=== PATIENT | female | born 1960 | race African-American/Black ===

== ENCOUNTER 2017-02-02 16:10 | Emergency (ER) | payer OTHER ==
[2017-02-02 16:27] VITALS: BP 129/89; PULSE 131; TEMP 98; BMI 26.4
--- NOTE | 2017-02-02 16:46 | PDOC ---
History of Present Illness - General Chief Complaint: Alcohol intoxication Stated Complaint: DETOX Time Seen by Provider: 02/02/17 16:45 Past History - Past Medical History Allergies/Adverse Reactions: Allergies Allergy/AdvReac Type Severity Reaction Status Date / Time egg Allergy Severe Vomiting Verified 02/02/17 16:22 Home Medications: Ambulatory Orders Clonazepam [Klonopin] 2 mg PO ASDIR 02/28/13 Venlafaxine HCl [Effexor] 150 mg PO DAILY 02/28/13 Anemia: No Asthma: No Cancer: No Cardiac Disorders: No CVA: No COPD: No CHF: No Dementia: No Diabetes: No GI Disorders: No Disorders: No HTN: No Hypercholesterolemia: Yes Kidney Stones: No Liver Disease: No Psychiatric Problems: Yes (DEPRESSION) Suicide Attempt (Hx): No Seizures: No Thyroid Disease: No - Surgical History Abdominal Surgery: No Appendectomy: No Cardiac Surgery: No Cholecystectomy: No Lung Surgery: No Neurologic Surgery: No Orthopedic Surgery: No - Reproductive History PID: No - Immunization History Immunization Up to Date: Yes - Psycho/Social/Smoking Cessation Hx Anxiety: No Suicidal Ideation: No Smoking Status: No Smoking History: Current every day smoker Have you smoked in the past 12 months: Yes Number of Cigarettes Smoked Daily: 20 Cigars Per Day: 0 Information on smoking cessation initiated: No 'Breaking Loose' booklet given: 02/18/16 Hx Alcohol Use: Yes (5-12 OZ CANS OF BEER DAILY) Drug/Substance Use Hx: Yes (OXYCODONE) Substance Use Type: Alcohol, Opiates Hx Substance Use Treatment: Yes ([facility]) *Physical Exam - Vital Signs Last Vital Signs Temp Pulse Resp BP Pulse Ox 98 F 131 H 22 129/89 97 02/02/17 16:22 02/02/17 16:22 02/02/17 16:22 02/02/17 16:22 02/02/17 16:22 Medical Decision Making - Medical Decision Making 02/02/17 17:38 Patient not in room when I went to see her...... could not find her anywhere. *DC/Admit/Observation/Transfer Diagnosis at time of Disposition: Eloped - Discharge Dispostion Disposition: ELOPED - Attestations Physician Attestion: 02/02/17 16:46 I, Dr. Flaco Erazo, attest that this document has been prepared under my direction and personally reviewed by me in its entirety. I further attest, that it accurately reflects all work, treatment, procedures and medical decision -making performed by me.
== END 2017-02-02 17:34 | disposition left against medical advice (07) ==
LOC: JER 16:10
DX: Z53.21 Procedure and treatment not carried out due to patient leaving prior to being seen by health care provider (principal)
CPT/HCPCS: 99281-25

== ENCOUNTER 2017-02-02 18:38 | Emergency (ER) | payer OTHER ==
[2017-02-02 19:07] VITALS: BMI 25.5
--- NOTE | 2017-02-02 20:02 | PDOC ---
History of Present Illness - General Chief Complaint: Substance Abuse Stated Complaint: DETOX Time Seen by Provider: 02/02/17 20:02 - History of Present Illness Initial Comments: 02/02/17 20:16 56-year-old History of alcohol Percocet abuse report to the ER, "I need detox I have been drinking and now I feel shaky." Previous records reviewed. Patient status post rehabilitation in 2016 at [facility]. Patient has a history of brain aneurysm status post coil. Patient reports head injury status post fall 3 days ago, seen at [place] and CT. head scan was negative.. Patient denies headache , Chest pain, nausea vomiting diarrhea. Patient reports feeling shaky. Last drink was 2 hours ago. Past History - Past Medical History Allergies/Adverse Reactions: Allergies Allergy/AdvReac Type Severity Reaction Status Date / Time egg Allergy Severe Vomiting Verified 02/02/17 19:04 Home Medications: Ambulatory Orders Clonazepam [Klonopin] 2 mg PO ASDIR 02/28/13 Venlafaxine HCl [Effexor] 150 mg PO DAILY 02/28/13 Anemia: No Asthma: No Cancer: No Cardiac Disorders: No CVA: No COPD: No CHF: No Dementia: No Diabetes: No GI Disorders: No Disorders: No HTN: No Hypercholesterolemia: Yes Kidney Stones: No Liver Disease: No Psychiatric Problems: Yes (DEPRESSION) Suicide Attempt (Hx): No Seizures: No Thyroid Disease: No - Surgical History Abdominal Surgery: No Appendectomy: No Cardiac Surgery: No Cholecystectomy: No Lung Surgery: No Neurologic Surgery: No Orthopedic Surgery: No - Reproductive History PID: No - Immunization History Immunization Up to Date: Yes - Psycho/Social/Smoking Cessation Hx Anxiety: No Suicidal Ideation: No Smoking Status: No Smoking History: Current every day smoker Have you smoked in the past 12 months: Yes Number of Cigarettes Smoked Daily: 20 Cigars Per Day: 0 Information on smoking cessation initiated: No 'Breaking Loose' booklet given: 02/18/16 Hx Alcohol Use: Yes (BEER-5-12OZ CANS DAILY) Drug/Substance Use Hx: Yes (OPIATES) Substance Use Type: Alcohol, Opiates (percocet) Hx Substance Use Treatment: Yes ([facility]) Lives with/in: spouse/SO Review of Systems - Review of Systems Able to Perform ROS?: Yes Is the patient limited Arabic proficient: No Constitutional: Yes: Other (renetta) *Physical Exam - Vital Signs Last Vital Signs Temp Pulse Resp BP Pulse Ox 98 F 128 H 19 112/71 98 02/02/17 19:04 02/02/17 19:04 02/02/17 19:04 02/02/17 19:04 02/02/17 19:04 - Physical Exam General Appearance: Yes: Disheveled, Alcohol on Breath Cardiovascular: positive: Regular Rhythm, Regular Rate Extremity: positive: Normal Capillary Refill, Normal Inspection, Normal Range of Motion, Other (extremity slight ) Integumentary: positive: Normal Color, Dry, Warm Neurologic: positive: Fully Oriented, Alert, Normal Mood/Affect Heart Score/ECG Review - ECG Intrepretation Rhythm: Regular Rhythm Comment:: 02/02/17 22:00 Sinus tachycardia 120bpm ED Treatment Course - LABORATORY CBC & Chemistry Diagram: 02/02/17 20:28 02/02/17 20:28 Medical Decision Making - Medical Decision Making A: alcohol abuse with intend to detox P: cbc cmp alcohol level tylenol level 02/02/17 23:00 patient awake. unable to walk. will wait for sobriety prior to discharge. patient is still asking to go to detox. 02/03/17 00:24 patient alert awake. patient requesting detox. will sent to [facility] intake by security *DC/Admit/Observation/Transfer Diagnosis at time of Disposition: Alcohol dependence with uncomplicated withdrawal - Discharge Dispostion Disposition: HOME - Patient Instructions Printed Discharge Instructions: DI for Alcohol Abuse
[2017-02-02] MEDS ORDERED: FOLIC ACID INJECTION - 1 MG, THIAMINE HCL 100 MG, MULTIVIT INJECTION ADULT 10 ML in SOD... IVPB ONE (20:10)
[2017-02-02 20:35] LABS: URINE APPEARANCE CLEAR; URINE BILIRUBIN NEGATIVE (NEGATIVE); URINE BLOOD 1+ (NEGATIVE); URINE COLOR STRAW; URINE GLUCOSE (UA) NEGATIVE (NEGATIVE); URINE KETONE NEGATIVE (NEGATIVE); URINE LEUK ESTERASE NEGATIVE (NEGATIVE); URINE NITRITE NEGATIVE (NEGATIVE); URINE PROTEIN NEGATIVE (NEGATIVE); URINE UROBILINOGEN NEGATIVE mg/dL (0.2-1.0)
[2017-02-02 20:38] LABS: URINE MUCUS RARE; URINE RBC 1 /hpf (0-3); URINE WBC 1 /hpf (3-5)
[2017-02-02 20:51] LABS: URINE MARIJUANA THC NEGATIVE ng/ml (CUTOFF=50)
[2017-02-02 20:54] LABS: BASOPHIL 1.5 % (0-2.0); EOSINOPHIL 0.5 % (0-4.5); MCH 28.8 pg (25.7-33.7); MCHC 32.5 g/dl (32.0-36.0); MEAN CELL VOLUME 88.8 fl (80-96); MEAN PLT VOLUME 7.8 fl (7.5-11.1); PLATELET COUNT 326 K/MM3 (134-434); RDW 15.8 % (11.6-15.6); WHITE BLOOD COUNT 11.5 K/mm3 (4.0-10.0)
[2017-02-02 21:06] LABS: INR 1.05 (0.82-1.09); PROTHROMBIN TIME (PATIENT) 11.6 SEC (9.98-11.88)
[2017-02-02] MEDS ORDERED: chlordiazePOXIDE HCL 25 MG CAPSULE PO ONE (21:32)
[2017-02-02 21:39] LABS: SALICYLATE < 4.0 mg/dl (0.0-30.0)
[2017-02-02 21:41] LABS: ALBUMIN 4.2 g/dl (3.4-5.0); ANION GAP 11 (8-16); BILIRUBIN,TOTAL 0.3 mg/dL (0.2-1.0); CALCIUM 9.7 mg/dL (8.5-10.1); CO2 26 mmol/L (21-32); CREATININE 0.7 mg/dL (0.55-1.02); GLUCOSE,RANDOM 99 mg/dL (74-106); SGOT/AST 19 U/L (15-37); SGPT/ALT 21 U/L (12-78); TOT PROT 8.1 g/dl (6.4-8.2)
[2017-02-02 21:42] LABS: ALCOHOL 201.5 mg/dl (0-5); ALK PHOS 79 U/L (45-117)
[2017-02-02] MEDS ORDERED: chlordiazePOXIDE HCL 25 MG CAPSULE ONE (22:13)
[2017-02-02 22:54] VITALS: TEMP 97.7
[2017-02-03 00:32] VITALS: BP 128/96; PULSE 102
--- NOTE | 2017-02-03 20:28 | EKG ---
Test Reason : Blood Pressure : / mmHG Vent. Rate : 120 BPM Atrial Rate : 120 BPM P-R Int : 158 ms QRS Dur : 078 ms QT Int : 318 ms P-R-T Axes : 065 089 064 degrees QTc Int : 449 ms SINUS TACHYCARDIA PROLONGED QTc ATRIAL ABNORMALITY DIFFUSE ST ABNORMALITIES NO PREVIOUS ECGS AVAILABLE CLINICAL CORRELATION IS RECOMMENDED Confirmed by DOMI BUSBY MD ([id number]) on 02/03/2017 8:28:22 PM Referred By: Confirmed By:DOMI BUSBY MD
== END 2017-02-03 00:44 | disposition home or self-care (01) ==
LOC: JER 18:38
PROC: 3E033GC Introduction of Other Therapeutic Substance into Peripheral Vein, Percutaneous Approach (ICD-10-PCS; principal; 2017-02-02)
DX: F10.220 Alcohol dependence with intoxication, uncomplicated (principal); Y90.7 Blood alcohol level of 200-239 mg/100 ml; F10.20 Alcohol dependence, uncomplicated; F32.9 Major depressive disorder, single episode, unspecified
CPT/HCPCS: 36415; 80053; 80307; 81003; 81015; 85025; 85610; 93005; 93010; 96365; 96366; 99283-25

== ENCOUNTER 2017-02-03 01:10 | Inpatient (IN) | payer OTHER ==
[2017-02-03 10:49] VITALS: BMI 28.0
--- NOTE | 2017-02-03 13:22 | HP ---
COWS - Scale Resting Pulse: 4= DC > 121 Sweatin=Flushed/Facial Moisture Restless Observation: 1= Difficult to Sit Still Pupil Size: 0= Normal to Room Light Bone or Joint Aches: 2= Severe Diffuse Aches Runny Nose/ Eye Tearin= Runny Nose/Eyes GI Upset > 30mins: 2= Nausea/Diarrhea Tremor Observation: 2= Slight Tremor Visible Yawning Observation: 2= >3x During Session Anxiety or Irritability: 2=Irritable/Anxious Goose Flesh Skin: 3=Piloerection COWS Score: 22 CIWA Score - CIWA Score Nausea/Vomitin-Mild Nausea/No Vomiting Muscle Tremors: 4-Moderate,w/Arms Extend Anxiety: 3 Agitation: 4-Moderately Restless Paroxysmal Sweats: 3 Orientation: 0-Oriented Tacttile Disturbances: 0-None Auditory Disturbances: 0-None Visual Disturbances: 0-None Headache: 0-None Present CIWA-Ar Total Score: 15 Admission ROS S - HPI Chief Complaint: I am here for detox. Allergies/Adverse Reactions: Allergies Allergy/AdvReac Type Severity Reaction Status Date / Time egg Allergy Severe Vomiting Verified 02/03/17 12:06 NKDA Allergy Uncoded 02/03/17 12:06 History of Present Illness: pt is a 56yr old female with a history of alcohol and percocet dependence seeking detox for treatment. Exam Limitations: No Limitations - Ebola screening Have you traveled outside of the country in the last 21 days: No Have you had contact with anyone from an Ebola affected area: No Have you been sick,other than usual withdrawal symptoms: No Do you have a fever: No - Review of Systems Constitutional: Chills, Diaphoresis, Loss of Appetite, Night Sweats EENT: reports: No Symptoms Reported Respiratory: reports: No Symptoms reported Cardiac: reports: Syncope GI: reports: Diarrhea, Nausea, Poor Fluid Intake : reports: No Symptoms Reported Musculoskeletal: reports: Other Integumentary: reports: Bruising (right side of forehead d/t fall), Flushing Neuro: reports: Tingling, Tremors Endocrine: reports: Excessive Sweating, Flushing, Intolerance to Cold, Intolerance to Heat Hematology: reports: No Symptoms Reported Psychiatric: reports: Judgement Intact, Mood/Affect Appropiate, Orientated x3, Agitated, Anxious, Depressed (crying during interview) Other Systems: Reviewed and Negative Patient History - Patient Medical History Hx Anemia: No Hx Asthma: No Hx Chronic Obstructive Pulmonary Disease (COPD): No Hx Cancer: No Hx Cardiac Disorders: No Hx Congestive Heart Failure: No Hx Hypertension: No Hx Hypercholesterolemia: Yes Hx Pacemaker: No HX Cerebrovascular Accident: No Hx Seizures: No Hx Dementia: No Hx Diabetes: No Hx Gastrointestinal Disorders: No Hx Liver Disease: No Hx Genitourinary Disorders: No Hx Sexually Transmitted Disorders: No Hx Renal Disease (ESRD): No Hx Thyroid Disease: No Hx Human Immunodeficiency Virus (HIV): No (negative) Hx Hepatitis C: No (negative) Hx Depression: Yes Hx Suicide Attempt: No (denies) Hx Bipolar Disorder: No Hx Schizophrenia: No - Patient Surgical History Past Surgical History: Yes Hx Neurologic Surgery: Yes (brain aneurysm in 2009) Hx Cataract Extraction: No Hx Cardiac Surgery: No Hx Lung Surgery: No Hx Breast Surgery: No Hx Breast Biopsy: No Hx Abdominal Surgery: No Hx Appendectomy: No Hx Cholecystectomy: No Hx Genitourinary Surgery: No Hx Section: No Hx Orthopedic Surgery: No Other Surgical History: 2010 BRAIN ANURSYM REPAIR Anesthesia Reaction: No - PPD History Previous Implant?: Yes Documented Results: Negative w/proof Implanted On Prior R Admission?: Yes Date: 02/20/16 Results: 0 mm PPD to be Administered?: No - Reproductive History Patient : No - Smoking Cessation Smoking history: Current every day smoker Have you smoked in the past 12 months: Yes Aproximately how many cigarettes per day: 20 Cigars Per Day: 0 Hx Chewing Tobacco Use: No Initiated information on smoking cessation: Yes 'Breaking Loose' booklet given: 02/03/17 - Substance & Tx. History Hx Alcohol Use: Yes Hx Substance Use: Yes Substance Use Type: Alcohol, Opiates Hx Substance Use Treatment: Yes ([facility] 02/2016) - Substances Abused Percocet Route: Oral Frequency: Daily Amount used: 10-15 tabs. (10 mg.) Age of first use: 55 Date of Last Use: 02/01/17 Alcohol-beer Route: Oral Frequency: Daily Amount used: 12 (24 oz.) Age of first use: 19 Date of Last Use: 02/03/17 Family Disease History - Family Disease History Family Disease History: Heart Disease: Father (), Mother Admission Physical Exam BHS - Vital Signs Vital Signs: Vital Signs - 24 hr 02/03/17 10:44 Temperature 96.3 F L Pulse Rate 123 H Respiratory 19 Rate Blood Pressure 151/97 - Physical General Appearance: Yes: Disheveled, Moderate Distress, Tremorous, Irritable, Sweating, Anxious HEENTM: Yes: Normal Voice, Nasal Congestion, Rhinorrhea Respiratory: Yes: Lungs Clear, Normal Breath Sounds, No Respiratory Distress Neck: Yes: No masses,lesions,Nodules Cardiology: Yes: Regular Rhythm, Regular Rate, S1, S2 Abdominal: Yes: Normal Bowel Sounds, Non Tender, Soft Genitourinary: Yes: Within Normal Limits Back: Yes: Normal Inspection Musculoskeletal: Yes: Gait Steady Extremities: Yes: Normal Inspection, Non-Tender, Tremors Neurological: Yes: Fully Oriented, Alert, Normal Response Integumentary: Yes: Normal Color, Diaphoresis Lymphatic: Yes: Within Normal Limits - Diagnostic (1) Alcohol dependence with uncomplicated withdrawal Current Visit: Yes Status: Chronic (2) Nicotine dependence Current Visit: Yes Status: Chronic Qualifiers: Nicotine product type: cigarettes Substance use status: uncomplicated Qualified Code(s): F17.210 - Nicotine dependence, cigarettes, uncomplicated (3) Opioid dependence with withdrawal Current Visit: Yes Status: Chronic (4) Bruise of face Current Visit: Yes Status: Acute Qualifiers: Encounter type: initial encounter Qualified Code(s): S00.83XA - Contusion of other part of head, initial encounter Comment: bruise of forehead d/t fall a couple of days ago. Cleared for Admission [facility] - Detox or Rehab [facility] Level of Care: Medically Managed Detox Regimen/Protocol: Methadone/Librium [facility] Breath Alcohol Content Breath Alcohol Content: 0.058 Urine Pregancy Test - Result Urine Test Results: Negative- NO Line Present Urine Drug Screen - Results Drug Screen Negative: No Urine Drug Screen Results: BZO-Benzodiazepines, OXY-Oxycodone
[2017-02-03] MEDS ORDERED: MAGNESIUM HYDROX 2400MG/30ML ORAL SUSPENSION 30 ML CUP PO PRN (13:34)
[2017-02-03] MEDS ORDERED: MAG HYDROX/AL HYDROX/SIMETH 30 ML UNIT-DOSE CUP PO PRN (13:34)
[2017-02-03] MEDS ORDERED: IBUPROFEN 400 MG TABLET (FP) PO PRN (13:34)
[2017-02-03] MEDS ORDERED: diphenhydrAMINE HCL 50 MG CAPSULE PO PRN (13:34)
[2017-02-03] MEDS ORDERED: NICOTINE POLACRILEX 4 MG GUM BUC PRN (13:34)
[2017-02-03] MEDS ORDERED: LOPERAMIDE HCL 2 MG CAPSULE PO PRN (13:34)
[2017-02-03] MEDS ORDERED: MAGNESIUM CITRATE 300 ML BOTTLE PO PRN (13:34)
[2017-02-03] MEDS ORDERED: P-EPHED 60MG/TRIPROLIDI 2.5MG TABLET PO PRN (13:34)
[2017-02-03] MEDS ORDERED: hydrOXYzine PAMOATE 50 MG CAPSULE (FP) PO PRN (13:34)
[2017-02-03] MEDS ORDERED: METHADONE HCL 10 MG TABLET (FOR DETOX USE ONLY) PO ONE ×2 (13:51→23:00)
[2017-02-03] MEDS ORDERED: chlordiazePOXIDE HCL 25 MG CAPSULE PO ONE ×2 (14:16→15:50)
[2017-02-03] MEDS: NICOTINE 21 MG/24 HOURS TOPICAL PATCH TD SCH (14:51)
[2017-02-03] MEDS: chlordiazePOXIDE HCL 25 MG CAPSULE PO SCH ×2 (17:03→22:14)
[2017-02-03] MEDS: ACETAMINOPHEN 325 MG TABLET (FP) PO PRN (17:45)
[2017-02-03] MEDS: chlordiazePOXIDE HCL 25 MG CAPSULE PO PRN (19:53)
[2017-02-03] MEDS: BACITRACIN 0.9 GM PACKET TP SCH (22:13)
[2017-02-03] MEDS: THIAMINE HCL 100 MG TABLET (FP) PO SCH (22:14)
[2017-02-03] MEDS: ATORVASTATIN CA 40 MG TABLET (FP) PO SCH (22:14)
[2017-02-03 23:21] LABS: URINE APPEARANCE CLEAR; URINE BILIRUBIN NEGATIVE (NEGATIVE); URINE BLOOD 1+ (NEGATIVE); URINE COLOR LTYELLOW; URINE GLUCOSE (UA) NEGATIVE (NEGATIVE); URINE KETONE NEGATIVE (NEGATIVE); URINE LEUK ESTERASE TRACE (NEGATIVE); URINE NITRITE NEGATIVE (NEGATIVE); URINE PROTEIN NEGATIVE (NEGATIVE); URINE UROBILINOGEN NEGATIVE mg/dL (0.2-1.0)
[2017-02-03 23:30] LABS: URINE BACTERIA RARE /hpf (NONE SEEN); URINE MUCUS RARE; URINE WBC 2 /hpf (3-5)
[2017-02-04] MEDS: chlordiazePOXIDE HCL 25 MG CAPSULE PO PRN ×2 (02:41→15:21)
[2017-02-04] MEDS: chlordiazePOXIDE HCL 25 MG CAPSULE PO SCH ×4 (05:13→22:11)
--- NOTE | 2017-02-04 09:08 | CONSULT ---
[facility] Psychiatric Consult - Data Date of interview: 02/04/17 Admission source: [facility] Identifying data: This is 36 years old female with psychiatric hospitalization history, history of MDD, intoxicated with: Alcohol, Opioids and Nicotine Substance Abuse History: - Smoking Cessation. Smoking history: Current every day smoker. Have you smoked in the past 12 months: Yes. Aproximately how many cigarettes per day: 20. Cigars Per Day: 0. Hx Chewing Tobacco Use: No. Initiated information on smoking cessation: Yes. 'Breaking Loose' booklet given : 02/03/17. - Substance & Tx. History. Hx Alcohol Use: Yes. Hx Substance Use : Yes. Substance Use Type: Alcohol, Opiates. Hx Substance Use Treatment: Yes ( [facility] 02/2016). - Substances Abused. Percocet. Route: Oral. Frequency: Daily. Amount used: 10-15 tabs. (10 mg.). Age of first use: 55. Date of Last Use: 02/01/17. Alcohol-beer. Route: Oral. Frequency: Daily. Amount used: 12 (24 oz.). Age of first use: 19. Date of Last Use: 02/03/17. Family Disease History. - Family Disease History. Family Disease History: Heart Disease: Father (), Mother Medical History: LBP, Psychiatric History: Patient reports history of depression,. reports taking prior to admission: Effexor XR 300mg poqd. Seroquel 1009mg po qhs. Patient reports most recent psychiatric admission on 2013 at [facility] Physical/Sexual Abuse/Trauma History: Denies Additional Comment: Effexor XR 300mg poqd. Seroquel 1009mg po qhs Mental Status Exam - Mental Status Exam Alert and Oriented to: Person Cognitive Function: Fair Patient Appearance: Unkempt Mood: Sad Affect: Flat Patient Behavior: Cooperative Speech Pattern: Appropriate, Delayed Voice Loudness: Mildly Soft/Quiet Thought Process: Goal Oriented Thought Disorder: Being Controlled Hallucinations: Denies Suicidal Ideation: Denies Homicidal Ideation: Denies Insight/Judgement: Fair Sleep: Difficulty falling asleep Appetite: Fair Muscle strength/Tone: Mild Hypotonicity Gait/Station: Shuffling Additional Comments: Effexor XR 300mg poqd. Seroquel 1009mg po qhs Psychiatric Findings - Problem List ([place] 1, 2,3) (1) Alcohol dependence with uncomplicated withdrawal Current Visit: Yes Status: Chronic (2) Nicotine dependence Current Visit: Yes Status: Chronic Qualifiers: Nicotine product type: cigarettes Substance use status: uncomplicated Qualified Code(s): F17.210 - Nicotine dependence, cigarettes, uncomplicated (3) Opioid dependence with withdrawal Current Visit: Yes Status: Chronic (4) Substance abuse Current Visit: No Status: Acute (5) Substance induced mood disorder Current Visit: No Status: Acute (6) Major depressive disorder, recurrent, moderate Current Visit: No Status: Chronic - Initial Treatment Plan Initial Treatment Plan: Effexor XR 300mg poqd. Seroquel 1009mg po qhs
[2017-02-04] MEDS ORDERED: METHADONE HCL 10 MG TABLET (FOR DETOX USE ONLY) PO SCH (10:00)
[2017-02-04] MEDS: PRENATAL VITAMINS W/ FOLIC ACID TABLET (FP) PO SCH (10:02)
[2017-02-04] MEDS: BACITRACIN 0.9 GM PACKET TP SCH ×2 (10:02→22:11)
[2017-02-04] MEDS: NICOTINE 21 MG/24 HOURS TOPICAL PATCH TD SCH ×2 (10:02→10:03)
[2017-02-04] MEDS: RANITIDINE HCL 150 MG TABLET (FP) PO SCH ×2 (10:03→22:11)
[2017-02-04] MEDS: VENLAFAXINE HCL 150 MG E.R. CAPSULE PO SCH (10:03)
--- NOTE | 2017-02-04 10:08 | PN ---
[facility] CIWA - CIWA Score Nausea/Vomitin Muscle Tremors: 3 Anxiety: 3 Agitation: 2 Paroxysmal Sweats: 1-Minimal Palms Moist Orientation: 0-Oriented Tacttile Disturbances: 1-Very Mild Itch/Numbness Auditory Disturbances: 1-Very Mild Visual Disturbances: 1-Very Mild Sensitivity Headache: 2-Mild CIWA-Ar Total Score: 17 BHS COWS - Scale Resting Pulse: 2= [place] 101-120 Sweatin= Chills/Flushing Restless Observation: 3= Extraneous Movement Pupil Size: 1= Pupils >than Normal Bone or Joint Aches: 2= Severe Diffuse Aches Runny Nose/ Eye Tearin= Runny Nose/Eyes GI Upset > 30mins: 2= Nausea/Diarrhea Tremor Observation of Outstretched Hands: 2= Slight Tremor Visible Yawning Observation: 1= 1-2x During Session Anxiety or Irritability: 2=Irritable/Anxious Goose Flesh Skin: 0=Smooth Skin COWS Score: 18 S Progress Note (SOAP) Subjective: ALERT,IRRITABLE,ANXIOUS,INTERRUPTED SLEEP,PAIN IN THE BODY,COUGHING Objective: 02/04/17 10:05 Vital Signs Temperature 98.1 F 02/04/17 09:32 Pulse Rate 111 H 02/04/17 09:32 Respiratory Rate 20 02/04/17 09:32 Blood Pressure 115/69 02/04/17 09:32 O2 Sat by Pulse Oximetry (%) EKG SINUS TACHYCARDIA 111/MIN,INVERTED T IN V2 AND V3 NO CHEST PAIN,NO SOB,NO DIZZINESS Laboratory Last Values Urine Color Ltyellow 02/03/17 20:00 Urine Appearance Clear 02/03/17 20:00 Urine pH 5.0 (5.0-8.0) 02/03/17 20:00 Urine Protein Negative (NEGATIVE) 02/03/17 20:00 Urine Glucose (UA) Negative (NEGATIVE) 02/03/17 20:00 Urine Ketones Negative (NEGATIVE) 02/03/17 20:00 Urine Blood 1+ (NEGATIVE) H 02/03/17 20:00 Urine Nitrite Negative (NEGATIVE) 02/03/17 20:00 Urine Bilirubin Negative (NEGATIVE) 02/03/17 20:00 Urine Urobilinogen Negative mg/dL (0.2-1.0) 02/03/17 20:00 Ur Leukocyte Esterase Trace (NEGATIVE) 02/03/17 20:00 Urine RBC None /hpf (0-3) 02/03/17 20:00 Urine WBC 2 /hpf (3-5) 02/03/17 20:00 Ur Epithelial Cells Few /hpf (FEW) 02/03/17 20:00 Urine Bacteria Rare /hpf (NONE SEEN) 02/03/17 20:00 Urine Mucus Rare 02/03/17 20:00 LABS PENDING Assessment: 02/04/17 10:07 WITHDRAWAL SYMPTOM Plan: CONTINUE DETOX
[2017-02-04] MEDS: HYDROCORTISONE 2.5% TOPICAL CREAM 30 GM TUBE TP SCH ×2 (12:01→23:14)
--- NOTE | 2017-02-04 12:22 | EKG ---
Test Reason : Blood Pressure : / mmHG Vent. Rate : 111 BPM Atrial Rate : 111 BPM P-R Int : 154 ms QRS Dur : 078 ms QT Int : 346 ms P-R-T Axes : 067 065 057 degrees QTc Int : 470 ms SINUS TACHYCARDIA POSSIBLE LEFT ATRIAL ENLARGEMENT T WAVE ABNORMALITY, CONSIDER ANTERIOR ISCHEMIA ABNORMAL ECG WHEN COMPARED WITH ECG OF 02-FEB-2017 21:29, T WAVE INVERSION NOW EVIDENT IN ANTERIOR LEADS Confirmed by TONYA ROSAS, SANDEE ([id number]) on 02/04/2017 12:22:07 PM Referred By: Attila Medrano Confirmed By:SANDEE CASTANEDA MD
[2017-02-04] MEDS: MENTHOL/PHENOL 1 EACH UD MM PRN (15:22)
[2017-02-04] MEDS: QUEtiapine FUMARATE 100 MG TABLET (FP) PO SCH (22:11)
[2017-02-04] MEDS: THIAMINE HCL 100 MG TABLET (FP) PO SCH (22:11)
[2017-02-04] MEDS: ATORVASTATIN CA 40 MG TABLET (FP) PO SCH (22:11)
[2017-02-05] MEDS: chlordiazePOXIDE HCL 25 MG CAPSULE PO SCH ×2 (05:21→10:18)
[2017-02-05] MEDS: ACETAMINOPHEN 325 MG TABLET (FP) PO PRN (05:22)
--- NOTE | 2017-02-05 09:51 | PN ---
[facility] CIWA - CIWA Score Nausea/Vomitin Muscle Tremors: 3 Anxiety: 3 Agitation: 2 Paroxysmal Sweats: 1-Minimal Palms Moist Orientation: 0-Oriented Tacttile Disturbances: 1-Very Mild Itch/Numbness Auditory Disturbances: 1-Very Mild Visual Disturbances: 1-Very Mild Sensitivity Headache: 2-Mild CIWA-Ar Total Score: 17 BHS COWS - Scale Resting Pulse: 2= CT 101-120 Sweatin= Chills/Flushing Restless Observation: 3= Extraneous Movement Pupil Size: 1= Pupils >than Normal Bone or Joint Aches: 2= Severe Diffuse Aches Runny Nose/ Eye Tearin= Runny Nose/Eyes GI Upset > 30mins: 2= Nausea/Diarrhea Tremor Observation of Outstretched Hands: 2= Slight Tremor Visible Yawning Observation: 1= 1-2x During Session Anxiety or Irritability: 2=Irritable/Anxious Goose Flesh Skin: 0=Smooth Skin COWS Score: 18 S Progress Note (SOAP) Subjective: ALERT,IRRITABLE,ANXIOUS,INTERRUPTED SLEEP,PAIN IN THE BODY BACK Objective: 02/05/17 10:00 Vital Signs Temperature 98.1 F 02/05/17 06:51 Pulse Rate 104 H 02/05/17 06:51 Respiratory Rate 20 02/05/17 06:51 Blood Pressure 108/67 02/05/17 06:51 O2 Sat by Pulse Oximetry (%) Laboratory Tests 02/03/17 02/04/17 20:00 05:45 Urine Color Ltyellow Urine Appearance Clear Urine pH 5.0 Ur Specific [place] 1.010 Urine Protein Negative Urine Glucose (UA) Negative Urine Ketones Negative Urine Blood 1+ H Urine Nitrite Negative Urine Bilirubin Negative Urine Urobilinogen Negative Ur Leukocyte Esterase Trace Urine RBC None Urine WBC 2 Ur Epithelial Cells Few Urine Bacteria Rare Urine Mucus Rare RPR Titer Nonreactive 02/05/17 10:01 [facility]S FROM [facility] ON 02/02/17 NOTED Assessment: 02/05/17 10:02 WITHDRAWAL SYMPTOM Plan: CONTINUE DETOX
[2017-02-05] MEDS: HYDROCORTISONE 2.5% TOPICAL CREAM 30 GM TUBE TP SCH ×2 (10:17→22:11)
[2017-02-05] MEDS: RANITIDINE HCL 150 MG TABLET (FP) PO SCH ×2 (10:18→22:12)
[2017-02-05] MEDS: BACITRACIN 0.9 GM PACKET TP SCH ×2 (10:18→22:11)
[2017-02-05] MEDS: PRENATAL VITAMINS W/ FOLIC ACID TABLET (FP) PO SCH (10:18)
[2017-02-05] MEDS: METHADONE HCL 5 MG TABLET (FOR DETOX USE ONLY) PO SCH (10:18)
[2017-02-05] MEDS: VENLAFAXINE HCL 150 MG E.R. CAPSULE PO SCH (10:19)
[2017-02-05] MEDS: chlordiazePOXIDE 5 MG CAPSULE PO SCH ×2 (17:24→22:11)
[2017-02-05] MEDS: THIAMINE HCL 100 MG TABLET (FP) PO SCH (22:11)
[2017-02-05] MEDS: ATORVASTATIN CA 40 MG TABLET (FP) PO SCH (22:12)
[2017-02-05] MEDS: QUEtiapine FUMARATE 100 MG TABLET (FP) PO SCH (22:12)
[2017-02-06] MEDS: guaiFENesin/D-METHORPHAN HB 10 ML UNIT-DOSE CUPS PO PRN (06:22)
[2017-02-06] MEDS: chlordiazePOXIDE 5 MG CAPSULE PO SCH ×3 (06:23→13:00)
[2017-02-06] MEDS: VENLAFAXINE HCL 150 MG E.R. CAPSULE PO SCH (10:18)
[2017-02-06] MEDS: BACITRACIN 0.9 GM PACKET TP SCH ×2 (10:18→22:11)
[2017-02-06] MEDS: NICOTINE 21 MG/24 HOURS TOPICAL PATCH TD SCH (10:18)
[2017-02-06] MEDS: RANITIDINE HCL 150 MG TABLET (FP) PO SCH ×2 (10:19→22:11)
[2017-02-06] MEDS: METHADONE HCL 5 MG TABLET (FOR DETOX USE ONLY) PO SCH ×2 (10:19→15:56)
[2017-02-06] MEDS: HYDROCORTISONE 2.5% TOPICAL CREAM 30 GM TUBE TP SCH ×2 (10:19→22:11)
[2017-02-06] MEDS: PRENATAL VITAMINS W/ FOLIC ACID TABLET (FP) PO SCH (10:19)
--- NOTE | 2017-02-06 10:30 | PN ---
[facility] Progress Note (SOAP) Subjective: ALERT,IRRITABLE,ANXIOUS,INTERRUPTED SLEEP,TREMOR Objective: 02/06/17 10:29 Vital Signs Temperature 96.6 F L 02/06/17 10:00 Pulse Rate 107 H 02/06/17 10:00 Respiratory Rate 20 02/06/17 10:00 Blood Pressure 111/61 02/06/17 10:00 O2 Sat by Pulse Oximetry (%) Assessment: 02/06/17 10:29 WITHDRAWAL SYMPTOM Plan: CONTINUE DETOX
[2017-02-06] MEDS ORDERED: METHADONE HCL 10 MG TABLET (FOR DETOX USE ONLY) PO ONE (16:54)
[2017-02-06] MEDS: chlordiazePOXIDE HCL 10 MG CAPSULE PO SCH ×2 (16:59→22:11)
[2017-02-06] MEDS ORDERED: METHADONE HCL 5 MG TABLET (FOR DETOX USE ONLY) PO ONE (17:45)
[2017-02-06] MEDS: THIAMINE HCL 100 MG TABLET (FP) PO SCH (22:11)
[2017-02-06] MEDS: QUEtiapine FUMARATE 100 MG TABLET (FP) PO SCH (22:11)
[2017-02-06] MEDS: ATORVASTATIN CA 40 MG TABLET (FP) PO SCH (22:41)
[2017-02-07] MEDS: chlordiazePOXIDE HCL 10 MG CAPSULE PO SCH ×2 (06:00→10:10)
[2017-02-07] MEDS ORDERED: METHADONE HCL 10 MG TABLET (FOR DETOX USE ONLY) PO SCH (10:00)
[2017-02-07] MEDS: VENLAFAXINE HCL 150 MG E.R. CAPSULE PO SCH (10:10)
[2017-02-07] MEDS: HYDROCORTISONE 2.5% TOPICAL CREAM 30 GM TUBE TP SCH ×2 (10:11→22:15)
[2017-02-07] MEDS: PRENATAL VITAMINS W/ FOLIC ACID TABLET (FP) PO SCH (10:11)
[2017-02-07] MEDS: RANITIDINE HCL 150 MG TABLET (FP) PO SCH ×2 (10:11→22:14)
[2017-02-07] MEDS: BACITRACIN 0.9 GM PACKET TP SCH ×2 (10:12→22:15)
[2017-02-07] MEDS: NICOTINE 21 MG/24 HOURS TOPICAL PATCH TD SCH ×3 (10:12→10:13)
--- NOTE | 2017-02-07 11:23 | PN ---
[facility] Progress Note (SOAP) Subjective: Sweating,interrupted sleep,restless Objective: 02/07/17 11:20 Vital Signs - 8 hr 02/07/17 02/07/17 02/07/17 03:30 06:00 09:43 Temperature 98.2 F 97.5 F L Pulse Rate 102 H 122 H Respiratory 18 18 20 Rate Blood Pressure 124/72 111/62 Laboratory Last Values Urine Color Ltyellow 02/03/17 20:00 Urine Appearance Clear 02/03/17 20:00 Urine pH 5.0 (5.0-8.0) 02/03/17 20:00 Ur Specific [place] 1.010 (1.005-1.025) 02/03/17 20:00 Urine Protein Negative (NEGATIVE) 02/03/17 20:00 Urine Glucose (UA) Negative (NEGATIVE) 02/03/17 20:00 Urine Ketones Negative (NEGATIVE) 02/03/17 20:00 Urine Blood 1+ (NEGATIVE) H 02/03/17 20:00 Urine Nitrite Negative (NEGATIVE) 02/03/17 20:00 Urine Bilirubin Negative (NEGATIVE) 02/03/17 20:00 Urine Urobilinogen Negative mg/dL (0.2-1.0) 02/03/17 20:00 Ur Leukocyte Esterase Trace (NEGATIVE) 02/03/17 20:00 Urine RBC None /hpf (0-3) 02/03/17 20:00 Urine WBC 2 /hpf (3-5) 02/03/17 20:00 Ur Epithelial Cells Few /hpf (FEW) 02/03/17 20:00 Urine Bacteria Rare /hpf (NONE SEEN) 02/03/17 20:00 Urine Mucus Rare 02/03/17 20:00 RPR Titer Nonreactive (NONREACTIVE) 02/04/17 05:45 CMP & CBC noted Assessment: 02/07/17 11:22 Withdrawal sx. Plan: Continue detox
[2017-02-07] MEDS: MENTHOL/PHENOL 1 EACH UD MM PRN (16:55)
[2017-02-07] MEDS: THIAMINE HCL 100 MG TABLET (FP) PO SCH (22:14)
[2017-02-07] MEDS: QUEtiapine FUMARATE 100 MG TABLET (FP) PO SCH (22:14)
[2017-02-07] MEDS: ATORVASTATIN CA 40 MG TABLET (FP) PO SCH (22:14)
[2017-02-08] MEDS ORDERED: METHADONE HCL 5 MG TABLET (FOR DETOX USE ONLY) PO SCH (06:00)
[2017-02-08] MEDS: guaiFENesin/D-METHORPHAN HB 10 ML UNIT-DOSE CUPS PO PRN (06:07)
[2017-02-08] MEDS: RANITIDINE HCL 150 MG TABLET (FP) PO SCH (10:36)
[2017-02-08] MEDS: BACITRACIN 0.9 GM PACKET TP SCH (10:36)
[2017-02-08] MEDS: VENLAFAXINE HCL 150 MG E.R. CAPSULE PO SCH (10:36)
[2017-02-08] MEDS: PRENATAL VITAMINS W/ FOLIC ACID TABLET (FP) PO SCH (10:36)
[2017-02-08] MEDS: HYDROCORTISONE 2.5% TOPICAL CREAM 30 GM TUBE TP SCH (10:36)
[2017-02-08 10:52] VITALS: BP 94/53; PULSE 106; TEMP 97.9
--- NOTE | 2017-02-08 13:50 | DS ---
[facility] Detox Discharge Summary Admission Date: 02/03/17 Discharge Date: 02/08/17 - History Present History: Alcohol Dependence, Opioid Dependence Pertinent Past History: Mood Disorder - Physical Exam Results Vital Signs: Vital Signs Temperature 97.9 F 02/08/17 10:00 Pulse Rate 106 H 02/08/17 10:00 Respiratory Rate 18 02/08/17 10:00 Blood Pressure 94/53 02/08/17 10:00 O2 Sat by Pulse Oximetry (%) Pertinent Admission Physical Exam Findings: Withdrawal sx. Laboratory Last Values Urine Color Ltyellow 02/03/17 20:00 Urine Appearance Clear 02/03/17 20:00 Urine pH 5.0 (5.0-8.0) 02/03/17 20:00 Ur Specific [place] 1.010 (1.005-1.025) 02/03/17 20:00 Urine Protein Negative (NEGATIVE) 02/03/17 20:00 Urine Glucose (UA) Negative (NEGATIVE) 02/03/17 20:00 Urine Ketones Negative (NEGATIVE) 02/03/17 20:00 Urine Blood 1+ (NEGATIVE) H 02/03/17 20:00 Urine Nitrite Negative (NEGATIVE) 02/03/17 20:00 Urine Bilirubin Negative (NEGATIVE) 02/03/17 20:00 Urine Urobilinogen Negative mg/dL (0.2-1.0) 02/03/17 20:00 Ur Leukocyte Esterase Trace (NEGATIVE) 02/03/17 20:00 Urine RBC None /hpf (0-3) 02/03/17 20:00 Urine WBC 2 /hpf (3-5) 02/03/17 20:00 Ur Epithelial Cells Few /hpf (FEW) 02/03/17 20:00 Urine Bacteria Rare /hpf (NONE SEEN) 02/03/17 20:00 Urine Mucus Rare 02/03/17 20:00 RPR Titer Nonreactive (NONREACTIVE) 02/04/17 05:45 labs noted - Treatment Hospital Course: Detox Protocol Followed, Detoxed Safely, Responded well, Discharged Condition Good, Rehab Referral Accepted Patient has Accepted a Rehab Referral to: IOP - Medication Discharge Medications: Ambulatory Orders Atorvastatin Ca [Lipitor] 80 mg PO HS 02/03/17 Clonazepam [Klonopin] 1 mg PO BID 02/03/17 Quetiapine Fumarate [Seroquel] 100 mg PO HS #30 tablet 02/04/17 Venlafaxine HCl ER [Effexor Xr -] 300 mg PO DAILY #30 cap 02/04/17 Venlafaxine HCl ER [Effexor Xr -] 300 mg PO DAILY #30 cap.er.24h 02/04/17 - Diagnosis (1) Substance induced mood disorder Status: Acute (2) Alcohol dependence with uncomplicated withdrawal Status: Acute (3) Major depressive disorder, recurrent, moderate Status: Chronic (4) Nicotine dependence Status: Chronic Qualifiers: Nicotine product type: cigarettes Substance use status: uncomplicated Qualified Code(s): F17.210 - Nicotine dependence, cigarettes, uncomplicated (5) Opioid dependence with withdrawal Status: Acute - AMA Did Patient Leave Against Medical Advice: No
== END 2017-02-08 11:11 | disposition home or self-care (01) | DRG 897 ==
LOC: YASAS 01:10 → Y6N 13:21
PROVIDERS: ADMIT Internal Medicine Addiction Medicine; ATTEND Internal Medicine Addiction Medicine
PROC: HZ2ZZZZ Detoxification Services for Substance Abuse Treatment (ICD-10-PCS; principal; 2017-02-08)
DX: F11.23 Opioid dependence with withdrawal (principal); F33.1 Major depressive disorder, recurrent, moderate; F10.230 Alcohol dependence with withdrawal, uncomplicated; F17.213 Nicotine dependence, cigarettes, with withdrawal; F19.24 Other psychoactive substance dependence with psychoactive substance-induced mood disorder; S00.83XA Contusion of other part of head, initial encounter; W19.XXXA Unspecified fall, initial encounter; Y92.89 Other specified places as the place of occurrence of the external cause
CPT/HCPCS: 36415; 81003; 81015; 86593; 93005; 93010

== ENCOUNTER 2017-04-21 15:30 | Inpatient (IN) | payer OTHER ==
[2017-04-21 18:30] VITALS: BMI 26.0
--- NOTE | 2017-04-21 19:54 | HP ---
COWS - Scale Resting Pulse: 4= [place] > 121 Sweatin= Chills/Flushing Restless Observation: 1= Difficult to Sit Still Pupil Size: 0= Normal to Room Light Bone or Joint Aches: 1= Mild Discomfort Runny Nose/ Eye Tearin= Nasal Congestion GI Upset > 30mins: 3= Vomiting/Diarrhea Tremor Observation: 2= Slight Tremor Visible Yawning Observation: 0= None Anxiety or Irritability: 2=Irritable/Anxious Goose Flesh Skin: 0=Smooth Skin COWS Score: 15 CIWA Score - CIWA Score Nausea/Vomitin Muscle Tremors: 4-Moderate,w/Arms Extend Anxiety: 1-Mildly Anxious Agitation: 4-Moderately Restless Paroxysmal Sweats: 1-Minimal Palms Moist Orientation: 1-Uncertain about Date Tacttile Disturbances: 0-None Auditory Disturbances: 0-None Visual Disturbances: 0-None Headache: 1-Very Mild CIWA-Ar Total Score: 14 Admission ROS S - HPI Chief Complaint: WITHDRAWAL SX Allergies/Adverse Reactions: Allergies Allergy/AdvReac Type Severity Reaction Status Date / Time egg Allergy Severe Vomiting Verified 04/21/17 20:11 No Known Drug Allergies Allergy Unknown Verified 04/21/17 20:11 NKDA Allergy Uncoded 04/21/17 20:11 History of Present Illness: 56 YEARS OLD FEMALE WITH LONG HISTORY OF OPIATE ALCOHOL NICOTINE HAS DEPRESSION IS ADMITTED TO DETOX Exam Limitations: No Limitations - Ebola screening Have you traveled outside of the country in the last 21 days: No Have you had contact with anyone from an Ebola affected area: No Have you been sick,other than usual withdrawal symptoms: No Do you have a fever: No - Review of Systems Constitutional: Changes in sleep, Weight Stable EENT: reports: Blurred Vision (NEED EYE GLASSES) Respiratory: reports: SOB with Exertion, Productive cough (YELLOWISH) Cardiac: reports: No Symptoms Reported GI: reports: Nausea, Poor Fluid Intake, Vomiting, Indigestion, Abdominal cramping : reports: No Symptoms Reported Musculoskeletal: reports: Back Pain, Joint Pain, Muscle Pain, Neck Pain Integumentary: reports: Other (FACIAL SCAR FROM FALL 01/2017 TREATED AT [facility] DISCHARGED WITHOUT TREATMENT) Neuro: reports: Tremors Endocrine: reports: No Symptoms Reported Hematology: reports: No Symptoms Reported Psychiatric: reports: Judgement Intact, Anxious, Depressed Other Systems: Reviewed and Negative Patient History - Patient Medical History Hx Anemia: No Hx Asthma: No Hx Chronic Obstructive Pulmonary Disease (COPD): No Hx Cancer: No Hx Cardiac Disorders: No Hx Congestive Heart Failure: No Hx Hypertension: No Hx Hypercholesterolemia: Yes (NO TREATMENT) Hx Pacemaker: No HX Cerebrovascular Accident: No Hx Seizures: No Hx Dementia: No Hx Diabetes: No Hx Gastrointestinal Disorders: No Hx Liver Disease: No Hx Genitourinary Disorders: No Hx Sexually Transmitted Disorders: No Hx Renal Disease (ESRD): No Hx Thyroid Disease: No Hx Human Immunodeficiency Virus (HIV): No (negative) Hx Hepatitis C: No (negative) Hx Depression: Yes Hx Suicide Attempt: No (denies) Hx Bipolar Disorder: No Hx Schizophrenia: No - Patient Surgical History Past Surgical History: Yes Hx Neurologic Surgery: Yes (brain aneurysm in 2009) Hx Cataract Extraction: No Hx Cardiac Surgery: No Hx Lung Surgery: No Hx Breast Surgery: No Hx Breast Biopsy: No Hx Abdominal Surgery: No Hx Appendectomy: No Hx Cholecystectomy: No Hx Genitourinary Surgery: No Hx Section: No Hx Orthopedic Surgery: No Hx Hysterectomy: No Other Surgical History: 2010 BRAIN ANURSYM REPAIR Anesthesia Reaction: No - PPD History Previous Implant?: Yes Documented Results: Negative w/proof Implanted On Prior R Admission?: Yes Date: 02/20/16 Results: 0 mm PPD to be Administered?: Yes - Reproductive History Patient is a Female of Child Bearing Age (11 -55 yrs old): Yes Last Menstrual Period: 04/21/02 Patient : No - Smoking Cessation Smoking history: Current every day smoker Have you smoked in the past 12 months: Yes Aproximately how many cigarettes per day: 20 Cigars Per Day: 0 Hx Chewing Tobacco Use: No Initiated information on smoking cessation: Yes 'Breaking Loose' booklet given: 04/21/17 - Substance & Tx. History Hx Alcohol Use: Yes Hx Substance Use: Yes Substance Use Type: Alcohol, Opiates Hx Substance Use Treatment: Yes (02/03-02/08/17 [facility]) - Substances Abused Alcohol Route: Oral Frequency: Daily Amount used: QUART VOLKA Age of first use: 19 Date of Last Use: 04/21/17 Oxycontin Route: Oral Frequency: Daily Amount used: 170 MG Age of first use: 52 Date of Last Use: 04/21/17 Family Disease History - Family Disease History Family Disease History: Diabetes: Sister, Heart Disease: Father (), Mother Admission Physical Exam [facility] - Vital Signs Vital Signs: Vital Signs - 24 hr 04/21/17 18:28 Temperature 97.5 F L Pulse Rate 125 H Respiratory 20 Rate Blood Pressure 121/73 - Physical General Appearance: Yes: Nourished, Appropriately Dressed, Mild Distress, Alcohol on Breath, Tremorous, Irritable, Sweating, Anxious HEENTM: Yes: Hearing grossly Normal, Normal ENT Inspection, Normocephalic, Normal Voice Respiratory: Yes: Chest Non-Tender, Lungs Clear, Normal Breath Sounds, No Respiratory Distress, No Accessory Muscle Use Neck: Yes: Supple, Trachea in good position Breast: Yes: Breasts Symetrical Cardiology: Yes: Regular Rhythm, S1, S2, Tachycardia Abdominal: Yes: Non Tender, Soft, Increased Bowel Sounds Genitourinary: Yes: Within Normal Limits Back: Yes: Normal Inspection Musculoskeletal: Yes: full range of Motion, Gait Steady, Back pain, Muscle Pain Extremities: Yes: Normal Inspection, Normal Range of Motion, Non-Tender, Tremors Neurological: Yes: Alert, Motor Strength 5/5, Normal Response, Depressed Affect Integumentary: Yes: Warm Lymphatic: Yes: Within Normal Limits - Diagnostic (1) Alcohol dependence with uncomplicated withdrawal Current Visit: Yes Status: Acute (2) Opioid dependence with withdrawal Current Visit: Yes Status: Acute (3) Major depressive disorder, recurrent, moderate Current Visit: Yes Status: Suspected (4) Nicotine dependence Current Visit: Yes Status: Chronic Qualifiers: Nicotine product type: cigarettes Substance use status: in withdrawal Qualified Code(s): F17.213 - Nicotine dependence, cigarettes, with withdrawal; F17.213 - Nicotine dependence, cigarettes, with withdrawal (5) GERD (gastroesophageal reflux disease) Current Visit: Yes Status: Chronic Qualifiers: Esophagitis presence: without esophagitis Qualified Code(s): K21.9 - Gastro-esophageal reflux disease without esophagitis; K21.9 - Gastro- esophageal reflux disease without esophagitis; K21.9 - Gastro-esophageal reflux disease without esophagitis Cleared for Admission [facility] - Detox or Rehab [facility] Level of Care: Medically Managed Detox Regimen/Protocol: Methadone/Librium [facility] Breath Alcohol Content Breath Alcohol Content: 0.182 Urine Pregancy Test - Result Urine Test Results: Negative- NO Line Present Urine Drug Screen - Results Drug Screen Negative: No Urine Drug Screen Results: OXY-Oxycodone
[2017-04-21] MEDS ORDERED: MENTHOL/PHENOL 1 EACH UD MM PRN (20:08)
[2017-04-21] MEDS ORDERED: guaiFENesin/D-METHORPHAN HB 10 ML UNIT-DOSE CUPS PO PRN (20:08)
[2017-04-21] MEDS ORDERED: METHADONE HCL 10 MG TABLET (FOR DETOX USE ONLY) PO ONE ×2 (20:08→23:00)
[2017-04-21] MEDS ORDERED: MAG HYDROX/AL HYDROX/SIMETH 30 ML UNIT-DOSE CUP PO PRN (20:08)
[2017-04-21] MEDS ORDERED: MAGNESIUM HYDROX 2400MG/30ML ORAL SUSPENSION 30 ML CUP PO PRN (20:08)
[2017-04-21] MEDS ORDERED: MAGNESIUM CITRATE 300 ML BOTTLE PO PRN (20:08)
[2017-04-21] MEDS ORDERED: P-EPHED 60MG/TRIPROLIDI 2.5MG TABLET PO PRN (20:08)
[2017-04-21] MEDS ORDERED: diphenhydrAMINE HCL 50 MG CAPSULE PO PRN (20:08)
[2017-04-21] MEDS ORDERED: LOPERAMIDE HCL 2 MG CAPSULE PO PRN (20:08)
[2017-04-21] MEDS ORDERED: NICOTINE POLACRILEX 4 MG GUM BUC PRN (20:13)
[2017-04-21] MEDS: chlordiazePOXIDE HCL 25 MG CAPSULE PO SCH (22:38)
[2017-04-21] MEDS: THIAMINE HCL 100 MG TABLET (FP) PO SCH (22:38)
[2017-04-21] MEDS: RANITIDINE HCL 150 MG TABLET (FP) PO SCH (22:38)
[2017-04-21 23:08] LABS: URINE APPEARANCE SLCLOUDY; URINE BILIRUBIN NEGATIVE (NEGATIVE); URINE BLOOD 1+ (NEGATIVE); URINE COLOR YELLOW; URINE GLUCOSE (UA) NEGATIVE (NEGATIVE); URINE KETONE NEGATIVE (NEGATIVE); URINE NITRITE NEGATIVE (NEGATIVE); URINE PROTEIN NEGATIVE (NEGATIVE); URINE UROBILINOGEN NEGATIVE mg/dL (0.2-1.0)
[2017-04-21 23:43] LABS: URINE BACTERIA RARE /hpf (NONE SEEN); URINE MUCUS RARE; URINE RBC <1 /hpf (0-3); URINE WBC 3 /hpf (3-5)
[2017-04-22] MEDS: chlordiazePOXIDE HCL 25 MG CAPSULE PO SCH ×4 (05:09→22:09)
[2017-04-22] MEDS: ACETAMINOPHEN 325 MG TABLET (FP) PO PRN ×2 (09:23→14:22)
[2017-04-22] MEDS ORDERED: METHADONE HCL 10 MG TABLET (FOR DETOX USE ONLY) PO SCH (10:00)
[2017-04-22] MEDS ORDERED: NICOTINE 21 MG/24 HOURS TOPICAL PATCH TD SCH (10:00)
[2017-04-22 10:14] LABS: MCH 28.9 pg (25.7-33.7); MCHC 32.3 g/dl (32.0-36.0); MEAN CELL VOLUME 89.4 fl (80-96); MEAN PLT VOLUME 8.6 fl (7.5-11.1); PLATELET COUNT 257 K/MM3 (134-434); RDW 14.4 % (11.6-15.6); WHITE BLOOD COUNT 10.8 K/mm3 (4.0-10.0)
[2017-04-22 10:21] LABS: URINE LEUK ESTERASE Negative (NEGATIVE)
[2017-04-22] MEDS: PRENATAL VITAMINS W/ FOLIC ACID TABLET (FP) PO SCH (10:24)
[2017-04-22] MEDS: RANITIDINE HCL 150 MG TABLET (FP) PO SCH ×2 (10:24→22:09)
--- NOTE | 2017-04-22 10:25 | PN ---
S CIWA - CIWA Score Nausea/Vomitin Muscle Tremors: 3 Anxiety: 3 Agitation: 3 Paroxysmal Sweats: 1-Minimal Palms Moist Orientation: 0-Oriented Tacttile Disturbances: 1-Very Mild Itch/Numbness Auditory Disturbances: 1-Very Mild Visual Disturbances: 0-None Headache: 2-Mild CIWA-Ar Total Score: 17 BHS COWS - Scale Resting Pulse: 1= [place] 81-100 Sweatin= Chills/Flushing Restless Observation: 3= Extraneous Movement Pupil Size: 1= Pupils >than Normal Bone or Joint Aches: 2= Severe Diffuse Aches Runny Nose/ Eye Tearin= Nasal Congestion GI Upset > 30mins: 3= Vomiting/Diarrhea Tremor Observation of Outstretched Hands: 2= Slight Tremor Visible Yawning Observation: 1= 1-2x During Session Anxiety or Irritability: 2=Irritable/Anxious Goose Flesh Skin: 0=Smooth Skin COWS Score: 17 BHS Progress Note (SOAP) Subjective: alert,irritable,anxious,interrupted sleep,tremor,pain in the body and back Objective: 04/22/17 10:23 Vital Signs Temperature 97.0 F L 04/22/17 06:16 Pulse Rate 97 H 04/22/17 06:30 Respiratory Rate 18 04/22/17 06:30 Blood Pressure 126/76 04/22/17 06:16 O2 Sat by Pulse Oximetry (%) ekg sinus tachycardia 112/min no chest pain,no sob,no dizziness Laboratory Last Values WBC 10.8 K/mm3 (4.0-10.0) H 04/22/17 07:00 RBC 4.48 M/mm3 (3.60-5.2) 04/22/17 07:00 Hgb 12.9 GM/dL (10.7-15.3) D 04/22/17 07:00 Hct 40.0 % (32.4-45.2) 04/22/17 07:00 MCV 89.4 fl (80-96) 04/22/17 07:00 MCH 28.9 pg (25.7-33.7) 04/22/17 07:00 MCHC 32.3 g/dl (32.0-36.0) 04/22/17 07:00 RDW 14.4 % (11.6-15.6) 04/22/17 07:00 Plt Count 257 K/MM3 (134-434) D 04/22/17 07:00 MPV 8.6 fl (7.5-11.1) D 04/22/17 07:00 Urine Color Yellow 04/21/17 21:15 Urine Appearance Slcloudy 04/21/17 21:15 Urine pH 5.0 (5.0-8.0) 04/21/17 21:15 Ur Specific [place] 1.015 (1.005-1.025) 04/21/17 21:15 Urine Protein Negative (NEGATIVE) 04/21/17 21:15 Urine Glucose (UA) Negative (NEGATIVE) 04/21/17 21:15 Urine Ketones Negative (NEGATIVE) 04/21/17 21:15 Urine Blood 1+ (NEGATIVE) H 04/21/17 21:15 Urine Nitrite Negative (NEGATIVE) 04/21/17 21:15 Urine Bilirubin Negative (NEGATIVE) 04/21/17 21:15 Urine Urobilinogen Negative mg/dL (0.2-1.0) 04/21/17 21:15 Ur Leukocyte Esterase Negative (NEGATIVE) 04/21/17 21:15 Urine RBC <1 /hpf (0-3) 04/21/17 21:15 Urine WBC 3 /hpf (3-5) 04/21/17 21:15 Ur Epithelial Cells Rare /hpf (FEW) 04/21/17 21:15 Urine Bacteria Rare /hpf (NONE SEEN) 04/21/17 21:15 Urine Mucus Rare 04/21/17 21:15 labs pending Assessment: 04/22/17 10:24 withdrawal symptom Plan: continue detox,encourage oral fluid
[2017-04-22 11:02] LABS: ALBUMIN 3.5 g/dl (3.4-5.0); ALK PHOS 75 U/L (45-117); ANION GAP 10 (8-16); BILIRUBIN,TOTAL 0.7 mg/dL (0.2-1.0); CALCIUM 9.2 mg/dL (8.5-10.1); CO2 27 mmol/L (21-32); CREATININE 0.6 mg/dL (0.55-1.02); GLUCOSE,RANDOM 86 mg/dL (74-106); SGOT/AST 14 U/L (15-37); SGPT/ALT 19 U/L (12-78); TOT PROT 6.8 g/dl (6.4-8.2)
[2017-04-22] MEDS: chlordiazePOXIDE HCL 25 MG CAPSULE PO PRN ×2 (11:59→18:38)
--- NOTE | 2017-04-22 13:17 | EKG ---
Test Reason : Blood Pressure : / mmHG Vent. Rate : 112 BPM Atrial Rate : 112 BPM P-R Int : 160 ms QRS Dur : 074 ms QT Int : 334 ms P-R-T Axes : 068 075 062 degrees QTc Int : 455 ms SINUS TACHYCARDIA LOW VOLTAGE QRS BORDERLINE ECG WHEN COMPARED WITH ECG OF 03-FEB-2017 13:02, T WAVE INVERSION NO LONGER EVIDENT IN ANTERIOR LEADS Confirmed by TONYA ROSAS, SANDEE ([id number]) on 04/22/2017 1:16:27 PM Referred By: Stef Fang Confirmed By:SANDEE CASTANEDA MD
--- NOTE | 2017-04-22 16:22 | CONSULT ---
[facility] Psychiatric Consult - Data Date of interview: 04/22/17 Admission source: [facility] Identifying data: Another admission to [facility] for this 56 y/o AA female seeking detox treatment on for opiate and alcohol dependence.Patient is ,a mother of seven,domiciled,unemployed and supported on [facility] benefits. Substance Abuse History: Discussed in this interview.Patient corroborated this report. Smoking Cessation. Smoking history: Current every day smoker. Have you smoked in the past 12 months: Yes. Aproximately how many cigarettes per day : 20. Cigars Per Day: 0. Hx Chewing Tobacco Use: No. Initiated information on smoking cessation: Yes. 'Breaking Loose' booklet given: 04/21/17. - Substance & Tx. History. Hx Alcohol Use: Yes. Hx Substance Use: Yes. Substance Use Type: Alcohol, Opiates. Hx Substance Use Treatment: Yes (02/03- [facility]). - Substances Abused. Alcohol. Route: Oral. Frequency: Daily. Amount used: QUART VOLKA. Age of first use: 19. Date of Last Use: 04/28. Oxycontin. Route: Oral. Frequency: Daily. Amount used: 170 MG. Age of first use: 52. Date of Last Use: 04/21/17 Medical History: Hypercholesterolemia and past history of neurosurgery for brain aneurysm (2010). Psychiatric History: Unchanged psychiatric profile : history of two psychiatric hospitalizations at [facility].Diagnosed with MDD and Anxiety Disorder.Ms Granda is followed by a private psychiatrist,Dr Andrade,in [facility].Prescribed effexor XR 150 mg/day + clonazepam 2 mg/day.Patient denies history of suicide attempts. Physical/Sexual Abuse/Trauma History: Patient declines discussion. Additional Comment: Urine Drug Screen Results: OXY-Oxycodone.Noted. Mental Status Exam - Mental Status Exam Alert and Oriented to: Time, Place, Person Cognitive Function: Good Patient Appearance: Well Groomed Mood: Withdrawn, Hopeful, Euthymic Affect: Normal Range Patient Behavior: Fatigued, Cooperative Speech Pattern: Clear Voice Loudness: Normal Thought Process: Intact, Goal Oriented Thought Disorder: Not Present Hallucinations: Denies Suicidal Ideation: Denies Homicidal Ideation: Denies Insight/Judgement: Poor Sleep: Poorly, Difficulty falling asleep (wants seroquel) Appetite: Good Muscle strength/Tone: Normal Gait/Station: Normal Psychiatric Findings - Problem List ([place] 1, 2,3) (1) Alcohol dependence with uncomplicated withdrawal Current Visit: Yes Status: Acute (2) Opioid dependence with withdrawal Current Visit: Yes Status: Acute (3) Nicotine dependence Current Visit: Yes Status: Acute Qualifiers: Nicotine product type: cigarettes Substance use status: in withdrawal Qualified Code(s): F17.213 - Nicotine dependence, cigarettes, with withdrawal; F17.213 - Nicotine dependence, cigarettes, with withdrawal (4) Substance induced mood disorder Current Visit: Yes Status: Acute (5) Depressive disorder Current Visit: Yes Status: Chronic Comment: Self-report/.On medications. (6) GERD (gastroesophageal reflux disease) Current Visit: Yes Status: Chronic Qualifiers: Esophagitis presence: without esophagitis Qualified Code(s): K21.9 - Gastro-esophageal reflux disease without esophagitis; K21.9 - Gastro- esophageal reflux disease without esophagitis; K21.9 - Gastro-esophageal reflux disease without esophagitis (7) Insomnia Current Visit: Yes Status: Acute - Initial Treatment Plan Initial Treatment Plan: Psychoeducation.Detoxification.Medications : effexor XR 225 mg po daily + seroquel 50 mg po hs.Patient is made aware of potential for aggravation of hypertension (effexor) and oversedation/falls,metabolic syndrome, abnormal involuntary movements and cardiac adverse events (seroquel).Ms Granda insists that she has always well tolerated this regimen and she requests that it be included in current treatment course.Observation.NO scripts needed at discharge (refills already available from OPD provider).Pharmacy claims reviewed : most recent script for effexor XR was issued on 03/20/17 at [facility] # [id number].
[2017-04-22] MEDS ORDERED: hydrOXYzine PAMOATE 50 MG CAPSULE (FP) PO ONE (19:41)
[2017-04-22] MEDS ORDERED: QUEtiapine FUMARATE 50 MG TABLET PO SCH (22:00)
[2017-04-22] MEDS: THIAMINE HCL 100 MG TABLET (FP) PO SCH (22:09)
[2017-04-23] MEDS: chlordiazePOXIDE HCL 25 MG CAPSULE PO SCH (05:18)
--- NOTE | 2017-04-23 09:52 | PN ---
S CIWA - CIWA Score Nausea/Vomitin Muscle Tremors: 3 Anxiety: 3 Agitation: 2 Paroxysmal Sweats: 1-Minimal Palms Moist Orientation: 0-Oriented Tacttile Disturbances: 1-Very Mild Itch/Numbness Auditory Disturbances: 1-Very Mild Visual Disturbances: 0-None Headache: 2-Mild CIWA-Ar Total Score: 16 BHS COWS - Scale Resting Pulse: 0= ID 80 or Below Sweatin= Chills/Flushing Restless Observation: 3= Extraneous Movement Pupil Size: 1= Pupils >than Normal Bone or Joint Aches: 2= Severe Diffuse Aches Runny Nose/ Eye Tearin= Nasal Congestion GI Upset > 30mins: 2= Nausea/Diarrhea Tremor Observation of Outstretched Hands: 2= Slight Tremor Visible Yawning Observation: 1= 1-2x During Session Anxiety or Irritability: 2=Irritable/Anxious Goose Flesh Skin: 0=Smooth Skin COWS Score: 15 BHS Progress Note (SOAP) Subjective: alert,irritable,anxious,interrupted sleep,tremor,pain i the body and back Objective: 04/23/17 09:51 Vital Signs Temperature 97.5 F L 04/23/17 06:00 Pulse Rate 80 04/23/17 06:00 Respiratory Rate 18 04/23/17 06:00 Blood Pressure 130/79 04/23/17 06:00 O2 Sat by Pulse Oximetry (%) Assessment: 04/23/17 09:51 withdrawal symptom Plan: continue detox
[2017-04-23] MEDS: PRENATAL VITAMINS W/ FOLIC ACID TABLET (FP) PO SCH (09:57)
--- NOTE | 2017-04-23 09:58 | DS ---
[facility] Detox Discharge Summary Admission Date: 04/21/17 Discharge Date: 04/23/17 - History Present History: Alcohol Dependence, Opioid Dependence Additional Comments: patient did not want to complete treatment due to emergency personal problem, sen by counselor, signed release ama Pertinent Past History: gerd nicotine dependence major depressive disorder - Physical Exam Results Vital Signs: Vital Signs Temperature 97.5 F L 04/23/17 06:00 Pulse Rate 80 04/23/17 06:00 Respiratory Rate 18 04/23/17 06:00 Blood Pressure 130/79 04/23/17 06:00 O2 Sat by Pulse Oximetry (%) Pertinent Admission Physical Exam Findings: withdrawal symptom - Medication Discharge Medications: Ambulatory Orders Atorvastatin Ca [Lipitor] 80 mg PO HS 02/03/17 Quetiapine Fumarate [Seroquel] 100 mg PO HS #30 tablet 02/04/17 Venlafaxine HCl ER [Effexor Xr -] 300 mg PO DAILY #30 cap.er.24h 02/04/17 - Diagnosis (1) Alcohol dependence with uncomplicated withdrawal Current Visit: Yes Status: Acute (2) Opioid dependence with withdrawal Current Visit: Yes Status: Acute (3) GERD (gastroesophageal reflux disease) Current Visit: Yes Status: Chronic Qualifiers: Esophagitis presence: without esophagitis Qualified Code(s): K21.9 - Gastro-esophageal reflux disease without esophagitis; K21.9 - Gastro- esophageal reflux disease without esophagitis; K21.9 - Gastro-esophageal reflux disease without esophagitis (4) Major depressive disorder, recurrent, moderate Current Visit: Yes Status: Suspected - AMA Did Patient Leave Against Medical Advice: Yes
[2017-04-23] MEDS ORDERED: VENLAFAXINE HCL 75 MG E.R. CAPSULES (FP) PO SCH (10:00)
[2017-04-23] MEDS ORDERED: METHADONE HCL 5 MG TABLET (FOR DETOX USE ONLY) PO SCH (10:00)
[2017-04-23 10:55] VITALS: BP 148/85; PULSE 94; TEMP 97.1
[2017-04-23] MEDS ORDERED: chlordiazePOXIDE 5 MG CAPSULE PO SCH (23:00)
[2017-04-24] MEDS ORDERED: chlordiazePOXIDE HCL 10 MG CAPSULE PO SCH (23:00)
[2017-04-25] MEDS ORDERED: METHADONE HCL 10 MG TABLET (FOR DETOX USE ONLY) PO SCH (10:00)
[2017-04-26] MEDS ORDERED: METHADONE HCL 5 MG TABLET (FOR DETOX USE ONLY) PO SCH (06:00)
== END 2017-04-23 10:41 | disposition left against medical advice (07) | DRG 894 ==
LOC: YASAS 15:30 → Y6N 20:55
PROVIDERS: ADMIT Internal Medicine; ATTEND Internal Medicine
PROC: HZ2ZZZZ Detoxification Services for Substance Abuse Treatment (ICD-10-PCS; principal; 2017-04-21)
DX: F11.23 Opioid dependence with withdrawal (principal); F33.2 Major depressive disorder, recurrent severe without psychotic features; F10.230 Alcohol dependence with withdrawal, uncomplicated; F17.210 Nicotine dependence, cigarettes, uncomplicated; F19.24 Other psychoactive substance dependence with psychoactive substance-induced mood disorder; K21.9 Gastro-esophageal reflux disease without esophagitis; G47.00 Insomnia, unspecified; R00.0 Tachycardia, unspecified; Z86.79 Personal history of other diseases of the circulatory system; Z91.012 Allergy to eggs
CPT/HCPCS: 36415; 80053; 81003; 81015; 85027; 86593; 93005; 93010

== ENCOUNTER 2017-06-07 18:08 | Emergency (ER) | payer OTHER ==
[2017-06-07 18:21] VITALS: TEMP 97.5; BMI 26.5
--- NOTE | 2017-06-07 19:33 | PDOC ---
History of Present Illness <Michell Torre - Last Filed: 06/08/17 03:56> <Moraima Thompson - Last Filed: 06/08/17 05:32> - General Chief Complaint: Substance Abuse Stated Complaint: EVALUATION Time Seen by Provider: 06/07/17 18:42 Past History - Past Medical History Anemia: No Asthma: No Cancer: No Cardiac Disorders: No CVA: No COPD: No CHF: No Dementia: No Diabetes: No GI Disorders: No Disorders: No HTN: No Hypercholesterolemia: Yes (NO TREATMENT) Kidney Stones: No Liver Disease: No Psychiatric Problems: Yes (DEPRESSION) Seizures: No Thyroid Disease: No - Surgical History Abdominal Surgery: No Appendectomy: No Cardiac Surgery: No Cholecystectomy: No Lung Surgery: No Neurologic Surgery: Yes (brain aneurysm in 2010) Orthopedic Surgery: No - Reproductive History PID: No - Immunization History Immunization Up to Date: Yes - Suicide/Smoking/Psychosocial Hx Smoking Status: No Smoking History: Current every day smoker Have you smoked in the past 12 months: Yes Number of Cigarettes Smoked Daily: 20 Cigars Per Day: 0 Information on smoking cessation initiated: No 'Breaking Loose' booklet given: 05/24/17 Hx Alcohol Use: No Drug/Substance Use Hx: No Substance Use Type: Alcohol, Opiates Hx Substance Use Treatment: Yes ([facility] 04/21/17 04/23/17 NOT COMPLETED) <Michell Torre - Last Filed: 06/08/17 03:56> <Moraima Thompson - Last Filed: 06/08/17 05:32> - Past Medical History Allergies/Adverse Reactions: Allergies Allergy/AdvReac Type Severity Reaction Status Date / Time egg Allergy Severe Vomiting Verified 06/07/17 18:22 No Known Drug Allergies Allergy Unknown Verified 06/07/17 18:22 NKDA Allergy Uncoded 06/07/17 18:22 Home Medications: Ambulatory Orders Venlafaxine HCl [Effexor -] 300 mg PO DAILY 05/24/17 Review of Systems - Review of Systems Able to Perform ROS?: No (INTOXICATED) <Michell Torre - Last Filed: 06/08/17 03:56> *Physical Exam - Vital Signs Last Vital Signs Temp Pulse Resp BP Pulse Ox 97.5 F L 16 L 99 H 109/69 96 06/07/17 18:10 06/07/17 18:10 06/07/17 18:10 06/07/17 18:10 06/07/17 18:10 - Physical Exam General Appearance: Yes: Disheveled, Alcohol on Breath HEENT: positive: Normal Voice Neck: positive: Supple Respiratory/Chest: positive: Lungs Clear Cardiovascular: positive: Tachycardia Gastrointestinal/Abdominal: positive: Soft Extremity: positive: Normal Inspection Integumentary: positive: Normal Color, Warm Neurologic: positive: Other (INTOXICATED) <Michell Torre - Last Filed: 06/08/17 03:56> - Vital Signs Last Vital Signs Temp Pulse Resp BP Pulse Ox 97.5 F L 113 H 14 128/75 97 06/07/17 18:10 06/08/17 03:56 06/08/17 03:56 06/08/17 03:56 06/08/17 03:56 <Moraima Thompson - Last Filed: 06/08/17 05:32> ED Treatment Course - Medications Given in the ED: ED Medications Discontinued Medications Generic Name Dose Route Start Last Admin Trade Name Brigitte PRN Reason Stop Dose Admin Chlordiazepoxide HCl 50 mg 06/08/17 04:05 06/08/17 04:05 Librium - PO 06/08/17 04:06 50 mg NOW ONE Administration Folic Acid 1 mg/ Thiamine HCl 1,000 mls @ 125 mls/hr 06/07/17 19:35 06/07/17 20:11 100 mg/ Multivitamins/Minerals IVPB 06/08/17 03:34 125 mls/hr 10 ml/ Sodium Chloride ONCE ONE Administration <Moraima Thompson - Last Filed: 06/08/17 05:32> Medical Decision Making - Medical Decision Making 06/08/17 03:56 PLAN pt cannot be admitted to Alcohol detox because she just finished detox 9 days ago -she can however go to [facility] for her methadone is the morning <Michell Torre - Last Filed: 06/08/17 03:56> *DC/Admit/Observation/Transfer <Michell Torre - Last Filed: 06/08/17 03:56> - Discharge Dispostion Admit: No <Moraima Thompson - Last Filed: 06/08/17 05:32> Diagnosis at time of Disposition: Substance induced mood disorder, Alcohol dependence with uncomplicated withdrawal - Discharge Dispostion Disposition: HOME Condition at time of disposition: Stable - Patient Instructions Printed Discharge Instructions: Blood Alcohol Level
[2017-06-07] MEDS ORDERED: FOLIC ACID INJECTION - 1 MG, THIAMINE HCL 100 MG, MULTIVIT INJECTION ADULT 10 ML in SOD... IVPB ONE (19:35)
[2017-06-08 03:56] VITALS: BP 128/75; PULSE 113
[2017-06-08] MEDS ORDERED: chlordiazePOXIDE HCL 25 MG CAPSULE ONE (04:05)
[2017-06-08] MEDS ORDERED: chlordiazePOXIDE HCL 25 MG CAPSULE PO ONE (04:05)
== END 2017-06-08 05:42 | disposition home or self-care (01) ==
LOC: JER 18:08
PROC: 3E033GC Introduction of Other Therapeutic Substance into Peripheral Vein, Percutaneous Approach (ICD-10-PCS; principal; 2017-06-07)
DX: F10.230 Alcohol dependence with withdrawal, uncomplicated (principal); F19.24 Other psychoactive substance dependence with psychoactive substance-induced mood disorder
CPT/HCPCS: 96365; 96366; 99283-25

== ENCOUNTER 2017-06-10 13:59 | Inpatient (IN) | payer OTHER ==
[2017-06-10] MEDS ORDERED: SODIUM CHLORIDE 1,000 ML IV STA ×3 (14:24→17:28)
[2017-06-10] MEDS ORDERED: chlordiazePOXIDE HCL 25 MG CAPSULE PO ONE (14:24)
[2017-06-10] MEDS ORDERED: QUEtiapine FUMARATE 100 MG TABLET (FP) PO ONE (14:30)
[2017-06-10 14:38] VITALS: BMI 26.5
[2017-06-10] MEDS ORDERED: HALOPERIDOL LACTATE 5 MG/ML IM ONE (14:48)
[2017-06-10] MEDS ORDERED: HALOPERIDOL LACTATE 5 MG/ML ONE (14:49)
[2017-06-10] MEDS ORDERED: LORazepam 2 MG/ML SDV VIAL ONE (14:49)
--- NOTE | 2017-06-10 15:06 | PDOC ---
History of Present Illness - General Stated Complaint: ALCOHOL INTOX Time Seen by Provider: 06/10/17 14:22 - History of Present Illness Initial Comments: 06/10/17 15:01 56 F with h/o ETOH, opiate abuse, presenting from [facility] for acute alcohol intoxication. Per [facility] [employer]PERATOR, pt arrived to their facility somnolent with unsteady gait. Pt admits to drinking 1 hour prior to arrival. She denies any other complaints. Pt requesting transport back to [facility] for detox. Past History - Past Medical History Allergies/Adverse Reactions: Allergies Allergy/AdvReac Type Severity Reaction Status Date / Time egg Allergy Severe Vomiting Verified 06/07/17 18:22 No Known Drug Allergies Allergy Unknown Verified 06/07/17 18:22 NKDA Allergy Uncoded 06/07/17 18:22 Home Medications: Ambulatory Orders Venlafaxine HCl [Effexor -] 300 mg PO DAILY 05/24/17 Anemia: No Asthma: No Cancer: No Cardiac Disorders: No CVA: No COPD: No CHF: No Dementia: No Diabetes: No GI Disorders: No Disorders: No HTN: No Hypercholesterolemia: Yes (NO TREATMENT) Kidney Stones: No Liver Disease: No Psychiatric Problems: Yes (DEPRESSION) Seizures: No Thyroid Disease: No - Surgical History Abdominal Surgery: No Appendectomy: No Cardiac Surgery: No Cholecystectomy: No Lung Surgery: No Neurologic Surgery: Yes (brain aneurysm in 2010) Orthopedic Surgery: No - Reproductive History PID: No - Immunization History Immunization Up to Date: Yes - Suicide/Smoking/Psychosocial Hx Smoking Status: No Smoking History: Unknown if ever smoked Have you smoked in the past 12 months: Yes Number of Cigarettes Smoked Daily: 20 Cigars Per Day: 0 Information on smoking cessation initiated: No 'Breaking Loose' booklet given: 05/24/17 Hx Alcohol Use: Yes Drug/Substance Use Hx: Yes Substance Use Type: Alcohol, Opiates Hx Substance Use Treatment: Yes ([facility] 04/21/17 04/23/17 NOT COMPLETED) Review of Systems - Review of Systems Comments:: 06/10/17 15:05 "GENERAL/CONSTITUTIONAL: No fever or chills. No weakness. HEAD, EYES, EARS, NOSE AND THROAT: No change in vision. No ear pain or discharge. No sore throat. CARDIOVASCULAR: No chest pain or shortness of breath. RESPIRATORY: No cough, wheezing, or hemoptysis. GASTROINTESTINAL: No nausea, vomiting, diarrhea or constipation. GENITOURINARY: No dysuria, frequency, or change in urination. MUSCULOSKELETAL: No joint or muscle swelling or pain. No neck or back pain. SKIN: No rash NEUROLOGIC: No headache, vertigo, loss of consciousness, or change in strength/ sensation. ENDOCRINE: No increased thirst. No abnormal weight change. HEMATOLOGIC/LYMPHATIC: No anemia, easy bleeding, or history of blood clots. ALLERGIC/IMMUNOLOGIC: No hives or skin allergy. " *Physical Exam - Vital Signs Last Vital Signs Temp Pulse Resp BP Pulse Ox 142 H 20 158/88 96 06/10/17 14:32 06/10/17 14:32 06/10/17 14:32 06/10/17 14:32 - Physical Exam Comments: 06/10/17 15:05 "GENERAL: Awake, alert, intoxicated with ETOH on breath, in no acute distress HEAD: No signs of trauma EYES: PERRLA, EOMI, sclera anicteric, conjunctiva clear ENT: Auricles normal inspection, hearing grossly normal, nares patent, oropharynx clear without exudates. Moist mucosa NECK: Nontender, no stepoffs, Normal ROM, supple, no lymphadenopathy, JVD, or masses LUNGS: Breath sounds equal, clear to auscultation bilaterally. No wheezes, and no crackles HEART: Regular rate and rhythm, normal S1 and S2, no murmurs, rubs or gallops ABDOMEN: Soft, nontender, normoactive bowel sounds. No guarding, no rebound. No masses EXTREMITIES: Normal range of motion, no edema. No clubbing or cyanosis. No cords, erythema, or tenderness NEUROLOGICAL: Cranial nerves II through XII intact. 5/5 strength and sensation in all extremities, slurred speech, unsteady gait SKIN: Warm, Dry, normal turgor, no rashes or lesions noted. " ED Treatment Course - LABORATORY CBC & Chemistry Diagram: 06/10/17 15:15 06/10/17 15:15 - RADIOLOGY Radiology Studies Ordered: Category Date Time Status CHEST X-RAY PORTABLE* [RAD] Stat Radiology 06/10/17 14:24 Taken - Medications Given in the ED: ED Medications Discontinued Medications Generic Name Dose Route Start Last Admin Trade Name Freq PRN Reason Stop Dose Admin Haloperidol 5 mg 06/10/17 14:48 06/10/17 14:53 Haldol Injection (Fast Acting) - IM 06/10/17 14:49 5 mg ONCE ONE Administration Lorazepam 2 mg 06/10/17 14:48 06/10/17 14:53 Ativan Injection - IM 06/10/17 14:49 2 mg ONCE ONE Administration Medical Decision Making - Medical Decision Making 06/10/17 14:00 56 F with ETOH and opiate abuse, presenting to ER acutely intoxicated. Admits to drinking 1 hour prior to arrival. Pt with no acute complaints at this time. However, pt tachycardic to 140s. Pt does not appear to be withdrawing clinically , as she is still intoxicated. - Labs, Utox - IVF 06/10/17 15:10 During evaluation, pt became agitated and uncooperative with staff. Pt attempted to leave ER twice but was stopped by myself and other ER staff. Attempts to redirect pt unsuccessful and pt becoming progressively more agitated , threatening to "punch someone" if she was not released. - Pt placed on 1:1 observation Given pt's agitation and intoxicated state, she poses a direct threat to herself , the staff, and the other patients in the ER and requires chemical restraint. - Haldol 5mg and Ativan 2mg IM ordered 06/10/17 17:02 Labs notable for TSH 0.04 Given clinical picture of agitation and tachycardia, pt may be experiencing thyroid storm. T3 and T4 ordered. Propranolol and IVF administered. Dr. Saucedo consulted, will follow along. Will admit to hospitalist for further work up and treatment. *DC/Admit/Observation/Transfer Diagnosis at time of Disposition: Tachycardia, Hyperthyroidism - Discharge Dispostion Admit: Yes - Referrals - Patient Instructions - Post Discharge Activity - Attestations Physician Attestion: 06/10/17 17:22 I, Dr. Ruben Marin MD, attest that this document has been prepared under my direction and personally reviewed by me in its entirety. I further attest, that it accurately reflects all work, treatment, procedures and medical decision -making performed by me.
[2017-06-10 15:26] LABS: BASOPHIL 1.3 % (0-2.0); EOSINOPHIL 1.1 % (0-4.5); MCH 29.5 pg (25.7-33.7); MCHC 33.2 g/dl (32.0-36.0); MEAN CELL VOLUME 88.8 fl (80-96); MEAN PLT VOLUME 8.3 fl (7.5-11.1); PLATELET COUNT 416 K/MM3 (134-434); RDW 14.9 % (11.6-15.6); WHITE BLOOD COUNT 16.8 K/mm3 (4.0-10.0)
[2017-06-10 15:51] LABS: ALBUMIN 4.2 g/dl (3.4-5.0); ALK PHOS 94 U/L (45-117); ANION GAP 10 (8-16); BILIRUBIN,TOTAL 0.6 mg/dL (0.2-1.0); CALCIUM 9.2 mg/dL (8.5-10.1); CO2 25 mmol/L (21-32); CREATININE 0.7 mg/dL (0.55-1.02); GLUCOSE,RANDOM 127 mg/dL (74-106); SGPT/ALT 42 U/L (12-78); TOT PROT 7.9 g/dl (6.4-8.2)
[2017-06-10 16:00] LABS: CPK 378 IU/L (26-192); THYROID STIMULATING HORMONE 0.04 uIU/ml (0.358-3.74); TROPONIN I 0.04 ng/ml (0.00-0.05)
[2017-06-10 16:05] LABS: SGOT/AST 25 U/L (15-37)
[2017-06-10] MEDS ORDERED: MAGNESIUM SULF 50% (8.12 MEQ/2 ML-1 GM VIAL) IVPB ONE (16:56)
[2017-06-10] MEDS ORDERED: PROPRANOLOL HCL 1 MG/1 ML VIAL IVPUSH ONE (17:00)
[2017-06-10 17:38] LABS: FREE T4 1.19 ng/dl (0.76-1.46)
[2017-06-10] MEDS ORDERED: PROPRANOLOL HCL 1 MG/1 ML VIAL ONE (17:41)
[2017-06-10] MEDS ORDERED: MAGNESIUM SULF 50% (8.12 MEQ/2 ML-1 GM VIAL) ONE (17:43)
--- NOTE | 2017-06-10 17:52 | PN ---
Teaching Attending Note Name of Resident: Frankie Wilkerson ATTENDING PHYSICIAN STATEMENT I saw and evaluated the patient. I reviewed the resident's note and discussed the case with the resident. I agree with the resident's findings and plan as documented. SUBJECTIVE:unable to obtain hx from patient right now as she is lethargic. as per ER note was sent from [facility] due to lethargy and difficulty ambulating. While in the ER she was found to be in sinus tachy @ 140. during her stay became increasingly aggressive requiring ativan 2mg, haldol 5mg IM and benadryl 25mg IVP. as per ER pt was not having any specific complaints. Pt arrived at [facility] today (06/10) for evaluation of opiate and ETOH dependence. She was sent to [facility] from their waiting area OBJECTIVE: Last Vital Signs Temp Pulse Resp BP Pulse Ox 142 H 20 158/88 96 06/10/17 14:32 06/10/17 14:32 06/10/17 14:32 06/10/17 14:32 General lethargic. arrousable to painful and verbal stimuli HEENT +exopthalmos B/L unable to assess for goiter due to inability to participate in exam CV S1 S2 RRR no murmur/rub/gallop Lungs CTA anterioly Abdomen soft NT/ND Extremities no pedal edema ASSESSMENT AND PLAN: 56yo F with PMH continuous polysubstance dependence (percocet and ETOH) presented to the ER with lethargy and ataxia 1. Acute toxic metabolic encephalopathy- admit to [facility] for continuous cardiac monitoring. concern for acute thyroid storm. score >45 on initial evaluation with exopthalmos suggestive of untreated Graves Disease. TSH 0.04. with pending T3/4. received propanolol in the ER with good response as HR currently 85. will check Utox to evaluate for cocaine use prior to additional non-selective Beta veronica use. ER MD spoke with endocrinology already and will initiate methimazole and prednisone once T3/4 is available. other possibility can be acute intoxication. Ammonia level 69. cont IVF and frequent neurochecks. will avoid giving additional sedating medications if possible. monitor for hyperpyrexia and worsening tachycardia. check echo. endocrinology consulted 2. Lactic acidosis- likely due to tachycardia. normal AG. no reports of acute GI losses or medications which can be responsible for lactic acidosis. repeat 3. Leukocytosis- CXR clear. check UA, BCx. will hold off starting abx at this time. 4. Continuous polysubstance dependence- unable to assess at this time due to mental status. monitor for signs of withdrawal. IVF, banana bag 5. DVT ppx- start lovenox
[2017-06-10] MEDS ORDERED: SODIUM CHLORIDE 1,000 ML IV SCH (18:00)
[2017-06-10 18:18] LABS: URINE MARIJUANA THC NEGATIVE ng/ml (CUTOFF=50)
--- NOTE | 2017-06-10 18:26 | HP ---
CHIEF COMPLAINT: intoxication PCP: HISTORY OF PRESENT ILLNESS: 56 year old female with a past medical history of hyperthyroidism and ethanol/ percocet abuse presents to the ED for lethargy and acute intoxication. She was brought from [facility] after arriving there for detox. The MRI ASSISTANT noticed that the patient was lethargic and not walking properly. She noticed the patient start to fall, but caught her before she was able to, and that is why she was brought here. Patient was examined in a very lethargic state and is unable to provide a thorough history, but some questions she was able to respond to. Patient states that she has a headache, but denies nausea, vomiting, chest pain, shortness of breath, fever, chills. She states that she used to be on methimazole many years ago but stopped taking it on her own without a clear reason. Patient states she drank 10 drinks this morning and usually has around 10 alcoholic beverages a day. She states that she has not taken and has never taken cocaine in the past. She takes percocet on the same schedule as her alcohol. She did not give a clear response to the amount of percocet she is receiving. ER course was notable for: (1) Tachycardia 141 bpm (2) lactic acidosis 4.5 (3) TSH 0.04 Recent Travel: unknown PAST MEDICAL HISTORY: hyperthyroidism, etoh abuse, percocet abuse PAST SURGICAL HISTORY: 2011 brain aneurysm repair Social History: Smokin packs a day for 20 years Alcohol: 10 drinks a day for 20 years Drugs: percocet Family History: unknown Allergies egg Allergy (Severe, Verified 06/07/17 18:22) Vomiting No Known Drug Allergies Allergy (Unknown, Verified 06/07/17 18:22) NKDA Allergy (Uncoded 06/07/17 18:22) HOME MEDICATIONS: Home Medications Medication Instructions Recorded Venlafaxine HCl [Effexor -] Clonazepam 1mg BID 300 mg PO DAILY 05/24/17 REVIEW OF SYSTEMS CONSTITUTIONAL: diaphoresis, malaise Absent: fever, chills, generalized weakness, loss of appetite, weight change HEENT: Absent: rhinorrhea, nasal congestion, throat pain, throat swelling, difficulty swallowing, mouth swelling, ear pain, eye pain, visual changes CARDIOVASCULAR: lightheadedness Absent: chest pain, syncope, palpitations, irregular heart rate, peripheral edema RESPIRATORY: Absent: cough, shortness of breath, dyspnea with exertion, orthopnea, wheezing, stridor, hemoptysis GASTROINTESTINAL: Absent: abdominal pain, abdominal distension, nausea, vomiting, diarrhea, constipation, melena, hematochezia GENITOURINARY: Absent: dysuria, frequency, urgency, hesitancy, hematuria, flank pain, genital pain MUSCULOSKELETAL: Absent: myalgia, arthralgia, joint swelling, back pain, neck pain SKIN: Absent: rash, itching, pallor HEMATOLOGIC/IMMUNOLOGIC: Absent: easy bleeding, easy bruising, lymphadenopathy, frequent infections ENDOCRINE: Absent: unexplained weight gain, unexplained weight loss, heat intolerance, cold intolerance NEUROLOGIC: Absent: headache, focal weakness or paresthesias, dizziness, unsteady gait, seizure, mental status changes, bladder or bowel incontinence PSYCHIATRIC: Absent: anxiety, depression, suicidal or homicidal ideation, hallucinations. PHYSICAL EXAMINATION Vital Signs - 24 hr 06/10/17 14:32 Pulse Rate 142 H Respiratory 20 Rate Blood Pressure 158/88 O2 Sat by Pulse 96 Oximetry (%) GENERAL: Lethargic, semi-alert and oriented, in no acute distress. HEAD: Normal with no signs of trauma. EYES: Pupils equal, round and reactive to light, extraocular movements intact, sclera anicteric, conjunctiva clear. No lid lag. Proptosis noted. EARS, NOSE, THROAT: Ears normal, nares patent, oropharynx clear without exudates. Moist mucous membranes. NECK: Normal range of motion, supple without lymphadenopathy, JVD, or masses. LUNGS: Breath sounds equal, clear to auscultation bilaterally. No wheezes, and no crackles. No accessory muscle use. HEART: Tachycardic, regular rhythm, normal S1 and S2 without murmur, rub or gallop. ABDOMEN: Soft, nontender, not distended, normoactive bowel sounds, no guarding, no rebound, no masses. No hepatomegaly or splenomegaly. NEUROLOGICAL: Cranial nerves II-XII intact unable to be assessed. PSYCHIATRIC: poor eye contact, lethargic SKIN: Warm, dry, normal turgor, no rashes or lesions noted, normal capillary refill. Laboratory Results - last 24 hr 06/10/17 06/10/17 06/10/17 14:43 15:15 15:15 WBC 16.8 H D RBC 4.62 Hgb 13.6 Hct 41.0 MCV 88.8 MCH 29.5 MCHC 33.2 RDW 14.9 Plt Count 416 D MPV 8.3 Neutrophils % 61.0 Lymphocytes % 31.1 Monocytes % 5.5 Eosinophils % 1.1 D Basophils % 1.3 Sodium 142 Potassium 4.1 Chloride 107 Carbon Dioxide 25 Anion Gap 10 BUN 7 D Creatinine 0.7 Creat Clearance w eGFR > 60 Random Glucose 127 H D Lactic Acid Calcium 9.2 Total Bilirubin 0.6 AST 25 D ALT 42 D Alkaline Phosphatase 94 D Ammonia Creatine Kinase 378 H Creatine Kinase Index 0.5 CK-MB (CK-2) 2.018 Troponin I 0.04 Total Protein 7.9 Albumin 4.2 TSH 0.04 L Free T4 1.19 Opiates Screen Negative Methadone Screen Negative Barbiturate Screen Negative Phencyclidine Screen Negative Ur Amphetamines Screen Negative MDMA (Ecstasy) Screen Negative Benzodiazepines Screen Positive Cocaine Screen Negative U Marijuana (THC) Screen Negative 06/10/17 06/10/17 16:00 16:00 WBC RBC Hgb Hct MCV MCH MCHC RDW Plt Count MPV Neutrophils % Lymphocytes % Monocytes % Eosinophils % Basophils % Sodium Potassium Chloride Carbon Dioxide Anion Gap BUN Creatinine Creat Clearance w eGFR Random Glucose Lactic Acid 4.5 H* Calcium Total Bilirubin AST ALT Alkaline Phosphatase Ammonia 69.53 H Creatine Kinase Creatine Kinase Index CK-MB (CK-2) Troponin I Total Protein Albumin TSH Free T4 Opiates Screen Methadone Screen Barbiturate Screen Phencyclidine Screen Ur Amphetamines Screen MDMA (Ecstasy) Screen Benzodiazepines Screen Cocaine Screen U Marijuana (THC) Screen ASSESSMENT/PLAN: 56 year old female with a pmh of hyperthyroidism and EtOH abuse presents to the hospital with lethargy, weakness, and tachycardia. #Acute Encephalopathy: likely 2/2 thyroid storm vs acute alcohol intoxication -librium and B-veronica was given in the ED, HR has improved -hold librium and beta veronica until U tox comes back and cocaine intox is ruled out -f/u urine tox screen -fluid bolus -banana bag infusion -echocardiogram ordered #Hyperthyroidism: TSH 0.04 -if T4/T3 elevated, give methimazole and solumedrol 40 IV #Lactic Acidosis -likely due to demand ischemia -trend LA #Leukocytosis: will f/u cxr, UA, blood cx #Tachycardia: could be due to thyroid storm vs dehydration from alcohol intoxication -B veronica given, HR improved -hold b veronica until cocaine results come back -give fluids #Smoking Cessation: -give nicotine patch 21 #FEN -Re-evaluate NPO for now, re-evaluate tomorrow -Banana bag for thiamine + multivitamins -replete electrolytes in the AM #Prophylaxis -heparin 5000 TID -GI not indicated #Disposition -admit to telemetry -full code Visit type - Emergency Visit Emergency Visit: Yes Care time: The patient presented to the Emergency Department on the above date and was hospitalized for further evaluation of their emergent condition. - New Patient This patient is new to me today: Yes Date on this admission: 06/10/17 - Critical Care Critical Care patient: No
[2017-06-10] MEDS ORDERED: FOLIC ACID INJECTION - 1 MG, THIAMINE HCL 100 MG, MULTIVIT INJECTION ADULT 10 ML in SOD... IVPB ONE ×2 (18:29→22:29)
[2017-06-10] MEDS: HEPARIN NA (PORCINE) 5,000 UNITS/ML 1ML VIAL SQ SCH ×2 (18:32→23:48)
[2017-06-10 18:37] LABS: PH,URINE 5.5 (5.0-8.0); URINE APPEARANCE CLEAR; URINE BILIRUBIN NEGATIVE (NEGATIVE); URINE COLOR LT. YELLOW; URINE GLUCOSE (UA) NEGATIVE (NEGATIVE); URINE KETONE NEGATIVE (NEGATIVE); URINE NITRITE NEGATIVE (NEGATIVE); URINE PROTEIN NEGATIVE (NEGATIVE); URINE UROBILINOGEN 0.2 mg/dL (0.2-1.0)
[2017-06-10 18:41] LABS: URINE BLOOD 1+ (NEGATIVE)
[2017-06-10 19:01] LABS: URINE MUCUS RARE; URINE RBC <1 /hpf (0-3); URINE WBC 2 /hpf (3-5)
[2017-06-10 19:33] LABS: BASOPHIL 1.2 % (0-2.0); EOSINOPHIL 1.3 % (0-4.5); MCH 30.2 pg (25.7-33.7); MCHC 33.9 g/dl (32.0-36.0); NEUTROPHILS 54.3 % (42.8-82.8); PLATELET COUNT 297 K/MM3 (134-434); RDW 15.2 % (11.6-15.6); WHITE BLOOD COUNT 11.1 K/mm3 (4.0-10.0)
[2017-06-10 19:43] LABS: INR 1.06 (0.82-1.09)
[2017-06-10 20:03] LABS: ALBUMIN 3.2 g/dl (3.4-5.0); ALK PHOS 72 U/L (45-117); ANION GAP 10 (8-16); BILIRUBIN,TOTAL 0.6 mg/dL (0.2-1.0); CALCIUM 7.6 mg/dL (8.5-10.1); CO2 25 mmol/L (21-32); CREATININE 0.7 mg/dL (0.55-1.02); GLUCOSE,RANDOM 104 mg/dL (74-106); SGOT/AST 18 U/L (15-37); SGPT/ALT 32 U/L (12-78)
[2017-06-10 20:16] LABS: SALICYLATE < 4.0 mg/dl (0.0-30.0)
[2017-06-10 20:17] LABS: ALCOHOL 13.7 mg/dl (0-5)
[2017-06-10 21:31] LABS: URINE LEUK ESTERASE Negative (NEGATIVE)
[2017-06-10] MEDS: NICOTINE 21 MG/24 HOURS TOPICAL PATCH TD SCH (22:12)
[2017-06-10] MEDS: chlordiazePOXIDE HCL 25 MG CAPSULE PO SCH (23:15)
[2017-06-11] MEDS: chlordiazePOXIDE HCL 25 MG CAPSULE PO SCH ×4 (04:03→22:56)
[2017-06-11] MEDS ORDERED: LORazepam 2 MG/ML SDV VIAL IVPUSH ONE ×2 (04:41→05:21)
[2017-06-11] MEDS ORDERED: LOPERAMIDE HCL 2 MG CAPSULE PO ONE (07:37)
[2017-06-11] MEDS ORDERED: ACETAMINOPHEN 325 MG TABLET (FP) ONE (08:26)
[2017-06-11] MEDS: ACETAMINOPHEN 325 MG TABLET (FP) PO PRN ×2 (09:00→18:54)
[2017-06-11 09:29] LABS: BASOPHIL 1.3 % (0-2.0); EOSINOPHIL 1.7 % (0-4.5); MCH 29.1 pg (25.7-33.7); MCHC 32.2 g/dl (32.0-36.0); MEAN CELL VOLUME 90.4 fl (80-96); MEAN PLT VOLUME 8.4 fl (7.5-11.1); NEUTROPHILS 59.5 % (42.8-82.8); PLATELET COUNT 306 K/MM3 (134-434); RDW 14.8 % (11.6-15.6); WHITE BLOOD COUNT 13.8 K/mm3 (4.0-10.0)
[2017-06-11 09:45] LABS: ANION GAP 6 (8-16); CALCIUM 8.6 mg/dL (8.5-10.1); CO2 28 mmol/L (21-32); CREATININE 0.7 mg/dL (0.55-1.02); GLUCOSE,RANDOM 112 mg/dL (74-106); MAGNESIUM 2.3 mg/dL (1.8-2.4); PHOSPHOROUS 2.2 mg/dL (2.5-4.9)
[2017-06-11] MEDS: HEPARIN NA (PORCINE) 5,000 UNITS/ML 1ML VIAL SQ SCH ×3 (10:19→21:55)
[2017-06-11] MEDS: NICOTINE 21 MG/24 HOURS TOPICAL PATCH TD SCH (10:19)
--- NOTE | 2017-06-11 11:35 | CON.PSY ---
Psychiatry Consult Chief Complaint: Patient apparantly told staff that she wsas feeling suicidal. Placed on 1:1, no reports os any acute suicidal behavior. Patient had been drinking. Feels much better tiday, denies any suicidal thoughts or plans> no history of any previuos sucidal behavior. bhavana has a history of Major DEpressive Disorder and being trated with Effexor 300mg po od and Klonapin by DR Erick Salcido. - Previous Psychiatric Treatment Outpatient: Less than 6 mos ago Inpatient: None - Previous Substance Abuse Treatment Outpatient: More than 6 mos ago - Reason for Previous Treatment Reason for Previous Treatment: Major Depression, Alcohol Abuse - Current Medications Current Medications: Active Medications Acetaminophen (Tylenol -) 650 mg PO Q6H PRN PRN Reason: FEVER OR PAIN Chlordiazepoxide HCl (Librium -) 50 mg PO [id number] [facility] Stop: 06/11/17 17:01 Last Admin: 06/11/17 10:19 Dose: 50 mg Chlordiazepoxide HCl (Librium -) 25 mg PO [id number] [facility] Stop: 06/12/17 17:01 Chlordiazepoxide HCl (Librium -) 15 mg PO [id number] [facility] Stop: 06/13/17 17:01 Chlordiazepoxide HCl (Librium -) 25 mg PO Q4H PRN PRN Reason: WITHDRAWAL(CONT SUBST) Stop: 06/13/17 22:29 Heparin Sodium (Porcine) (Heparin -) 5,000 unit SQ TID [facility] Last Admin: 06/11/17 10:19 Dose: Not Given Nicotine (Nicoderm Patch -) 21 mg TD DAILY [facility] Last Admin: 06/11/17 10:19 Dose: 21 mg - Allergies Allergies: Allergies Allergy/AdvReac Type Severity Reaction Status Date / Time egg Allergy Severe Vomiting Verified 06/07/17 18:22 No Known Drug Allergies Allergy Unknown Verified 06/07/17 18:22 NKDA Allergy Uncoded 06/07/17 18:22 - Current Living Status Usual Living Arrangement: Alone - Current Mental Status Evaluation Appearance: Disheveled Attitude: Cooperative - Affect Affect: Constrictive Appropriateness: Appropriate to Content - Mood Mood: Euthymic - Speech/Language Expressive: Coherent - Psychomotor Activity Psychomotor Activity: Normal - Thought Process Thought Process: Intact - Thought Content Hallucinations: Absent Delusions: Absent - Cognition Attention: Alert Orientation: Time Memory, Immediate Recall: Intact Memory, Short Term: 3/3 Memory, Remote with Promptin/3 - Concentration Serial Sevens Intact: Yes Simple Calculations Intact: Yes - Abstraction Proverb Interpretation: Intact Judgement: Minimally Impaired - Insight Insight: Intact - Impulse Control Impulse Control: Minimally Impaired - Suicidal Ideation Suicidal Ideation: No - Homicidal Ideation Homicidal Ideation: No Assessment/Plan 1) Patient is not suicidal. 2) d/c 1:1 3) Restart Effexor 300mg po od 4) Cleared for transfer to [facility].
--- NOTE | 2017-06-11 12:57 | EKG ---
Test Reason : Blood Pressure : / mmHG Vent. Rate : 125 BPM Atrial Rate : 125 BPM P-R Int : 000 ms QRS Dur : 080 ms QT Int : 416 ms P-R-T Axes : 062 071 051 degrees QTc Int : 600 ms SINUS TACHYCARDIA NONSPECIFIC T WAVE ABNORMALITY ABNORMAL ECG WHEN COMPARED WITH ECG OF 24-MAY-2017 17:05, INVERTED T WAVES HAVE REPLACED NONSPECIFIC T WAVE ABNORMALITY IN ANTERIOR LEADS Confirmed by PARAS ROSAS, CHATO ([id number]) on 06/11/2017 12:57:01 PM Referred By: Confirmed By:CHATO CRAIN MD
[2017-06-11] MEDS: METHIMAZOLE 10 MG TABLET (FP) PO SCH (15:16)
[2017-06-11] MEDS: chlordiazePOXIDE HCL 25 MG CAPSULE PO PRN ×2 (15:16→21:54)
[2017-06-11] MEDS ORDERED: FOLIC ACID INJECTION - 1 MG, THIAMINE HCL 100 MG, MULTIVIT INJECTION ADULT 10 ML in SOD... IVPB ONE (15:30)
--- NOTE | 2017-06-11 16:29 | PN ---
Teaching Attending Note Name of Resident: Frankie Wilkerson ATTENDING PHYSICIAN STATEMENT I saw and evaluated the patient. I reviewed the resident's note and discussed the case with the resident. I agree with the resident's findings and plan as documented. SUBJECTIVE:c/o agitated and anxiety. expressing her desire to get clean and get her life on track. states she wants to go to [facility] to complete detox. states she was on methimazole several years ago but then stopped it. states she does not recall stating she wanted to hurt herself last night. state she was intoxicated and barely remembers what occurred. denies any thought of hurting herself or others. no plans to hurt herself. denies CP, SOB, fever, chills, N/V/ C/D OBJECTIVE: Last Vital Signs Temp Pulse Resp BP Pulse Ox 98.5 F 109 H 20 107/64 96 06/11/17 14:00 06/11/17 14:00 06/11/17 10:00 06/11/17 14:00 06/11/17 10:00 General tearful during exam. agitated HEENT +exopthalmos B/L CV S1 S2 RRR no murmur/rub/gallop Lungs CTA B/L no wheezing/ralesr/rhonchi Abdomen soft NT/ND Extremities no pedal edema ASSESSMENT AND PLAN: 56yo F with PMH continuous polysubstance dependence (percocet and ETOH) presented to the ER with lethargy and ataxia 1. Acute toxic metabolic encephalopathy-likely due to acute intoxication and now withdrawal. does not appear to be in thyroid storm but incidentally picked untreated hyperthyroidism. started on librium protocol last night. Echo pending. tachycardia mostly improved. will cont to hydrate. 2. Hyperthyroid- appears has been untreated. T4 WNL. spoke with endo whom will evaluate today and start methimazole. can follow up as outpatient for monitoring 3. Suicidal idealations- pt does not appear to be harm to herself or others. was clearly intoxicated last night. psych evaluated and agreed. can d/c 1:1 4. Lactic acidosis- likely due to tachycardia. normal AG. resolved. 5. Leukocytosis- likely reactive. CXR and UA clear. no signs of infection. will hold off starting abx at this time. 6. Continuous polysubstance dependence- CIWA 6. on librium protocol. will give additional banana bag. to transfer to [facility] to complete detox. 7. hypophophatemia- neutraphos 8. DVT ppx- lovenox 9. if echo is normal and after evaluated by Endocrinology can go to [facility] to complete detox. call to be placed to Dr Fang for review.
[2017-06-11] MEDS ORDERED: NAPH,MB-DB/K PH,MBDB POWDER PACKET PO ONE (17:00)
--- NOTE | 2017-06-11 18:15 | PN ---
Physical Exam: SUBJECTIVE: Patient seen and examined at bedside. Patient feels much better since yesterday. Denies chest pain, SOB, nausea, vomiting. Patient has some diarrhea, immodium given. Patient is slightly agitated and wants to go to [facility] for detox. Agrees to wait for Dr. Fang. OBJECTIVE: Vital Signs Period Temp Pulse Resp BP Sys/Cash Pulse Ox Last 24 Hr 98.3 F-98.9 F 100-112 18-20 107-155/64-80 94-96 GENERAL: Lethargic, semi-alert and oriented, in no acute distress. HEAD: Normal with no signs of trauma. EYES: Pupils equal, round and reactive to light, extraocular movements intact, sclera anicteric, conjunctiva clear. No lid lag. Proptosis noted. EARS, NOSE, THROAT: Ears normal, nares patent, oropharynx clear without exudates. Moist mucous membranes. NECK: Normal range of motion, supple without lymphadenopathy, JVD, or masses. LUNGS: Breath sounds equal, clear to auscultation bilaterally. No wheezes, and no crackles. No accessory muscle use. HEART: Tachycardic, regular rhythm, normal S1 and S2 without murmur, rub or gallop. ABDOMEN: Soft, nontender, not distended, normoactive bowel sounds, no guarding, no rebound, no masses. No hepatomegaly or splenomegaly. NEUROLOGICAL: Cranial nerves II-XII intact unable to be assessed. PSYCHIATRIC: poor eye contact, lethargic SKIN: Warm, dry, normal turgor, no rashes or lesions noted, normal capillary refill. Laboratory Results - last 24 hr 06/10/17 06/10/17 06/10/17 14:43 14:43 18:33 WBC RBC Hgb Hct MCV MCH MCHC RDW Plt Count MPV Neutrophils % Lymphocytes % Monocytes % Eosinophils % Basophils % PT with INR INR Sodium Potassium Chloride Carbon Dioxide Anion Gap BUN Creatinine Creat Clearance w eGFR Random Glucose Lactic Acid Calcium Phosphorus Magnesium Total Bilirubin AST ALT Alkaline Phosphatase Troponin I Total Protein Albumin Urine Color Lt. yellow Urine Appearance Clear Urine pH 5.5 Ur Specific [place] <= 1.005 Urine Protein Negative Urine Glucose (UA) Negative Urine Ketones Negative Urine Blood 1+ H Urine Nitrite Negative Urine Bilirubin Negative Urine Urobilinogen 0.2 Ur Leukocyte Esterase Negative Urine WBC (Auto) 2 Urine RBC (Auto) <1 Ur Epithelial Cells Rare Urine Mucus Rare Urine HCG, Qual Negative Salicylates Opiates Screen Negative Methadone Screen Negative Acetaminophen Barbiturate Screen Negative Phencyclidine Screen Negative Ur Amphetamines Screen Negative MDMA (Ecstasy) Screen Negative Benzodiazepines Screen Positive Cocaine Screen Negative U Marijuana (THC) Screen Negative Alcohol, Quantitative 06/10/17 06/10/17 06/10/17 19:12 19:20 19:20 WBC 11.1 H D RBC 3.71 Hgb 11.2 D Hct 33.0 D MCV 89.0 MCH 30.2 MCHC 33.9 RDW 15.2 Plt Count 297 D MPV 8.0 Neutrophils % 54.3 Lymphocytes % 37.1 Monocytes % 6.1 Eosinophils % 1.3 Basophils % 1.2 PT with INR 12.00 H INR 1.06 Sodium Potassium Chloride Carbon Dioxide Anion Gap BUN Creatinine Creat Clearance w eGFR Random Glucose Lactic Acid Calcium Phosphorus Magnesium Total Bilirubin AST ALT Alkaline Phosphatase Troponin I 0.04 Total Protein Albumin Urine Color Urine Appearance Urine pH Ur Specific [place] Urine Protein Urine Glucose (UA) Urine Ketones Urine Blood Urine Nitrite Urine Bilirubin Urine Urobilinogen Ur Leukocyte Esterase Urine WBC (Auto) Urine RBC (Auto) Ur Epithelial Cells Urine Mucus Urine HCG, Qual Salicylates Opiates Screen Methadone Screen Acetaminophen Barbiturate Screen Phencyclidine Screen Ur Amphetamines Screen MDMA (Ecstasy) Screen Benzodiazepines Screen Cocaine Screen U Marijuana (THC) Screen Alcohol, Quantitative 06/10/17 06/10/17 06/10/17 19:20 19:20 22:00 WBC RBC Hgb Hct MCV MCH MCHC RDW Plt Count MPV Neutrophils % Lymphocytes % Monocytes % Eosinophils % Basophils % PT with INR INR Sodium 145 Potassium 3.5 Chloride 110 H Carbon Dioxide 25 Anion Gap 10 BUN 8 Creatinine 0.7 Creat Clearance w eGFR > 60 Random Glucose 104 Lactic Acid 1.3 Calcium 7.6 L Phosphorus Magnesium Total Bilirubin 0.6 AST 18 D ALT 32 D Alkaline Phosphatase 72 D Troponin I Total Protein 6.0 L D Albumin 3.2 L D Urine Color Urine Appearance Urine pH Ur Specific [place] Urine Protein Urine Glucose (UA) Urine Ketones Urine Blood Urine Nitrite Urine Bilirubin Urine Urobilinogen Ur Leukocyte Esterase Urine WBC (Auto) Urine RBC (Auto) Ur Epithelial Cells Urine Mucus Urine HCG, Qual Salicylates < 4.0 Opiates Screen Methadone Screen Acetaminophen 3.979 L Barbiturate Screen Phencyclidine Screen Ur Amphetamines Screen MDMA (Ecstasy) Screen Benzodiazepines Screen Cocaine Screen U Marijuana (THC) Screen Alcohol, Quantitative 13.7 H* 06/11/17 06/11/17 08:50 08:50 WBC 13.8 H RBC 4.14 Hgb 12.0 Hct 37.5 MCV 90.4 MCH 29.1 MCHC 32.2 RDW 14.8 Plt Count 306 MPV 8.4 Neutrophils % 59.5 Lymphocytes % 31.7 Monocytes % 5.8 Eosinophils % 1.7 Basophils % 1.3 PT with INR INR Sodium 141 Potassium 4.4 D Chloride 107 Carbon Dioxide 28 Anion Gap 6 L BUN 8 Creatinine 0.7 Creat Clearance w eGFR Random Glucose 112 H Lactic Acid Calcium 8.6 Phosphorus 2.2 L Magnesium 2.3 Total Bilirubin AST ALT Alkaline Phosphatase Troponin I Total Protein Albumin Urine Color Urine Appearance Urine pH Ur Specific [place] Urine Protein Urine Glucose (UA) Urine Ketones Urine Blood Urine Nitrite Urine Bilirubin Urine Urobilinogen Ur Leukocyte Esterase Urine WBC (Auto) Urine RBC (Auto) Ur Epithelial Cells Urine Mucus Urine HCG, Qual Salicylates Opiates Screen Methadone Screen Acetaminophen Barbiturate Screen Phencyclidine Screen Ur Amphetamines Screen MDMA (Ecstasy) Screen Benzodiazepines Screen Cocaine Screen U Marijuana (THC) Screen Alcohol, Quantitative Active Medications Generic Name Dose Route Start Last Admin Trade Name Freq PRN Reason Stop Dose Admin Acetaminophen 650 mg 06/11/17 08:25 06/11/17 09:00 Tylenol - PO 650 mg Q6H PRN Administration FEVER OR PAIN Chlordiazepoxide HCl 25 mg 06/11/17 23:00 Librium - PO 06/12/17 17:01 [id number] EDSON Chlordiazepoxide HCl 15 mg 06/12/17 23:00 Librium - PO 06/13/17 17:01 [id number] EDSON Chlordiazepoxide HCl 25 mg 06/10/17 22:30 06/11/17 15:16 Librium - PO 06/13/17 22:29 25 mg Q4H PRN Administration WITHDRAWAL(CONT SUBST) Heparin Sodium (Porcine) 5,000 unit 06/10/17 18:00 06/11/17 15:15 Heparin - SQ Not Given TID EDSON Folic Acid 1 mg/ Thiamine HCl 1,000 mls @ 125 mls/hr 06/11/17 15:30 06/11/17 17:41 100 mg/ Multivitamins/Minerals IVPB 06/11/17 23:29 Not Given 10 ml/ Sodium Chloride ONCE ONE Methimazole 10 mg 06/11/17 12:30 06/11/17 15:16 Tapazole - PO 10 mg DAILY EDSON Administration Nicotine 21 mg 06/10/17 19:15 06/11/17 10:19 Nicoderm Patch - TD 21 mg DAILY EDSON Administration Venlafaxine HCl 300 mg 06/12/17 10:00 Effexor Xr - PO DAILY EDSON ASSESSMENT/PLAN: 56 year old female with a pmh of hyperthyroidism and EtOH abuse presents to the hospital with lethargy, weakness, and tachycardia. #ETOH and Percocet Abuse: -patient started on librium protocol -Dr. Fang consulted, will see patient in AM -possible transfer to [facility] tomorrow #Acute Encephalopathy: resolved -librium protocol continued -echocardiogram normal #Hyperthyroidism: TSH 0.04 -Endocrine consult appreciated, 10mg PO QD #Lactic Acidosis: resolved -likely due to demand ischemia -trend LA #Leukocytosis: will f/u cxr, UA, blood cx #Tachycardia: mildly tachycardic today -fluids were given #Smoking Cessation: -give nicotine patch 21 #FEN -regular diet -replete electrolytes in the AM -No standing fluids #Prophylaxis -heparin 5000 TID -GI not indicated #Disposition -continue to monitor on tele -full code Visit type - Emergency Visit Emergency Visit: No - New Patient This patient is new to me today: No - Critical Care Critical Care patient: No
--- NOTE | 2017-06-11 20:12 | HOSP ---
Subjective - Review of Symptoms Events since last encounter: Registered nurse called that patient was smoking in the bathroom. Patient seen and examined. She was walking out of the bathroom with room smelling like smoke and admitted she took off her nicotine patch and smoked in the bathroom. Patient was agitated, anxious and wanted to sign AMA. The note from ER attending stated that patient was a threat to herself and to others. Selected Entries 06/10/17 21:15 Pulse Rate 108 H Respiratory 18 Rate Blood Pressure 155/78 On examination: Patient agitated. Anxious. Tremors in her hand. Uncooperative. Redundant with questions. Exopthalmos CV: s1, s2 normal, tachycardic Lungs: CTA b/l, no rales rhonchi or wheezing Ext: Tremors b/l hands, no edema Laboratory Tests 06/10/17 06/10/17 06/10/17 14:43 15:15 16:00 Sodium Potassium Chloride Carbon Dioxide BUN Creatinine Calcium AST ALT Alkaline Phosphatase Ammonia 69.53 H TSH 0.04 L Free T4 1.19 Total T3 Benzodiazepines Screen Positive Alcohol, Quantitative 06/10/17 06/10/17 06/10/17 19:20 19:20 19:20 Sodium 145 Potassium 3.5 Chloride 110 H Carbon Dioxide 25 BUN 8 Creatinine 0.7 Calcium 7.6 L AST 18 D ALT 32 D Alkaline Phosphatase 72 D Ammonia TSH Free T4 Total T3 Pending Benzodiazepines Screen Alcohol, Quantitative 13.7 H* Plan: -CIWA score of 10 -patient started on Librium protocol - ER documented patient is harm to herself and to others. Smoking in hospital room bathroom. 1 to 1 observation started. -Psychiatry consulted -Ativan 2mg given because of worsening agitation. -Patient repeatedly told not to leave the hospital AMA and risks of leaving were explained to the patient. Physical Examination Vital Signs: Vital Signs Temperature 98.2 F 06/11/17 17:00 Pulse Rate 105 H 06/11/17 17:00 Respiratory Rate 18 06/11/17 17:00 Blood Pressure 105/60 06/11/17 17:00 O2 Sat by Pulse Oximetry (%) 96 06/11/17 10:00 Labs: CBC, BMP 06/11/17 08:50 06/11/17 08:50 Visit type - Emergency Visit Emergency Visit: Yes ED Registration Date: 06/10/17 Care time: The patient presented to the Emergency Department on the above date and was hospitalized for further evaluation of their emergent condition. - New Patient This patient is new to me today: Yes Date on this admission: 06/11/17 - Critical Care Critical Care patient: No
[2017-06-11] MEDS ORDERED: diphenhydrAMINE HCL 25 MG CAPSULE (FP) PO ONE (23:07)
[2017-06-12] MEDS: ACETAMINOPHEN 325 MG TABLET (FP) PO PRN ×2 (00:34→05:57)
[2017-06-12] MEDS ORDERED: diphenhydrAMINE HCL 25 MG CAPSULE (FP) PO ONE (01:43)
[2017-06-12] MEDS: chlordiazePOXIDE HCL 25 MG CAPSULE PO SCH (05:18)
[2017-06-12 05:20] VITALS: TEMP 98.2
[2017-06-12] MEDS: HEPARIN NA (PORCINE) 5,000 UNITS/ML 1ML VIAL SQ SCH (05:49)
[2017-06-12 06:58] LABS: MCH 29.3 pg (25.7-33.7); MCHC 32.4 g/dl (32.0-36.0); MEAN CELL VOLUME 90.3 fl (80-96); MEAN PLT VOLUME 8.5 fl (7.5-11.1); PLATELET COUNT 275 K/MM3 (134-434); RDW 14.7 % (11.6-15.6)
[2017-06-12 07:04] LABS: ANION GAP 6 (8-16); CALCIUM 9.1 mg/dL (8.5-10.1); CO2 30 mmol/L (21-32); CREATININE 0.6 mg/dL (0.55-1.02); GLUCOSE,RANDOM 92 mg/dL (74-106)
[2017-06-12 07:38] VITALS: BP 135/69; PULSE 96
[2017-06-12] MEDS: METHIMAZOLE 10 MG TABLET (FP) PO SCH (09:39)
[2017-06-12] MEDS: NICOTINE 21 MG/24 HOURS TOPICAL PATCH TD SCH (09:39)
[2017-06-12] MEDS ORDERED: VENLAFAXINE HCL 150 MG E.R. CAPSULE PO SCH (10:00)
[2017-06-12] MEDS ORDERED: VENLAFAXINE HCL 75 MG E.R. CAPSULES (FP) PO SCH (12:00)
--- NOTE | 2017-06-12 13:28 | PN ---
[facility] Progress Note Note: Patient signed out AMA before detox consultation could be completed. Will return to [facility] for detox. Admissions unit aware. Stef Fang MD [phone]
--- NOTE | 2017-06-12 13:39 | DS ---
Physical Exam: SUBJECTIVE: Patient seen and examined at bedside. Patient is slightly anxious but otherwise in no acute distress. OBJECTIVE: Vital Signs Period Temp Pulse Resp BP Sys/Cash Pulse Ox Last 24 Hr 98.2 F-98.5 F 94-109 18-20 103-135/56-79 98-100 PHYSICAL EXAM GENERAL: Lethargic, semi-alert and oriented, in no acute distress. HEAD: Normal with no signs of trauma. EYES: Pupils equal, round and reactive to light, extraocular movements intact, sclera anicteric, conjunctiva clear. No lid lag. Proptosis noted. EARS, NOSE, THROAT: Ears normal, nares patent, oropharynx clear without exudates. Moist mucous membranes. NECK: Normal range of motion, supple without lymphadenopathy, JVD, or masses. LUNGS: Breath sounds equal, clear to auscultation bilaterally. No wheezes, and no crackles. No accessory muscle use. HEART: Regular rate, regular rhythm, normal S1 and S2 without murmur, rub or gallop. ABDOMEN: Soft, nontender, not distended, normoactive bowel sounds, no guarding, no rebound, no masses. No hepatomegaly or splenomegaly. NEUROLOGICAL: Cranial nerves II-XII intact unable to be assessed. PSYCHIATRIC: poor eye contact, lethargic SKIN: Warm, dry, normal turgor, no rashes or lesions noted, normal capillary refill. LABS Laboratory Results - last 24 hr 06/12/17 06/12/17 06:25 06:25 WBC 10.0 RBC 4.17 Hgb 12.2 Hct 37.7 MCV 90.3 MCH 29.3 MCHC 32.4 RDW 14.7 Plt Count 275 MPV 8.5 Sodium 141 Potassium 4.2 Chloride 105 Carbon Dioxide 30 Anion Gap 6 L BUN 16 D Creatinine 0.6 Random Glucose 92 Calcium 9.1 HOSPITAL COURSE: Date of Admission:06/10/17 56 year old female with a past medical history of hyperthyroidism and ethanol/ percocet abuse presented to the ED for lethargy and acute alcohol intoxication. She was brought from [facility] after arriving there for detox. The TREASURER noticed that the patient was lethargic and not walking properly. She noticed the patient start to fall, but caught her before she was able to, and that is why she was brought here. Patient was examined in a very lethargic state and is unable to provide a thorough history, but some questions she was able to respond to. Patient stateed that she has a headache, but denies nausea, vomiting , chest pain, shortness of breath, fever, chills. She stated that she used to be on methimazole many years ago but stopped taking it on her own without a clear reason. Patient states she drank 10 drinks this morning and usually has around 10 alcoholic beverages a day. She states that she has not taken and has never taken cocaine in the past. She takes percocet on the same schedule as her alcohol. She did not give a clear response to the amount of percocet she is receiving. Patient was given sedatives and admitted to telemetry for monitoring. Patient was found to have a TSH level of 0.04, a normal T4 level. Patient clinically improved within 1 day of hospitalization. She was started on a librium protocol on hospital day #2. Patient was seen by psychiatry, who cleared her from any intention of hurting herself. Patient voiced concern about wanting to get home and get to [facility]. Dr. Fang was consulted. Patient became very anxious on hospital day #3 and wanted to leave the hospital. The risks of alcohol withdrawal, including delirium tremens, hallucinations, seizures, coma, and were all explained thoroughly to the patient, who understood all of the risks and was able to repeat them back to me. Patient signed out AMA on 06/12/17. Date of Discharge: 06/12/17 Minutes to complete discharge: 30 Discharge Summary Reason For Visit: HYPERTHYROIDISM; TACHYCARDIA - Instructions Disposition: AGAINST MEDICAL ADVICE - Home Medications Comprehensive Discharge Medication List: Ambulatory Orders Venlafaxine HCl [Effexor -] 300 mg PO DAILY 05/24/17 This patient is new to me today: No Emergency Visit: No Critical Care patient: No - Discharge Referral Referred to [facility] No
--- NOTE | 2017-06-12 14:48 | PN ---
Teaching Attending Note Name of Resident: Frankie Wilkerson ATTENDING PHYSICIAN STATEMENT I saw and evaluated the patient. I reviewed the resident's note and discussed the case with the resident. I agree with the resident's findings and plan as documented. SUBJECTIVE:asymptomatic. staes she wants to go home to arrange her home affairs and then go to [place] care. denies CP, SOB, fever, chills, N/V/C?D OBJECTIVE: Last Vital Signs Temp Pulse Resp BP Pulse Ox 98.2 F 96 H 20 135/69 100 06/12/17 05:19 06/12/17 07:38 06/12/17 08:00 06/12/17 07:38 06/12/17 08:00 General anxious HEENT +exopthalmos B/L CV S1 S2 RRR no murmur/rub/gallop ASSESSMENT AND PLAN: 56yo F with PMH continuous polysubstance dependence (percocet and ETOH) presented to the ER with lethargy and ataxia 1. Acute toxic metabolic encephalopathy-likely due to acute intoxication and now withdrawal. does not appear to be in thyroid storm but incidentally picked untreated hyperthyroidism. on librium protocol. back at baseline mental status. 2. Hyperthyroid- appears has been untreated. T4 WNL. spoke with endo who states to start methimazole. can follow up as outpatient for monitoring 3. Suicidal idealations-evaluated and was intoxicated. cleared by psych off 1: 1. no recurrent thoughts. on effexor 4. Lactic acidosis- likely due to tachycardia. normal AG. resolved. 5. Leukocytosis- likely reactive. CXR and UA clear. no signs of infection. will hold off starting abx at this time. 6. Continuous polysubstance dependence- CIWA 4. on librium protocol. improved. mild anxiety which can also be from hyperthyroid and effexor withdrawal. wants to go to detox. 7. hypophophatemia- resolved 8. DVT ppx- lovenox 9. pt does not want to wait to be evaluated by detox specialist. needs to go home to arrange personal affairs. explained that pt can not be transferred to [facility] with allowing them to go home first and then transferred. can not discharge pt while on librium protocol. pt wants to sign out AMA. explained risks of withdrawal seizures and risk if returns to drinking. explained importance of medication complaince and follow up with doctors for moniotring. verbalized understanding of risks and signed out AMA
[2017-06-12] MEDS ORDERED: chlordiazePOXIDE 5 MG CAPSULE PO SCH (23:00)
== END 2017-06-12 12:19 | disposition left against medical advice (07) | DRG 643 ==
LOC: JER 13:59 → JERBED 17:22 → J4W 22:04
PROVIDERS: ADMIT Internal Medicine; ATTEND Internal Medicine
PROC: HZ2ZZZZ Detoxification Services for Substance Abuse Treatment (ICD-10-PCS; principal; 2017-06-11)
DX: E05.00 Thyrotoxicosis with diffuse goiter without thyrotoxic crisis or storm (principal); G92 Toxic encephalopathy; F11.20 Opioid dependence, uncomplicated; E87.2 Acidosis; R45.851 Suicidal ideations; F10.120 Alcohol abuse with intoxication, uncomplicated; E78.5 Hyperlipidemia, unspecified; F32.9 Major depressive disorder, single episode, unspecified; R00.0 Tachycardia, unspecified; D72.829 Elevated white blood cell count, unspecified; F17.210 Nicotine dependence, cigarettes, uncomplicated; E83.39 Other disorders of phosphorus metabolism; Y90.0 Blood alcohol level of less than 20 mg/100 ml
CPT/HCPCS: 36415; 71010-TC; 80048; 80053; 80307; 81003; 81015; 82140; 82550; 82553; 83605; 83735; 84100; 84439; 84443; 84480; 84484; 84703; 85025; 85027; 85610; 87040; 93005; 93010; 93306-TC; 99284-25; J1644

== ENCOUNTER 2017-07-06 05:04 | Emergency (ER) | payer OTHER ==
[2017-07-06 06:23] VITALS: BP 105/59; PULSE 97; TEMP 98.3; BMI 31.8
--- NOTE | 2017-07-06 07:41 | PDOC ---
History of Present Illness - General Chief Complaint: Alcohol intoxication Stated Complaint: INTOX Time Seen by Provider: 07/06/17 05:34 History Source: Patient Exam Limitations: No Limitations - History of Present Illness Initial Comments: 07/06/17 07:36 Patient is a 56 year old female with h/o EtoH abuse, opiate abuse, aneurysm with coiling c/o here requesting detox. Patient states she just detox from [facility], was there for the last 6 days, got out and started drinking again. Last drank at 3 AM this morning. Patient is uncooperative with answering questions. PMHX: neg PSOCHX: (+) cig, (+) drug, (+) etoh ALL: NKDA GENERAL/CONSTITUTIONAL: [No fever or chills. No weakness. No weight change.] HEAD, EYES, EARS, NOSE AND THROAT: [No change in vision. No ear pain or discharge. No sore throat.] CARDIOVASCULAR: [No chest pain or shortness of breath.] RESPIRATORY: [No cough, wheezing, or hemoptysis.] GASTROINTESTINAL: [No nausea, vomiting, diarrhea or constipation. No rectal bleeding.] GENITOURINARY: [No dysuria, frequency, or change in urination.] MUSCULOSKELETAL: [No joint or muscle swelling or pain. No neck or back pain.] SKIN AND BREASTS: [No rash or easy bruising.] NEUROLOGIC: [No headache, vertigo, loss of consciousness, or loss of sensation.] PSYCHIATRIC: [No depression or anxiety.] ENDOCRINE: [No increased thirst. No abnormal weight change.] HEMATOLOGIC/LYMPHATIC: [No anemia, easy bleeding, or history of blood clots.] ALLERGIC/IMMUNOLOGIC: [No hives or skin allergy. No latex allergy.] GENERAL: [The patient is awake, alert, and fully oriented, in no acute distress. AOB HEAD: [Normal with no signs of trauma.] EYES: [Pupils equal, round and reactive to light, extraocular movements intact, sclera anicteric, conjunctiva clear.] ENT: [Ears normal, nares patent, oropharynx clear without exudates. Moist mucous membranes.] NECK: [Normal range of motion, supple without lymphadenopathy, JVD, or masses.] LUNGS: [Breath sounds equal, clear to auscultation bilaterally. No wheezes, and no crackles.] HEART: [Regular rate and rhythm, normal S1 and S2 without murmur, rub.] ABDOMEN: [Soft, nontender, normoactive bowel sounds. No guarding, no rebound. No masses.] EXTREMITIES: [Normal range of motion, no edema. No clubbing or cyanosis. No cords, erythema, or tenderness.] NEUROLOGICAL: [Cranial nerves II through XII grossly intact. Normal speech, normal gait, no tremors] PSYCH: [Normal mood, normal affect.] SKIN: [Warm, Dry, normal turgor, no rashes or lesions noted.] Past History - Past Medical History Allergies/Adverse Reactions: Allergies Allergy/AdvReac Type Severity Reaction Status Date / Time egg Allergy Severe Vomiting Verified 07/06/17 06:23 No Known Drug Allergies Allergy Unknown Verified 07/06/17 06:23 NKDA Allergy Uncoded 07/06/17 06:23 Home Medications: Ambulatory Orders Venlafaxine HCl [Effexor -] 300 mg PO DAILY 05/24/17 Methimazole [Tapazole -] 10 mg PO DAILY #30 tablet 06/13/17 Anemia: No Asthma: No Cancer: No Cardiac Disorders: No CVA: No COPD: No CHF: No Dementia: No Diabetes: No GI Disorders: No Disorders: No HTN: No Hypercholesterolemia: Yes (NO TREATMENT) Kidney Stones: No Liver Disease: No Psychiatric Problems: Yes (DEPRESSION) Seizures: No Thyroid Disease: Yes (on tapazole not taking meidcations) - Surgical History Abdominal Surgery: No Appendectomy: No Cardiac Surgery: No Cholecystectomy: No Lung Surgery: No Neurologic Surgery: Yes (brain aneurysm in 2010) Orthopedic Surgery: No - Reproductive History PID: No - Immunization History Immunization Up to Date: Yes - Suicide/Smoking/Psychosocial Hx Smoking Status: No Smoking History: Unknown if ever smoked Have you smoked in the past 12 months: Yes Number of Cigarettes Smoked Daily: 30 Cigars Per Day: 0 Information on smoking cessation initiated: Yes 'Breaking Loose' booklet given: 06/22/17 Hx Alcohol Use: Yes Drug/Substance Use Hx: Yes Substance Use Type: Alcohol, Opiates, Prescribed Hx Substance Use Treatment: Yes *Physical Exam - Vital Signs Last Vital Signs Temp Pulse Resp BP Pulse Ox 98.3 F 97 H 19 105/59 97 07/06/17 06:12 07/06/17 06:12 07/06/17 06:12 07/06/17 06:12 07/06/17 06:12 Medical Decision Making - Medical Decision Making 07/06/17 07:46 Patient is a 56 year old female with h/o EtoH abuse, opiate abuse, aneurysm with coiling c/o here requesting detox. [facility] to look for bed and give admission requested for me to call back to check. called at 6:30am and 7 am no answer 0720 Patient requesting to go home I discussed the physical exam findings, ancillary test results and final diagnoses with the patient. I answered all of the patient's questions. The patient was satisfied with the care received and felt comfortable with the discharge plan and treatment plan. The Patient agrees to follow up with the primary care physician within 24-72 hours. *DC/Admit/Observation/Transfer Diagnosis at time of Disposition: Substance abuse - Discharge Dispostion Disposition: HOME Condition at time of disposition: Stable - Referrals Referrals: STAFF,NOT ON [Primary Care Provider] - - Patient Instructions Additional Instructions: Your Discharge Instructions: You must call primary care physician within 24 hours to arrange follow-up. Return to the Emergency Department with any new, persistent or worsening symptoms, for fever, chills, SOB, dizziness or any other concerning changes that may occur. He can follow up with [facility] for detox. - Post Discharge Activity
== END 2017-07-06 07:46 | disposition home or self-care (01) ==
LOC: JER 05:04
DX: F19.10 Other psychoactive substance abuse, uncomplicated (principal); F17.210 Nicotine dependence, cigarettes, uncomplicated; F32.9 Major depressive disorder, single episode, unspecified
CPT/HCPCS: 99283-25

== ENCOUNTER 2017-07-06 19:18 | Emergency (ER) | payer OTHER ==
[2017-07-06 19:39] VITALS: BP 131/76; PULSE 89; TEMP 97.6; BMI 24.7
[2017-07-06] MEDS ORDERED: HALOPERIDOL LACTATE 5 MG/ML IM ONE (19:59)
[2017-07-06] MEDS ORDERED: diazePAM CARPU-JECT 10 MG/2 ML DISP.SYRIN IVPUSH ONE (19:59)
[2017-07-06] MEDS ORDERED: LORazepam 2 MG/ML SDV VIAL ONE (20:40)
--- NOTE | 2017-07-06 20:52 | PDOC ---
History of Present Illness - General Chief Complaint: Substance Abuse Stated Complaint: Substance Abuse Time Seen by Provider: 07/06/17 19:56 - History of Present Illness Initial Comments: 07/06/17 20:53 56 F with hyperthyroidism, ETOH/opiate abuse presenting to ER requesting detox. Pt states that she last drank alcohol several hours ago and now feels like she is withdrawing. She states that she feels "the shakes". Pt denies any F/C. Denies CP/SOB. Denies OCHOA/N/V. Pt was seen in this ER earlier today requesting detox but after initial eval, asked to leave. Pt now states that she wants to stay for detox. Past History - Past Medical History Allergies/Adverse Reactions: Allergies Allergy/AdvReac Type Severity Reaction Status Date / Time egg Allergy Severe Vomiting Verified 07/06/17 19:39 No Known Drug Allergies Allergy Unknown Verified 07/06/17 19:39 NKDA Allergy Uncoded 07/06/17 19:39 Home Medications: Ambulatory Orders Venlafaxine HCl [Effexor -] 300 mg PO DAILY 05/24/17 Methimazole [Tapazole -] 10 mg PO DAILY #30 tablet 06/13/17 Anemia: No Asthma: No Cancer: No Cardiac Disorders: No CVA: No COPD: No CHF: No Dementia: No Diabetes: No GI Disorders: No Disorders: No HTN: No Hypercholesterolemia: Yes (NO TREATMENT) Kidney Stones: No Liver Disease: No Psychiatric Problems: Yes (DEPRESSION) Seizures: No Thyroid Disease: Yes (on tapazole not taking meidcations) - Surgical History Abdominal Surgery: No Appendectomy: No Cardiac Surgery: No Cholecystectomy: No Lung Surgery: No Neurologic Surgery: Yes (brain aneurysm in 2010) Orthopedic Surgery: No - Reproductive History PID: No - Immunization History Immunization Up to Date: Yes - Suicide/Smoking/Psychosocial Hx Smoking Status: No Smoking History: Current every day smoker Have you smoked in the past 12 months: Yes Number of Cigarettes Smoked Daily: 20 Cigars Per Day: 0 Information on smoking cessation initiated: No 'Breaking Loose' booklet given: 06/22/17 Hx Alcohol Use: Yes Drug/Substance Use Hx: Yes Substance Use Type: Alcohol, Opiates, Prescribed Hx Substance Use Treatment: Yes Review of Systems - Review of Systems Comments:: 07/06/17 20:55 "GENERAL/CONSTITUTIONAL: No fever or chills. No weakness. HEAD, EYES, EARS, NOSE AND THROAT: No change in vision. No ear pain or discharge. No sore throat. CARDIOVASCULAR: No chest pain or shortness of breath. RESPIRATORY: No cough, wheezing, or hemoptysis. GASTROINTESTINAL: No nausea, vomiting, diarrhea or constipation. GENITOURINARY: No dysuria, frequency, or change in urination. MUSCULOSKELETAL: No joint or muscle swelling or pain. No neck or back pain. SKIN: No rash NEUROLOGIC: No headache, vertigo, loss of consciousness, or change in strength/ sensation. ENDOCRINE: No increased thirst. No abnormal weight change. HEMATOLOGIC/LYMPHATIC: No anemia, easy bleeding, or history of blood clots. ALLERGIC/IMMUNOLOGIC: No hives or skin allergy. " *Physical Exam - Vital Signs Last Vital Signs Temp Pulse Resp BP Pulse Ox 97.6 F 89 18 131/76 98 07/06/17 19:34 07/06/17 19:34 07/06/17 19:34 07/06/17 19:34 07/06/17 19:34 - Physical Exam Comments: 07/06/17 20:55 "GENERAL: Awake, alert, and fully oriented, in no acute distress, mildly tremulous HEAD: No signs of trauma EYES: PERRLA, EOMI, sclera anicteric, conjunctiva clear ENT: Auricles normal inspection, hearing grossly normal, nares patent, oropharynx clear without exudates. Moist mucosa NECK: Nontender, no stepoffs, Normal ROM, supple, no lymphadenopathy, JVD, or masses LUNGS: Breath sounds equal, clear to auscultation bilaterally. No wheezes, and no crackles HEART: Regular rate and rhythm, normal S1 and S2, no murmurs, rubs or gallops ABDOMEN: Soft, nontender, normoactive bowel sounds. No guarding, no rebound. No masses EXTREMITIES: Normal range of motion, no edema. No clubbing or cyanosis. No cords, erythema, or tenderness NEUROLOGICAL: Cranial nerves II through XII intact. 5/5 strength and sensation in all extremities, Normal speech, normal gait, mild hand tremors, no tongue fasciculations SKIN: Warm, Dry, normal turgor, no rashes or lesions noted. " ED Treatment Course - LABORATORY CBC & Chemistry Diagram: 07/06/17 20:40 07/06/17 20:40 Medical Decision Making - Medical Decision Making 07/06/17 20:55 56 F with opiate/etoh abuse presenting to ER requesting detox. Clinically appears to be in early mild withdrawal. Vitals normal. - labs - Benzos PRN 07/06/17 23:00 Pt re-evaluated - now appears much calmer. Pt reports resolution of her shakes. Denies any complaints currently. Pt ambulatory with steady gait, alert and oriented x 3. Denies SI/HI/AVH. Clinically table for transfer to detox. 07/07/17 01:19 Pt now requesting DC home. No longer wants detox. Clinically sober, with no distracting injury. Will DC home at this time. *DC/Admit/Observation/Transfer Diagnosis at time of Disposition: Substance abuse - Discharge Dispostion Disposition: HOME Condition at time of disposition: Fair - Referrals - Patient Instructions Printed Discharge Instructions: DI for Alcohol Abuse Additional Instructions: If you experience any chest pain, shortness of breath, tremors, or any other concerning symptoms, return to the ER immediately. If you are interested in rehab or detox, go to [facility], or [facility]. - Post Discharge Activity - Attestations Physician Attestion: 07/06/17 23:04 I, Dr. Ruben Marin MD, attest that this document has been prepared under my direction and personally reviewed by me in its entirety. I further attest, that it accurately reflects all work, treatment, procedures and medical decision -making performed by me.
[2017-07-06 20:58] LABS: BASO # 0.2 # (0.1-1); BASO % 1.2 % (0-2.0); EOS # 0.2 # (0-4.5); EOS % 1.5 % (0-4.5); LYMPH # 4.7 (8-40); MCH 30.3 pg (25.7-33.7); MCHC 33.1 g/dl (32.0-36.0); MEAN CELL VOLUME 91.7 fl (80-96); MEAN PLT VOLUME 8.3 fl (7.5-11.1); MONO # 0.5 # (3.8-10.2); NEUT # 7.1 # (42.8-82.8); NEUT % 56.2 % (42.8-82.8); PLATELET COUNT 411 K/MM3 (134-434); RDW 15.1 % (11.6-15.6); WHITE BLOOD COUNT 12.6 K/mm3 (4.0-10.0)
[2017-07-06 21:42] LABS: ALBUMIN 4.4 g/dl (3.4-5.0); ANION GAP 9 (8-16); BILIRUBIN,TOTAL 0.4 mg/dL (0.2-1.0); CALCIUM 9.6 mg/dL (8.5-10.1); CO2 28 mmol/L (21-32); CREATININE 0.7 mg/dL (0.55-1.02); GLUCOSE,RANDOM 106 mg/dL (74-106); SGOT/AST 17 U/L (15-37); SGPT/ALT 43 U/L (12-78); TOT PROT 8.5 g/dl (6.4-8.2)
[2017-07-06 21:43] LABS: ALK PHOS 102 U/L (45-117)
[2017-07-07] MEDS ORDERED: chlordiazePOXIDE HCL 25 MG CAPSULE PO ONE (04:15)
[2017-07-07] MEDS ORDERED: chlordiazePOXIDE HCL 25 MG CAPSULE ONE (04:18)
== END 2017-07-07 04:31 | disposition home or self-care (01) ==
LOC: SUPCPDRO 19:18 → JER 19:18
DX: Z13.89 Encounter for screening for other disorder (principal)
CPT/HCPCS: 36415; 80053; 80307; 85025; 99282-25

== ENCOUNTER 2017-07-24 07:46 | Observation (INO) | payer OTHER ==
[2017-07-24 07:55] VITALS: BMI 27.6
[2017-07-24] MEDS ORDERED: SODIUM CHLORIDE 1,000 ML IV SCH ×2 (08:15→10:15)
--- NOTE | 2017-07-24 08:17 | PDOC ---
Attending Attestation - Resident Resident Name: Nate Osorio - ED Attending Attestation I have performed the following: I have examined & evaluated the patient, The case was reviewed & discussed with the resident, I agree w/resident's findings & plan, Exceptions are as noted - HPI HPI: 07/24/17 08:51 56y F hypothyroidism, anrysum sp coiling presents with L sided tingling/ numbness. Pt states she had a mild headache after awakening yesterday. She endorses having the headache worsen throughout the day. Pt denies any palpitatons, cp, sob, neck pain, back pain, recent injury, vision changes. This morning, she woke up feeling ok, as she was walking to the bathroom she noted some tingling/numbness of the left side (Face/arms/legs) and she noted her legs 'gave out' when she was waking and she noted some L leg weakness. On exam the pt is in no distress GENERAL: The patient is awake, alert, and fully oriented, Nontoxic - in no acute distress. HEAD: Normocephalic, atraumatic. EYES: extraocular movements intact, sclera anicteric, conjunctiva clear. pupils 2mm equally reactive and symmetric. ENT: Normal voice, Moist mucous membranes. NECK: Normal range of motion, supple LUNGS: Breath sounds equal, clear to auscultation bilaterally. No wheezes, no rhonchi, no rales. HEART: Regular rate and rhythm, normal S1 and S2 without murmur, rub or gallop. ABDOMEN: Soft, nontender, normoactive bowel sounds. No guarding, no rebound. . No CVA tenderness EXTREMITIES: Normal range of motion, no edema. No clubbing or cyanosis. No cords, erythema, or tenderness. NEUROLOGICAL: No facial assymetry, Normal speech, minimal L sided LE weakness (5 -/5), the rest of the extremities 5/5. slightly decreased sensation on LLE. PSYCH: flat affect SKIN: Warm, Dry, normal turgor, - Physicial Exam PE: 07/24/17 10:47 see above - Medical Decision Making 07/24/17 10:45 I was immeidately bedside upon arrival but this was documented afterwards due to a significant number of sick patients that I had to attend to. ddx includes:cva/tia, sah, metabolic drnagment code mcqueen initiated upon arrival due to time frame - bgm is [address] head negative for acute process dw dr. velarde - not TPA candidate due to limited / rapidly improving sypmtoms NIHSS 2 pt has substance abuse history - suspect her affect may be due to benzo/opiates will obs pt for TIA with neuro consult CRITICAL CARE DOCUMENTATION: I spent ~35 minutes of Critical Care time, excluding separately billable procedures, involving high complexity decision making to assess, manipulate and support vital system function(s) to treat single or multiple vital organ system failure and/or to prevent further life threatening deterioration of the patient' s condition. Heart Score/ECG Review - ECG Impressions Comment:: 07/24/17 10:53 Twelve-lead EKG was performed and reviewed by me. There is normal sinus rhythm with a normal rate. Rate of 78 The axis is normal. The intervals are normal. There is normal R wave progression Tic T wave wave abnormality
--- NOTE | 2017-07-24 08:23 | PDOC ---
History of Present Illness - History of Present Illness Initial Comments: 07/24/17 09:34 The patient is a 56 year old female with a history of Opioid abuse, Thyroid disease, Brain aneurysm (coiled 2009), who presents for evaluate of left sided numbeness and weakness. The patient reports sudden onset of left lower extremity weakness as well associated numbness along her entire left sided of her body prompting her presentation to the ED for evaluation. She notes that this occurred around 7:00am this morning after she woke up. She states that her symptoms are somewhat improved on presentation to the ED, but continues to report a tingling sensation and some mild weakness in her left lower extremity. She also notes a gradual worsening headache over the past 1 day and notes that she does not normally get headaches. She denies fevers, chills, SOB, chest pain, abdominal pain, nausea, vomiting, or changes with urination or bowel movements. <Nate Osorio - Last Filed: 07/24/17 10:38> <Seamus Coles - Last Filed: 07/24/17 10:49> - General Chief Complaint: CVA/TIA Stated Complaint: LT SIDE NUMBNESS,LEG PAINX1 HR Time Seen by Provider: 07/24/17 08:04 NIH Stroke Scale - Last Known Well Date/Time & Onset Date Last Known Well: 07/24/17 Time Last Known Well: 07:00 - Initial Evaluation Level of consciousness: Alert Ask patient the month and their age: Answers both correctly Ask patient to open & close eyes; make fist and let go: Obeys both correctly Best gaze (horizontal eye movement): Normal Visual field testing: No visual field loss Facial paresis (Show teeth/raise eyebrows/close eyes tight): Normal symmetrical movement Motor Function: Left Arm: Normal Motor Function: Right Arm: Normal (extends arm 90 (or 45) degrees for 10 seconds without drift Motor Function: Left Leg: Drift Motor Function: Right Leg: Normal (extends leg 30 degrees for 5 seconds without drift) Limb Ataxia: No ataxia Sensory(Use pinprick test arms,legs,trunk,face/side to side): Mild to moderate decrease in sensation Best language (Describe picture, name items, read sentences): No Aphasia Dysarthria (read several words): Normal articulation Extinction and Inattention: No abnormality - Total Score NIH Stroke Scale Score: 2 <Nate Osorio - Last Filed: 07/24/17 10:38> tPA Exclusion Checklist 0-3hr - Time Elapsed Date last known well: 07/24/17 Time last known well: 07:00 Elaspsed time: Day(s) and 3 Hour(s) and 49 Minutes - Thrombolytic Therapy Candidate Is the patient eligible for Thrombolytic Therapy?: No - Exclusion Criteria 0-3hr SBP greater than 185 or DBP greater than 110mmHg despite tx: No Recent IC/spinal surgery,head trauma or stroke w/in last 3mo: No Hx of previous IC hemorrhage, IC neoplasm, AVM or aneurysm: Yes Active internal bleeding: No Blding diathesis(low plt ct, inc PTT,INR>1.7 or use of NOAC): No Symptoms suggest subarachnoid hemorrhage: No CT demonstrates multilobar infarct(>1/3 cerebral hemiphere): No Arterial puncture at noncompressible site in previous 7 days: No Blood glucose concentration less than 50mg/dL (2.7mmol/L): No - Relative Exclusion Criteria 0-3h Life expectancy <1yr/severe co-morbid illness/ENVIRONMENTAL PROPERTY ASSESSOR on admit: No : No Patient/family refused: No Rapid improvement: Yes Stroke severity too mild: Yes Recent acute GA (w/in previous 3 months): No Seizure at onset with postictal residual neuro impairments: No Major surgery or serious trauma w/in previous 14 days: No Recent GI or hemorrhage (w/in previous 21 days): No - Ineligibility reason(s) Reasons No tPA given: See reason(s) noted above <Seamus Coles - Last Filed: 07/24/17 10:49> Past History - Past Medical History Anemia: No Asthma: No Cancer: No Cardiac Disorders: No CVA: No COPD: No CHF: No DVT: No Dementia: No Diabetes: No GI Disorders: No Disorders: No HTN: No Hypercholesterolemia: Yes (NO TREATMENT) Kidney Stones: No Liver Disease: No Psychiatric Problems: Yes (DEPRESSION) Seizures: No Thyroid Disease: Yes (on tapazole not taking meidcations) - Surgical History Abdominal Surgery: No Appendectomy: No Cardiac Surgery: No Cholecystectomy: No Lung Surgery: No Neurologic Surgery: Yes (brain aneurysm in 2009) Orthopedic Surgery: No - Reproductive History PID: No - Immunization History Immunization Up to Date: Yes - Suicide/Smoking/Psychosocial Hx Smoking Status: No Smoking History: Current every day smoker Have you smoked in the past 12 months: Yes Number of Cigarettes Smoked Daily: 25 Cigars Per Day: 0 Information on smoking cessation initiated: No 'Breaking Loose' booklet given: 06/22/17 Hx Alcohol Use: Yes Drug/Substance Use Hx: Yes Substance Use Type: Alcohol, Opiates, Prescribed Hx Substance Use Treatment: Yes <Nate Osorio - Last Filed: 07/24/17 10:38> <Seamus Coles - Last Filed: 07/24/17 10:49> - Past Medical History Allergies/Adverse Reactions: Allergies Allergy/AdvReac Type Severity Reaction Status Date / Time egg Allergy Severe Vomiting Verified 07/24/17 07:50 No Known Drug Allergies Allergy Unknown Verified 07/24/17 07:50 Home Medications: Ambulatory Orders Venlafaxine HCl [Effexor -] 300 mg PO DAILY 05/24/17 Methimazole [Tapazole -] 10 mg PO DAILY #30 tablet 06/13/17 Review of Systems - Review of Systems Comments:: 07/24/17 09:44 Constitutional: No fevers, chills, fatigue, malaise HEENT: No Rhinorrhea, nasal congestion, visual changes Cardiovascular: No chest pain, syncope, palpitations, lightheadedness Respiratory: No Cough, SOB, Hemoptysis, Gastrointestinal: No Abdominal pain, Nausea, Vomiting, Constipation, Diarrhea, Genitourinary: No Dysuria, Frequency, Urgency, Hesitancy, Hematuria, Flank pain Musculoskeletal: No Myalgia, arthralgia Skin: No rashes, bruising, pallor Neurologic: Headache, numbness, tingling, weakness. No Dizziness, Psychiatric: No Hallucinations. No SI or HI <Nate Osorio - Last Filed: 07/24/17 10:38> *Physical Exam - Vital Signs Last Vital Signs Temp Pulse Resp BP Pulse Ox 98.5 F 97 H 19 141/76 97 07/24/17 07:50 07/24/17 07:50 07/24/17 07:50 07/24/17 07:50 07/24/17 07:50 - Physical Exam Comments: 07/24/17 09:45 General Appearance: Nourished. No Apparent Distress HEENT: EOMI, BOLIV[place]. No Pharyngeal Erythema, Tonsillar Exudate, Tonsillar Erythema Neck: No Cervical Lymphadenopathy Respiratory/Chest: Lungs Clear, Normal Breath Sounds. No Crackles, Rales, Rhonchi, Wheezing Cardiovascular: Regular Rhythm, Regular Rate. No Murmur, Gallops, Rubs Gastrointestinal/Abdominal: Normal Bowel Sounds, Soft. No Guarding, Rebound, Tenderness Musculoskeletal: No CVA Tenderness Extremity: Normal Capillary Refill Integumentary: Normal Color, Dry, Warm Neurologic: tag and label cutter II-XII NML intact, Fully Oriented, Alert, Normal Mood/Affect, Normal Response, Motor Strength 4/5 in the lower left extremity otherwise motor strength is 5/5. Mild decreased sensation to light touch in the left lower extremity. Normal Finger to Nose and Heel to [place] <Nate Osorio - Last Filed: 07/24/17 10:38> - Vital Signs Last Vital Signs Temp Pulse Resp BP Pulse Ox 98.5 F 97 H 19 141/76 97 07/24/17 07:50 07/24/17 07:50 07/24/17 07:50 07/24/17 07:50 07/24/17 07:50 <Seamus Coles - Last Filed: 07/24/17 10:49> ED Treatment Course - LABORATORY CBC & Chemistry Diagram: 07/24/17 08:15 07/24/17 08:15 - RADIOLOGY Radiology Studies Ordered: Category Date Time Status HEAD CT (STROKE) [CT] Stat CT Scan 07/24/17 08:11 Ordered <Nate Osorio - Last Filed: 07/24/17 10:38> - LABORATORY CBC & Chemistry Diagram: 07/24/17 08:15 07/24/17 08:15 - ADDITIONAL ORDERS Additional order review: Laboratory Results 07/24/17 07/24/17 07/24/17 09:00 09:00 08:15 PT with INR INR Sodium Potassium Chloride Carbon Dioxide Anion Gap BUN Creatinine Creat Clearance w eGFR Random Glucose Calcium Total Bilirubin AST ALT Alkaline Phosphatase Creatine Kinase Creatine Kinase Index CK-MB (CK-2) Troponin I Total Protein Albumin Triglycerides Cholesterol Total LDL Cholesterol HDL Cholesterol Urine Color Yellow Urine Appearance Slcloudy Urine pH 5.0 Ur Specific [place] 1.027 Urine Protein Negative Urine Glucose (UA) Negative Urine Ketones Trace H Urine Blood Negative Urine Nitrite Negative Urine Bilirubin Negative Urine Urobilinogen 2.0 H Ur Leukocyte Esterase Trace Urine WBC (Auto) 1 Urine RBC (Auto) 6 Ur Epithelial Cells Few Urine Mucus Rare Opiates Screen Positive Methadone Screen Positive Barbiturate Screen Negative Phencyclidine Screen Negative Ur Amphetamines Screen Negative MDMA (Ecstasy) Screen Negative Benzodiazepines Screen Positive Cocaine Screen Negative U Marijuana (THC) Screen Negative Blood Type B POSITIVE Antibody Screen Negative 07/24/17 07/24/17 08:15 08:15 PT with INR 11.60 INR 1.03 Sodium 136 Potassium 4.3 Chloride 102 Carbon Dioxide 28 Anion Gap 6 L BUN 10 Creatinine 0.6 Creat Clearance w eGFR > 60 Random Glucose 102 Calcium 9.6 Total Bilirubin 0.3 D AST 31 D ALT 28 D Alkaline Phosphatase 72 Creatine Kinase 174 Creatine Kinase Index 0.5 CK-MB (CK-2) < 1 Troponin I 0.04 Total Protein 8.1 Albumin 4.1 Triglycerides 178 H Cholesterol 281 H Total LDL Cholesterol 181 H HDL Cholesterol 64 H Urine Color Urine Appearance Urine pH Ur Specific [place] Urine Protein Urine Glucose (UA) Urine Ketones Urine Blood Urine Nitrite Urine Bilirubin Urine Urobilinogen Ur Leukocyte Esterase Urine WBC (Auto) Urine RBC (Auto) Ur Epithelial Cells Urine Mucus Opiates Screen Methadone Screen Barbiturate Screen Phencyclidine Screen Ur Amphetamines Screen MDMA (Ecstasy) Screen Benzodiazepines Screen Cocaine Screen U Marijuana (THC) Screen Blood Type Antibody Screen 07/24/17 08:15 RBC 4.52 MCV 91.3 MCHC 32.3 RDW 14.3 MPV 8.6 Neutrophils % 63.5 Lymphocytes % 25.4 D Monocytes % 8.6 D Eosinophils % 1.3 Basophils % 1.2 <Seamus Coles - Last Filed: 07/24/17 10:49> Medical Decision Making - Medical Decision Making 07/24/17 09:48 The patient is a 56 year old female with a history of Opioid abuse, Thyroid disease, Brain aneurysm (coiled 2009), who presents for evaluate of left sided numbeness and weakness. Differential includes but is not limited to: Intracranial bleed, CVA, TIA, infectious, metabolic derangement. Given the patient's history of a brain aneurysm as well as acute onset weakness, we are concerned for a possible CVA or TIA and have code Huffman the patient here in the ED although we have a lower suspicion given her physical exam. We will obtain a head ct, cbc, cmp, coags troponin, ekg to evaluate further. We will continue to monitor and reassess. 07/24/17 09:[address] demonstrated the old coiled aneurysm as well as some changes in the frontal lobe, but no acute signs of infarct as read by our radiologist. We discussed the case with Dr. Damian with neurology who has been made aware of the case. CBC, cmp, ua are unremarkable at this time. However given her symptoms, we believe she requires observation admission for further management and neurology eval. 07/24/17 10:38 We discussed the case with the hospitalist team who accepted the patient for admission. <Nate Osorio - Last Filed: 07/24/17 10:38> *DC/Admit/Observation/Transfer - Discharge Dispostion Admit: Yes <Nate Osorio - Last Filed: 07/24/17 10:38> <Seamus Coles - Last Filed: 07/24/17 10:49> Diagnosis at time of Disposition: Weakness TIA (transient ischemic attack) Qualifiers: Transient cerebral ischemia type: unspecified Qualified Code(s): G45.9 - Transient cerebral ischemic attack, unspecified - Discharge Dispostion Condition at time of disposition: Stable
[2017-07-24 08:30] LABS: BASO % 1.2 % (0-2.0); EOS % 1.3 % (0-4.5); HEMATOCRIT 41.3 % (32.4-45.2); HEMOGLOBIN 13.3 GM/dL (10.7-15.3); LYMPH % 25.4 % (8-40); MCH 29.5 pg (25.7-33.7); MCHC 32.3 g/dl (32.0-36.0); MEAN CELL VOLUME 91.3 fl (80-96); MEAN PLT VOLUME 8.6 fl (7.5-11.1); MONO % 8.6 % (3.8-10.2); NEUT % 63.5 % (42.8-82.8); PLATELET COUNT 331 K/MM3 (134-434); RBC 4.52 M/mm3 (3.60-5.2); RDW 14.3 % (11.6-15.6); WHITE BLOOD COUNT 8.4 K/mm3 (4.0-10.0)
[2017-07-24 08:42] LABS: INR 1.03 (0.82-1.09); PROTHROMBIN TIME (PATIENT) 11.6 SEC (9.98-11.88)
[2017-07-24 08:58] LABS: CHLORIDE 102 mmol/L (98-107); SODIUM 136 mmol/L (136-145)
[2017-07-24 09:02] LABS: POTASSIUM 4.3 mmol/L (3.5-5.1)
[2017-07-24 09:06] LABS: URINE APPEARANCE SLCLOUDY; URINE BILIRUBIN NEGATIVE (NEGATIVE); URINE BLOOD NEGATIVE (NEGATIVE); URINE COLOR YELLOW; URINE GLUCOSE (UA) NEGATIVE (NEGATIVE); URINE KETONE TRACE (NEGATIVE); URINE LEUK ESTERASE TRACE (NEGATIVE); URINE NITRITE NEGATIVE (NEGATIVE); URINE PROTEIN NEGATIVE (NEGATIVE)
[2017-07-24 09:06] LABS: ALBUMIN 4.1 g/dl (3.4-5.0); ANION GAP 6 (8-16); BILIRUBIN,TOTAL 0.3 mg/dL (0.2-1.0); BLOOD UREA NITROGEN 10 mg/dL (7-18); CALCIUM 9.6 mg/dL (8.5-10.1); CHOLESTEROL 281 mg/dL (50-200); CO2 28 mmol/L (21-32); CREATININE 0.6 mg/dL (0.55-1.02); GLUCOSE,RANDOM 102 mg/dL (74-106); LDL CHOLESTEROL (ONLY SJRH) 181 mg/dL (5-100); SGPT/ALT 28 U/L (12-78); TOT PROT 8.1 g/dl (6.4-8.2); TRIGLYCERIDES 178 mg/dL (35-160)
[2017-07-24 09:07] LABS: ALK PHOS 72 U/L (45-117); HDL CHOLESTEROL 64 mg/dL (40-60)
[2017-07-24 09:08] LABS: SGOT/AST 31 U/L (15-37)
[2017-07-24 09:20] LABS: EPI CELLS FEW /HPF (FEW); URINE MUCUS RARE
[2017-07-24 10:04] LABS: COCAINE, UR NEGATIVE ng/ml (CUTOFF=300); PHENCYCLIDINE,URINE NEGATIVE ng/ml (CUTOFF=25); URINE AMPHETAMINES NEGATIVE ng/ml (CUTOFF=500); URINE BARBITURATES NEGATIVE ng/ml (CUTOFF=200)
--- NOTE | 2017-07-24 10:05 | HP ---
CHIEF COMPLAINT: " Left leg, arm and face numbness" PCP: HISTORY OF PRESENT ILLNESS: Patient is an 56-year-old female presented to the ED with the chief complaint of " Left leg, arm and face numbness" x this morning (unable to tell the exact time). As per the patient, she woke up this morning and suddenly felt weakness, unable to stand without support. Patient reports she has had similar episode in the past. Denies slurring of speech, loss of consciouness, headache, blurring of vision, any focal neurological defecit. Patient says she took Percocet > 10 tablets this morning at 4:30 am. Has been taking percocet from the street. Denies taking any other illicit drugs, no alcohol intake since a month, no IV drug use. Also complaints of Left lower quadrant abdominal pain, 9/10 in intensity, dull aching in nature, radiating towards her back, associated with nausea but no vomiting. Hasn't been compliant with thyroid medication. Bowel habit normal. Last BM was today. Bladder habit normal. Decreased sleep and appetite. During her interrogation, patient was crying, seemed to be very sad and said she is stressed because of her kids. No suicidal ideation at this time. Patient was admitted on 06/10/17-06/12/17 for alcohol intoxication and thyroid storm. Patient left AMA. Then she was admitted inpatient at [facility] for detox on 06/22/17-06/26/17. In the ED, they called luis antonio anderson for suspicious TIA. Dr. Mcclure was consulted and he recommended to treat conservatively. Patient is not a candidate of tPA. ER course was notable for: (1) Afebrile, hemodynamically stable, U. tox positive for Opiates, methadone and Benzo (2) EKG: NSR (3) IV NS @ 42 mls/hr. Recent Travel: Travel PAST MEDICAL HISTORY: Polysubstance abuse-street drugs, current smoker, thyroid disease, depression, brain aneurysm (coiled dx 2009) PAST SURGICAL HISTORY: Social History: Smoking: > 1 pack/day Alcohol: Left one month ago Drugs: Street drugs (percocet)last intake this morning at 4:30am. Family History: Non contributory Allergies egg Allergy (Severe, Verified 07/24/17 07:50) Vomiting No Known Drug Allergies Allergy (Unknown, Verified 07/24/17 07:50) HOME MEDICATIONS: Home Medications Medication Instructions Recorded Venlafaxine HCl [Effexor -] 300 mg PO DAILY 05/24/17 Methimazole [Tapazole -] 10 mg PO DAILY #30 tablet 06/13/17 REVIEW OF SYSTEMS CONSTITUTIONAL: Absent: fever, chills, diaphoresis, generalized weakness, malaise, loss of appetite, weight change HEENT: Absent: rhinorrhea, nasal congestion, throat pain, throat swelling, difficulty swallowing, mouth swelling, ear pain, eye pain, visual changes CARDIOVASCULAR: Absent: chest pain, syncope, palpitations, irregular heart rate, lightheadedness , peripheral edema RESPIRATORY: Absent: cough, shortness of breath, dyspnea with exertion, orthopnea, wheezing, stridor, hemoptysis GASTROINTESTINAL: Present: left abdominal pain Absent: abdominal distension, nausea, vomiting, diarrhea, constipation, melena, hematochezia GENITOURINARY: Absent: dysuria, frequency, urgency, hesitancy, hematuria, flank pain, genital pain MUSCULOSKELETAL: Absent: myalgia, arthralgia, joint swelling, back pain, neck pain SKIN: Absent: rash, itching, pallor HEMATOLOGIC/IMMUNOLOGIC: Absent: easy bleeding, easy bruising, lymphadenopathy, frequent infections ENDOCRINE: Absent: unexplained weight gain, unexplained weight loss, heat intolerance, cold intolerance NEUROLOGIC: Present: Left sided weakness Absent: headache, focal weakness or paresthesias, dizziness, unsteady gait, seizure, mental status changes, bladder or bowel incontinence PSYCHIATRIC: Absent: anxiety, depression, suicidal or homicidal ideation, hallucinations. PHYSICAL EXAMINATION Vital Signs - 24 hr 07/24/17 07:50 Temperature 98.5 F Pulse Rate 97 H Respiratory 19 Rate Blood Pressure 141/76 O2 Sat by Pulse 97 Oximetry (%) GENERAL: Patient is lying comfortably in bed, crying, Awake, alert, and fully oriented, in no acute distress. HEAD: Normal with no signs of trauma. EYES: Exophthalmus+, EOM intact, no pallor or icterus. EARS, NOSE, THROAT: Ears normal. Moist mucous membranes. NECK: Supple. LUNGS: B/L Breath sounds equal, clear to auscultation bilaterally. No wheezes, and no crackles. No accessory muscle use. HEART: Regular rate and rhythm, normal S1 and S2 with soft systolic murmur. ABDOMEN: Soft, nontender, not distended, normoactive bowel sounds, no guarding, no rebound, no masses. No hepatomegaly or splenomegaly. MUSCULOSKELETAL: Normal range of motion at all joints. No bony deformities or tenderness. No CVA tenderness. UPPER EXTREMITIES: 2+ pulses, warm, well-perfused. No cyanosis. No clubbing. No peripheral edema. LOWER EXTREMITIES: 2+ pulses, warm, well-perfused. No calf tenderness. No peripheral edema. NEUROLOGICAL: No facial droop, Power 5/5 in all extremities except left lower extremity 4/5, reflexes 2 +, slightly decreased sensation on the left LE, Cranial nerves II-XII intact. Normal speech. Gait not observed. PSYCHIATRIC: Cooperative. Good eye contact. Appropriate mood and affect. SKIN: Warm, dry, normal turgor, no rashes or lesions noted, normal capillary refill. Laboratory Results - last 24 hr 07/24/17 07/24/17 07/24/17 08:15 08:15 08:15 WBC 8.4 D RBC 4.52 Hgb 13.3 Hct 41.3 MCV 91.3 MCH 29.5 MCHC 32.3 RDW 14.3 Plt Count 331 MPV 8.6 Neutrophils % 63.5 Lymphocytes % 25.4 D Monocytes % 8.6 D Eosinophils % 1.3 Basophils % 1.2 PT with INR 11.60 INR 1.03 Sodium 136 Potassium 4.3 Chloride 102 Carbon Dioxide 28 Anion Gap 6 L BUN 10 Creatinine 0.6 Creat Clearance w eGFR > 60 Random Glucose 102 Calcium 9.6 Total Bilirubin 0.3 D AST 31 D ALT 28 D Alkaline Phosphatase 72 Creatine Kinase 174 Creatine Kinase Index 0.5 CK-MB (CK-2) < 1 Troponin I 0.04 Total Protein 8.1 Albumin 4.1 Triglycerides 178 H Cholesterol 281 H Total LDL Cholesterol 181 H HDL Cholesterol 64 H Urine Color Urine Appearance Urine pH Ur Specific [place] Urine Protein Urine Glucose (UA) Urine Ketones Urine Blood Urine Nitrite Urine Bilirubin Urine Urobilinogen Ur Leukocyte Esterase Urine WBC (Auto) Urine RBC (Auto) Ur Epithelial Cells Urine Mucus Barbiturate Screen Phencyclidine Screen Ur Amphetamines Screen MDMA (Ecstasy) Screen Cocaine Screen U Marijuana (THC) Screen Blood Type Antibody Screen 07/24/17 07/24/17 07/24/17 08:15 09:00 09:00 WBC RBC Hgb Hct MCV MCH MCHC RDW Plt Count MPV Neutrophils % Lymphocytes % Monocytes % Eosinophils % Basophils % PT with INR INR Sodium Potassium Chloride Carbon Dioxide Anion Gap BUN Creatinine Creat Clearance w eGFR Random Glucose Calcium Total Bilirubin AST ALT Alkaline Phosphatase Creatine Kinase Creatine Kinase Index CK-MB (CK-2) Troponin I Total Protein Albumin Triglycerides Cholesterol Total LDL Cholesterol HDL Cholesterol Urine Color Yellow Urine Appearance Slcloudy Urine pH 5.0 Ur Specific [place] 1.027 Urine Protein Negative Urine Glucose (UA) Negative Urine Ketones Trace H Urine Blood Negative Urine Nitrite Negative Urine Bilirubin Negative Urine Urobilinogen 2.0 H Ur Leukocyte Esterase Trace Urine WBC (Auto) 1 Urine RBC (Auto) 6 Ur Epithelial Cells Few Urine Mucus Rare Barbiturate Screen Negative Phencyclidine Screen Negative Ur Amphetamines Screen Negative MDMA (Ecstasy) Screen Negative Cocaine Screen Negative U Marijuana (THC) Screen Negative Blood Type B POSITIVE Antibody Screen Negative ASSESSMENT/PLAN: Patient is an 56-year-old female with signficant past medical history of Polysubstance abuse-street drugs, current smoker, thyroid disease, depression, brain aneurysm (coiled dx 2009) presented to the ED with the chief complaint of "Verdana 4d Left leg, arm and face numbness" x this morning (unable to tell the exact time) . # Possible TIA c/o left sided arm, face, leg weakness since this morning (time of onset unknown) On arrival, hemodynamically stable. Neuro exam: no focal neurological deficit. NIH score 2 Not a tPA candidate because of unknown time of onset and mild symptoms CT head showed: old coiled aneurysm as well as some changes in the frontal lobe, but no acute signs of infarct Admitted in Tele/Obs Continuous cardiac monitoring Neuro checks Last Echo was done on 06/11/17 so will not order Echo for now Aspirin 81 mg PO daily Repeat CT head in 12 hrs if symptoms progress Would consider MRI of brain after consulting with Dr. Mcclure. Dr. Mcclure consult requested. Vitamin B12, folate ordered to r/o cause of her numbness and tingling # Polysubstance abuse U. tox positive for benzo, opiates and Methadone. Alcohol level pending Spoke with Dr. Fang over the phone, to start detox with Methadone Substance abuse cessation counseling, patient verbalized understanding. # Thyroid disease h/o possible thyroid storm. Patient is not compliant with methimazole TSH, Free T3 ordered normal. Will hold Methimazole # Hyperlipidemia Started her on Atorvastatin 40mg PO Daily. # Active smoker Nicotine patch 14 Smoking cessation # Depression Patient seems to be very sad, crying, has social issues. Would consider starting seroquel. # FEN IV NS @ 42 mls/hr Electrolytes WNL Regular diet # Prophylaxis For DVT: ON scds, early ambulation For GI: Not indicated # Code Status: Full Code # Dispo: Duration of stay unknown. Illness, Investigation and Plan of care explained to the patient. She verbalized understanding. Case discussed with Dr. Meza.
[2017-07-24] MEDS ORDERED: ASPIRIN 81 MG CHEWABLE TABLETS PO ONE (10:13)
[2017-07-24 10:30] LABS: METHADONE, UR POSITIVE ng/ml (CUTOFF=300); OPIATES, URI POSITIVE ng/ml (CUTOFF=300); URINE BENZODIAZEPINES POSITIVE ng/ml (CUTOFF=200)
[2017-07-24] MEDS ORDERED: diazePAM 5 MG TABLET PO ONE (10:56)
[2017-07-24] MEDS ORDERED: diazePAM 5 MG TABLET PO PRN (10:56)
--- NOTE | 2017-07-24 10:56 | CONSULT ---
Consult Detox [facility] Reason for Current Admission/Consult: percocet misuse and withdrawal, sedative dependence Referred by:: Maricarmen Hugo - Alcohol/Substance Use Hx Alcohol Use: Yes - Past Medical History ...LMP: 04/21/02 Assessment Plan - Diagnosis (1) Alcohol dependence Status: Acute (2) Sedative, hypnotic or anxiolytic dependence with withdrawal, uncomplicated Status: Acute (3) Major depressive disorder, recurrent, moderate Status: Acute (4) Substance induced mood disorder Status: Acute (5) GERD (gastroesophageal reflux disease) Status: Chronic Qualifiers: Esophagitis presence: without esophagitis Qualified Code(s): K21.9 - Gastro -esophageal reflux disease without esophagitis (6) Nicotine dependence Status: Chronic Qualifiers: Nicotine product type: cigarettes Substance use status: uncomplicated Qualified Code(s): F17.210 - Nicotine dependence, cigarettes, uncomplicated (7) Opioid dependence with withdrawal Status: Chronic - Medication Detox Regimen/Protocol: Methadone/Valium
--- NOTE | 2017-07-24 11:08 | PN ---
Teaching Attending Note Name of Resident: Maricarmen Hugo ATTENDING PHYSICIAN STATEMENT I saw and evaluated the patient. I reviewed the resident's note and discussed the case with the resident. I agree with the resident's findings and plan as documented. SUBJECTIVE: This is a 56 year old woman with history of substance abuse, depression, brain aneurysm who comes to the ED complaining of numbness and weakness of her left leg, and numbness of her left arm and face. Symptoms started when she awoke, around 7 am. OBJECTIVE: Vital Signs Period Temp Pulse Resp BP Sys/Cash Pulse Ox Last 24 Hr 98.5 F 97 19 141/76 97 HEART: S1S2, RRR LUNGS: Clear ABDOMEN: Soft, non-tender, non-distended, normal BS EXTREMITIES: No edema NEUROLOGICAL: Alert, oriented, CN 2-12 intact, sensation intact, strength 5/5 in LUE/RUE/RLE and 4+/5 in LLE, DTRs 2+, plantar reflexes flexor Laboratory Tests 07/24/17 07/24/17 07/24/17 08:15 08:15 08:15 WBC 8.4 D RBC 4.52 Hgb 13.3 Hct 41.3 MCV 91.3 MCH 29.5 MCHC 32.3 RDW 14.3 Plt Count 331 MPV 8.6 Neutrophils % 63.5 Lymphocytes % 25.4 D Monocytes % 8.6 D Eosinophils % 1.3 Basophils % 1.2 PT with INR 11.60 INR 1.03 Sodium 136 Potassium 4.3 Chloride 102 Carbon Dioxide 28 Anion Gap 6 L BUN 10 Creatinine 0.6 Creat Clearance w eGFR > 60 Random Glucose 102 Calcium 9.6 Total Bilirubin 0.3 D AST 31 D ALT 28 D Alkaline Phosphatase 72 Creatine Kinase 174 Creatine Kinase Index 0.5 CK-MB (CK-2) < 1 Troponin I 0.04 Total Protein 8.1 Albumin 4.1 Triglycerides 178 H Cholesterol 281 H Total LDL Cholesterol 181 H HDL Cholesterol 64 H Urine Color Urine Appearance Urine pH Ur Specific [place] Urine Protein Urine Glucose (UA) Urine Ketones Urine Blood Urine Nitrite Urine Bilirubin Urine Urobilinogen Ur Leukocyte Esterase Urine WBC (Auto) Urine RBC (Auto) Ur Epithelial Cells Urine Mucus Opiates Screen Methadone Screen Barbiturate Screen Phencyclidine Screen Ur Amphetamines Screen MDMA (Ecstasy) Screen Benzodiazepines Screen Cocaine Screen U Marijuana (THC) Screen Blood Type Antibody Screen 07/24/17 07/24/17 07/24/17 08:15 09:00 09:00 WBC RBC Hgb Hct MCV MCH MCHC RDW Plt Count MPV Neutrophils % Lymphocytes % Monocytes % Eosinophils % Basophils % PT with INR INR Sodium Potassium Chloride Carbon Dioxide Anion Gap BUN Creatinine Creat Clearance w eGFR Random Glucose Calcium Total Bilirubin AST ALT Alkaline Phosphatase Creatine Kinase Creatine Kinase Index CK-MB (CK-2) Troponin I Total Protein Albumin Triglycerides Cholesterol Total LDL Cholesterol HDL Cholesterol Urine Color Yellow Urine Appearance Slcloudy Urine pH 5.0 Ur Specific [place] 1.027 Urine Protein Negative Urine Glucose (UA) Negative Urine Ketones Trace H Urine Blood Negative Urine Nitrite Negative Urine Bilirubin Negative Urine Urobilinogen 2.0 H Ur Leukocyte Esterase Trace Urine WBC (Auto) 1 Urine RBC (Auto) 6 Ur Epithelial Cells Few Urine Mucus Rare Opiates Screen Positive Methadone Screen Positive Barbiturate Screen Negative Phencyclidine Screen Negative Ur Amphetamines Screen Negative MDMA (Ecstasy) Screen Negative Benzodiazepines Screen Positive Cocaine Screen Negative U Marijuana (THC) Screen Negative Blood Type B POSITIVE Antibody Screen Negative Home Medications Medication Instructions Recorded Venlafaxine HCl [Effexor -] 300 mg PO DAILY 05/24/17 Methimazole [Tapazole -] 10 mg PO DAILY #30 tablet 06/13/17 ASSESSMENT AND PLAN: This is a 56 year old woman with history of substance abuse, depression, brain aneurysm who presented to the ED with numbness and weakness of her left leg, and numbness of her left arm and face, which started when she awoke this morning. 1. Possible TIA - Observe on telemetry - Carotid dopplers - MRI of brain vs repeat CT (history of brain aneurysm coil) - Neurology consult - Aspirin, Lipitor 2. Substance abuse with Klonopin, Percocet - Patient is interested in detox - Detox consult 3. Depression - Continue Effexor 4. Hyperthyroidism - Patient reports she has not been taking Tapazole which was started last admission last month for low TSH with symptoms - TSH, FT4 are normal - will not restart Tapazole
[2017-07-24] MEDS ORDERED: METHADONE HCL 10 MG TABLET PO ONE ×3 (11:15→23:00)
[2017-07-24] MEDS ORDERED: NICOTINE 14 MG/24 HOURS TOPICAL PATCH TD SCH ×2 (11:45→16:00)
[2017-07-24] MEDS ORDERED: METHADONE HCL 10 MG TABLET ONE (12:19)
[2017-07-24] MEDS ORDERED: ASPIRIN COATED 81 MG TABLET.EC ONE (12:44)
[2017-07-24] MEDS: diazePAM 5 MG TABLET PO SCH ×2 (14:25→21:15)
[2017-07-24] MEDS ORDERED: NICOTINE POLACRILEX 4 MG GUM BUC PRN (15:28)
--- NOTE | 2017-07-24 17:35 | CONSULT ---
Consult Detox [facility] Reason for Current Admission/Consult: POLYSUBSTANCE USE Referred by:: Polo CRUZELLIOT - History History of Present Illness: 56 YO F PRESENTING TO ED WITH WEAKNESS HAS LONG HISTORY OF POLYSUBSTANCE USE RECENTLY PILLS AND PRESCRBIED BENZODIAZEPIENS CLONAZEPAM 1MG BID WHICH SHE BROUGHT WITH HER, REPORTS MISUSING PERCOCETS EXTENSIVELY RECENTLY DENIES ALCOHOL WOULD LIKE OPIOD AND BENZODIAZEPIEN DETOX AT [facility] IF CLEARED BY ed. - History Source History Provided By: Patient, Medical Record, Caregiver Limitations to Obtaining History: No Limitations - Alcohol/Substance Use Hx Alcohol Use: Yes (none recenlyt x 1 month) Hx Substance Use: Yes Hx Substance Use Treatment: Yes ([facility] detox) - Current Drug/Alcohol Use Oxycontin Route: Oral Frequency: Daily Amount used: as muchas she has Age of first use: 46 Date of Last Use: 07/24/17 Benzodiazepine (Klonopin) Route: Oral Frequency: Daily Amount used: 1mg bid Age of first use: 46 Date of Last Use: 07/24/17 - Past Medical History ...LMP: 04/21/02 - Significant Medical Findings: 56 yo f in ed for work up of new onset weakness reports opiodi withdrawawl sx after running out of percocet, taking prescribed clonazepam, denies alcohol use COWS - Scale Resting Pulse: 0= LA 80 or Below Sweatin= Chills/Flushing Restless Observation: 1= Difficult to Sit Still Pupil Size: 1= Pupils >than Normal Bone or Joint Aches: 1= Mild Discomfort Runny Nose/ Eye Tearin= Nasal Congestion GI Upset > 30mins: 1= Stomach Cramp Tremor Observation: 0= None Yawning Observation: 0= None Anxiety or Irritability: 1=Feels Anxious/Irritable Goose Flesh Skin: 0=Smooth Skin COWS Score: 7 CIWA Score - CIWA Score Nausea/Vomitin-Mild Nausea/No Vomiting Muscle Tremors: None Anxiety: 1-Mildly Anxious Agitation: 1-Slight > Activity Paroxysmal Sweats: No Perspiration Orientation: 0-Oriented Tacttile Disturbances: 0-None Auditory Disturbances: 0-None Visual Disturbances: 0-None Headache: 1-Very Mild CIWA-Ar Total Score: 4 Assessment Plan - Diagnosis (1) Alcohol dependence Status: Acute (2) Sedative, hypnotic or anxiolytic dependence with withdrawal, uncomplicated Status: Acute (3) Major depressive disorder, recurrent, moderate Status: Acute (4) Substance induced mood disorder Status: Acute (5) GERD (gastroesophageal reflux disease) Status: Chronic Qualifiers: Esophagitis presence: without esophagitis Qualified Code(s): K21.9 - Gastro -esophageal reflux disease without esophagitis (6) Nicotine dependence Status: Chronic Qualifiers: Nicotine product type: cigarettes Substance use status: uncomplicated Qualified Code(s): F17.210 - Nicotine dependence, cigarettes, uncomplicated (7) Opioid dependence with withdrawal Status: Chronic - Plan Plan: chart reveiwed, imaging reviewed, labs reveiwed, discussed case with medical providers, patient examined and history taken. recommend starting benzodiazepine(valium) and methadone detox, when medically cleared can be transferre to [facility] for detox and rehab if bed is availalbe. orders placed. Stef Fang MD - Medication Detox Regimen/Protocol: Methadone/Valium
[2017-07-24] MEDS: NICOTINE 21 MG/24 HOURS TOPICAL PATCH TD SCH (18:09)
--- NOTE | 2017-07-24 18:10 | CON.NEURO ---
Consult - Past Medical History ...LMP: 04/21/02 - Alcohol/Substance Use Hx Alcohol Use: Yes (none recenlyt x 1 month) - Smoking History Smoking history: Current every day smoker Have you smoked in the past 12 months: Yes Aproximately how many cigarettes per day: 25 - Social History Usual Living Arrangement: Alone Home Medications - Allergies Allergies/Adverse Reactions: Allergies Allergy/AdvReac Type Severity Reaction Status Date / Time egg Allergy Severe Vomiting Verified 07/24/17 07:50 No Known Drug Allergies Allergy Unknown Verified 07/24/17 07:50 - Home Medications Home Medications: Ambulatory Orders Venlafaxine HCl [Effexor -] 300 mg PO DAILY 05/24/17 Methimazole [Tapazole -] 10 mg PO DAILY #30 tablet 06/13/17 Family Disease History - Family Disease History Family Disease History: Diabetes: Sister, Heart Disease: Father (), Mother Physical Exam-Neuro Vital Signs: Vital Signs Temperature 98.1 F 07/24/17 17:40 Pulse Rate 79 07/24/17 17:40 Respiratory Rate 18 07/24/17 17:40 Blood Pressure 153/95 07/24/17 17:40 O2 Sat by Pulse Oximetry (%) 99 07/24/17 17:35 Labs: CBC, BMP 07/24/17 08:15 07/24/17 08:15 INR, PTT INR 1.03 (0.82-1.09) 07/24/17 08:15 Assessment/Plan cc left sided numbness and left leg weakness HPI 56 year old female history of pain and she was taking percocet and recently run out and she was on clonazepam. Patient has been experiencing left arm , face and leg numbness. She has history of aneurysmal coiling done in past (2009) . She also suffers from thyroid disease, depression, smoker and polysubstance abuse. SHe denies any hsitory of stroke. She was not candidate of tpa , as she was out of window. She is being seen by detox. She is very sleepy . She denies slurring of speech, seizure or fever. PMH as above FH,ROS,SH reviewed in chart She has history of polysubstance abuse , and buying percocet from street Allergies egg Allergy (Severe, Verified 07/24/17 07:50) Vomiting No Known Drug Allergies Allergy (Unknown, Verified 07/24/17 07:50) HOME MEDICATIONS: Home Medications Medication Instructions Recorded Venlafaxine HCl [Effexor -] 300 mg PO DAILY 05/24/17 Methimazole [Tapazole -] 10 mg PO DAILY #30 tablet 06/13/17 Neurologica Examination Alert and follow command, oriented x 3 CN eomi, pupils is reactive no face asymmetry Motor is normal , no weakness of left lower extremity was identified she has good strength on left hip flexion, extension, knee flexion and extension sensation is slightyl dysthesia on left arm and elg ct head is reviewed mri cant be done Assessment 56 year old history of polysubstance abuse, depression and thyroid abuse came with left sided numbness, initially there was leg weakness and now minimal sensory symptoms and no motor weakness , ? tia , ct head uremarkable, and mri of brain cant be done Plan-- suggest to continue aspirin and statin - repeat ct scan can be done as mri is not possible due to insufficient information about coils - carotid ultrasound -pt Speech is not necessary as she is able to swallow and symptooms are resolved - dvt prophylaxis, stroke education - once repeat ct head and carotid ultrasound is unremarkable, she can be discharged from Neuro point of view Thank you so much David Damian MD
[2017-07-24] MEDS ORDERED: ATORVASTATIN CA 40 MG TABLET (FP) PO SCH (22:00)
[2017-07-24] MEDS ORDERED: ZOLPIDEM TARTRATE 5 MG TABLET PO PRN (22:00)
[2017-07-24] MEDS ORDERED: THIAMINE HCL 100 MG TABLET (FP) PO SCH (22:00)
[2017-07-24] MEDS ORDERED: NICOTINE POLACRILEX 2 MG GUM BUC PRN (22:56)
[2017-07-25] MEDS ORDERED: IBUPROFEN 400 MG TABLET (FP) PO ONE (01:25)
[2017-07-25] MEDS: diazePAM 5 MG TABLET PO SCH ×2 (05:58→13:04)
[2017-07-25] MEDS ORDERED: PT OWN MED DRAWER 7, Y5N ONE ×2 (06:46→12:05)
[2017-07-25 07:49] LABS: HEMATOCRIT 39.9 % (32.4-45.2); HEMOGLOBIN 12.8 GM/dL (10.7-15.3); MCH 29.4 pg (25.7-33.7); MEAN PLT VOLUME 8.6 fl (7.5-11.1); PLATELET COUNT 292 K/MM3 (134-434); RBC 4.33 M/mm3 (3.60-5.2); RDW 14.7 % (11.6-15.6); WHITE BLOOD COUNT 6.4 K/mm3 (4.0-10.0)
[2017-07-25 08:06] LABS: ANION GAP 6 (8-16); BLOOD UREA NITROGEN 12 mg/dL (7-18); CHLORIDE 106 mmol/L (98-107); CO2 27 mmol/L (21-32); CREATININE 0.7 mg/dL (0.55-1.02); GLUCOSE,RANDOM 98 mg/dL (74-106); POTASSIUM 4.1 mmol/L (3.5-5.1); SODIUM 139 mmol/L (136-145)
[2017-07-25] MEDS: NICOTINE 21 MG/24 HOURS TOPICAL PATCH TD SCH (09:07)
[2017-07-25] MEDS ORDERED: METHADONE HCL 10 MG TABLET PO SCH (10:00)
[2017-07-25] MEDS ORDERED: PRENATAL VITAMINS W/ FOLIC ACID TABLET (FP) PO SCH (10:00)
[2017-07-25] MEDS ORDERED: ASPIRIN COATED 81 MG TABLET.EC PO SCH (10:00)
--- NOTE | 2017-07-25 12:58 | PN ---
Progress Note (short form) - Note Progress Note: 56 year old female history of pain and she was taking percocet and recently run out and she was on clonazepam. Patient has been experiencing left arm , face and leg numbness. She has history of aneurysmal coiling done in past (2009) . She also suffers from thyroid disease, depression, smoker and polysubstance abuse. SHe denies any hsitory of stroke. She was not candidate of tpa , as she was out of window. She is being seen by detox. She seems to be restless and withdrawing from drugs withdrawal Neurologica Examination Alert and follow command, oriented x 3 CN eomi, pupils is reactive no face asymmetry Motor is normal , no weakness of left lower extremity was identified she has good strength on left hip flexion, extension, knee flexion and extension sensation is slightyl dysthesia on left arm and elg ct head is reviewed repeat ct head unremarkable carotid ultrasound is normal mri cant be done Assessment 56 year old history of polysubstance abuse, depression and thyroid abuse came with left sided numbness, initially there was leg weakness and now minimal sensory symptoms and no motor weakness , ? tia , ct head uremarkable, and mri of brain cant be done. Plan-- continue aspirin and statin - spoke to nurse, she is being discharged today around 3.00 pm Thank you so much David Damian MD
--- NOTE | 2017-07-25 13:38 | DS ---
Physical Exam: SUBJECTIVE: Patient seen and examined. states numbness and tingling has resolved. tearful during exam that she wants to stay clean and scared if she goes to the street will use again. denies CP, SOB, fever, chills, N/V/C/D OBJECTIVE: Vital Signs Period Temp Pulse Resp BP Sys/Cash Pulse Ox Last 24 Hr 97.8 F-98.6 F 68-91 18-20 109-153/59-95 95-99 PHYSICAL EXAM GENERAL: The patient is awake, alert, and fully oriented, in no acute distress. HEAD: Normal with no signs of trauma. EYES: PERRL, extraocular movements intact, sclera anicteric, conjunctiva clear. ENT: Ears normal, nares patent, oropharynx clear without exudates, moist mucous membranes. NECK: Trachea midline, full range of motion, supple. LUNGS: Breath sounds equal, clear to auscultation bilaterally, no wheezes, no crackles, no accessory muscle use. HEART: Regular rate and rhythm, S1, S2 without murmur, rub or gallop. ABDOMEN: Soft, nontender, nondistended, normoactive bowel sounds, no guarding, no rebound, no hepatosplenomegaly, no masses. EXTREMITIES: 2+ pulses, warm, well-perfused, no edema. NEUROLOGICAL: Cranial nerves II through XII grossly intact. Normal speech, gait not observed. PSYCH: Normal mood, normal affect. SKIN: Warm, dry, normal turgor, no rashes or lesions noted. LABS Laboratory Results - last 24 hr 07/24/17 07/24/17 07/24/17 08:15 08:18 15:10 WBC RBC Hgb Hct MCV MCH MCHC RDW Plt Count MPV Sodium 136 Potassium 4.3 Chloride 102 Carbon Dioxide 28 Anion Gap 6 L BUN 10 Creatinine 0.6 Creat Clearance w eGFR > 60 POC Glucometer [id number] Random Glucose 102 Hemoglobin A1c % Calcium 9.6 Total Bilirubin 0.3 D AST 31 D ALT 28 D Alkaline Phosphatase 72 Creatine Kinase 174 Creatine Kinase Index 0.5 CK-MB (CK-2) < 1 Troponin I 0.04 Total Protein 8.1 Albumin 4.1 Triglycerides 178 H Cholesterol 281 H Total LDL Cholesterol 181 H HDL Cholesterol 64 H Vitamin B12 Serum Folate TSH 2.26 D Free T4 0.85 D Alcohol, Quantitative < 5.0 07/25/17 07/25/17 07/25/17 06:00 06:00 06:00 WBC 6.4 RBC 4.33 Hgb 12.8 Hct 39.9 MCV 92.0 MCH 29.4 MCHC 32.0 RDW 14.7 Plt Count 292 MPV 8.6 Sodium 139 Potassium 4.1 Chloride 106 Carbon Dioxide 27 Anion Gap 6 L BUN 12 Creatinine 0.7 Creat Clearance w eGFR POC Glucometer Random Glucose 98 Hemoglobin A1c % 4.9 Calcium 9.0 Total Bilirubin AST ALT Alkaline Phosphatase Creatine Kinase Creatine Kinase Index CK-MB (CK-2) Troponin I Total Protein Albumin Triglycerides Cholesterol Total LDL Cholesterol HDL Cholesterol Vitamin B12 Serum Folate 28 H TSH Free T4 Alcohol, Quantitative 07/25/17 06:00 WBC RBC Hgb Hct MCV MCH MCHC RDW Plt Count MPV Sodium Potassium Chloride Carbon Dioxide Anion Gap BUN Creatinine Creat Clearance w eGFR POC Glucometer Random Glucose Hemoglobin A1c % Calcium Total Bilirubin AST ALT Alkaline Phosphatase Creatine Kinase Creatine Kinase Index CK-MB (CK-2) Troponin I Total Protein Albumin Triglycerides Cholesterol Total LDL Cholesterol HDL Cholesterol Vitamin B12 487 Serum Folate TSH Free T4 Alcohol, Quantitative HOSPITAL COURSE: Date of Admission:07/24/17 Date of Discharge: 07/25/17 Admitting Diagonsis: TIA, BZD and opiate withdrawal Pre hospital course Patient is an 56-year-old female presented to the ED with the chief complaint of " Left leg, arm and face numbness" x this morning (unable to tell the exact time). As per the patient, she woke up this morning and suddenly felt weakness, unable to stand without support. Patient reports she has had similar episode in the past. Denies slurring of speech, loss of consciouness, headache, blurring of vision, any focal neurological defecit. Patient says she took Percocet > 10 tablets this morning at 4:30 am. Has been taking percocet from the street. Denies taking any other illicit drugs, no alcohol intake since a month, no IV drug use. Also complaints of Left lower quadrant abdominal pain, 9/10 in intensity, dull aching in nature, radiating towards her back, associated with nausea but no vomiting. Hasn't been compliant with thyroid medication. Bowel habit normal. Last BM was today. Bladder habit normal. Decreased sleep and appetite. During her interrogation, patient was crying, seemed to be very sad and said she is stressed because of her kids. No suicidal ideation at this time. Subsequent hospital course Tele observation. continuous cardiac monitoring. Initial and repeat Head CT and repeat negative for acute pathology.Unable to do MRI as unknown if anerusym coil was MRI compatible. carotid doppler negative. symptoms resolved. started on asa/statin. started on bzd and methdone for detox. evaluated by neuro and detox specialist. methimazole for hx of hyperthroidism was stopped as pt was not complaint at home and rpeat TFT were normal. d/c to [facility] to complete detox Minutes to complete discharge: 40 Discharge Summary Reason For Visit: WEAKNESS,CVA Current Active Problems Alcohol dependence (Acute) Sedative, hypnotic or anxiolytic dependence with withdrawal, uncomplicated ( Acute) TIA (transient ischemic attack) (Acute) Weakness (Acute) Condition: Improved - Instructions Diet, Activity, Other Instructions: You were admitted to the hospital for concern of a mini stroke. Your symptoms have resolved You are being sent to [facility] for completion of detox. IT is VERY important that you complete detox and consider doing inpatient rehab. It is very important you abstain from illicit substances as these are deleterious to your health and put you at increased risk of . Your home medications have changed. PLease refer to medication list for these changes. Please see a primary care doctor SOON as you you leave [facility]. If you do not have one information on one has been provided Follow up with the neurologist you saw here, contact information has been provided If your symptoms worsen return to the ER Referrals: David Damian MD [Staff Physician] - Benigno Bhatia MD [Staff Physician] - Disposition: TRANSFER ACUTE CARE/OTHER HOSP - Home Medications Comprehensive Discharge Medication List: Ambulatory Orders Venlafaxine HCl [Effexor -] 300 mg PO DAILY 05/24/17 Aspirin Coated [Ecotrin -] 81 mg PO DAILY #30 tablet.ec 07/25/17 Atorvastatin Ca [Lipitor] 40 mg PO HS #30 tablet 07/25/17 Diazepam [Valium] 5 mg PO BID tablet MDD 10 07/25/17 Methadone [Dolophine -] 15 mg PO DAILY tablet MDD 15 07/25/17 Nicotine Patch [Nicoderm Patch -] 21 mg TD DAILY patch 07/25/17 Nicotine Polacrilex [Nicorelief -] 4 mg BUC Q2H PRN gum 07/25/17 Vitamins (Sjr) - 1 tab PO DAILY tablet 07/25/17 Thiamine HCl [Vitamin B1 -] 100 mg PO HS tablet 07/25/17 This patient is new to me today: Yes Date on this admission: 07/25/17 Emergency Visit: Yes ED Registration Date: 07/24/17 Care time: The patient presented to the Emergency Department on the above date and was hospitalized for further evaluation of their emergent condition. Critical Care patient: No - Discharge Referral Referred to [facility] No
[2017-07-25 14:35] VITALS: BP 132/80; PULSE 77; TEMP 98.4
--- NOTE | 2017-07-25 17:17 | EKG ---
Test Reason : Blood Pressure : / mmHG Vent. Rate : 078 BPM Atrial Rate : 078 BPM P-R Int : 160 ms QRS Dur : 080 ms QT Int : 398 ms P-R-T Axes : 067 065 065 degrees QTc Int : 453 ms NORMAL SINUS RHYTHM NONSPECIFIC T WAVE ABNORMALITY ABNORMAL ECG WHEN COMPARED WITH ECG OF 22-JUN-2017 19:13, NO SIGNIFICANT CHANGE WAS FOUND Confirmed by KASHIF OAKES MD ([id number]) on 07/25/2017 5:17:09 PM Referred By: Confirmed By:KASHIF OAKES MD
[2017-07-26] MEDS ORDERED: diazePAM 5 MG TABLET PO SCH (10:00)
[2017-07-26] MEDS ORDERED: METHADONE HCL 5 MG TABLET PO SCH (10:00)
[2017-07-28] MEDS ORDERED: METHADONE HCL 10 MG TABLET PO SCH (10:00)
[2017-07-28] MEDS ORDERED: diazePAM 5 MG TABLET PO SCH (10:00)
[2017-07-29] MEDS ORDERED: METHADONE HCL 5 MG TABLET PO SCH (06:00)
== END 2017-07-25 16:00 | disposition short-term general hospital (02) ==
LOC: JER 07:46 → JERBED 10:31 → J4S 16:30
PROVIDERS: ADMIT Internal Medicine; ATTEND Internal Medicine
DX: R53.1 Weakness (principal); E78.5 Hyperlipidemia, unspecified; F11.23 Opioid dependence with withdrawal; F10.20 Alcohol dependence, uncomplicated; F13.230 Sedative, hypnotic or anxiolytic dependence with withdrawal, uncomplicated; F33.1 Major depressive disorder, recurrent, moderate; F17.210 Nicotine dependence, cigarettes, uncomplicated; F19.24 Other psychoactive substance dependence with psychoactive substance-induced mood disorder; K21.9 Gastro-esophageal reflux disease without esophagitis
CPT/HCPCS: 36415; 70450-TC; 80048; 80053; 80307; 81003; 81015; 82465; 82550; 82553; 82607; 82746; 82962; 83036; 83718; 83721; 84439; 84443; 84478; 84484; 85025; 85027; 85610; 86850; 86900; 86901; 93005; 93010; 93880-TC; 99285-25; G0378

== ENCOUNTER 2017-07-25 16:02 | Inpatient (IN) | payer OTHER ==
--- NOTE | 2017-07-25 17:00 | HP ---
COWS - Scale Resting Pulse: 1= [place] 81-100 Sweatin= Beads of Sweat on Face Restless Observation: 1= Difficult to Sit Still Pupil Size: 1= Pupils >than Normal Bone or Joint Aches: 1= Mild Discomfort Runny Nose/ Eye Tearin= Runny Nose/Eyes GI Upset > 30mins: 3= Vomiting/Diarrhea Tremor Observation: 2= Slight Tremor Visible Yawning Observation: 1= 1-2x During Session Anxiety or Irritability: 1=Feels Anxious/Irritable Goose Flesh Skin: 0=Smooth Skin COWS Score: 16 CIWA Score - CIWA Score Nausea/Vomitin Muscle Tremors: 4-Moderate,w/Arms Extend Anxiety: 3 Agitation: 4-Moderately Restless Paroxysmal Sweats: 4-Forehead w/Sweat Beads Orientation: 0-Oriented Tacttile Disturbances: 0-None Auditory Disturbances: 0-None Visual Disturbances: 0-None Headache: 2-Mild CIWA-Ar Total Score: 20 Admission ROS [facility] - HPI Chief Complaint: "I want to get off these pills and alcohol, for the last time" Allergies/Adverse Reactions: Allergies Allergy/AdvReac Type Severity Reaction Status Date / Time egg Allergy Severe Vomiting Verified 07/25/17 20:06 No Known Drug Allergies Allergy Unknown Verified 07/25/17 20:06 History of Present Illness: 56 y.o female presents here today requesting detox from alcohol and percocets. She said her last drink was was 2 days ago s/p being @ [facility] ED. Pt was in ED for numbness and tingling to the the L leg. Pt was sent here but has had 2 days of detox and was sent to [facility] detox here. Pt with a long hx of drinking alcohol and using percocet x 3 yrs ago. Pt endorses 15 yrs of sobriety s/p detox @ a facility in [facility] followed by AA meetings Pt also has a hx colied aneurysm, hyperthyroid, Exam Limitations: No Limitations - Ebola screening Have you traveled outside of the country in the last 21 days: No (N) Have you had contact with anyone from an Ebola affected area: No Have you been sick,other than usual withdrawal symptoms: No Do you have a fever: No - Review of Systems Constitutional: Diaphoresis, Loss of Appetite, Night Sweats, Unexplained wgt Loss EENT: reports: No Symptoms Reported, Nose Congestion Respiratory: reports: No Symptoms reported Cardiac: reports: Palpitations GI: reports: Diarrhea, Nausea, Poor Appetite, Poor Fluid Intake, Abdominal cramping : reports: No Symptoms Reported Musculoskeletal: reports: Back Pain, Muscle Pain Integumentary: reports: Sweating Neuro: reports: Headache, Tremors Endocrine: reports: Intolerance to Heat, Increased Thirst, Increased Urine, Unexplained Weight Loss Psychiatric: reports: Depressed Other Systems: Reviewed and Negative Patient History - Patient Medical History Hx Anemia: No Hx Asthma: No Hx Chronic Obstructive Pulmonary Disease (COPD): No Hx Cancer: No Hx Cardiac Disorders: No Hx Congestive Heart Failure: No Hx Hypertension: No Hx Hypercholesterolemia: Yes (NO TREATMENT) Hx Pacemaker: No HX Cerebrovascular Accident: No Hx Seizures: No Hx Dementia: No Hx Diabetes: No Hx Gastrointestinal Disorders: No Hx Liver Disease: No Hx Genitourinary Disorders: No Hx Sexually Transmitted Disorders: No Hx Renal Disease (ESRD): No Hx Thyroid Disease: Yes (on tapazole not taking meidcations) Hx Human Immunodeficiency Virus (HIV): No (negative 2012 NEGATIVE) Hx Hepatitis C: No (negative) Hx Depression: Yes Hx Suicide Attempt: No (no SI at this time) Hx Bipolar Disorder: No Hx Schizophrenia: No - Patient Surgical History Past Surgical History: Yes Hx Neurologic Surgery: Yes (brain aneurysm in 2009) Hx Cataract Extraction: No Hx Cardiac Surgery: No Hx Lung Surgery: No Hx Breast Surgery: No Hx Breast Biopsy: No Hx Abdominal Surgery: No (c/s x 2 , more than 20 years ago) Hx Appendectomy: No Hx Cholecystectomy: No Hx Genitourinary Surgery: No Hx Section: No Hx Orthopedic Surgery: No Hx Hysterectomy: No Other Surgical History: 2010 BRAIN ANURSYM REPAIR AT [facility] Anesthesia Reaction: No - PPD History Date: 04/23/17 Results: 0 mm PPD to be Administered?: No - Reproductive History Patient is a Female of Child Bearing Age (11 -55 yrs old): Yes Last Menstrual Period: 04/21/02 (menopause) Patient : No - Smoking Cessation Smoking history: Current every day smoker Have you smoked in the past 12 months: Yes Aproximately how many cigarettes per day: 30 Cigars Per Day: 0 Hx Chewing Tobacco Use: No Initiated information on smoking cessation: Yes 'Breaking Loose' booklet given: 07/25/17 - Substance & Tx. History Hx Alcohol Use: Yes (Beer, vodka) Hx Substance Use Treatment: Yes ( Alcohol Detox x 5 years ago) - Substances Abused Alcohol Route: Oral Frequency: Daily Amount used: 2 (24 oz x 6 packs) Age of first use: 19 Date of Last Use: 07/24/17 Iryl-aah-Oqxhcil Route: Percocet Frequency: Daily Amount used: 10 tabs Age of first use: 53 Date of Last Use: 07/24/17 Family Disease History - Family Disease History Family Disease History: Diabetes: Sister (HTN, DM, depression), Heart Disease: Father (), Mother Admission Physical Exam [facility] - Vital Signs Vital Signs: Vital Signs - 24 hr 07/25/17 16:28 Temperature 96 F L Pulse Rate 84 Respiratory 20 Rate Blood Pressure 152/84 - Physical General Appearance: Yes: Disheveled, Moderate Distress HEENTM: Yes: Within Normal Limits Respiratory: Yes: Chest Non-Tender, Lungs Clear, No Respiratory Distress Neck: Yes: Within Normal Limits Breast: Yes: Breast Exam Deferred Cardiology: Yes: Regular Rhythm, S1, S2 Abdominal: Yes: Normal Bowel Sounds, Non Tender, Soft Genitourinary: Yes: Within Normal Limits, Frequency Musculoskeletal: Yes: Back pain, Muscle Pain Extremities: Yes: Within Normal Limits Neurological: Yes: Within Normal Limits Integumentary: Yes: Normal Color, Dry, Warm Lymphatic: Yes: Within Normal Limits - Diagnostic (1) Nicotine dependence Current Visit: No Status: Chronic Qualifiers: Nicotine product type: cigarettes Substance use status: uncomplicated Qualified Code(s): F17.210 - Nicotine dependence, cigarettes, uncomplicated (2) Alcohol dependence with uncomplicated withdrawal Current Visit: No Status: Chronic (3) Hyperthyroidism Current Visit: No Status: Acute (4) Chronic back pain Current Visit: No Status: Chronic (5) Opioid dependence with withdrawal Current Visit: No Status: Chronic Cleared for Admission S - Detox or Rehab Detox Regimen/Protocol: Methadone/Librium S Breath Alcohol Content Breath Alcohol Content: 0 Urine Pregancy Test - Result Urine Test Results: Negative- NO Line Present Urine Drug Screen - Results Drug Screen Negative: No Urine Drug Screen Results: BZO-Benzodiazepines, MTD-Methadone, OXY-Oxycodone
[2017-07-25 17:25] VITALS: BMI 28.0
[2017-07-25] MEDS ORDERED: diazePAM 5 MG TABLET PO PRN (18:13)
[2017-07-25] MEDS ORDERED: diazePAM 5 MG TABLET PO ONE (18:13)
[2017-07-25] MEDS ORDERED: MAGNESIUM HYDROX 2400MG/30ML ORAL SUSPENSION 30 ML CUP PO PRN (18:38)
[2017-07-25] MEDS ORDERED: LOPERAMIDE HCL 2 MG CAPSULE PO PRN (18:38)
[2017-07-25] MEDS ORDERED: MAG HYDROX/AL HYDROX/SIMETH 30 ML UNIT-DOSE CUP PO PRN (18:38)
[2017-07-25] MEDS ORDERED: MAGNESIUM CITRATE 300 ML BOTTLE PO PRN (18:38)
[2017-07-25] MEDS ORDERED: IBUPROFEN 400 MG TABLET (FP) PO PRN (18:38)
[2017-07-25] MEDS ORDERED: MENTHOL/PHENOL 1 EACH UD MM PRN (18:38)
[2017-07-25] MEDS ORDERED: guaiFENesin/D-METHORPHAN HB 10 ML UNIT-DOSE CUPS PO PRN (18:38)
[2017-07-25] MEDS ORDERED: P-EPHED 60MG/TRIPROLIDI 2.5MG TABLET PO PRN (18:38)
[2017-07-25] MEDS: NICOTINE 21 MG/24 HOURS TOPICAL PATCH TD SCH (20:35)
--- NOTE | 2017-07-25 20:56 | PN ---
S Progress Note Note: VALIUM TAPER CHANGED TO LIBRIUM PER PATIENTS REQUEST. STATES SHE GETS A HEADACHE WITH VALIUM. NOTED LAST 3 DOSES REFUSED WHILE AT [facility].
[2017-07-25 21:34] LABS: URINE APPEARANCE CLEAR; URINE BILIRUBIN NEGATIVE (NEGATIVE); URINE BLOOD NEGATIVE (NEGATIVE); URINE COLOR LTYELLOW; URINE GLUCOSE (UA) NEGATIVE (NEGATIVE); URINE KETONE NEGATIVE (NEGATIVE); URINE LEUK ESTERASE NEGATIVE (NEGATIVE); URINE NITRITE NEGATIVE (NEGATIVE); URINE PROTEIN NEGATIVE (NEGATIVE)
[2017-07-25] MEDS ORDERED: diazePAM 5 MG TABLET PO SCH ×4 (22:00)
[2017-07-25] MEDS: THIAMINE HCL 100 MG TABLET (FP) PO SCH (22:09)
[2017-07-25] MEDS: chlordiazePOXIDE HCL 25 MG CAPSULE PO SCH (22:09)
[2017-07-25] MEDS: ACETAMINOPHEN 325 MG TABLET (FP) PO PRN (22:09)
[2017-07-25] MEDS: hydrOXYzine PAMOATE 25 MG CAPSULE (FP) PO PRN (22:11)
[2017-07-26] MEDS: chlordiazePOXIDE HCL 25 MG CAPSULE PO SCH ×3 (05:47→17:21)
[2017-07-26] MEDS: hydrOXYzine PAMOATE 25 MG CAPSULE (FP) PO PRN (07:59)
[2017-07-26] MEDS ORDERED: diazePAM 5 MG TABLET PO SCH (10:00)
[2017-07-26 10:05] LABS: HEMOGLOBIN 13.4 GM/dL (10.7-15.3); MCH 29.6 pg (25.7-33.7); MCHC 31.9 g/dl (32.0-36.0); MEAN CELL VOLUME 92.8 fl (80-96); MEAN PLT VOLUME 9.2 fl (7.5-11.1); PLATELET COUNT 309 K/MM3 (134-434); RBC 4.53 M/mm3 (3.60-5.2); RDW 14.7 % (11.6-15.6); WHITE BLOOD COUNT 8.6 K/mm3 (4.0-10.0)
[2017-07-26] MEDS: PRENATAL VITAMINS W/ FOLIC ACID TABLET (FP) PO SCH (10:11)
[2017-07-26] MEDS: METHADONE HCL 5 MG TABLET (FOR DETOX USE ONLY) PO SCH (10:11)
[2017-07-26] MEDS: NICOTINE 21 MG/24 HOURS TOPICAL PATCH TD SCH (10:11)
[2017-07-26 10:28] LABS: ANION GAP 8 (8-16); BILIRUBIN,TOTAL 0.3 mg/dL (0.2-1.0); BLOOD UREA NITROGEN 15 mg/dL (7-18); CHLORIDE 103 mmol/L (98-107); CO2 28 mmol/L (21-32); GLUCOSE,RANDOM 115 mg/dL (74-106); SGOT/AST 9 U/L (15-37); SGPT/ALT 22 U/L (12-78); SODIUM 139 mmol/L (136-145); TOT PROT 7.7 g/dl (6.4-8.2)
[2017-07-26 10:29] LABS: ALK PHOS 66 U/L (45-117); CALCIUM 9.8 mg/dL (8.5-10.1); CREATININE 0.8 mg/dL (0.55-1.02)
--- NOTE | 2017-07-26 10:34 | CONSULT ---
[facility] Psychiatric Consult - Data Date of interview: 07/26/17 Admission source: Self-referred Identifying data: Ms Granda is a 56 years old Black female, mother of 7 children, unemployed on SSD, domiciled seeking detox treatment for alcohol and percocet Substance Abuse History: Reports history of alcohol and percocet use. Refer to addiction counselor's note for further information Medical History: Significant for hypercholesterolemia, hyperthyroidism and past history of neurosurgery for brain aneurysm (2010). Smokes cigarettes 1.5ppd Psychiatric History: Patient reports being diagnosed with MDD/Anxiety Disorder and Borderline Personality Disorder more than 10 years ago. Reports multiple psychiatric inpatient admissions all to [facility] for depression. States most recent one was 1-2 years ago[address] Dr Andrade , a private psychiatrist in [place] and she is prescribed Effexor XR 300 mg po daily and Klonopin 2 mg po BID. Denies history of suicidal attempt. At present, reports feeling anxious and sleeping poorly Physical/Sexual Abuse/Trauma History: Denies history of verbal, physical or sexual abuse as well as DV relationship Additional Comment: Reports history of one previous arrest on [employer] conduct Mental Status Exam - Mental Status Exam Alert and Oriented to: Time, Place, Person Cognitive Function: Fair Patient Appearance: Well Groomed Mood: Anxious Affect: Appropriate Patient Behavior: Cooperative Speech Pattern: Clear Voice Loudness: Normal Thought Process: Intact, Goal Oriented Thought Disorder: Paranoid Ideation Hallucinations: Denies Suicidal Ideation: Denies Homicidal Ideation: Denies Insight/Judgement: Poor Sleep: Poorly Appetite: Fair Muscle strength/Tone: Normal Gait/Station: Normal Psychiatric Findings - Problem List ([place] 1, 2,3) (1) MDD (major depressive disorder), recurrent episode, moderate Current Visit: Yes Status: Acute (2) Substance-induced anxiety disorder Current Visit: Yes Status: Acute (3) Substance-induced sleep disorder Current Visit: Yes Status: Acute (4) Alcohol dependence with uncomplicated withdrawal Current Visit: No Status: Acute (5) Opioid dependence with withdrawal Current Visit: No Status: Acute (6) Nicotine dependence Current Visit: No Status: Chronic Qualifiers: Nicotine product type: cigarettes Substance use status: uncomplicated Qualified Code(s): F17.210 - Nicotine dependence, cigarettes, uncomplicated (7) Hyperthyroidism Current Visit: No Status: Chronic (8) Chronic back pain Current Visit: No Status: Chronic (9) Hyperlipemia Current Visit: Yes Status: Chronic - Initial Treatment Plan Initial Treatment Plan: 1) Continue Effexor XR 300 mg po daily. 2) Start Ambien 10 mg po HS prn for insomnia. 3) Continue inpatient detoxification
--- NOTE | 2017-07-26 11:20 | PN ---
[facility] CIWA - CIWA Score Nausea/Vomitin-Mild Nausea/No Vomiting Muscle Tremors: 4-Moderate,w/Arms Extend Anxiety: 4-Mod. Anxious/Guarded Agitation: 4-Moderately Restless Paroxysmal Sweats: 1-Minimal Palms Moist Orientation: 0-Oriented Tacttile Disturbances: 0-None Auditory Disturbances: 0-None Visual Disturbances: 0-None Headache: 0-None Present CIWA-Ar Total Score: 14 S COWS - Scale Resting Pulse: 2= [place] 101-120 Sweatin= Chills/Flushing Restless Observation: 1= Difficult to Sit Still Pupil Size: 0= Normal to Room Light Bone or Joint Aches: 1= Mild Discomfort Runny Nose/ Eye Tearin= Nasal Congestion GI Upset > 30mins: 1= Stomach Cramp Tremor Observation of Outstretched Hands: 1= Tremor [place], Not Seen Yawning Observation: 0= None Anxiety or Irritability: 2=Irritable/Anxious Goose Flesh Skin: 0=Smooth Skin COWS Score: 10 S Progress Note (SOAP) Subjective: restlessness tremor irritable sweating Objective: 07/26/17 11:19 Vital Signs Temperature 97.0 F L 07/26/17 10:00 Pulse Rate 89 07/26/17 10:00 Respiratory Rate 18 07/26/17 10:00 Blood Pressure 121/76 07/26/17 10:00 O2 Sat by Pulse Oximetry (%) Laboratory Last Values WBC 8.6 K/mm3 (4.0-10.0) D 07/26/17 07:30 RBC 4.53 M/mm3 (3.60-5.2) 07/26/17 07:30 Hgb 13.4 GM/dL (10.7-15.3) 07/26/17 07:30 Hct 42.0 % (32.4-45.2) 07/26/17 07:30 MCV 92.8 fl (80-96) 07/26/17 07:30 MCH 29.6 pg (25.7-33.7) 07/26/17 07:30 MCHC 31.9 g/dl (32.0-36.0) L 07/26/17 07:30 RDW 14.7 % (11.6-15.6) 07/26/17 07:30 Plt Count 309 K/MM3 (134-434) 07/26/17 07:30 MPV 9.2 fl (7.5-11.1) 07/26/17 07:30 Sodium 139 mmol/L (136-145) 07/26/17 07:30 Potassium 4.0 mmol/L (3.5-5.1) 07/26/17 07:30 Chloride 103 mmol/L (98-107) 07/26/17 07:30 Carbon Dioxide 28 mmol/L (21-32) 07/26/17 07:30 Anion Gap 8 (8-16) 07/26/17 07:30 BUN 15 mg/dL (7-18) 07/26/17 07:30 Creatinine 0.8 mg/dL (0.55-1.02) 07/26/17 07:30 Creat Clearance w eGFR > 60 (>60) 07/26/17 07:30 Random Glucose 115 mg/dL (74-106) H 07/26/17 07:30 Calcium 9.8 mg/dL (8.5-10.1) 07/26/17 07:30 Total Bilirubin 0.3 mg/dL (0.2-1.0) 07/26/17 07:30 AST 9 U/L (15-37) L D 07/26/17 07:30 ALT 22 U/L (12-78) D 07/26/17 07:30 Alkaline Phosphatase 66 U/L (45-117) 07/26/17 07:30 Total Protein 7.7 g/dl (6.4-8.2) 07/26/17 07:30 Albumin 4.0 g/dl (3.4-5.0) 07/26/17 07:30 Urine Color Ltyellow 07/25/17 16:00 Urine Appearance Clear 07/25/17 16:00 Urine pH 6.0 (5.0-8.0) 07/25/17 16:00 Ur Specific [place] 1.017 (1.001-1.035) 07/25/17 16:00 Urine Protein Negative (NEGATIVE) 07/25/17 16:00 Urine Glucose (UA) Negative (NEGATIVE) 07/25/17 16:00 Urine Ketones Negative (NEGATIVE) 07/25/17 16:00 Urine Blood Negative (NEGATIVE) 07/25/17 16:00 Urine Nitrite Negative (NEGATIVE) 07/25/17 16:00 Urine Bilirubin Negative (NEGATIVE) 07/25/17 16:00 Urine Urobilinogen 2.0 mg/dL (0.2-1.0) H 07/25/17 16:00 Ur Leukocyte Esterase Negative (NEGATIVE) 07/25/17 16:00 lab noted Assessment: 07/26/17 11:20 withdrawal sx Plan: continue detox
[2017-07-26] MEDS: VENLAFAXINE HCL 150 MG E.R. CAPSULE PO SCH (11:24)
[2017-07-26] MEDS: ASPIRIN 81 MG CHEWABLE TABLETS PO SCH (11:25)
[2017-07-26] MEDS: NICOTINE POLACRILEX 4 MG GUM BC PRN ×2 (13:22→23:15)
[2017-07-26] MEDS: chlordiazePOXIDE HCL 25 MG CAPSULE PO PRN (14:18)
[2017-07-26] MEDS: ACETAMINOPHEN 325 MG TABLET (FP) PO PRN (17:21)
[2017-07-26] MEDS: chlordiazePOXIDE 5 MG CAPSULE PO SCH (22:36)
[2017-07-26] MEDS: ZOLPIDEM TARTRATE 5 MG TABLET PO PRN (22:36)
[2017-07-26] MEDS: THIAMINE HCL 100 MG TABLET (FP) PO SCH (22:36)
[2017-07-27] MEDS: chlordiazePOXIDE 5 MG CAPSULE PO SCH ×3 (05:59→17:30)
[2017-07-27] MEDS ORDERED: diazePAM 5 MG TABLET PO SCH (10:00)
[2017-07-27] MEDS: VENLAFAXINE HCL 150 MG E.R. CAPSULE PO SCH (10:36)
[2017-07-27] MEDS: METHADONE HCL 5 MG TABLET (FOR DETOX USE ONLY) PO SCH (10:36)
[2017-07-27] MEDS: ASPIRIN 81 MG CHEWABLE TABLETS PO SCH (10:36)
[2017-07-27] MEDS: PRENATAL VITAMINS W/ FOLIC ACID TABLET (FP) PO SCH (10:37)
[2017-07-27] MEDS: NICOTINE 21 MG/24 HOURS TOPICAL PATCH TD SCH (10:37)
--- NOTE | 2017-07-27 11:47 | EKG ---
Test Reason : Blood Pressure : / mmHG Vent. Rate : 069 BPM Atrial Rate : 069 BPM P-R Int : 160 ms QRS Dur : 080 ms QT Int : 400 ms P-R-T Axes : 069 055 063 degrees QTc Int : 428 ms NORMAL SINUS RHYTHM NORMAL ECG WHEN COMPARED WITH ECG OF 24-JUL-2017 08:46, T WAVE INVERSION NO LONGER EVIDENT IN ANTERIOR LEADS Confirmed by KASHIF OAKES MD ([id number]) on 07/27/2017 11:47:34 AM Referred By: Confirmed By:KASHIF OAKES MD
[2017-07-27] MEDS: chlordiazePOXIDE HCL 25 MG CAPSULE PO PRN (12:58)
[2017-07-27] MEDS: NICOTINE POLACRILEX 4 MG GUM BC PRN ×2 (13:51→17:51)
--- NOTE | 2017-07-27 13:54 | PN ---
S Progress Note (SOAP) Subjective: ALERT,IRRITABLE,ANXIOUS,INTERRUPTED SLEEP,PAIN IN THE BODY AND BACK Objective: 07/27/17 13:51 Vital Signs Temperature 97.9 F 07/27/17 11:56 Pulse Rate 86 07/27/17 11:56 Respiratory Rate 18 07/27/17 11:56 Blood Pressure 123/71 07/27/17 11:56 O2 Sat by Pulse Oximetry (%) Assessment: 07/27/17 13:51 WITHDRAWAL SYMPTOM Plan: CONTINUE DETOX,PATIENT ON LIPITOR 40 MGS HS FOR HYPERCHOLESTEROLEMIA, HYPERTHYROIDISM ON TAPAZOLE 10 MGS PO DAILY
[2017-07-27] MEDS: METHIMAZOLE 10 MG TABLET (FP) PO SCH (14:04)
[2017-07-27] MEDS: chlordiazePOXIDE HCL 10 MG CAPSULE PO SCH (22:36)
[2017-07-27] MEDS: ZOLPIDEM TARTRATE 5 MG TABLET PO PRN (22:36)
[2017-07-27] MEDS: THIAMINE HCL 100 MG TABLET (FP) PO SCH (22:36)
[2017-07-27] MEDS: ATORVASTATIN CA 40 MG TABLET (FP) PO SCH (22:36)
[2017-07-27] MEDS: METHOCARBAMOL 500 MG TABLET PO PRN (22:36)
[2017-07-28] MEDS: chlordiazePOXIDE HCL 25 MG CAPSULE PO PRN (02:09)
[2017-07-28] MEDS ORDERED: diazePAM 5 MG TABLET PO ONE (06:00)
[2017-07-28] MEDS: chlordiazePOXIDE HCL 10 MG CAPSULE PO SCH ×3 (06:06→18:00)
[2017-07-28] MEDS: NICOTINE POLACRILEX 4 MG GUM BC PRN ×3 (06:11→18:00)
[2017-07-28] MEDS ORDERED: METHADONE HCL 10 MG TABLET (FOR DETOX USE ONLY) PO SCH (10:00)
[2017-07-28] MEDS: PRENATAL VITAMINS W/ FOLIC ACID TABLET (FP) PO SCH (10:43)
[2017-07-28] MEDS: METHIMAZOLE 10 MG TABLET (FP) PO SCH (10:44)
[2017-07-28] MEDS: NICOTINE 21 MG/24 HOURS TOPICAL PATCH TD SCH (10:44)
[2017-07-28] MEDS: ASPIRIN 81 MG CHEWABLE TABLETS PO SCH (10:44)
[2017-07-28] MEDS: VENLAFAXINE HCL 150 MG E.R. CAPSULE PO SCH (10:44)
--- NOTE | 2017-07-28 11:57 | PN ---
[facility] Progress Note (SOAP) Subjective: sweats anxiety Objective: 07/28/17 11:56 Vital Signs Temperature 97.7 F 07/28/17 10:40 Pulse Rate 89 07/28/17 10:40 Respiratory Rate 18 07/28/17 10:40 Blood Pressure 129/75 07/28/17 10:40 O2 Sat by Pulse Oximetry (%) aaox3 ambulating no acute distress Assessment: 07/28/17 11:57 mild withdrawal sx Plan: continue detox d/c in am
[2017-07-28] MEDS: hydrOXYzine PAMOATE 25 MG CAPSULE (FP) PO PRN ×2 (13:57→22:22)
--- NOTE | 2017-07-28 17:30 | PN ---
Psychiatric Progress Note Vital Signs: Vital Signs Period Temp Pulse Resp BP Sys/Cash Pulse Ox Last 24 Hr 97.7 F-98.4 F 77-96 18-18 99-148/66-84 Date of Session: 07/28/17 Chief Complaint:: "Ambien made me sleep walk" HPI: Pt. admitted to [facility] detox for alcohol and percocet dependence. ROS: Unremarkable. Current Medications: Active Medications Generic Name Dose Route Start Last Admin Trade Name Freq PRN Reason Stop Dose Admin Acetaminophen 650 mg 07/25/17 18:38 07/26/17 17:21 Tylenol - PO 650 mg Q4H PRN Administration FEVER Al Hydroxide/Mg Hydroxide 30 ml 07/25/17 18:38 Mylanta Oral Suspension - PO Q6H PRN DYSPEPSIA Aspirin 81 mg 07/26/17 11:15 07/28/17 10:44 Asa - PO 81 mg DAILY EDSON Administration Atorvastatin Calcium 40 mg 07/27/17 22:00 07/27/17 22:36 Lipitor - PO 40 mg HS EDSON Administration Chlordiazepoxide HCl 25 mg 07/25/17 20:52 07/28/17 02:09 Librium - PO 07/28/17 20:51 25 mg Q4H PRN Administration WITHDRAWAL(CONT SUBST) Eucalyptus/Menthol/Phenol/Sorbitol 1 each 07/25/17 18:38 07/26/17 05:56 Cepastat Lozenge - MM 1 each Q4H PRN Administration SORE THROAT Guaifenesin 10 ml 07/25/17 18:38 Robitussin Dm - PO Q6H PRN COUGH Hydroxyzine Pamoate 25 mg 07/25/17 18:38 07/28/17 13:57 Vistaril - PO 25 mg Q4H PRN Administration AGITATION Loperamide HCl 4 mg 07/25/17 18:38 Imodium - PO Q6H PRN DIARRHEA Magnesium Citrate 300 ml 07/25/17 18:38 Citroma - PO Q48H PRN CONSTIPATION Magnesium Hydroxide 30 ml 07/25/17 18:38 Milk Of Magnesia - PO DAILY PRN CONSTIPATION Methadone HCl 5 mg 07/29/17 06:00 Dolophine - PO 07/29/17 06:01 DAILY@0600 EDSON Methimazole 10 mg 07/27/17 14:00 07/28/17 10:44 Tapazole - PO 10 mg DAILY EDSON Administration Methocarbamol 500 mg 07/26/17 14:43 Robaxin - PO Q8H PRN BACK PAIN Nicotine 21 mg 07/25/17 18:45 07/28/17 10:44 Nicoderm Patch - TD 21 mg DAILY EDSON Administration Nicotine Polacrilex 4 mg 07/25/17 18:38 07/28/17 10:48 Nicorette Gum - BC 4 mg Q2H PRN Administration NICOTINE REPLACEMENT RX Multivit/Folic Acid/Iron 1 tab 07/26/17 10:00 07/28/17 10:43 Vitamins (Sjr) - PO 1 tab DAILY EDSON Administration Pseudoephedrine/Triprolidine 1 combo 07/25/17 18:38 Actifed - PO TID PRN NASAL CONGESTION Thiamine HCl 100 mg 07/25/17 22:00 07/27/17 22:36 Vitamin B1 - PO 100 mg HS EDSNO Administration Venlafaxine HCl 300 mg 07/26/17 11:00 07/28/17 10:44 Effexor Xr - PO 300 mg DAILY EDSON Administration Zolpidem Tartrate 10 mg 07/26/17 10:50 07/27/17 22:36 Ambien - PO 10 mg HS PRN Administration INSOMNIA Medication(s) Change(s): Yes. Ambien 10mg discontinued. Current Side Effect: No Lab tests ordered: No Lab tests reviewed: Yes Provider note:: Territory Account Executive approached patient concerning psychiatric reconsultation. Pt. c/o one episode of sleep walking which patient states took place last night. Reports favorable effect from previously taking ambien but is no longer interested in continuing ambien for insomnia after sleep walking.. Pt. requesting another sleep aid at this time. Psychopharmacology provided and explained that sleep walking is one side effect of ambien. Pt educated on her other PRN's. Pt. then stated to health underwriter that she will ask for vistaril 25mg tonight and would no longer require an additional sleep aid. Pt. satisifed and receptive to feedback. Ambien discontinued. Total face to face time:: 15 Mental Status Exam - Mental Status Exam Alert and Oriented to: Time, Place, Person Cognitive Function: Good Patient Appearance: Well Groomed Mood: Hopeful Affect: Normal Range Patient Behavior: Appropriate, Cooperative Speech Pattern: Appropriate Voice Loudness: Normal Thought Process: Goal Oriented Thought Disorder: Not Present Hallucinations: Denies Suicidal Ideation: Denies Homicidal Ideation: Denies Insight/Judgement: Poor Sleep: Poorly Appetite: Fair Muscle strength/Tone: Normal Gait/Station: Normal Psychiatric Treatment Plan - Problem List (1) MDD (major depressive disorder), recurrent episode, moderate Current Visit: Yes (2) Substance-induced anxiety disorder Current Visit: Yes (3) Substance-induced sleep disorder Current Visit: Yes (4) Alcohol dependence with uncomplicated withdrawal Current Visit: No (5) Opioid dependence with withdrawal Current Visit: No (6) Nicotine dependence Current Visit: No Qualifiers: Nicotine product type: cigarettes Substance use status: uncomplicated Qualified Code(s): F17.210 - Nicotine dependence, cigarettes, uncomplicated
[2017-07-28] MEDS: THIAMINE HCL 100 MG TABLET (FP) PO SCH (22:21)
[2017-07-28] MEDS: ATORVASTATIN CA 40 MG TABLET (FP) PO SCH (22:22)
[2017-07-28] MEDS: METHOCARBAMOL 500 MG TABLET PO PRN (22:22)
[2017-07-29] MEDS ORDERED: METHADONE HCL 5 MG TABLET (FOR DETOX USE ONLY) PO SCH (06:00)
[2017-07-29 08:03] VITALS: BP 107/76; PULSE 83; TEMP 97.7
[2017-07-29] MEDS: METHIMAZOLE 10 MG TABLET (FP) PO SCH (09:18)
[2017-07-29] MEDS: VENLAFAXINE HCL 150 MG E.R. CAPSULE PO SCH (09:18)
[2017-07-29] MEDS: PRENATAL VITAMINS W/ FOLIC ACID TABLET (FP) PO SCH (09:18)
[2017-07-29] MEDS: ASPIRIN 81 MG CHEWABLE TABLETS PO SCH (09:18)
[2017-07-29] MEDS ORDERED: diazePAM 5 MG TABLET PO SCH (10:00)
[2017-07-29] MEDS: NICOTINE 21 MG/24 HOURS TOPICAL PATCH TD SCH (11:12)
--- NOTE | 2017-07-29 12:41 | DS ---
[facility] Detox Discharge Summary Admission Date: 07/25/17 Discharge Date: 07/29/17 - History Present History: Alcohol Dependence, Opioid Dependence, Sedative Dependence - Physical Exam Results Vital Signs: Vital Signs Temperature 97.7 F 07/29/17 08:02 Pulse Rate 83 07/29/17 08:02 Respiratory Rate 16 07/29/17 08:02 Blood Pressure 107/76 07/29/17 08:02 O2 Sat by Pulse Oximetry (%) - Treatment Hospital Course: Detox Protocol Followed, Detoxed Safely, Responded well, Discharged Condition Good Patient has Accepted a Rehab Referral to: Patient will follow up with self help programs - Medication Discharge Medications: Ambulatory Orders Venlafaxine HCl [Effexor -] 300 mg PO DAILY 05/24/17 Methimazole [Tapazole -] 10 mg PO DAILY 07/25/17 - Diagnosis (1) Alcohol dependence with uncomplicated withdrawal Status: Acute (2) Opioid dependence with withdrawal Status: Acute (3) Substance-induced anxiety disorder Status: Acute (4) Substance-induced sleep disorder Status: Acute (5) Chronic back pain Status: Chronic (6) Hyperlipemia Status: Chronic (7) Hyperthyroidism Status: Chronic (8) Nicotine dependence Status: Chronic Qualifiers: Nicotine product type: cigarettes Substance use status: uncomplicated Qualified Code(s): F17.210 - Nicotine dependence, cigarettes, uncomplicated - AMA Did Patient Leave Against Medical Advice: No
[2017-07-30] MEDS ORDERED: METHADONE HCL 5 MG TABLET (FOR DETOX USE ONLY) PO SCH (06:00)
== END 2017-07-29 09:35 | disposition home or self-care (01) | DRG 897 ==
LOC: YASAS 16:02 → Y6N 19:07
PROVIDERS: ADMIT Internal Medicine; ATTEND Internal Medicine
PROC: HZ2ZZZZ Detoxification Services for Substance Abuse Treatment (ICD-10-PCS; principal; 2017-07-25)
DX: F11.23 Opioid dependence with withdrawal (principal); F19.280 Other psychoactive substance dependence with psychoactive substance-induced anxiety disorder; F19.282 Other psychoactive substance dependence with psychoactive substance-induced sleep disorder; F33.1 Major depressive disorder, recurrent, moderate; F10.230 Alcohol dependence with withdrawal, uncomplicated; F17.210 Nicotine dependence, cigarettes, uncomplicated; E78.5 Hyperlipidemia, unspecified; E03.9 Hypothyroidism, unspecified; M54.5 Low back pain; G89.29 Other chronic pain; Z91.012 Allergy to eggs; Z86.79 Personal history of other diseases of the circulatory system
CPT/HCPCS: 36415; 80053; 81003; 85027; 86593; 93005; 93010

== ENCOUNTER 2018-10-03 10:58 | Emergency (ER) | payer OTHER ==
[2018-10-03 11:04] VITALS: BMI 26.5
--- NOTE | 2018-10-03 11:49 | PDOC ---
History of Present Illness - General Chief Complaint: Alcohol intoxication Stated Complaint: ALCOHOL INTOXICATION Time Seen by Provider: 10/03/18 11:46 - History of Present Illness Initial Comments: The pt is a 57F w/ a history of aneurysm (eliquis), EtOH and opioid abuse who presents for evaluation for being intoxicated. Per EMS the pt was seen at [facility] for detox but left. Per the pt, she then drank more but is unsure of how much and also took 'several' percocets. Pt denies falls, pain, or current complaints. Denies recent illness or fever. 10/03/18 12:06 Past History - Past Medical History Allergies/Adverse Reactions: Allergies Allergy/AdvReac Type Severity Reaction Status Date / Time egg Allergy Severe Vomiting Verified 10/03/18 11:04 No Known Drug Allergies Allergy Unknown Verified 10/03/18 11:04 Home Medications: Ambulatory Orders Venlafaxine HCl [Effexor -] 300 mg PO DAILY 05/24/17 Methimazole [Tapazole -] 10 mg PO DAILY 07/25/17 Anemia: No Asthma: No Cancer: No Cardiac Disorders: No CVA: No COPD: No CHF: No DVT: No Dementia: No Diabetes: No GI Disorders: No Disorders: No HTN: No Hypercholesterolemia: Yes (NO TREATMENT) Kidney Stones: No Liver Disease: No Psychiatric Problems: Yes (DEPRESSION) Seizures: No Thyroid Disease: Yes (on tapazole not taking meidcations) - Surgical History Abdominal Surgery: No (c/s x 2 , more than 20 years ago) Appendectomy: No Cardiac Surgery: No Cholecystectomy: No Lung Surgery: No Neurologic Surgery: Yes (brain aneurysm in 2009) Orthopedic Surgery: No - Reproductive History PID: No - Immunization History Immunization Up to Date: Yes - Suicide/Smoking/Psychosocial Hx Smoking Status: No Smoking History: Never smoked Have you smoked in the past 12 months: Yes Number of Cigarettes Smoked Daily: 30 Cigars Per Day: 0 'Breaking Loose' booklet given: 07/25/17 Hx Alcohol Use: Yes Drug/Substance Use Hx: No Substance Use Type: Alcohol, Opiates, Prescribed Hx Substance Use Treatment: Yes ( Alcohol Detox x 5 years ago) Review of Systems - Review of Systems Able to Perform ROS?: No (2/2 medical condition) Comments:: GENERAL/CONSTITUTIONAL: No fever or chills. No weakness HEAD, EYES, EARS, NOSE AND THROAT: No change in vision. No ear pain or discharge. No sore throat CARDIOVASCULAR: No chest pain or shortness of breath RESPIRATORY: Denies cough, hemoptysis GASTROINTESTINAL: No nausea, vomiting, diarrhea GENITOURINARY: No dysuria SKIN: No rash_ NEUROLOGIC: No headache, vertigo, loss of consciousness, or change in strength/ sensation 10/03/18 19:15 *Physical Exam - Vital Signs Last Vital Signs Temp Pulse Resp BP Pulse Ox 98.7 F 116 H 18 112/73 99 10/03/18 11:01 10/03/18 11:01 10/03/18 11:01 10/03/18 11:01 10/03/18 11:01 - Physical Exam Comments: GENERAL: Awake, oriented to person/place, in no acute distress HEAD: No signs of trauma, normocephalic, atraumatic ENT: Hearing grossly normal, nares patent, oropharynx clear without exudates. Moist mucosa LUNGS: No distress, speaks full sentences, clear to auscultation bilaterally HEART: Tachycardic w/ regular rhythm, normal S1 and S2, no murmurs appreciated, peripheral pulses normal and equal bilaterally ABDOMEN: Soft, nontender, normoactive bowel sounds. No guarding, no rebound NEUROLOGICAL: Cranial nerves II through XII grossly intact. Tangential speech, unsteady gait SKIN: Warm, Dry 10/03/18 12:20 Moderate Sedation - Procedure Monitoring Vital Signs: Procedure Monitoring Vital Signs Temperature 98.7 F 10/03/18 11:01 Pulse Rate 116 H 10/03/18 11:01 Respiratory Rate 18 10/03/18 11:01 Blood Pressure 112/73 10/03/18 11:01 O2 Sat by Pulse Oximetry (%) 99 10/03/18 11:01 Medical Decision Making - Medical Decision Making The pt is a 57F w/ a history of aneurysm (eliquis), EtOH and opioid abuse who presents for EtOH and opioid intoxication Pt w/ tangential speech and unsteady gait, will observe patient and reassess 10/03/18 12:22 Pt agitated and aggressive to staff and in danger of harming staff and herself, will give Haldol 5mg IM once and Ativan 2mg IM once Will reassess once patient is more alert Plan for D/C w/ pt is clinically sober 10/03/18 18:39 Pt ambulating w/ stable gait in ED, oriented x3, speech not slurred Pt to be transferred to [facility] for Detox Pt w/o active complaints Dispo: D/C 10/03/18 19:12 *DC/Admit/Observation/Transfer Diagnosis at time of Disposition: Intoxication - Discharge Dispostion Disposition: HOME Condition at time of disposition: Stable Decision to Admit order: No - Referrals - Patient Instructions Printed Discharge Instructions: DI for Alcohol Abuse - Post Discharge Activity
--- NOTE | 2018-10-03 12:11 | PDOC ---
Attending Attestation - HPI HPI: 10/03/18 12:20 The patient is a 57 year old female, with a significant PMH of EtOH and opioid abuse, aneurysm (eliquis), who presents to the emergency department via EMS with alcohol intoxication. As per EMS, the patient was seen at [facility] earlier today for detox, however, the patient left. The patient states she consumed more alcohol prior to arrival in the emergency department and also reports taking several percocets. The patient denies chest pain, shortness of breath, headache and dizziness. Denies fever, chills, nausea, vomit, diarrhea and constipation. Denies dysuria, frequency, urgency and hematuria. Allergies: egg, NKDA Documentation prepared by Jose Chun, acting as medical coding instructor for Rose Alejandre MD. <Jose Chun - Last Filed: 10/03/18 12:20> - Resident Resident Name: Meryl Rahmanan - ED Attending Attestation I have performed the following: I have examined & evaluated the patient, The case was reviewed & discussed with the resident, I agree w/resident's findings & plan, Exceptions are as noted - Physicial Exam PE: GENERAL: +AOB, appears intoxicated. HEAD: No signs of trauma EYES: PERRLA, EOMI, sclera anicteric, conjunctiva clear ENT: Auricles normal inspection, hearing grossly normal, nares patent, oropharynx clear without exudates. Moist mucosa NECK: Normal ROM, supple, no lymphadenopathy, JVD, or masses LUNGS: Breath sounds equal, clear to auscultation bilaterally. No wheezes, and no crackles HEART: Regular rate and rhythm, normal S1 and S2, no murmurs, rubs or gallops ABDOMEN: Soft, nontender, normoactive bowel sounds. No guarding, no rebound. No masses EXTREMITIES: Normal range of motion, no edema. No clubbing or cyanosis. No cords, erythema, or tenderness NEUROLOGICAL: Cranial nerves II through XII grossly intact. Slurred speech, unsteady gait. Motor and sensation intact SKIN: Warm, Dry, normal turgor, no rashes or lesions noted. - Medical Decision Making Pt intoxicated. Initially cooperative, but then became agitated, kept attempting to get out of the stretcher and appeared unsteady. Patient given haldol/ativan for agitation, rested comfortably after that. Will DC when clinically sober. <Rose Alejandre - Last Filed: 10/03/18 14:16>
[2018-10-03] MEDS ORDERED: LORazepam 2 MG/ML SDV VIAL ONE (14:02)
[2018-10-03] MEDS ORDERED: HALOPERIDOL LACTATE 5 MG/ML IM ONE ×2 (14:02→14:06)
[2018-10-03] MEDS ORDERED: chlordiazePOXIDE HCL 25 MG CAPSULE PO ONE (19:27)
[2018-10-03] MEDS ORDERED: chlordiazePOXIDE HCL 25 MG CAPSULE ONE (19:34)
[2018-10-03 19:49] VITALS: BP 136/80; PULSE 106; TEMP 98.3
== END 2018-10-03 20:06 | disposition home or self-care (01) ==
LOC: JER 10:58
PROC: 3E023NZ Introduction of Analgesics, Hypnotics, Sedatives into Muscle, Percutaneous Approach (ICD-10-PCS; principal; 2018-10-03)
PROC: 3E023NZ Introduction of Analgesics, Hypnotics, Sedatives into Muscle, Percutaneous Approach (ICD-10-PCS; 2018-10-03)
DX: F10.120 Alcohol abuse with intoxication, uncomplicated (principal); F11.10 Opioid abuse, uncomplicated; E78.00 Pure hypercholesterolemia, unspecified; F32.9 Major depressive disorder, single episode, unspecified; Z86.79 Personal history of other diseases of the circulatory system; Z79.01 Long term (current) use of anticoagulants
CPT/HCPCS: 96372; 99282-25

== ENCOUNTER 2018-10-03 19:58 | Inpatient (IN) | payer OTHER ==
[2018-10-03 20:42] VITALS: BMI 28.3
--- NOTE | 2018-10-03 23:05 | HP ---
CIWA Score Nausea/Vomitin-No Nausea/No Vomiting Muscle Tremors: 4-Moderate,w/Arms Extend Anxiety: 3 Agitation: 4-Moderately Restless Paroxysmal Sweats: 2 Orientation: 0-Oriented Tacttile Disturbances: 0-None Auditory Disturbances: 0-None Visual Disturbances: 0-None Headache: 4-Moderately Severe CIWA-Ar Total Score: 17 - Admission Criteria [facility] Guidelines: Admission for Medically Managed Detox: Requires at least one of the followin. CIWA greater than 12 2. Seizures within the past 24 hours 3. Delirium tremens within the past 24 hours 4. Hallucinations within the past 24 hours 5. Acute intervention needed for co occurring medical disorder 6. Acute intervention needed for co occurring psychiatric disorder 7. Severe withdrawal that cannot be handled at a lower level of care (continued vomiting, continued diarrhea, abnormal vital signs) requiring intravenous medication and/or fluids 8. Admission ROS [facility] Chief Complaint: Alcohol withdrawal symptoms Allergies/Adverse Reactions: Allergies Allergy/AdvReac Type Severity Reaction Status Date / Time egg Allergy Severe Vomiting Verified 10/03/18 11:04 No Known Drug Allergies Allergy Unknown Verified 10/03/18 11:04 History of Present Illness: Received 57 years old female with a long history of alcohol dependence from [facility]. Patient is seeking admission to detox. Patient has been in previous detox and reports insignificant period of sobriety. She has medical history of brain aneurysm (eliquis), hypercholesterolemia, hyperthyroidism, depression and anxiety. She denies suicide attempt and suicidal ideation at this time. Patient reports that she is on Soboxone 4mg-mg sl film as prescribed by Dr. Hernan Flannery and 30 days supply dispensed on 09/15/2018. Exam Limitations: No Limitations - Ebola screening Have you traveled outside of the country in the last 21 days: No (N) Have you had contact with anyone from an Ebola affected area: No Have you been sick,other than usual withdrawal symptoms: No Do you have a fever: No - Review of Systems Constitutional: Chills, Malaise, Changes in sleep EENT: reports: Sinus Pressure Respiratory: reports: No Symptoms reported GI: reports: Nausea, Poor Appetite, Poor Fluid Intake, Vomiting (vomiting x 1), Abdominal cramping : reports: No Symptoms Reported Musculoskeletal: reports: Joint Pain Neuro: reports: Tremors Endocrine: reports: No Symptoms Reported Hematology: reports: No Symptoms Reported Psychiatric: reports: Anxious, Depressed Other Systems: Reviewed and Negative Patient History - Patient Medical History Hx Anemia: No Hx Asthma: No Hx Chronic Obstructive Pulmonary Disease (COPD): No Hx Cancer: No Hx Cardiac Disorders: No Hx Congestive Heart Failure: No Hx Hypertension: No Hx Hypercholesterolemia: Yes (NO TREATMENT) Hx Pacemaker: No HX Cerebrovascular Accident: No Hx Seizures: No Hx Dementia: No Hx Diabetes: No Hx Gastrointestinal Disorders: No Hx Liver Disease: No Hx Genitourinary Disorders: No Hx Sexually Transmitted Disorders: No Hx Renal Disease (ESRD): No Hx Thyroid Disease: Yes (on tapazole not taking medcations) Hx Human Immunodeficiency Virus (HIV): No (negative 2011 NEGATIVE) Hx Hepatitis C: No (negative) Hx Depression: Yes Hx Suicide Attempt: No (Denies suicidal ideation at this time) Hx Bipolar Disorder: No Hx Schizophrenia: No Other Medical History: Anxiety - Not on medication - Patient Surgical History Past Surgical History: Yes Hx Neurologic Surgery: Yes (brain aneurysm in 2009) Hx Cataract Extraction: No Hx Cardiac Surgery: No Hx Lung Surgery: No Hx Breast Surgery: No Hx Breast Biopsy: No Hx Abdominal Surgery: No (c/s x 2 , more than 20 years ago) Hx Appendectomy: No Hx Cholecystectomy: No Hx Genitourinary Surgery: No Hx Section: No Hx Orthopedic Surgery: No Hx Hysterectomy: No Other Surgical History: 2010 BRAIN ANURSYM REPAIR AT [facility] Anesthesia Reaction: No - PPD History Previous Implant?: Yes Documented Results: Negative w/o proof Implanted On Prior [facility] Admission?: Yes Date: 04/23/17 Results: 0 mm PPD to be Administered?: Yes - Reproductive History Patient is a Female of Child Bearing Age (11 -55 yrs old): Yes Last Menstrual Period: 04/21/02 (menopause) Patient : No - Smoking Cessation Smoking history: Never smoked Have you smoked in the past 12 months: Yes Aproximately how many cigarettes per day: 30 Cigars Per Day: 0 Hx Chewing Tobacco Use: No Initiated information on smoking cessation: Yes 'Breaking Loose' booklet given: 10/03/18 - Substance & Tx. History Hx Alcohol Use: Yes Hx Substance Use: Yes Substance Use Type: None Hx Substance Use Treatment: Yes ([facility]) - Substances Abused Alcohol Route: Oral Frequency: Daily Amount used: 2 /6PACK Age of first use: 21 Date of Last Use: 09/30/18 percocet Route: Oral Frequency: Daily Amount used: 10 PILLS 5/325MG Age of first use: 54 Date of Last Use: 09/30/18 Family Disease History - Family Disease History Family Disease History: Diabetes: Sister (HTN, DM, depression), Heart Disease: Father (), Mother Admission Physical Exam [facility] - Vital Signs Vital Signs: Vital Signs - 24 hr 10/03/18 20:38 Temperature 98.7 F Pulse Rate 120 H Respiratory 18 Rate Blood Pressure 140/80 - Physical General Appearance: Yes: Moderate Distress, Anxious HEENTM: Yes: Within Normal Limits Respiratory: Yes: Lungs Clear, Normal Breath Sounds, No Respiratory Distress Neck: Yes: Supple Breast: Yes: Breast Exam Deferred Cardiology: Yes: Tachycardia Abdominal: Yes: Normal Bowel Sounds Genitourinary: Yes: Within Normal Limits Back: Yes: Normal Inspection Extremities: Yes: Tremors Neurological: Yes: Alert, Normal Mood/Affect Integumentary: Yes: Warm Lymphatic: Yes: Within Normal Limits - Diagnostic (1) Anxiety Current Visit: Yes Status: Chronic (2) Brain aneurysm Current Visit: Yes Status: Chronic (3) Alcohol dependence with uncomplicated withdrawal Current Visit: Yes Status: Acute (4) MDD (major depressive disorder), recurrent episode, moderate Current Visit: Yes Status: Chronic (5) Hyperlipemia Current Visit: Yes Status: Chronic Qualifiers: Hyperlipidemia type: pure hypercholesterolemia Qualified Code(s): E78.00 - Pure hypercholesterolemia, unspecified; E78.0 - Pure hypercholesterolemia (6) Hyperthyroidism Current Visit: Yes Status: Chronic (7) Nicotine dependence Current Visit: Yes Status: Chronic Qualifiers: Nicotine product type: cigarettes Substance use status: uncomplicated Qualified Code(s): F17.210 - Nicotine dependence, cigarettes, uncomplicated Cleared for Admission [facility] - Detox or Rehab [facility] Level of Care: Medically Managed Detox Regimen/Protocol: Librium [facility] Breath Alcohol Content Breath Alcohol Content: 0 Urine Pregancy Test - Result Urine Test Results: Negative - NO line present Urine Drug Screen - Results Drug Screen Negative: No Urine Drug Screen Results: BZO-Benzodiazepines, BUP-Suboxone Inpatient Rehab Admission - Rehab Decision to Admit Inpatient rehab admission?: No
[2018-10-03] MEDS ORDERED: MAG HYDROX/AL HYDROX/SIMETH 30 ML UNIT-DOSE CUP PO PRN (23:20)
[2018-10-03] MEDS ORDERED: MENTHOL/PHENOL 1 EACH UD MM PRN (23:20)
[2018-10-03] MEDS ORDERED: MAGNESIUM CITRATE 300 ML BOTTLE PO PRN (23:20)
[2018-10-03] MEDS ORDERED: METHOCARBAMOL 500 MG TABLET PO PRN (23:20)
[2018-10-03] MEDS ORDERED: ACETAMINOPHEN 325 MG TABLET (FP) PO PRN (23:20)
[2018-10-03] MEDS ORDERED: BISMUTH SUBSALICYLATE 524 MG/30 ML UD PO PRN (23:20)
[2018-10-03] MEDS ORDERED: MAGNESIUM HYDROX 2400MG/30ML ORAL SUSPENSION 30 ML CUP PO PRN (23:20)
[2018-10-03] MEDS ORDERED: IBUPROFEN 400 MG TABLET (FP) PO PRN (23:20)
[2018-10-03] MEDS ORDERED: MELATONIN 5 MG TABLETS PO PRN (23:20)
[2018-10-03] MEDS: chlordiazePOXIDE HCL 25 MG CAPSULE PO SCH (23:58)
[2018-10-04] MEDS ORDERED: BUPRENORPHINE/NALOXONE 2 MG/0.5 MG FILM PACKET SL ONE (00:30)
[2018-10-04] MEDS: NICOTINE POLACRILEX 2 MG GUM BUC PRN ×3 (05:39→19:57)
[2018-10-04] MEDS: chlordiazePOXIDE HCL 25 MG CAPSULE PO SCH ×4 (05:39→22:15)
[2018-10-04] MEDS: hydrOXYzine PAMOATE 25 MG CAPSULE (FP) PO PRN ×2 (07:54→15:46)
[2018-10-04] MEDS ORDERED: BUPRENORPHINE/NALOXONE 2 MG/0.5 MG FILM PACKET SL SCH (10:00)
[2018-10-04] MEDS: BUPRENORPHINE/NALOXONE 2 MG/0.5 MG FILM PACKET SL SCH ×2 (10:11→22:15)
[2018-10-04] MEDS: NICOTINE 14 MG/24 HOURS TOPICAL PATCH TD SCH (10:12)
[2018-10-04] MEDS: PRENATAL VITAMINS W/ FOLIC ACID TABLET (FP) PO SCH (10:12)
[2018-10-04 10:22] LABS: HEMOGLOBIN 14.7 GM/dL (10.7-15.3); MCH 29.5 pg (25.7-33.7); MCHC 34.2 g/dl (32.0-36.0); MEAN CELL VOLUME 86.3 fl (80-96); MEAN PLT VOLUME 8.7 fl (7.5-11.1); PLATELET COUNT 248 K/MM3 (134-434); RBC 4.98 M/mm3 (3.60-5.2); RDW 15.2 % (11.6-15.6); WHITE BLOOD COUNT 10.3 K/mm3 (4.0-10.0)
--- NOTE | 2018-10-04 10:26 | EKG ---
Test Reason : Blood Pressure : / mmHG Vent. Rate : 103 BPM Atrial Rate : 103 BPM P-R Int : 160 ms QRS Dur : 080 ms QT Int : 364 ms P-R-T Axes : 068 073 063 degrees QTc Int : 476 ms SINUS TACHYCARDIA OTHERWISE NORMAL ECG WHEN COMPARED WITH ECG OF 25-JUL-2017 19:49, VENT. RATE HAS INCREASED BY 34 BPM Confirmed by MIGDALIA MAHONEY MD ([id number]) on 10/04/2018 10:26:23 AM Referred By: Confirmed By:MIGDALIA MAHONEY MD
--- NOTE | 2018-10-04 10:39 | PN ---
S CIWA - CIWA Score Nausea/Vomitin-Mild Nausea/No Vomiting Muscle Tremors: 4-Moderate,w/Arms Extend Anxiety: 2 Agitation: 3 Paroxysmal Sweats: 1-Minimal Palms Moist Orientation: 2-Disoriented Date<2 days Tacttile Disturbances: 0-None Auditory Disturbances: 0-None Visual Disturbances: 0-None Headache: 0-None Present CIWA-Ar Total Score: 13 BHS Progress Note (SOAP) Subjective: feeling better with suboxone and librium "just" feeling tired could not sleep at night Objective: 10/04/18 10:39 Vital Signs Temperature 97.7 F 10/04/18 09:26 Pulse Rate 113 H 10/04/18 09:26 Respiratory Rate 18 10/04/18 09:26 Blood Pressure 106/65 10/04/18 09:26 O2 Sat by Pulse Oximetry (%) Laboratory Last Values WBC 10.3 K/mm3 (4.0-10.0) H 10/04/18 07:00 RBC 4.98 M/mm3 (3.60-5.2) 10/04/18 07:00 Hgb 14.7 GM/dL (10.7-15.3) 10/04/18 07:00 Hct 43.0 % (32.4-45.2) 10/04/18 07:00 MCV 86.3 fl (80-96) 10/04/18 07:00 MCH 29.5 pg (25.7-33.7) 10/04/18 07:00 MCHC 34.2 g/dl (32.0-36.0) 10/04/18 07:00 RDW 15.2 % (11.6-15.6) 10/04/18 07:00 Plt Count 248 K/MM3 (134-434) 10/04/18 07:00 MPV 8.7 fl (7.5-11.1) 10/04/18 07:00 lab noted Assessment: 10/04/18 10:40 withdrawal sx Plan: continue detox
[2018-10-04 10:41] LABS: ALBUMIN 3.9 g/dl (3.4-5.0); ALK PHOS 87 U/L (45-117); ANION GAP 10 MMOL/L (8-16); BILIRUBIN,TOTAL 0.8 mg/dL (0.2-1); BLOOD UREA NITROGEN 7 mg/dL (7-18); CALCIUM 9.2 mg/dL (8.5-10.1); CHLORIDE 100 mmol/L (98-107); CO2 28 mmol/L (21-32); CREATININE 0.7 mg/dL (0.55-1.3); GLUCOSE,RANDOM 94 mg/dL (74-106); POTASSIUM 3.5 mmol/L (3.5-5.1); SGOT/AST 29 U/L (15-37); SGPT/ALT 13 U/L (13-61); SODIUM 139 mmol/L (136-145); TOT PROT 7.4 g/dl (6.4-8.2)
[2018-10-04] MEDS: chlordiazePOXIDE HCL 25 MG CAPSULE PO PRN (12:55)
[2018-10-04] MEDS: RIVAROXABAN 20 MG TABLET PO SCH (17:31)
[2018-10-04] MEDS: ACETAMINOPHEN 325 MG TABLET (FP) PO PRN (20:58)
[2018-10-04] MEDS: THIAMINE HCL 100 MG TABLET (FP) PO SCH (22:14)
[2018-10-05] MEDS: hydrOXYzine PAMOATE 25 MG CAPSULE (FP) PO PRN ×2 (00:29→14:21)
[2018-10-05] MEDS: chlordiazePOXIDE HCL 25 MG CAPSULE PO PRN ×2 (02:35→12:19)
[2018-10-05] MEDS: chlordiazePOXIDE HCL 25 MG CAPSULE PO SCH ×3 (04:32→17:26)
[2018-10-05] MEDS: ACETAMINOPHEN 325 MG TABLET (FP) PO PRN ×2 (04:33→14:14)
[2018-10-05] MEDS: NICOTINE POLACRILEX 2 MG GUM BUC PRN ×2 (05:14→14:51)
--- NOTE | 2018-10-05 09:48 | PN ---
[facility] CIWA - CIWA Score Nausea/Vomitin-No Nausea/No Vomiting Muscle Tremors: 2 Anxiety: 1-Mildly Anxious Agitation: 2 Paroxysmal Sweats: 1-Minimal Palms Moist Orientation: 0-Oriented Tacttile Disturbances: 0-None Auditory Disturbances: 0-None Visual Disturbances: 0-None Headache: 1-Very Mild CIWA-Ar Total Score: 7 S Progress Note (SOAP) Subjective: feeling better anxious about leaving detox tomorrow patient preferring return to suboxone provider for medical and mental issues discuss medication adherence Objective: 10/05/18 09:47 Vital Signs Temperature 98.0 F 10/05/18 09:35 Pulse Rate 102 H 10/05/18 09:35 Respiratory Rate 18 10/05/18 09:35 Blood Pressure 101/61 10/05/18 09:35 O2 Sat by Pulse Oximetry (%) Laboratory Last Values WBC 10.3 K/mm3 (4.0-10.0) H 10/04/18 07:00 RBC 4.98 M/mm3 (3.60-5.2) 10/04/18 07:00 Hgb 14.7 GM/dL (10.7-15.3) 10/04/18 07:00 Hct 43.0 % (32.4-45.2) 10/04/18 07:00 MCV 86.3 fl (80-96) 10/04/18 07:00 MCH 29.5 pg (25.7-33.7) 10/04/18 07:00 MCHC 34.2 g/dl (32.0-36.0) 10/04/18 07:00 RDW 15.2 % (11.6-15.6) 10/04/18 07:00 Plt Count 248 K/MM3 (134-434) 10/04/18 07:00 MPV 8.7 fl (7.5-11.1) 10/04/18 07:00 Sodium 139 mmol/L (136-145) 10/04/18 07:00 Potassium 3.5 mmol/L (3.5-5.1) 10/04/18 07:00 Chloride 100 mmol/L (98-107) 10/04/18 07:00 Carbon Dioxide 28 mmol/L (21-32) 10/04/18 07:00 Anion Gap 10 MMOL/L (8-16) 10/04/18 07:00 BUN 7 mg/dL (7-18) 10/04/18 07:00 Creatinine 0.7 mg/dL (0.55-1.3) 10/04/18 07:00 Creat Clearance w eGFR 86.56 (>60) 10/04/18 07:00 Random Glucose 94 mg/dL (74-106) 10/04/18 07:00 Calcium 9.2 mg/dL (8.5-10.1) 10/04/18 07:00 Total Bilirubin 0.8 mg/dL (0.2-1) 10/04/18 07:00 AST 29 U/L (15-37) 10/04/18 07:00 ALT 13 U/L (13-61) 10/04/18 07:00 Alkaline Phosphatase 87 U/L (45-117) 10/04/18 07:00 Total Protein 7.4 g/dl (6.4-8.2) 10/04/18 07:00 Albumin 3.9 g/dl (3.4-5.0) 10/04/18 07:00 RPR Titer Nonreactive (NONREACTIVE) 10/04/18 07:00 lab noted Assessment: 10/05/18 09:47 mild alcohol withdrawal sx Plan: continue detox
[2018-10-05] MEDS: PRENATAL VITAMINS W/ FOLIC ACID TABLET (FP) PO SCH (10:04)
[2018-10-05] MEDS: BUPRENORPHINE/NALOXONE 2 MG/0.5 MG FILM PACKET SL SCH ×2 (10:04→22:42)
[2018-10-05] MEDS: NICOTINE 14 MG/24 HOURS TOPICAL PATCH TD SCH (10:04)
--- NOTE | 2018-10-05 11:12 | CONSULT ---
[facility] Psychiatric Consult - Data Date of interview: 10/05/18 Admission source: [facility] Identifying data: Patient is a 57 year old single female, mother of seven, domiciled and is supported by [facility]. This is one of multiple admissions for patient. Patient admitted to for alcohol and opioid dependence. Substance Abuse History: - Smoking Cessation. Smoking history: Never smoked. Have you smoked in the past 12 months: Yes. Aproximately how many cigarettes per day: 30. Cigars Per Day: 0. Hx Chewing Tobacco Use: No. Initiated information on smoking cessation: Yes. 'Breaking Loose' booklet given: . - Substance & Tx. History. Hx Alcohol Use: Yes. Hx Substance Use: Yes. Substance Use Type: None. Hx Substance Use Treatment: Yes ([facility]). - Substances Abused. Alcohol. Route: Oral. Frequency: Daily. Amount used: 2 /6PACK. Age of first use: 21. Date of Last Use: 09/30/18. percocet. Route: Oral. Frequency: Daily. Amount used: 10 PILLS 5/325MG. Age of first use: 54. Date of Last Use: 09/30/18 Medical History: Thyroid disease, hypercholesterolemia, brain aneurysm in 2009 Psychiatric History: Patient reports h/o multiple psychiatric hospitalizations, all at [facility]. Diagnosis of chronic depression. Ms. Granda receives outpatient psychiatric care from Dr. Connolly in [place], [place]. She is prescribed effexor 300mg XL but reports only taking 150mg XL. Patient denies h/ o suicide attempt. At present she reports feeling sad and is experiencing difficulty sleeping. Physical/Sexual Abuse/Trauma History: denies. Mental Status Exam - Mental Status Exam Alert and Oriented to: Time, Place, Person Cognitive Function: Good Patient Appearance: Well Groomed Mood: Sad Affect: Mood Congruent Patient Behavior: Appropriate, Cooperative Speech Pattern: Clear, Appropriate Voice Loudness: Normal Thought Process: Intact, Goal Oriented Thought Disorder: Not Present Hallucinations: Denies Suicidal Ideation: Denies Homicidal Ideation: Denies Insight/Judgement: Poor Sleep: Poorly Appetite: Fair Muscle strength/Tone: Normal Gait/Station: Normal Psychiatric Findings - Problem List ([place] 1, 2,3) (1) Opioid dependence on agonist therapy Current Visit: Yes Status: Chronic (2) MDD (major depressive disorder) Current Visit: Yes Status: Acute (3) Alcohol dependence with uncomplicated withdrawal Current Visit: Yes Status: Acute (4) Substance-induced sleep disorder Current Visit: Yes Status: Acute - Initial Treatment Plan Initial Treatment Plan: Psychoeducation provided. Detoxification in progress. Will order Effexor 150mg XL + Trazodone 50mg PRN for insomnia. Benefits and side effects discussed. Verbal consent given.
[2018-10-05] MEDS: VENLAFAXINE HCL 150 MG E.R. CAPSULE PO SCH (12:59)
[2018-10-05] MEDS: RIVAROXABAN 20 MG TABLET PO SCH (17:26)
[2018-10-05] MEDS ORDERED: QUEtiapine FUMARATE 25 MG TABLET (FP) PO SCH (22:00)
[2018-10-05] MEDS ORDERED: traZODone HCL 50 MG TABLET (FP) PO PRN (22:00)
[2018-10-05] MEDS: chlordiazePOXIDE HCL 10 MG CAPSULE PO SCH (22:42)
[2018-10-05] MEDS: THIAMINE HCL 100 MG TABLET (FP) PO SCH (22:42)
[2018-10-05] MEDS ORDERED: chlordiazePOXIDE HCL 10 MG CAPSULE PO PRN (23:00)
[2018-10-06] MEDS: chlordiazePOXIDE HCL 10 MG CAPSULE PO SCH ×3 (05:23→18:23)
[2018-10-06] MEDS: NICOTINE POLACRILEX 2 MG GUM BUC PRN ×4 (05:24→20:10)
[2018-10-06] MEDS: NICOTINE 14 MG/24 HOURS TOPICAL PATCH TD SCH (10:17)
[2018-10-06] MEDS: VENLAFAXINE HCL 150 MG E.R. CAPSULE PO SCH (10:17)
[2018-10-06] MEDS: BUPRENORPHINE/NALOXONE 2 MG/0.5 MG FILM PACKET SL SCH ×2 (10:17→22:15)
[2018-10-06] MEDS: PRENATAL VITAMINS W/ FOLIC ACID TABLET (FP) PO SCH (10:17)
--- NOTE | 2018-10-06 12:21 | PN ---
[facility] Progress Note (SOAP) Subjective: pt would like ensure as she is not eating- pt above normal BMI O: Vital Signs - 24 hr 10/05/18 10/05/18 10/05/18 13:28 17:29 21:46 Temperature 97.0 F L 96.2 F L 97.5 F L Pulse Rate 94 H 81 93 H Respiratory 18 18 18 Rate Blood Pressure 111/72 108/67 107/74 10/06/18 10/06/18 10/06/18 00:30 03:30 06:54 Temperature 98.6 F Pulse Rate 78 Respiratory 18 18 18 Rate Blood Pressure 106/65 10/06/18 09:28 Temperature 98.7 F Pulse Rate 98 H Respiratory 18 Rate Blood Pressure 116/75 Laboratory Tests 10/04/18 10/04/18 10/04/18 07:00 07:00 07:00 WBC 10.3 H RBC 4.98 Hgb 14.7 Hct 43.0 MCV 86.3 MCH 29.5 MCHC 34.2 RDW 15.2 Plt Count 248 MPV 8.7 Sodium 139 Potassium 3.5 Chloride 100 Carbon Dioxide 28 Anion Gap 10 BUN 7 Creatinine 0.7 Creat Clearance w eGFR 86.56 Random Glucose 94 Calcium 9.2 Total Bilirubin 0.8 AST 29 ALT 13 Alkaline Phosphatase 87 Total Protein 7.4 Albumin 3.9 RPR Titer Nonreactive a/p: continue alcohol detox prtocol pt for d/c tomorrow ensure 90 cc qd
[2018-10-06] MEDS: RIVAROXABAN 20 MG TABLET PO SCH (18:23)
[2018-10-06] MEDS: THIAMINE HCL 100 MG TABLET (FP) PO SCH (22:15)
[2018-10-06] MEDS ORDERED: chlordiazePOXIDE HCL 10 MG CAPSULE PO SCH (23:00)
[2018-10-07] MEDS: NICOTINE POLACRILEX 2 MG GUM BUC PRN (05:48)
[2018-10-07] MEDS: VENLAFAXINE HCL 150 MG E.R. CAPSULE PO SCH (09:05)
[2018-10-07] MEDS: BUPRENORPHINE/NALOXONE 2 MG/0.5 MG FILM PACKET SL SCH (09:05)
[2018-10-07 09:23] VITALS: BP 130/70; PULSE 120; TEMP 97.4
--- NOTE | 2018-10-07 12:04 | DS ---
[facility] Detox Discharge Summary Admission Date: 10/03/18 Discharge Date: 10/07/18 - History Present History: Alcohol Dependence Additional Comments: 58 years old female admitted on 10/03/18 for alcohol withdrawal stabilization completed detox regimen aftercare [facility] patient has psychotherapist and [facility] follow up bring in medication list and lab report to aftercare appointment - Physical Exam Results Vital Signs: Vital Signs Temperature 97.4 F L 10/07/18 09:22 Pulse Rate 120 H 10/07/18 09:22 Respiratory Rate 18 10/07/18 09:22 Blood Pressure 130/70 10/07/18 09:22 O2 Sat by Pulse Oximetry (%) Pertinent Admission Physical Exam Findings: alcohol withdrawal sx Laboratory Last Values WBC 10.3 K/mm3 (4.0-10.0) H 10/04/18 07:00 RBC 4.98 M/mm3 (3.60-5.2) 10/04/18 07:00 Hgb 14.7 GM/dL (10.7-15.3) 10/04/18 07:00 Hct 43.0 % (32.4-45.2) 10/04/18 07:00 MCV 86.3 fl (80-96) 10/04/18 07:00 MCH 29.5 pg (25.7-33.7) 10/04/18 07:00 MCHC 34.2 g/dl (32.0-36.0) 10/04/18 07:00 RDW 15.2 % (11.6-15.6) 10/04/18 07:00 Plt Count 248 K/MM3 (134-434) 10/04/18 07:00 MPV 8.7 fl (7.5-11.1) 10/04/18 07:00 Sodium 139 mmol/L (136-145) 10/04/18 07:00 Potassium 3.5 mmol/L (3.5-5.1) 10/04/18 07:00 Chloride 100 mmol/L (98-107) 10/04/18 07:00 Carbon Dioxide 28 mmol/L (21-32) 10/04/18 07:00 Anion Gap 10 MMOL/L (8-16) 10/04/18 07:00 BUN 7 mg/dL (7-18) 10/04/18 07:00 Creatinine 0.7 mg/dL (0.55-1.3) 10/04/18 07:00 Creat Clearance w eGFR 86.56 (>60) 10/04/18 07:00 Random Glucose 94 mg/dL (74-106) 10/04/18 07:00 Calcium 9.2 mg/dL (8.5-10.1) 10/04/18 07:00 Total Bilirubin 0.8 mg/dL (0.2-1) 10/04/18 07:00 AST 29 U/L (15-37) 10/04/18 07:00 ALT 13 U/L (13-61) 10/04/18 07:00 Alkaline Phosphatase 87 U/L (45-117) 10/04/18 07:00 Total Protein 7.4 g/dl (6.4-8.2) 10/04/18 07:00 Albumin 3.9 g/dl (3.4-5.0) 10/04/18 07:00 RPR Titer Nonreactive (NONREACTIVE) 10/04/18 07:00 lab noted - Treatment Hospital Course: Detox Protocol Followed, Detoxed Safely, Responded well, Discharged Condition Good, Rehab Referral Accepted Patient has Accepted a Rehab Referral to: [facility] - Medication Discharge Medications: Ambulatory Orders Venlafaxine HCl [Effexor -] 300 mg PO DAILY 05/24/17 Rivaroxaban [Xarelto -] 20 mg PO DAILY #30 tablet 10/05/18 Venlafaxine HCl ER [Effexor Xr -] 150 mg PO DAILY 10/05/18 - Diagnosis (1) Alcohol dependence with uncomplicated withdrawal Status: Acute (2) Nicotine dependence Status: Acute Qualifiers: Nicotine product type: cigarettes Substance use status: in withdrawal Qualified Code(s): F17.213 - Nicotine dependence, cigarettes, with withdrawal - AMA Did Patient Leave Against Medical Advice: No
== END 2018-10-07 09:21 | disposition home or self-care (01) | DRG 897 ==
LOC: YASAS 19:58 → Y3N 23:29
PROVIDERS: ADMIT Surgery; ATTEND Surgery
PROC: HZ2ZZZZ Detoxification Services for Substance Abuse Treatment (ICD-10-PCS; principal; 2018-10-03)
DX: F10.230 Alcohol dependence with withdrawal, uncomplicated (principal); F11.20 Opioid dependence, uncomplicated; F33.1 Major depressive disorder, recurrent, moderate; F19.282 Other psychoactive substance dependence with psychoactive substance-induced sleep disorder; F17.213 Nicotine dependence, cigarettes, with withdrawal; F41.9 Anxiety disorder, unspecified; E78.5 Hyperlipidemia, unspecified; R00.0 Tachycardia, unspecified; E05.90 Thyrotoxicosis, unspecified without thyrotoxic crisis or storm; Z86.79 Personal history of other diseases of the circulatory system; Z91.013 Allergy to seafood
CPT/HCPCS: 36415; 80053; 85027; 86593; 93005; 93010

== ENCOUNTER 2020-02-14 19:01 | Inpatient (IN) | payer OTHER ==
--- NOTE | 2020-02-14 19:20 | PDOC ---
Rapid Medical Evaluation Chief Complaint: Pain Time Seen by Provider: 02/14/20 19:15 Medical Evaluation: Allergies Allergy/AdvReac Type Severity Reaction Status Date / Time egg Allergy Severe Vomiting Verified 02/14/20 17:01 No Known Drug Allergies Allergy Unknown Verified 02/14/20 17:01 02/14/20 19:15 59 year old female sent from [facility] for abdominal pain on palpation. patient is currently admitted in detox for alcohol abuse. denies abdominal pain NVD, urinary symptoms, flank pain. PE: patient alert awake, sleepy. A; abdominal pain P; labs Discharge Disposition - Diagnosis Alcohol abuse Abdominal pain Qualifiers: Abdominal location: upper abdomen, unspecified Qualified Code(s): R10.10 - Upper abdominal pain, unspecified - Referrals - Patient Instructions - Post Discharge Activity
--- NOTE | 2020-02-14 20:02 | PDOC ---
*Physical Exam - Vital Signs Last Vital Signs Temp Pulse Resp BP Pulse Ox 99 F 104 H 20 137/84 96 02/14/20 19:19 02/14/20 19:19 02/14/20 19:19 02/14/20 19:19 02/14/20 19:19 ED Treatment Course - LABORATORY CBC & Chemistry Diagram: 02/14/20 19:41 02/14/20 19:41 Medical Decision Making - Medical Decision Making 02/14/20 20:01 Patient seen by the advanced practice provider under my supervision. Ancillary testing reviewed as necessary. I agree with plan as outlined by the advanced practice provider. Discharge - Discharge Information Problems reviewed: Yes Clinical Impression/Diagnosis: Alcohol abuse, Gallstones Condition: Fair - Follow up/Referral - Patient Discharge Instructions - Post Discharge Activity
[2020-02-14 20:32] LABS: BASO % 0.9 % (0-2.0); EOS % 1.1 % (0-4.5); HEMATOCRIT 41.7 % (32.4-45.2); HEMOGLOBIN 13.8 GM/dL (10.7-15.3); LYMPH % 34.4 % (8-40); MCH 28.5 pg (25.7-33.7); MCHC 33.1 g/dl (32.0-36.0); MEAN CELL VOLUME 86.3 fl (80-96); MEAN PLT VOLUME 8.4 fl (7.5-11.1); MONO % 6.3 % (3.8-10.2); NEUT % 57.3 % (42.8-82.8); PLATELET COUNT 260 K/MM3 (134-434); RBC 4.83 M/mm3 (3.60-5.2); RDW 15.4 % (11.6-15.6); WHITE BLOOD COUNT 8.3 K/mm3 (4.0-10.0)
--- NOTE | 2020-02-14 20:32 | PDOC ---
History of Present Illness - General Chief Complaint: Alcohol intoxication Stated Complaint: ABD PAIN Time Seen by Provider: 02/14/20 19:15 History Source: Patient Exam Limitations: No Limitations - History of Present Illness Travel History: No Initial Comments: 02/14/20 20:26 HISTORY OF PRESENT ILLNESS: 59-year-old woman past medical history of depression and alcohol abuse who presents emergency department from [facility] for evaluation of right upper quadrant tenderness on intake exam. Patient states she believes there is nothing wrong is requesting to be returned to [place] immediately. Patient reports she drinks infrequently but when she drinks she drinks to blackout status and usually blacked out for many days at a time. During this time she does not take her antidepressants as she does not remember to take her medicines and loses track of time. Patient reports drinking only beer but does not remember how much over the past couple of days. Patient reports her last drink was approximately 4:00 this afternoon when she presented to [facility] for evaluation. She denies all physical complaints at this time. No recent travel or sick contacts. PAST MEDICAL HISTORY: Depression, EtOH abuse SURGICAL HISTORY: Denies ALLERGIES: No known drug allergies REVIEW OF SYSTEMS General/Constitutional: Denies fever or chills. Denies weakness, weight change. HEENT: Denies change in vision. Denies ear pain or discharge. Denies sore throat. Cardiovascular: Denies chest pain or shortness of breath. Respiratory: Denies cough, wheezing, or hemoptysis. Gastrointestinal: Denies nausea, vomiting, diarrhea or constipation. Denies rectal bleeding. Genitourinary: Denies dysuria, frequency, or change in urination. Musculoskeletal: Denies joint or muscle swelling or pain. Denies neck or back pain. Skin and breasts: Denies rash or easy bruising. Neurologic: Denies headache, vertigo, loss of consciousness, or loss of sensation. Psychiatric: Denies depression or anxiety. Endocrine: Denies increased thirst. Denies abnormal weight change. Hematologic/Lymphatic: Denies anemia, easy bleeding, or history of blood clots. Allergic/Immunologic: Denies hives or skin allergy. Denies latex allergy. PHYSICAL EXAM General Appearance: Well-appearing, appropriately dressed. No apparent distress, no intoxication. Respiratory/Chest: Lungs CTAB. No shortness of breath, chest tenderness, respiratory distress, accessory muscle use. No crackles, rales, rhonchi, stridor, wheezing, dullness Cardiovascular: RRR. S1, S2. No JVD, murmur, bradycardia, tachycardia. Gastrointestinal/Abdominal: Normal bowel sounds. Abdomen soft, non-distended. Right upper quadrant tenderness. Negative Roque sign. No rebound tenderness. No organomegaly, pulsatile mass, hernia, hepatomegaly, splenomegaly. Neurologic: tin container straightener II-XII intact. Fully oriented, alert. Appropriate mood/affect. Motor strength 5/5. No appreciable EOM palsy, facial droop or sensory deficit. Past History - Medical History Allergies/Adverse Reactions: Allergies Allergy/AdvReac Type Severity Reaction Status Date / Time egg Allergy Severe Vomiting Verified 02/14/20 17:01 No Known Drug Allergies Allergy Unknown Verified 02/14/20 17:01 Home Medications: Ambulatory Orders Venlafaxine HCl [Effexor -] 300 mg PO DAILY 05/24/17 Rivaroxaban [Xarelto -] 20 mg PO DAILY #30 tablet 10/05/18 Buprenorphine HCl/Naloxone HCl [Suboxone 4 mg-1 mg Sl Film] 1 each SL DAILY 02/14/20 Anemia: No Asthma: No Cancer: No Cardiac Disorders: No CVA: No COPD: No CHF: No DVT: No Dementia: No Diabetes: No GI Disorders: No Disorders: No HTN: No Hypercholesterolemia: Yes (NO TREATMENT) Kidney Stones: No Liver Disease: No Psychiatric Problems: Yes (DEPRESSION) Seizures: No Thyroid Disease: Yes (on tapazole not taking medcations) - Surgical History Abdominal Surgery: No (c/s x 2 , more than 20 years ago) Appendectomy: No Cardiac Surgery: No Cholecystectomy: No Lung Surgery: No Neurologic Surgery: Yes (brain aneurysm in 2010) Orthopedic Surgery: No - Reproductive History Is Patient Now?: No PID: No - Immunization History Immunization Up to Date: Yes - Psycho-Social/Smoking History Smoking Status: No Smoking History: Current every day smoker Have you smoked in the past 12 months: Yes Number of Cigarettes Smoked Daily: 10 Cigars Per Day: 0 Information on smoking cessation initiated: Yes 'Breaking Loose' booklet given: 10/03/18 - Substance Abuse Hx (Audit-C & DAST Scrn) How often the patient has a drink containing alcohol: 2-3 times / week Number of drinks the patient has on a typical day: 3 or 4 How often the patient has six or more drinks on one occasion: Less than monthly Score: In Men: 4 or > Positive; In Women: 3 or > Positive: 5 Screen Result (Pos requires Nsg. Audit-10AR): Positive In the last yr the pt used illegal drug/Rx for NonMed reason: No Score: Yes response is considered Positive: 0 Screen Result (Positive result requires Nsg. DAST-10): Negative Abd/GI Specific PMHX - Complaint Specific PMHX Hepatitis: No Pancreatitis: No *Physical Exam - Vital Signs Last Vital Signs Temp Pulse Resp BP Pulse Ox 99 F 104 H 20 137/84 96 02/14/20 19:19 02/14/20 19:19 02/14/20 19:19 02/14/20 19:19 02/14/20 19:19 ED Treatment Course - LABORATORY CBC & Chemistry Diagram: 02/14/20 19:41 02/14/20 19:41 - RADIOLOGY Radiology Studies Ordered: Category Date Time Status ABDOMEN US -LIMITED [US] Stat Ultrasound 02/14/20 20:18 Ordered Medical Decision Making - Medical Decision Making 02/14/20 20:31 A/P: 59-year-old woman sent from [facility] for abdominal tenderness Physical exam notable for right upper quadrant tenderness with guarding present. Negative Roque sign. Differential diagnosis includes but is not limited to-cholecystitis, cholelithi asis, pancreatitis, hepatocellular disease Labs per [facility] Right upper quadrant ultrasound Reassess 02/14/20 21:46 Ultrasound is read by Dr. Lee: Over distended gallbladder with intraluminal mobile stones the largest measuring 1.3 cm and without wall thickening or pericholecystic free fluid to suggest acute cholecystitis. Mild dilatation of the common bile duct measuring 7.5 mm for which further evaluation is needed. We will admit patient for inpatient GI evaluation prior to return to [facility]. Will contact hospitalist for admission 02/14/20 22:[address] Pierce of the hospitalist service who admits under Dr. Menendez. Discharge - Discharge Information Problems reviewed: Yes Clinical Impression/Diagnosis: Alcohol abuse, Gallstones Condition: Fair - Admission Yes - Follow up/Referral - Patient Discharge Instructions - Post Discharge Activity
[2020-02-14 20:39] LABS: ALBUMIN 3.8 g/dl (3.4-5.0); BILIRUBIN,TOTAL 0.2 mg/dL (0.2-1); BLOOD UREA NITROGEN 7.6 mg/dL (7-18); CALCIUM 9.1 mg/dL (8.5-10.1); CREATININE 0.7 mg/dL (0.55-1.3); POTASSIUM 4.2 mmol/L (3.5-5.1); TOT PROT 7.5 g/dl (6.4-8.2)
--- NOTE | 2020-02-14 22:25 | PN ---
Teaching Attending Note Name of Resident: Bere Rico ATTENDING PHYSICIAN STATEMENT I saw and evaluated the patient. I reviewed the resident's note and discussed the case with the resident. I agree with the resident's findings and plan as documented. SUBJECTIVE: Patient is a 59-year-old undomiciled woman with PMH of Depression, ?Hyperthyr oidism, HLD, Jose aneurysm (2009), , Percocet abuse (on Suboxone), Tobacco use and Alcohol abuse who presents to the ER from [facility] for evaluation of right upper quadrant tenderness on intake examination. Patient states she believes there is nothing wrong and is requesting to be returned to [facility] immediately. Patient reports she drinks infrequently but when she drinks she drinks to blackout status and usually blacks out for many days at a time. During this time she does not take her antidepressants as she does not remember to take her medicines and loses track of time. Patient reports drinking only beer but does not remember how much over the past couple of days. Patient reports her last drink was approximately 4:00 this afternoon when she presented to [facility] for evaluation. Patient denies chest pain, shortness of breath, headache, palpitations, dizziness, fever, chills, nausea, vomiting, diarrhea, constipation, dysuria, frequency, urgency, melena, hematochezia or hematuria. Denies illicit drug use. No sick contacts or recent travels. Family history is unremarkable. OBJECTIVE: Alert Vital Signs Period Temp Pulse Resp BP Sys/Cash Pulse Ox Last 24 Hr 99 F 104 20 137/84 96 HEENT: No Jaundice, eye redness or discharge, PERRLA, EOMI. Normocephalic, atraumatic. External ears are normal and hearing is grossly intact. No nasal discharge. Neck: Supple, nontender. No palpable adenopathy or thyromegaly. No JVD Chest: Good effort. Clear to auscultation and percussion. Heart: Regular. No S3, rub or murmur Abdomen: Not distended, soft, RUQ tenderness and no HSM. No rebound or guarding. Normal bowel sounds. Ext: Peripheral pulses intact. No leg edema. Skin: Warm and dry. No petechiae, rash or ecchymosis. Neuro: Alert. Oriented x3. No asterexis or tremors; CN 2-12 grossly intact. Sensation grossly intact in all four extremities and DTR are symmetric. Psych: Appropriate mood and affect. Good insight. Current Medications Generic Name Dose Route Start Last Admin Trade Name Brigitte PRN Reason Stop Dose Admin Buprenorphine/Naloxone 1 each 02/14/20 22:45 Suboxone 4 Mg/1 Mg Film Packet SL BID EDSON Clonazepam 0.5 mg 02/15/20 22:00 Klonopin - PO HS [facility] Enoxaparin Sodium 40 mg 02/15/20 10:00 Lovenox - SQ DAILY [facility] Folic Acid 1 mg 02/14/20 23:00 Folic Acid - PO DAILY [facility] Multivitamins/Minerals/Vitamin C 1 tab 02/15/20 10:00 Tab-A-Vit - PO DAILY [facility] Thiamine HCl 100 mg 02/15/20 10:00 Vitamin B1 - PO DAILY [facility] Venlafaxine HCl 225 mg 02/15/20 22:52 Effexor Xr - PO DAILY [facility] Home Medications Medication Instructions Recorded Buprenorphine HCl/Naloxone HCl 1 each SL BID 02/14/20 [Suboxone 4 mg-1 mg Sl Film] Clonazepam 0.5 mg PO HS 02/14/20 Venlafaxine HCl ER [Effexor Xr -] 225 mg PO DAILY 02/14/20 Abnormal Lab Results 02/14/20 19:41 AST 14 L Alcohol, Quantitative 8.9 H ASSESSMENT AND PLAN: 1. Symptomatic gallstones - Ultrasound shows overdistended gall bladder with gall stones. There is no evidence of cholecystitis and the common bile duct is dilated to 7.5 mm. Will keep her NPO, get MRCP, urinalysis, lipid profile, CXR and consult GI. Viral testing for COVID-19 ordered and patient placed on airborne, droplet and contact isolation. EKG shows NSR at 96/minute, LAE and QTc [address]-T wave changes. Initial troponin is negative. Will avoid drugs that may prolong QTc. Consult baby formula worker about living situation. Will continue comprehensive care for all of patients comorbid conditions. 2. Tobacco Use Counseled on risks associated with tobacco use. We will provide patient all the necessary assistance to facilitate smoking cessation and prescribe Nicotine patch. 3. Obesity Counseled on the risks associated with obesity. Will provide patient all the necessary assistance, counseling and positive reinforcement to facilitate weight loss. Consult manager strategic marketing. 4. Alcohol abuse - Implement [facility] alcohol withdrawal protocol and do neurochecks. Implement seizure, fall and aspiration precautions. Treat with IV Banana bag, thiamine and folic acid. Monitor and replete electrolytes (Ca,Mg,K,P). Counseled patient about abstaining from alcohol. Will consult clinical trial specialist and refer to alcohol detox upon discharge. 5. DVT prophylaxis - Lovenox 40 mg SQ q 24 hours. 6. Advance directives - Full code
[2020-02-14] MEDS ORDERED: BUPRENORPHINE/NALOXONE 4 MG/1 MG FILM PACKET SL SCH (22:45)
[2020-02-14] MEDS ORDERED: FOLIC ACID 1 MG TABLET (FP) PO ONE (22:51)
--- NOTE | 2020-02-14 22:55 | HP ---
CHIEF COMPLAINT: RUQ tenderness at [facility] PCP: none HISTORY OF PRESENT ILLNESS: 59 yo undomiciled woman with PMH of depression, alcohol abuse, percocet abuse (on suboxone), and HLD in the past who presents to the ER after RUQ tenderness elicited on intake exam at [facility]. Pt reports no RUQ pain prior to this and no RUQ pain since arriving to the ED. The pt reports desire to return to [facility] and states that she doesn't need to be here. Pt reports that she was going to [facility] for alcohol detox as she had been binge drinking beer until she blacked out for the last several days (refusing to quantify amount). Pt reports that she only drinks alcohol every 3-6 months but when she does she will drink for several days until she blacks out. She also reports that she does not take her home medications while she is drinking alcohol. Her last drink was at 4 pm of Thursday02/14/2020. Pt reports increased anxiety and restlessness. Denies abdominal pain, diaphoresis, chest pain, SOB, nausea, vomiting, fevers, chills, diarrhea, constipation, headache, insomnia, tremors, dizziness, and dysuria. ER course was notable for: (1) US of RUQ Abdomen showing intraluminal mobile stone (1.3 cm) w/o wall thickening or pericholecystic fluid of gallbladder; mild CBD dilation of 7.5 mm Recent Travel: none Sick Contacts: none PAST MEDICAL HISTORY: as per HPI possible hx of hyperthyroidism PAST SURGICAL HISTORY: brain aneurysm in 2010 requiring coil in the past Family Hx none Social History: Pt is undomiciled. Refused to answer questions regarding her family. Smokin.5 ppd for past 30 years Alcohol: reports infrequent drinking (every 3-6 months) - but binge drinking beer for several days each time she starts drinking. Pt refused to quanitfy amount - reports "a lot" and "until I black out" Drugs: percocet abuse in the past; no recent recreational drug use Allergies egg Allergy (Severe, Verified 02/14/20 17:01) Vomiting No Known Drug Allergies Allergy (Unknown, Verified 02/14/20 17:01) HOME MEDICATIONS: Home Medications Medication Instructions Recorded Buprenorphine HCl/Naloxone HCl 1 each SL BID 02/14/20 [Suboxone 4 mg-1 mg Sl Film] Clonazepam 0.5 mg PO HS 02/14/20 Venlafaxine HCl ER [Effexor Xr -] 225 mg PO DAILY 02/14/20 REVIEW OF SYSTEMS As per HPI. PHYSICAL EXAMINATION Vital Signs - 24 hr 02/14/20 19:19 Temperature 99 F Pulse Rate 104 H Respiratory 20 Rate Blood Pressure 137/84 O2 Sat by Pulse 96 Oximetry (%) GENERAL: Awake, alert, and fully oriented, in no acute distress. Very anxious. Mildly agitated. HEAD: NCAT EYES: PERRLA, EOMI, sclera white, conjunctiva clear. EARS, NOSE, THROAT: oropharynx clear without exudates. Moist mucous membranes. NECK: Normal range of motion, supple without LAD LUNGS: Breath sounds equal, clear to auscultation bilaterally. No wheezes, and no crackles. No accessory muscle use. HEART: Regular rate and rhythm, normal S1 and S2 without murmur, rub or gallop. ABDOMEN: Soft, not distended; mild RUQ tenderness without rebound or guarding; normoactive bowel sounds, No hepatomegaly. Roque Sign negative MUSCULOSKELETAL: Moving all extremities spontaneously and equally. UPPER EXTREMITIES: 2+ pulses, warm, well-perfused. No peripheral edema. LOWER EXTREMITIES: 2+ pulses, warm, well-perfused. No peripheral edema. NEUROLOGICAL: Cranial nerves II-XII grossly intact. Normal speech. Normal gait. PSYCHIATRIC: Very anxious. Cooperative after being mildly agitated at first. SKIN: Warm, dry, no rashes or lesions noted. Laboratory Results - last 24 hr 02/14/20 02/14/20 19:41 19:41 WBC 8.3 RBC 4.83 Hgb 13.8 Hct 41.7 MCV 86.3 MCH 28.5 MCHC 33.1 RDW 15.4 Plt Count 260 MPV 8.4 Absolute Neuts (auto) 4.7 Neutrophils % 57.3 Lymphocytes % 34.4 D Monocytes % 6.3 Eosinophils % 1.1 Basophils % 0.9 Nucleated RBC % 0 Sodium 142 Potassium 4.2 Chloride 106 Carbon Dioxide 26 Anion Gap 10 BUN 7.6 Creatinine 0.7 Est GFR (CKD-EPI)AfAm 110.69 Est GFR (CKD-EPI)NonAf 95.50 Random Glucose 103 Calcium 9.1 Total Bilirubin 0.2 AST 14 L ALT 17 Alkaline Phosphatase 75 Total Protein 7.5 Albumin 3.8 Lipase 89 Alcohol, Quantitative 8.9 H ASSESSMENT/PLAN: 59 yo F with PMH of HLD, depression, alcohol abuse, and opioid abuse being admitted for evaluation of cholelithiasis without acute cholecystitis and CBD dilation (7.5 mm) #Cholelithiasis w/o Acute Cholecystitis (also with CBD dilation of 7.5 mm) Likely 2/2 to cholesterol gallstones given pt's history of medication non- adherence to home lipitor for HLD - NPO for now - GI consulted for evaluation before return to [facility] - Consider MRCP to evaluation CBD dilation #Alcohol Withdrawal (w/hx of Alcohol Abuse) CIWA 14 Also with hx of percocet abuse - Will implement librium alcohol withdrawal protocol - neurochecks q4h; continue checking CIWA - siezure/fall/aspiration precautions - Thiamine, folic acid, and Mg Sulfate given - Addiction medicine consulted as pt was at [facility] for alcohol detox before coming to [facility] - will hold home klonopin 6mg qhs for now - continue home suboxone (4mg/1mg) for hx of percocet abuse #HLD hx Pt reports HLD hx; not currently prescribed a statin but reports being non- adherent to statin in the past - will check lipids - prescribe statin according to ASCVD score #Depression - continue home venlafaxine 225 mg PO daily #Tobacco Use Smoking hx (1.5 ppd x 30 years) - nicotine patch #Obesity - [facility] - Education/support regarding weight loss and counseling regarding the risks associated with obesity #DVT ppx - lovenox 40 sq daily #FEN -F - PO; no IVF needed right now -E - monitor; replete PRN -N - NPO for now #Dispo - Admit to med-surg Visit type - Emergency Visit Emergency Visit: Yes ED Registration Date: 02/14/20 Care time: The patient presented to the Emergency Department on the above date and was hospitalized for further evaluation of their emergent condition. - New Patient This patient is new to me today: Yes Date on this admission: 02/15/20 - Critical Care Critical Care patient: No ATTENDING PHYSICIAN STATEMENT I saw and evaluated the patient. I reviewed the resident's note and discussed the case with the resident. I agree with the resident's findings and plan as documented. SUBJECTIVE: OBJECTIVE: ASSESSMENT AND PLAN:
[2020-02-14] MEDS ORDERED: BUPRENORPHINE/NALOXONE 2 MG/0.5 MG FILM PACKET SL SCH (23:53)
[2020-02-15] MEDS ORDERED: chlordiazePOXIDE 5 MG CAPSULE PO PRN (00:05)
[2020-02-15] MEDS ORDERED: chlordiazePOXIDE 5 MG CAPSULE ONE (00:27)
[2020-02-15] MEDS ORDERED: MAGNESIUM SULF 50% (8.12 MEQ/2 ML-1 GM VIAL) IVPB ONE (00:27)
[2020-02-15] MEDS: FOLIC ACID 1 MG TABLET (FP) PO SCH ×2 (01:24→10:26)
[2020-02-15 02:37] VITALS: BMI 31.0
[2020-02-15] MEDS ORDERED: PT OWN MED DRAWER 7, Y5N ONE ×6 (04:41→22:11)
[2020-02-15] MEDS: chlordiazePOXIDE HCL 25 MG CAPSULE PO SCH ×3 (05:29→21:09)
--- NOTE | 2020-02-15 08:48 | CONSULT ---
Consult Detox [facility] Reason for Current Admission/Consult: We are asked to consult on Ms. Eliza Granda for alcohol use disorder Referred by:: Dr. Dana Rico - History History of Present Illness: History obtained from the chart: Pt was transferred from [facility] to [facility] with abdominal pain. She is now admitted for GI evaluation. She was at [facility] last evening with the following history: 59 y.o. female requesting detox from alcohol , reports 2 pints vodka/day and beer " a lot , I don't count them " , denies seizures , admits to blackouts , occasional falls , denies injuries to self or others, had DUI/ DWI " not in a long time " , latest use today . Pt is poor historian due to agitation , intoxication . Encouraged pt to drink water . PMHx : brain aneurysm (on eliquis), hypercholesterolemia, hyperthyroidism, depression and anxiety , brain surgery 14 yrs ago . This report was requested by: Harriet Hess | Reference #: [id number] Others' Prescriptions Patient Name: Eliza GrandaBirth Date: 1960 Address: [address] [place] [address] [facility] [address] [place], [place] [address]Sex: Female Rx Written Rx Dispensed Drug Quantity Days Supply Prescriber Name Payment Method Dispenser 01/25/2020 01/30/2020 buprenorphine-naloxone 4-1 mg sl film 54 27 Prudencio Becerra MD Medicare [facility] #[id number] 01/25/2020 01/27/2020 clonazepam 0.5 mg tablet 30 30 Prudencio Becerra MD Medicare [facility] #[id number] 12/28/2019 12/31/2019 clonazepam 0.5 mg tablet 30 30 Prudencio Becerra MD Medicare [facility] #[id number] 12/28/2019 12/28/2019 buprenorphine-naloxone 4-1 mg sl film 60 30 BecerraPrudencio allison MD Medicare [facility] #[id number] 12/23/2019 12/27/2019 buprenorphine-naloxone 4-1 mg sl film 4 2 Prudencio Becerra MD [facility] #[id number] 12/23/2019 12/23/2019 clonazepam 0.5 mg tablet 10 10 Prudencio Becerra MD Medicare [facility] #[id number] Home Medication List Medication Instructions Recorded Confirmed Type Buprenorphine HCl/Naloxone HCl 1 each SL BID 02/14/20 02/14/20 History [Suboxone 4 mg-1 mg Sl Film] Clonazepam 0.5 mg PO HS 02/14/20 02/14/20 History Venlafaxine HCl ER [Effexor Xr -] 225 mg PO DAILY 02/14/20 02/14/20 History Active Medications Generic Name Dose Route Start Last Admin Trade Name Freq PRN Reason Stop Dose Admin Buprenorphine/Naloxone 1 each 02/15/20 00:31 Suboxone 2 Mg/0.5 Mg Film Packet SL BID EDSON Chlordiazepoxide HCl 25 mg 02/15/20 05:00 02/15/20 05:29 Librium - PO 02/15/20 21:01 25 mg Q8H EDSON Administration Chlordiazepoxide HCl 10 mg 02/17/20 00:00 02/15/20 01:24 Librium - PO 02/17/20 23:59 10 mg Q12H PRN Administration Signs/symptoms of Withdrawal Chlordiazepoxide HCl 10 mg 02/15/20 00:05 Librium - PO 02/16/20 23:59 Q8H PRN Signs/symptoms of Withdrawal Chlordiazepoxide HCl 15 mg 02/16/20 05:00 Librium - PO 02/16/20 21:01 Q8H EDSON Chlordiazepoxide HCl 10 mg 02/17/20 05:00 Librium - PO 02/17/20 21:01 Q8H [facility] Chlordiazepoxide HCl 10 mg 02/18/20 05:00 Librium - PO 02/18/20 05:01 ONCE ONE Enoxaparin Sodium 40 mg 02/15/20 10:00 Lovenox - SQ DAILY [facility] Folic Acid 1 mg 02/14/20 23:00 02/15/20 01:24 Folic Acid - PO 1 mg DAILY [facility] Administration Multivitamins/Minerals/Vitamin C 1 tab 02/15/20 10:00 Tab-A-Vit - PO DAILY [facility] Nicotine 7 mg 02/15/20 10:00 Nicoderm Patch - TD DAILY [facility] Thiamine HCl 100 mg 02/15/20 10:00 Vitamin B1 - PO DAILY [facility] Venlafaxine HCl 225 mg 02/15/20 22:52 Effexor Xr - PO DAILY [facility] Laboratory Results - last 24 hr 02/14/20 02/14/20 19:41 19:41 WBC 8.3 RBC 4.83 Hgb 13.8 Hct 41.7 MCV 86.3 MCH 28.5 MCHC 33.1 RDW 15.4 Plt Count 260 MPV 8.4 Absolute Neuts (auto) 4.7 Neutrophils % 57.3 Lymphocytes % 34.4 D Monocytes % 6.3 Eosinophils % 1.1 Basophils % 0.9 Nucleated RBC % 0 Sodium 142 Potassium 4.2 Chloride 106 Carbon Dioxide 26 Anion Gap 10 BUN 7.6 Creatinine 0.7 Est GFR (CKD-EPI)AfAm 110.69 Est GFR (CKD-EPI)NonAf 95.50 Random Glucose 103 Calcium 9.1 Total Bilirubin 0.2 AST 14 L ALT 17 Alkaline Phosphatase 75 Total Protein 7.5 Albumin 3.8 Lipase 89 Alcohol, Quantitative 8.9 H Vital Signs Temperature 98.7 F 02/15/20 01:55 Pulse Rate 93 H 02/15/20 01:55 Respiratory Rate 18 02/15/20 01:55 Blood Pressure 115/74 02/15/20 01:55 O2 Sat by Pulse Oximetry (%) 98 02/15/20 01:55 - History Source History Provided By: Medical Record - Alcohol/Substance Use Hx Alcohol Use: Yes - Past Medical History ...LMP: 04/21/02 ...: No Assessment Plan - Plan Plan: 1. Alcohol use disorder Plan 1. agree with Librium detox protocol - Medication Detox Regimen/Protocol: Librium
--- NOTE | 2020-02-15 09:07 | EKG ---
Test Reason : Blood Pressure : / mmHG Vent. Rate : 096 BPM Atrial Rate : 096 BPM P-R Int : 164 ms QRS Dur : 084 ms QT Int : 378 ms P-R-T Axes : 074 068 068 degrees QTc Int : 477 ms NORMAL SINUS RHYTHM POSSIBLE LEFT ATRIAL ENLARGEMENT BORDERLINE ECG WHEN COMPARED WITH ECG OF 03-OCT-2018 23:04, NO SIGNIFICANT CHANGE WAS FOUND Confirmed by Daniel Neal ([id number]) on 02/15/2020 9:06:25 AM Referred By: Confirmed By:Daniel Neal
[2020-02-15] MEDS ORDERED: VENLAFAXINE HCL 75 MG E.R. CAPSULES PO SCH (10:00)
[2020-02-15] MEDS: NICOTINE 7 MG/24 HOURS TOPICAL PATCH TD SCH (10:26)
[2020-02-15] MEDS: ENOXAPARIN NA (PORCINE) 40 MG/0.4 ML DISP.SYRIN SQ SCH (10:26)
[2020-02-15] MEDS: MULTIVITAMINS (DAILY MVI) TABLET (FP) PO SCH (10:27)
[2020-02-15] MEDS: THIAMINE HCL 100 MG TABLET (FP) PO SCH (10:28)
[2020-02-15] MEDS: BUPRENORPHINE/NALOXONE 2 MG/0.5 MG FILM PACKET SL SCH ×2 (10:30→21:11)
--- NOTE | 2020-02-15 12:08 | CON.GI ---
Consult - History of Present Illness History of Present Illness: The patient is a 59 yo female with a history of binge drinking. She was admitted to [place] two days ago for ETOH withdrawl/treatment. The patient states that she had abd pain yesterday which has resolved today. Slight nausea which has improved. She denies any hematemesis, no history of chronic gastritis/varices. She denies any h/o colon cancer in her family and denies having any GI procedures completed in the past. No bloody stools. - History Source History Provided By: Patient Limitations to Obtaining History: No Limitations - Past Medical History REPLANTER: No: Seizure Cardio/Vascular: Yes: Hyperlipdemia. No: HTN Pulmonary: No: Asthma, Bronchitis Gastrointestinal: No: Diverticulitis, Esophageal Varices, Gastritis, GI Bleed Hepatobiliary: No: Cirrhosis, Hepatitis A, Hepatitis B, Hepatitis C Renal/: No: Renal Failure ...LMP: 04/21/02 ...: No Heme/Onc: No: Bleeding Disorder Psych: Yes: Depression Endocrine: Yes: Hyperthyroidism - Past Surgical History Additional Surgical History: brain aneurysm repair 2013 - Alcohol/Substance Use Hx Alcohol Use: Yes - Smoking History Smoking history: Current every day smoker Have you smoked in the past 12 months: Yes Aproximately how many cigarettes per day: 10 - Social History Usual Living Arrangement: Alone <Jenny Darling - Last Filed: 02/15/20 14:01> Home Medications <Jenny Darling - Last Filed: 02/15/20 14:01> <Jacki Anderson - Last Filed: 02/15/20 16:20> - Allergies Allergies/Adverse Reactions: Allergies Allergy/AdvReac Type Severity Reaction Status Date / Time egg Allergy Severe Vomiting Verified 02/14/20 17:01 No Known Drug Allergies Allergy Unknown Verified 02/14/20 17:01 - Home Medications Home Medications: Ambulatory Orders Buprenorphine HCl/Naloxone HCl [Suboxone 4 mg-1 mg Sl Film] 1 each SL BID 02/14/20 Clonazepam 0.5 mg PO HS 02/14/20 Venlafaxine HCl ER [Effexor Xr -] 225 mg PO DAILY 02/14/20 Review of Systems - Review of Systems Constitutional: denies: Chills, Fever Cardiovascular: reports: Edema (to b/l LE). denies: Chest Pain, Palpitations, Shortness of Breath Respiratory: denies: Cough, SOB Gastrointestinal: reports: Abdominal Pain. denies: Nausea (abd pain to RUQ which has resolved), Vomiting, Vomiting Blood Musculoskeletal: denies: Back Pain, Joint Pain, Joint Swelling Neurological: denies: Seizure Hematology/Lymphatic: denies: Easily Bruised, Excessive Bleeding Psychiatric: reports: Depression <Jenny Darling - Last Filed: 02/15/20 14:01> Physical Exam-GI Vital Signs: Vital Signs Temperature 98.7 F 02/15/20 01:55 Pulse Rate 93 H 02/15/20 01:55 Respiratory Rate 18 02/15/20 01:55 Blood Pressure 115/74 02/15/20 01:55 O2 Sat by Pulse Oximetry (%) 98 02/15/20 01:55 Constitutional: Yes: Mild Distress Eyes: No: Sclera Icterus HENT: Yes: Atraumatic, Normocephalic ...Palpate: No: Mass, Tenderness Extremities: No: Calf Tenderness Edema: No Peripheral Pulses WNL: Yes Neurological: Yes: WNL, Alert, Oriented Psychiatric: Yes: WNL, Alert, Oriented Labs: CBC, BMP 02/14/20 19:41 02/14/20 19:41 Laboratory Tests 02/14/20 19:41 Alcohol, Quantitative 8.9 H Hepatic Panel Total Bilirubin 0.2 mg/dL (0.2-1) 02/14/20 19:41 AST 14 U/L (15-37) L 02/14/20 19:41 ALT 17 U/L (13-61) 02/14/20 19:41 Alkaline Phosphatase 75 U/L (45-117) 02/14/20 19:41 Albumin 3.8 g/dl (3.4-5.0) 02/14/20 19:41 <Jenny Darling - Last Filed: 02/15/20 14:01> Vital Signs: Vital Signs Temperature 97.9 F 02/15/20 14:00 Pulse Rate 96 H 02/15/20 14:00 Respiratory Rate 18 02/15/20 14:00 Blood Pressure 121/82 02/15/20 14:00 O2 Sat by Pulse Oximetry (%) 95 02/15/20 14:00 Labs: CBC, BMP 02/14/20 19:41 02/14/20 19:41 <Jacik Anderson - Last Filed: 02/15/20 16:20> Imaging - Results X-ray: Other (No acute pathology) Ultrasound: Other (intramural stones with mild CBD dilatation 7.5mm. No pericholecystic fluid or GB wall thickening) EKG: Other (NSR 96 BPM) <Jenny Darling - Last Filed: 02/15/20 14:01> Problem List - Problems (1) Alcohol abuse Assessment/Plan: Pt currently on librium protocol, continue to monitor and treat for withdrawl. Continue folic acid/thiamine/multivitamin ETOH level 8.9 on arrival yesterday Problems reviewed: Yes Code(s): F10.10 - ALCOHOL ABUSE, UNCOMPLICATED (2) Gallstones Assessment/Plan: D/w Dr. Anderson and recommend to continue npo and obtain a MRCP to evaluate her CBD dilatation. Continue npo, trend LFTS daily D/w Dr. Anderson Code(s): K80.20 - CALCULUS OF GALLBLADDER W/O CHOLECYSTITIS W/O OBSTRUCTION <Jenny Darling - Last Filed: 02/15/20 14:01> Assessment/Plan PT WAS SEN AND EXAMINED AGREE WITH ASSESSMENT AND PLAN OUTLINED ABOVE. -- MRCP -- MONITOR LFT -- SURGERY EVALUATION FOR THE LARGE GALLSTONE NOTED ON ULTRASOUND <Jacki Anderson - Last Filed: 02/15/20 16:20>
--- NOTE | 2020-02-15 12:59 | PN ---
Teaching Attending Note Name of Resident: Salud Aguilar ATTENDING PHYSICIAN STATEMENT I saw and evaluated the patient. I reviewed the resident's note and discussed the case with the resident. I agree with the resident's findings and plan as documented. SUBJECTIVE: pt seen and examined at bedside, denies pain, appeared sleepy, nodes yes/no in response to questions OBJECTIVE: Last Vital Signs Temp Pulse Resp BP Pulse Ox 98.7 F 93 H 18 115/74 98 02/15/20 01:55 02/15/20 01:55 02/15/20 01:55 02/15/20 01:55 02/15/20 01:55 GENERAL: Awake, alert, and fully oriented, in no acute distress. HEENT: AT/NC, not P/C/J, no JVD, neck supple LUNGS: Breath sounds equal, clear to auscultation bilaterally. No wheezes, and no crackles. No accessory muscle use. HEART: Regular rate and rhythm, normal S1 and S2 without murmur, rub or gallop. ABDOMEN: Soft, nontender, not distended, normoactive bowel sounds, no guarding, no rebound, no masses. No hepatomegaly or splenomegaly. MUSCULOSKELETAL: Normal range of motion at all joints. No bony deformities or tenderness. No CVA tenderness. UPPER EXTREMITIES: 2+ pulses, warm, well-perfused. No cyanosis. No clubbing. No peripheral edema. LOWER EXTREMITIES: 2+ pulses, warm, well-perfused. No calf tenderness. No peripheral edema. SKIN: Warm, dry, normal turgor, no rashes or lesions noted, normal capillary refill. CBCD WBC 8.3 K/mm3 (4.0-10.0) 02/14/20 19:41 RBC 4.83 M/mm3 (3.60-5.2) 02/14/20 19:41 Hgb 13.8 GM/dL (10.7-15.3) 02/14/20 19:41 Hct 41.7 % (32.4-45.2) 02/14/20 19:41 MCV 86.3 fl (80-96) 02/14/20 19:41 MCHC 33.1 g/dl (32.0-36.0) 02/14/20 19:41 RDW 15.4 % (11.6-15.6) 02/14/20 19:41 Plt Count 260 K/MM3 (134-434) 02/14/20 19:41 MPV 8.4 fl (7.5-11.1) 02/14/20 19:41 CMP Sodium 142 mmol/L (136-145) 02/14/20 19:41 Potassium 4.2 mmol/L (3.5-5.1) 02/14/20 19:41 Chloride 106 mmol/L (98-107) 02/14/20 19:41 Carbon Dioxide 26 mmol/L (21-32) 02/14/20 19:41 Anion Gap 10 MMOL/L (8-16) 02/14/20 19:41 BUN 7.6 mg/dL (7-18) 02/14/20 19:41 Creatinine 0.7 mg/dL (0.55-1.3) 02/14/20 19:41 Calcium 9.1 mg/dL (8.5-10.1) 02/14/20 19:41 Total Bilirubin 0.2 mg/dL (0.2-1) 02/14/20 19:41 AST 14 U/L (15-37) L 02/14/20 19:41 ALT 17 U/L (13-61) 02/14/20 19:41 Alkaline Phosphatase 75 U/L (45-117) 02/14/20 19:41 Total Protein 7.5 g/dl (6.4-8.2) 02/14/20 19:41 Albumin 3.8 g/dl (3.4-5.0) 02/14/20 19:41 Active Medications Buprenorphine/Naloxone (Suboxone 2 Mg/0.5 Mg Film Packet) 1 each SL BID EDSON Last Admin: 02/15/20 10:30 Dose: 1 each Documented by: Chlordiazepoxide HCl (Librium -) 25 mg PO Q8H EDSON Stop: 02/15/20 21:01 Last Admin: 02/15/20 05:29 Dose: 25 mg Documented by: Chlordiazepoxide HCl (Librium -) 10 mg PO Q12H PRN PRN Reason: Signs/symptoms of Withdrawal Stop: 02/17/20 23:59 Last Admin: 02/15/20 01:24 Dose: 10 mg Documented by: Chlordiazepoxide HCl (Librium -) 10 mg PO Q8H PRN PRN Reason: Signs/symptoms of Withdrawal Stop: 02/16/20 23:59 Chlordiazepoxide HCl (Librium -) 15 mg PO Q8H [facility] Stop: 02/16/20 21:01 Chlordiazepoxide HCl (Librium -) 10 mg PO Q8H [facility] Stop: 02/17/20 21:01 Chlordiazepoxide HCl (Librium -) 10 mg PO ONCE ONE Stop: 02/18/20 05:01 Enoxaparin Sodium (Lovenox -) 40 mg SQ DAILY [facility] Last Admin: 02/15/20 10:26 Dose: 40 mg Documented by: Folic Acid (Folic Acid -) 1 mg PO DAILY [facility] Last Admin: 02/15/20 10:26 Dose: 1 mg Documented by: Multivitamins/Minerals/Vitamin C (Tab-A-Vit -) 1 tab PO DAILY [facility] Last Admin: 02/15/20 10:27 Dose: 1 tab Documented by: Nicotine (Nicoderm Patch -) 7 mg TD DAILY [facility] Last Admin: 02/15/20 10:26 Dose: 7 mg Documented by: Thiamine HCl (Vitamin B1 -) 100 mg PO DAILY [facility] Last Admin: 02/15/20 10:28 Dose: 100 mg Documented by: Venlafaxine HCl (Effexor Xr -) 225 mg PO DAILY [facility] ASSESSMENT AND PLAN: 59 yo woman with PMH of depression, alcohol abuse, percocet abuse (on suboxone), and HLD in the past who presents to the ER after RUQ tenderness elicited on intake exam at [facility] # Cholelithiasis, asymptomatic? - denies pain, normal LFT on admission - refusing blood draws, nodding in response to questions - US showed dilated gallbladder with mobile stone, dilated CBD, no evidence of cholecystitis - GI consult appreciated - surgical consult requested - MRCP requested # EtOH withdrawal - detox protocol - MV, Thiamine, B12, folate - trend electrolytes Depression HLD DVT prophylaxis
--- NOTE | 2020-02-15 13:32 | PN ---
Physical Exam: SUBJECTIVE: Patient seen and examined. Patient sleepy, nods only yes/no to questions. Denies any fevers, abdominal pain. OBJECTIVE: Vital Signs Temperature 98.7 F 02/15/20 01:55 Pulse Rate 93 H 02/15/20 01:55 Respiratory Rate 18 02/15/20 01:55 Blood Pressure 115/74 02/15/20 01:55 O2 Sat by Pulse Oximetry (%) 98 02/15/20 01:55 GENERAL: The patient is somnolent, and fully oriented, in no acute distress. NECK: supple. LUNGS: Breath sounds equal, clear to auscultation bilaterally HEART: Regular rate and rhythm, S1, S2 ABDOMEN: Soft, nontender, nondistended, normoactive bowel sounds, no guarding EXTREMITIES: 2+ pulses, warm, well-perfused, no edema. SKIN: Warm, dry, normal turgor Laboratory Results - last 24 hr 02/14/20 02/14/20 19:41 19:41 WBC 8.3 RBC 4.83 Hgb 13.8 Hct 41.7 MCV 86.3 MCH 28.5 MCHC 33.1 RDW 15.4 Plt Count 260 MPV 8.4 Absolute Neuts (auto) 4.7 Neutrophils % 57.3 Lymphocytes % 34.4 D Monocytes % 6.3 Eosinophils % 1.1 Basophils % 0.9 Nucleated RBC % 0 Sodium 142 Potassium 4.2 Chloride 106 Carbon Dioxide 26 Anion Gap 10 BUN 7.6 Creatinine 0.7 Est GFR (CKD-EPI)AfAm 110.69 Est GFR (CKD-EPI)NonAf 95.50 Random Glucose 103 Calcium 9.1 Total Bilirubin 0.2 AST 14 L ALT 17 Alkaline Phosphatase 75 Total Protein 7.5 Albumin 3.8 Lipase 89 Alcohol, Quantitative 8.9 H Active Medications Generic Name Dose Route Start Last Admin Trade Name Freq PRN Reason Stop Dose Admin Buprenorphine/Naloxone 1 each 02/15/20 00:31 02/15/20 10:30 Suboxone 2 Mg/0.5 Mg Film Packet SL 1 each BID EDSON Administration Chlordiazepoxide HCl 25 mg 02/15/20 05:00 02/15/20 05:29 Librium - PO 02/15/20 21:01 25 mg Q8H EDSON Administration Chlordiazepoxide HCl 10 mg 02/17/20 00:00 08/05/20 01:24 Librium - PO 02/17/20 23:59 10 mg Q12H PRN Administration Signs/symptoms of Withdrawal Chlordiazepoxide HCl 10 mg 02/15/20 00:05 Librium - PO 02/16/20 23:59 Q8H PRN Signs/symptoms of Withdrawal Chlordiazepoxide HCl 15 mg 02/16/20 05:00 Librium - PO 02/16/20 21:01 Q8H EDSON Chlordiazepoxide HCl 10 mg 02/17/20 05:00 Librium - PO 02/17/20 21:01 Q8H EDSON Chlordiazepoxide HCl 10 mg 02/18/20 05:00 Librium - PO 02/18/20 05:01 ONCE ONE Enoxaparin Sodium 40 mg 02/15/20 10:00 02/15/20 10:26 Lovenox - SQ 40 mg DAILY EDSON Administration Folic Acid 1 mg 02/14/20 23:00 02/15/20 10:26 Folic Acid - PO 1 mg DAILY EDSON Administration Multivitamins/Minerals/Vitamin C 1 tab 02/15/20 10:00 02/15/20 10:27 Tab-A-Vit - PO 1 tab DAILY EDSON Administration Nicotine 7 mg 02/15/20 10:00 02/15/20 10:26 Nicoderm Patch - TD 7 mg DAILY EDSON Administration Thiamine HCl 100 mg 02/15/20 10:00 02/15/20 10:28 Vitamin B1 - PO 100 mg DAILY EDSON Administration Venlafaxine HCl 225 mg 02/15/20 22:52 Effexor Xr - PO DAILY [facility] ASSESSMENT/PLAN: Patient is a 59 yo F with PMH of HLD, depression, alcohol abuse, and opioid abuse being admitted for evaluation of cholelithiasis without acute cholecystitis and CBD dilation (7.5 mm). #Cholelithiasis -RUQ US: intraluminal mobile stone (1.3 cm) w/o wall thickening or pericholecyst ic fluid of gallbladder; mild CBD dilation of 7.5 mm -Continue NPO/IVF -MRCP ordered -GI consulted. REcs appreciated. -Surgery consulted. REcs appreciated. #Polysubstance abuse -CIWA 8 -librium alcohol withdrawal protocol -neurochecks q4h; continue checking CIWA -siezure/fall/aspiration precautions -Thiamine, folic acid, and MV -continue home suboxone (4mg/1mg) for hx of percocet abuse -environmental communications specialist (Dr. Andersen) consulted. REcs appreciated. #HLD -Not on any home medications -will order lipid panel #Depression -Continue home Venlafaxine #Tobacco Use Smoking hx (1.5 ppd x 30 years) -nicotine patch #FEN -IV D5-LR @83cc/hr -Electrolytes wnl, routine bmp monitoring -NPO #Prophylaxis -Lovenox 40mg sq daily #Disposition -full code -med surg Visit type - Emergency Visit Emergency Visit: Yes ED Registration Date: 02/14/20 Care time: The patient presented to the Emergency Department on the above date and was hospitalized for further evaluation of their emergent condition. - New Patient This patient is new to me today: Yes Date on this admission: 02/15/20 - Critical Care Critical Care patient: No ATTENDING PHYSICIAN STATEMENT I saw and evaluated the patient. I reviewed the resident's note and discussed the case with the resident. I agree with the resident's findings and plan as documented. SUBJECTIVE: OBJECTIVE: ASSESSMENT AND PLAN:
[2020-02-15 13:39] LABS: COCAINE, UR NEGATIVE ng/ml (CUTOFF=300); METHADONE, UR NEGATIVE ng/ml (CUTOFF=300); OPIATES, URI NEGATIVE ng/ml (CUTOFF=300); PHENCYCLIDINE,URINE NEGATIVE ng/ml (CUTOFF=25); URINE AMPHETAMINES NEGATIVE ng/ml (CUTOFF=500); URINE BARBITURATES NEGATIVE ng/ml (CUTOFF=200)
[2020-02-15 14:09] LABS: URINE BENZODIAZEPINES POSITIVE ng/ml (CUTOFF=200)
[2020-02-15] MEDS: DEXTROSE 5%-LACTATED RINGERS 1,000 ML IV SCH (14:17)
[2020-02-15] MEDS ORDERED: clonazePAM 0.5 MG TABLET PO SCH (22:00)
[2020-02-15] MEDS: VENLAFAXINE HCL 75 MG E.R. CAPSULES PO SCH (22:12)
[2020-02-16] MEDS: DEXTROSE 5%-LACTATED RINGERS 1,000 ML IV SCH ×2 (03:52→13:22)
[2020-02-16] MEDS: chlordiazePOXIDE 5 MG CAPSULE PO SCH ×2 (04:00→12:59)
[2020-02-16] MEDS ORDERED: ACETAMINOPHEN 325 MG TABLET (FP) PO PRN (08:17)
[2020-02-16] MEDS ORDERED: PT OWN MED DRAWER 7, Y5N ONE (09:26)
[2020-02-16] MEDS: BUPRENORPHINE/NALOXONE 2 MG/0.5 MG FILM PACKET SL SCH (09:32)
[2020-02-16] MEDS: MULTIVITAMINS (DAILY MVI) TABLET (FP) PO SCH (09:35)
[2020-02-16] MEDS: FOLIC ACID 1 MG TABLET (FP) PO SCH (09:35)
[2020-02-16] MEDS: ENOXAPARIN NA (PORCINE) 40 MG/0.4 ML DISP.SYRIN SQ SCH (09:35)
[2020-02-16] MEDS: THIAMINE HCL 100 MG TABLET (FP) PO SCH (09:35)
[2020-02-16] MEDS: VENLAFAXINE HCL 75 MG E.R. CAPSULES PO SCH (09:36)
[2020-02-16] MEDS: NICOTINE 7 MG/24 HOURS TOPICAL PATCH TD SCH (09:36)
--- NOTE | 2020-02-16 10:26 | CONSULT ---
- Consultation REQUESTING PROVIDER: CONSULT REQUEST: We have been asked to surgically evaluate this patient for gallstones PCP:Fartun Thomson MD HISTORY OF PRESENT ILLNESS: 59yo F was sent from Detox for RUQ tenderness, pt had RUQ US which showed gallstones and borderline CBD distension. Pt was ordered for MRCP, but refused exam as she state she has a coil in her brain and is concerned will have issue. Today, pt denies any abd pain, n/v, fever, chills. Pt denies previous history of gallstone issues. Pt is very anxious to leave the hospital and finish her detox. Pt states she does not normally follow up with doctors. PMHx: polysubstance abuse Home Medications Medication Instructions Recorded Buprenorphine HCl/Naloxone HCl 1 each SL BID 02/14/20 [Suboxone 4 mg-1 mg Sl Film] Clonazepam 0.5 mg PO HS 02/14/20 Venlafaxine HCl ER [Effexor Xr -] 225 mg PO DAILY 02/14/20 Allergies Allergy/AdvReac Type Severity Reaction Status Date / Time egg Allergy Severe Vomiting Verified 02/14/20 17:01 No Known Drug Allergies Allergy Unknown Verified 02/14/20 17:01 PHYSICAL EXAM: GENERAL: Awake, alert, and fully oriented, in no acute distress. HEAD: Normal with no signs of trauma. EYES: PERRL, sclera anicteric, conjunctiva clear. NECK: Normal ROM, supple without lymphadenopathy, JVD, or masses. LUNGS: Breathing comfortably, No accessory muscle use. ABDOMEN: Soft, nontender, not distended, no guarding, no rebound, no masses. No organomegaly. NEUROLOGICAL: Normal speech, gait not observed. PSYCH: Cooperative. Good eye contact. Appropriate mood and affect. SKIN: Warm, dry, normal turgor, no rashes or lesions noted. Vital Signs Temperature 98 F 02/16/20 06:00 Pulse Rate 85 02/16/20 06:00 Respiratory Rate 18 02/16/20 06:00 Blood Pressure 123/69 02/16/20 06:00 O2 Sat by Pulse Oximetry (%) 99 02/16/20 06:00 Lab Results WBC 8.3 K/mm3 (4.0-10.0) 02/14/20 19:41 RBC 4.83 M/mm3 (3.60-5.2) 02/14/20 19:41 Hgb 13.8 GM/dL (10.7-15.3) 02/14/20 19:41 Hct 41.7 % (32.4-45.2) 02/14/20 19:41 MCV 86.3 fl (80-96) 02/14/20 19:41 MCHC 33.1 g/dl (32.0-36.0) 02/14/20 19:41 RDW 15.4 % (11.6-15.6) 02/14/20 19:41 Plt Count 260 K/MM3 (134-434) 02/14/20 19:41 Sodium 142 mmol/L (136-145) 02/14/20 19:41 Potassium 4.2 mmol/L (3.5-5.1) 02/14/20 19:41 Chloride 106 mmol/L (98-107) 02/14/20 19:41 Carbon Dioxide 26 mmol/L (21-32) 02/14/20 19:41 Anion Gap 10 MMOL/L (8-16) 02/14/20 19:41 BUN 7.6 mg/dL (7-18) 02/14/20 19:41 Creatinine 0.7 mg/dL (0.55-1.3) 02/14/20 19:41 Random Glucose 103 mg/dL (74-106) 02/14/20 19:41 Calcium 9.1 mg/dL (8.5-10.1) 02/14/20 19:41 Problem List - Problems (1) Gallstones Assessment/Plan: Plan -pt does not appear to have any acute surgical issues at this time. Pt may follow up with Dr. Ingram in office for outpatient cholecystectomy if so desires. -please contact surgery if any acute changes. Pt discussed with Dr. Ingram who agrees with plan Code(s): K80.20 - CALCULUS OF GALLBLADDER W/O CHOLECYSTITIS W/O OBSTRUCTION
--- NOTE | 2020-02-16 13:02 | PN.GI ---
GI Progress Note Subjective: No acute events No abdominal pain Going back to [facility] today Could not have MRCP performed due to cerbral aneurysmal coil - Objective Vital Signs: Vital Signs Temperature 97.9 F 02/16/20 10:00 Pulse Rate 80 02/16/20 10:00 Respiratory Rate 18 02/16/20 10:00 Blood Pressure 140/92 02/16/20 10:00 O2 Sat by Pulse Oximetry (%) 96 02/16/20 10:00 Constitutional: Calm Eyes: No: Sclera Icterus Cardiovascular: Yes: Regular Rate and Rhythm Respiratory: Yes: CTA Bilaterally Gastrointestinal Inspection: No: Distention ...Auscultate: Yes: Normoactive Bowel Sounds ...Palpate: No: Hepatomegaly, Splenomegaly, Tenderness ...Percussion: No: Tympanitic Edema: No (No LE edema) Neurological: Yes: Alert Labs: CBC, BMP 02/14/20 19:41 02/14/20 19:41 Problem List - Problems (1) Dilated bile duct Assessment/Plan: Normal liver chemistries not suggestive of obstructive process, however as I discussed with patient, the dilated bile duct will need need further evaluation to exclude striucture, ampullary tumor or tumor of bile duct. Cannot have MRCP. Outpatient evaluation for EUS. She can follow-up in office for reevaluation and referral to [facility], Dr. José Toussaint or can call his office directly [phone]. Alternatively, explained that she could also discuss with her PMD, who works in [employer] to arrange referral to geographical historian up there. Code(s): K83.8 - OTHER SPECIFIED DISEASES OF BILIARY TRACT (2) Screening for colorectal cancer Assessment/Plan: Advised she follow-up to discuss age appropriate screening colonoscopy. Can alternativly discuss with her PMD in [place] for referral as well Code(s): Z12.11 - ENCOUNTER FOR SCREENING FOR MALIGNANT NEOPLASM OF COLON; Z12.12 - ENCOUNTER FOR SCREENING FOR MALIGNANT NEOPLASM OF RECTUM
--- NOTE | 2020-02-16 13:20 | PN ---
Teaching Attending Note Name of Resident: Salud Aguilar ATTENDING PHYSICIAN STATEMENT I saw and evaluated the patient. I reviewed the resident's note and discussed the case with the resident. I agree with the resident's findings and plan as documented. SUBJECTIVE: pt seen and examined at bedside OBJECTIVE: Last Vital Signs Temp Pulse Resp BP Pulse Ox 97.9 F 80 18 140/92 96 02/16/20 10:00 02/16/20 10:00 02/16/20 10:00 02/16/20 10:00 02/16/20 10:00 GENERAL: Awake, alert, and fully oriented, in no acute distress. HEENT: AT/NC, not P/C/J, no JVD, neck supple LUNGS: Breath sounds equal, clear to auscultation bilaterally. No wheezes, and no crackles. No accessory muscle use. HEART: Regular rate and rhythm, normal S1 and S2 without murmur, rub or gallop. ABDOMEN: Soft, nontender, not distended, normoactive bowel sounds, no guarding, no rebound, no masses. No hepatomegaly or splenomegaly. MUSCULOSKELETAL: Normal range of motion at all joints. No bony deformities or tenderness. No CVA tenderness. UPPER EXTREMITIES: 2+ pulses, warm, well-perfused. No cyanosis. No clubbing. No peripheral edema. LOWER EXTREMITIES: 2+ pulses, warm, well-perfused. No calf tenderness. No peripheral edema. SKIN: Warm, dry, normal turgor, no rashes or lesions noted, normal capillary refill. CBCD WBC 8.3 K/mm3 (4.0-10.0) 02/14/20 19:41 RBC 4.83 M/mm3 (3.60-5.2) 02/14/20 19:41 Hgb 13.8 GM/dL (10.7-15.3) 02/14/20 19:41 Hct 41.7 % (32.4-45.2) 02/14/20 19:41 MCV 86.3 fl (80-96) 02/14/20 19:41 MCHC 33.1 g/dl (32.0-36.0) 02/14/20 19:41 RDW 15.4 % (11.6-15.6) 02/14/20 19:41 Plt Count 260 K/MM3 (134-434) 02/14/20 19:41 MPV 8.4 fl (7.5-11.1) 02/14/20 19:41 CMP Sodium 142 mmol/L (136-145) 02/14/20 19:41 Potassium 4.2 mmol/L (3.5-5.1) 02/14/20 19:41 Chloride 106 mmol/L (98-107) 02/14/20 19:41 Carbon Dioxide 26 mmol/L (21-32) 02/14/20 19:41 Anion Gap 10 MMOL/L (8-16) 02/14/20 19:41 BUN 7.6 mg/dL (7-18) 02/14/20 19:41 Creatinine 0.7 mg/dL (0.55-1.3) 02/14/20 19:41 Calcium 9.1 mg/dL (8.5-10.1) 02/14/20 19:41 Total Bilirubin 0.2 mg/dL (0.2-1) 02/14/20 19:41 AST 14 U/L (15-37) L 02/14/20 19:41 ALT 17 U/L (13-61) 02/14/20 19:41 Alkaline Phosphatase 75 U/L (45-117) 02/14/20 19:41 Total Protein 7.5 g/dl (6.4-8.2) 02/14/20 19:41 Albumin 3.8 g/dl (3.4-5.0) 02/14/20 19:41 Active Medications Acetaminophen (Tylenol -) 650 mg PO Q6H PRN PRN Reason: Fever \ Last Admin: 02/16/20 08:34 Dose: 650 mg Documented by: Buprenorphine/Naloxone (Suboxone 2 Mg/0.5 Mg Film Packet) 1 each SL BID EDSON Last Admin: 02/16/20 09:32 Dose: 1 each Documented by: Chlordiazepoxide HCl (Librium -) 10 mg PO Q12H PRN PRN Reason: Signs/symptoms of Withdrawal Stop: 02/17/20 23:59 Last Admin: 02/15/20 01:24 Dose: 10 mg Documented by: Chlordiazepoxide HCl (Librium -) 10 mg PO Q8H PRN PRN Reason: Signs/symptoms of Withdrawal Stop: 02/16/20 23:59 Last Admin: 02/16/20 08:35 Dose: 10 mg Documented by: Chlordiazepoxide HCl (Librium -) 15 mg PO Q8H [facility] Stop: 02/16/20 21:01 Last Admin: 02/16/20 12:59 Dose: 15 mg Documented by: Chlordiazepoxide HCl (Librium -) 10 mg PO Q8H [facility] Stop: 02/17/20 21:01 Chlordiazepoxide HCl (Librium -) 10 mg PO ONCE ONE Stop: 02/18/20 05:01 Enoxaparin Sodium (Lovenox -) 40 mg SQ DAILY [facility] Last Admin: 02/16/20 09:35 Dose: 40 mg Documented by: Folic Acid (Folic Acid -) 1 mg PO DAILY [facility] Last Admin: 02/16/20 09:35 Dose: 1 mg Documented by: Dextrose/Lactated Ringer's (D5-Lr -) 1,000 mls @ 83 mls/hr IV ASDIR [facility] Last Admin: 02/16/20 03:52 Dose: 83 mls/hr Documented by: Multivitamins/Minerals/Vitamin C (Tab-A-Vit -) 1 tab PO DAILY [facility] Last Admin: 02/16/20 09:35 Dose: 1 tab Documented by: Nicotine (Nicoderm Patch -) 7 mg TD DAILY [facility] Last Admin: 02/16/20 09:36 Dose: 7 mg Documented by: Thiamine HCl (Vitamin B1 -) 100 mg PO DAILY [facility] Last Admin: 02/16/20 09:35 Dose: 100 mg Documented by: Venlafaxine HCl (Effexor Xr -) 225 mg PO DAILY [facility] Last Admin: 02/16/20 09:36 Dose: 225 mg Documented by: ASSESSMENT AND PLAN: 59 yo woman with PMH of depression, alcohol abuse, percocet abuse (on suboxone), and HLD in the past who presents to the ER after RUQ tenderness elicited on intake exam at [facility] # asymptomatic Cholelithiasis, - denies pain, normal LFT on admission - AAOx3, answering questions properly - US showed dilated gallbladder with mobile stone, dilated CBD, no evidence of cholecystitis - GI consult appreciated - surgical consult appreciated - MRCP can't be done as pt had coil for brain aneurysm around 2009. - will discharged for outpatient EUS with Dr. Toussaint at [facility]. EtOH withdrawal Depression HLD DVT prophylaxis Plan: [place] for outpatient follow up with GI
[2020-02-16 14:03] VITALS: BP 145/84; PULSE 92; TEMP 98.5
--- NOTE | 2020-02-16 15:54 | DS ---
Physical Exam: SUBJECTIVE: Patient seen and examined OBJECTIVE: Vital Signs Period Temp Pulse Resp BP Sys/Cash Pulse Ox Last 24 Hr 97.8 F-98.5 F 80-92 18-18 123-152/69-92 95-99 PHYSICAL EXAM GENERAL: The patient is somnolent, and fully oriented, in no acute distress. NECK: supple. LUNGS: Breath sounds equal, clear to auscultation bilaterally HEART: Regular rate and rhythm, S1, S2 ABDOMEN: Soft, nontender, nondistended, normoactive bowel sounds, no guarding EXTREMITIES: 2+ pulses, warm, well-perfused, no edema. SKIN: Warm, dry, normal turgor LABS HOSPITAL COURSE: Date of Admission:02/14/20 Date of Discharge: 02/16/20 Patient is a 59-year old undomiciled women with pmhx of depression, alcohol abuse, percocet abuse (on suboxone), brain aneurysm (coil placed 2009) and HLD is admitted for evaluation of cholelithiasis without acute cholecystitis and CBD dilation. RUQ US revealed GB intraluminal mobile stone (1.3 cm) w/o wall thickening or pericholecystic fluid of gallbladder, mild CBD dilation of (7.5mm). Pt was managed with IVF and placed NPO. MRCP could not be done due to cerebral aneurysm coil. Pt had a CIWA of 8 and was placed on the Librium alcohol withdrawal protocol and was given thiamine, folic acid and multivitamins and continuation of home suboxone (4mg/1mg) for hx of Percocet abuse. Surgery was consulted and recommended outpatient elective cholecystectomy. GI recommends outpatient follow up for evaluation with EUS since MRCP could not be done. Pt is discharged to [facility] to continue management of polysubstance abuse. Minutes to complete discharge: 36 Discharge Summary Problems reviewed: Yes Reason For Visit: ALCOHOL ABUSE,DILATED BILE DUCT,MULTIPLE GALLSTONE Condition: Improved - Instructions Diet, Activity, Other Instructions: YOur visit You were admitted to the hospital because you had belly pain. You were found to have gallstones and a dilated bile duct on ultrasound. It is unclear what's causing the duct to be enlarged. An MRI could not be done because you have a metal on your brain. You will be discharged back to [facility] to complete detox. It is recommended that you follow up with the granite polisher machine at [facility] (Dr. José Toussaint) for further work up of the dilated bile duct. Please also follow up with surgery for further management of your gallstones. Medications Please continue your home medications. Follow up Please follow up with Dr. José Toussaint at [facility]. Please call to schedule an appointment. Please follow up with your primary care doctor. If you don't have one, a referral has been provided. Please follow up with surgery (Dr. Ingram) for further management of your gallstones. Additional info Please call 911 or go to the emergency room if with any worsening fevers, chills, headache, dizziness, chest pain, shortness of breath, belly pain, or any new concerns noted. [place] [facility] [place] [facility] [place] [Provider Group] Chacorta Byers DO [Staff Physician] - Frankie Ingram MD [Staff Physician] - Disposition: TRANSFER ACUTE CARE/OTHER HOSP - Home Medications Comprehensive Discharge Medication List: Ambulatory Orders Buprenorphine HCl/Naloxone HCl [Suboxone 4 mg-1 mg Sl Film] 1 each SL BID 02/14/20 Clonazepam 0.5 mg PO HS 02/14/20 Venlafaxine HCl ER [Effexor Xr -] 225 mg PO DAILY 02/14/20 Folic Acid - 1 mg PO DAILY tablet 02/16/20 Multivitamins [Multivit ([facility] Formulary)] 1 tab PO DAILY tab 02/16/20 Nicotine Patch [Nicoderm Patch -] 7 mg TD DAILY patch 02/16/20 Thiamine HCl [Vitamin B1 -] 100 mg PO DAILY tablet 02/16/20 This patient is new to me today: No Emergency Visit: Yes ED Registration Date: 02/14/20 Care time: The patient presented to the Emergency Department on the above date and was hospitalized for further evaluation of their emergent condition. Critical Care patient: No - Discharge Referral Referred to [facility] No ATTENDING PHYSICIAN STATEMENT I saw and evaluated the patient. I reviewed the resident's note and discussed the case with the resident. I agree with the resident's findings and plan as documented. SUBJECTIVE: OBJECTIVE: ASSESSMENT AND PLAN:
[2020-02-17] MEDS ORDERED: chlordiazePOXIDE HCL 10 MG CAPSULE PO PRN
[2020-02-17] MEDS ORDERED: chlordiazePOXIDE HCL 10 MG CAPSULE PO SCH (05:00)
[2020-02-18] MEDS ORDERED: chlordiazePOXIDE HCL 10 MG CAPSULE PO ONE (05:00)
== END 2020-02-16 14:51 | disposition other institution (70) | DRG 445 ==
LOC: JER 19:01 → JERBED 22:26 → OBSVTOIN 22:44 → J5S 02-15 01:48
PROVIDERS: ADMIT Internal Medicine; ATTEND Student in an Organized Health Care Education/Training Program
DX: K80.20 Calculus of gallbladder without cholecystitis without obstruction (principal); F10.239 Alcohol dependence with withdrawal, unspecified; F11.20 Opioid dependence, uncomplicated; Z59.0 Homelessness; F41.8 Other specified anxiety disorders; E78.5 Hyperlipidemia, unspecified; E05.90 Thyrotoxicosis, unspecified without thyrotoxic crisis or storm; F17.210 Nicotine dependence, cigarettes, uncomplicated; E66.9 Obesity, unspecified; Z68.31 Body mass index [BMI] 31.0-31.9, adult; R10.11 Right upper quadrant pain
CPT/HCPCS: 36415; 71045-TC-FY; 76705-TC; 80053; 80307; 83690; 85025; 85027; 86780; 93005; 93010; 99285-25; G0378; U0003

== ENCOUNTER 2020-02-16 15:10 | Inpatient (IN) | payer OTHER ==
[2020-02-16 16:24] VITALS: BMI 31.1
[2020-02-16] MEDS ORDERED: NICOTINE POLACRILEX 2 MG GUM BUC PRN (16:57)
[2020-02-16] MEDS ORDERED: MENTHOL/PHENOL 1 EACH UD MM PRN (16:57)
[2020-02-16] MEDS ORDERED: chlordiazePOXIDE HCL 25 MG CAPSULE PO PRN (16:57)
[2020-02-16] MEDS ORDERED: MAGNESIUM CITRATE 300 ML BOTTLE PO PRN (16:57)
[2020-02-16] MEDS ORDERED: BISMUTH SUBSALICYLATE 524 MG/30 ML UD PO PRN (16:57)
[2020-02-16] MEDS ORDERED: MAG HYDROX/AL HYDROX/SIMETH 30 ML UNIT-DOSE CUP PO PRN (16:57)
[2020-02-16] MEDS ORDERED: ACETAMINOPHEN 325 MG TABLET (FP) PO PRN (16:57)
[2020-02-16] MEDS ORDERED: IBUPROFEN 400 MG TABLET (FP) PO PRN (16:57)
[2020-02-16] MEDS ORDERED: ONDANSETRON *ODT* 4 MG TABLET SL PRN (16:57)
[2020-02-16] MEDS ORDERED: METHOCARBAMOL 500 MG TABLET PO PRN (16:57)
[2020-02-16] MEDS ORDERED: MAGNESIUM HYDROX 2400MG/30ML ORAL SUSPENSION 30 ML CUP PO PRN (16:57)
--- NOTE | 2020-02-16 17:25 | PN ---
Progress Note (short form) - Note Progress Note: Patient is a 59 year old female with history of depression, cerebral aneurysm (s/p coiling), alcohol use disorder, depression, presents from [facility] to complete her alcohol detox. Patient initially presented for detox on 10/2019 however was noted to have abdominal pain and was sent to [facility]. Workup revealed dilated common bile duct and cholelithiasis. MRCP was not obtained due to history of aneursym coil. Patient was managed conservatively, and symptoms resolved; patient tolerating oral intake without abdominal pain, nausea, or vomiting. Plan for EUS follow up at [facility]. Patient would like to finish her alcohol detox. Please see history and physical dated 02/14/20 for further details.
--- NOTE | 2020-02-16 17:48 | PN ---
Teaching Attending Note Name of Resident: Manuel Da Silva ATTENDING PHYSICIAN STATEMENT I saw and evaluated the patient. I reviewed the resident's note and discussed the case with the resident. I agree with the resident's findings and plan as documented. SUBJECTIVE: Pt was first seen here for alcohol detox on 02/13. [facility] for eval of abd pain. w/u revealed gallstones. Pt asymptomatic- returns here to complete detox. OBJECTIVE: Vital Signs - 24 hr 02/16/20 02/16/20 02/16/20 16:23 17:42 17:43 Temperature 98.1 F 98.1 F Pulse Rate 102 H 102 H Respiratory 19 19 Rate Blood Pressure 131/83 131/83 O2 Sat by Pulse 96 Oximetry (%) ASSESSMENT AND PLAN: Complete alcohol detox protocol GB stone- f/u as outpt
[2020-02-16] MEDS: NICOTINE 21 MG/24 HOURS TOPICAL PATCH TD SCH (18:59)
[2020-02-16] MEDS: chlordiazePOXIDE HCL 25 MG CAPSULE PO SCH ×2 (18:59→23:07)
[2020-02-16] MEDS: hydrOXYzine PAMOATE 25 MG CAPSULE (FP) PO SCH ×2 (18:59→23:08)
[2020-02-16] MEDS: ATORVASTATIN CA 40 MG TABLET (FP) PO SCH (23:06)
[2020-02-16] MEDS: MELATONIN 5 MG TABLETS PO SCH (23:07)
[2020-02-16] MEDS: BUPRENORPHINE/NALOXONE 4 MG/1 MG FILM PACKET SL SCH (23:07)
[2020-02-16] MEDS: THIAMINE HCL 100 MG TABLET (FP) PO SCH (23:07)
[2020-02-17] MEDS: chlordiazePOXIDE HCL 25 MG CAPSULE PO SCH ×2 (07:03→10:40)
[2020-02-17] MEDS: hydrOXYzine PAMOATE 25 MG CAPSULE (FP) PO SCH ×5 (07:04→23:26)
[2020-02-17] MEDS ORDERED: ASPIRIN 81 MG CHEWABLE TABLETS PO SCH (10:00)
[2020-02-17] MEDS ORDERED: NICOTINE 7 MG/24 HOURS TOPICAL PATCH TD SCH (10:00)
[2020-02-17] MEDS ORDERED: PRENATAL VITAMINS W/ FOLIC ACID TABLET (FP) PO SCH (10:00)
[2020-02-17] MEDS: BUPRENORPHINE/NALOXONE 4 MG/1 MG FILM PACKET SL SCH ×2 (10:40→22:35)
[2020-02-17] MEDS: NICOTINE 21 MG/24 HOURS TOPICAL PATCH TD SCH (10:40)
[2020-02-17 10:54] LABS: HEMATOCRIT 38.9 % (32.4-45.2); HEMOGLOBIN 12.7 GM/dL (10.7-15.3); MCH 28.2 pg (25.7-33.7); MCHC 32.6 g/dl (32.0-36.0); MEAN CELL VOLUME 86.5 fl (80-96); MEAN PLT VOLUME 8.7 fl (7.5-11.1); PLATELET COUNT 233 K/MM3 (134-434); RDW 14.8 % (11.6-15.6); WHITE BLOOD COUNT 8.5 K/mm3 (4.0-10.0)
[2020-02-17] MEDS: ACETAMINOPHEN 325 MG TABLET (FP) PO PRN ×2 (10:54→17:54)
[2020-02-17 11:09] LABS: ALBUMIN 3.1 g/dl (3.4-5.0); BILIRUBIN,TOTAL 0.6 mg/dL (0.2-1); CALCIUM 8.8 mg/dL (8.5-10.1); CREATININE 0.5 mg/dL (0.55-1.3); POTASSIUM 3.8 mmol/L (3.5-5.1); TOT PROT 6.3 g/dl (6.4-8.2)
[2020-02-17 11:13] LABS: BLOOD UREA NITROGEN 6.6 mg/dL (7-18)
--- NOTE | 2020-02-17 11:40 | PN ---
[facility] CIWA - CIWA Score Nausea/Vomitin-No Nausea/No Vomiting Muscle Tremors: 1-None Visible, but [place] Anxiety: 1-Mildly Anxious Agitation: 0-Normal Activity Paroxysmal Sweats: No Perspiration Orientation: 0-Oriented Tacttile Disturbances: 0-None Auditory Disturbances: 0-None Visual Disturbances: 0-None Headache: 0-None Present CIWA-Ar Total Score: 2 B[facility] Progress Note (SOAP) Subjective: Feeling well Objective: 02/17/20 11:37 PE Gnl: WDWN, in no distress MS: mild anxiety Motor: moves well Gait: steady Laboratory Tests 02/17/20 02/17/20 02/17/20 07:30 07:30 07:30 WBC 8.5 RBC 4.50 Hgb 12.7 Hct 38.9 MCV 86.5 MCH 28.2 MCHC 32.6 RDW 14.8 Plt Count 233 MPV 8.7 Sodium 143 Potassium 3.8 Chloride 106 Carbon Dioxide 33 H Anion Gap 4 L BUN 6.6 L Creatinine 0.5 L Est GFR (CKD-EPI)AfAm 123.65 Est GFR (CKD-EPI)NonAf 106.68 Random Glucose 90 Calcium 8.8 Total Bilirubin 0.6 AST 36 ALT 44 Alkaline Phosphatase 80 Total Protein 6.3 L Albumin 3.1 L Syphilis Serology Non-reactive Home Medication List Medication Instructions Recorded Confirmed Type Buprenorphine HCl/Naloxone HCl 1 each SL BID 02/14/20 02/16/20 History [Suboxone 4 mg-1 mg Sl Film] Clonazepam 0.5 mg PO HS 02/14/20 02/16/20 History Venlafaxine HCl ER [Effexor Xr -] 225 mg PO DAILY 02/14/20 02/16/20 History Aspirin 1 tablet PO DAILY 02/16/20 02/16/20 History Atorvastatin Ca [Lipitor] 40 mg PO HS 02/16/20 02/16/20 History Active Medications Generic Name Dose Route Start Last Admin Trade Name Freq PRN Reason Stop Dose Admin Acetaminophen 650 mg 02/16/20 16:57 02/17/20 10:54 Tylenol - PO 650 mg Q6H PRN Administration PAIN LEVEL 4 - 6 Acetaminophen 650 mg 02/16/20 16:57 Tylenol - PO Q6H PRN FEVER Al Hydroxide/Mg Hydroxide 30 ml 02/16/20 16:57 Mylanta Oral Suspension - PO Q6H PRN DYSPEPSIA Aspirin 81 mg 02/17/20 10:00 02/17/20 10:39 Asa - PO 81 mg DAILY EDSON Administration Atorvastatin Calcium 40 mg 02/16/20 22:00 02/16/20 23:06 Lipitor - PO 40 mg HS EDSON Administration Bismuth Subsalicylate 524 mg 02/16/20 16:57 Pepto-Bismol - PO Q1H PRN DIARRHEA Buprenorphine/Naloxone 1 each 02/16/20 22:00 02/17/20 10:40 Suboxone 4 Mg/1 Mg Film Packet SL 1 each BID EDSON Administration Chlordiazepoxide HCl 10 mg 02/17/20 17:00 Librium - PO 02/18/20 11:01 G0C-IMT EDSON Chlordiazepoxide HCl 10 mg 02/18/20 17:00 Librium - PO 02/19/20 05:01 Q12H EDSON Chlordiazepoxide HCl 10 mg 02/19/20 00:00 Librium - PO 02/20/20 00:00 Q4H PRN WITHDRAWAL(CONT SUBST) Eucalyptus/Menthol/Phenol/Sorbitol 1 each 02/16/20 16:57 Cepastat Lozenge - MM 02/22/20 16:58 Q4H PRN SORE THROAT Hydroxyzine Pamoate 25 mg 02/16/20 18:00 02/17/20 10:40 Vistaril - PO 02/22/20 16:58 Not Given Q4HWA EDSON Magnesium Citrate 300 ml 02/16/20 16:57 Citroma - PO Q48H PRN CONSTIPATION Magnesium Hydroxide 30 ml 02/16/20 16:57 Milk Of Magnesia - PO PRN PRN CONSTIPATION Melatonin 5 mg 02/16/20 22:00 02/16/20 23:07 Melatonin PO Not Given HS EDSON Methocarbamol 500 mg 02/16/20 16:57 Robaxin - PO 02/22/20 16:58 Q6H PRN MUSCLE SPASMS Nicotine 21 mg 02/16/20 18:00 02/17/20 10:40 Nicoderm Patch - TD 21 mg DAILY EDSON Administration Nicotine Polacrilex 2 mg 02/16/20 16:57 Nicorette Gum - BUC Q2H PRN NICOTINE REPLACEMENT RX Ondansetron HCl 4 mg 02/16/20 16:57 Zofran Odt - SL 02/22/20 16:58 Q8H PRN Nausea/Vomiting Multivit/Folic Acid/Iron 1 tab 02/17/20 10:00 02/17/20 10:40 Vitamins (Sjr) - PO 1 tab DAILY EDSON Administration Thiamine HCl 100 mg 02/16/20 22:00 02/16/20 23:07 Vitamin B1 - PO 100 mg HS EDSON Administration Assessment: 02/17/20 11:38 1. Alcohol use disorder Plan: 1. Librium protocol, projected completion 02/18 2. Labs reviewed with pt
--- NOTE | 2020-02-17 12:49 | CONSULT ---
[facility] Psychiatric Consult - Data Date of interview: 02/17/20 Admission source: [facility] Identifying data: Transferred from [facility]. Readmission to [address] [place] [address] for this 59 y/o AA female resuming detoxification treatment. GUANAKO issues : alcohol. Patient is , a mother of seven, domiciled, unemployed and supported on [facility] benefits. Substance Abuse History: Discussed with the patient. GUANAKO profile as follows : Smoking history: Never smoked. Have you smoked in the past 12 months: Yes. Aproximately how many cigarettes per day: 30. Cigars Per Day: 0. Hx Chewing Tobacco Use: No. Initiated information on smoking cessation: Yes. - Substances abused. Alcohol. Substance route: Oral. Frequency: Daily. Amount used: LIQUOR- 2 PTS, BEER- 2 SIX PK. Age of first use: 19. Date of last use: 02/14/20. History of multipl GUANAKO treatment failures. Medical History: Medical profile is remarkable for hypercholesterolemia and past history of neurosurgery for brain aneurysm (2010). Psychiatric History: History of two psychiatric hospitalizations (both at [facility]). Diagnosed with MDD and Anxiety Disorder. Ms Granda is no longer under the care of private psychiatrist Dr Andrade, in [place], [place]. She is currently seeing Dr Becerra for medication management (effexor XR 300 mg/day + clonazepam 2 mg/day + suboxone). Patient denies history of suicide attempts. Physical/Sexual Abuse/Trauma History: Patient denies history of abuse. Additional Comment: No toxicology for review. Mental Status Exam - Mental Status Exam Alert and Oriented to: Time, Place, Person Cognitive Function: Good Patient Appearance: Well Groomed Mood: Hopeful, Euthymic Affect: Appropriate, Normal Range Patient Behavior: Appropriate, Cooperative Speech Pattern: Clear, Appropriate Voice Loudness: Normal Thought Process: Intact, Goal Oriented Thought Disorder: Not Present Hallucinations: Denies Suicidal Ideation: Denies Homicidal Ideation: Denies Insight/Judgement: Fair Sleep: Fair Gait/Station: Normal Psychiatric Findings - Problem List (Addison 1, 2,3) (1) Alcohol dependence with uncomplicated withdrawal Current Visit: Yes Status: Acute (2) Opioid dependence on agonist therapy Current Visit: Yes Status: Chronic (3) MDD (major depressive disorder), recurrent episode, moderate Current Visit: Yes Status: Chronic - Initial Treatment Plan Initial Treatment Plan: Psychoeducation. Sleep hygiene. Support. Detoxification. Observation.
[2020-02-17] MEDS: chlordiazePOXIDE HCL 10 MG CAPSULE PO SCH ×2 (17:33→22:36)
[2020-02-17] MEDS: THIAMINE HCL 100 MG TABLET (FP) PO SCH (22:35)
[2020-02-17] MEDS: MELATONIN 5 MG TABLETS PO SCH (22:35)
[2020-02-17] MEDS: ATORVASTATIN CA 40 MG TABLET (FP) PO SCH (22:35)
[2020-02-18] MEDS: chlordiazePOXIDE HCL 10 MG CAPSULE PO SCH (05:43)
[2020-02-18] MEDS: hydrOXYzine PAMOATE 25 MG CAPSULE (FP) PO SCH (05:44)
[2020-02-18] MEDS ORDERED: MASKS NR ONE (06:04)
[2020-02-18] MEDS: ACETAMINOPHEN 325 MG TABLET (FP) PO PRN (06:17)
[2020-02-18 06:53] VITALS: BP 101/64; PULSE 84; TEMP 97.3
--- NOTE | 2020-02-18 14:18 | DS ---
[facility] Detox Discharge Summary Admission Date: 02/16/20 Discharge Date: 02/18/20 (Left AMA) - History Present History: Alcohol Dependence Additional Comments: Pt left AMA. Pt did not complete the detox protocol. Pt states, "I have to leave and get ready for work on thursday". 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 An attempt to let pt stay and complete the detox protocol failed. Pt is encouraged to follow-up with an outpatient CD program and also to follow-up with her PMD which she was adamant. Pt is alert, oriented x3, Full ROM, and ambulatory. Pertinent Past History: h/o alcohol use disorder. - Physical Exam Results Vital Signs: Vital Signs Temperature 97.3 F L 02/18/20 06:53 Pulse Rate 84 02/18/20 06:53 Respiratory Rate 18 02/18/20 06:53 Blood Pressure 101/64 02/18/20 06:53 O2 Sat by Pulse Oximetry (%) 97 02/18/20 06:53 Pertinent Admission Physical Exam Findings: withdrawal symptoms. - Treatment Hospital Course: Detox Protocol Followed - Medication Discharge Medications: Ambulatory Orders Buprenorphine HCl/Naloxone HCl [Suboxone 4 mg-1 mg Sl Film] 1 each SL BID 02/14/20 Clonazepam 0.5 mg PO HS 02/14/20 Venlafaxine HCl ER [Effexor Xr -] 225 mg PO DAILY 02/14/20 Aspirin 1 tablet PO DAILY 02/16/20 Atorvastatin Ca [Lipitor] 40 mg PO HS 02/16/20 Folic Acid - 1 mg PO DAILY tablet 02/16/20 Multivitamins [Multivit ([facility] Formulary)] 1 tab PO DAILY tab 02/16/20 Nicotine Patch [Nicoderm Patch -] 7 mg TD DAILY patch 02/16/20 Thiamine HCl [Vitamin B1 -] 100 mg PO DAILY tablet 02/16/20 - Diagnosis (1) Alcohol dependence with uncomplicated withdrawal Current Visit: Yes Status: Acute (2) Opioid dependence on agonist therapy Current Visit: Yes Status: Chronic (3) Alcohol abuse Current Visit: No Status: Chronic (4) Hyperlipemia Current Visit: No Status: Chronic Qualifiers: Hyperlipidemia type: pure hypercholesterolemia Qualified Code(s): E78.00 - Pure hypercholesterolemia, unspecified; E78.0 - Pure hypercholesterolemia (5) Hyperthyroidism Current Visit: No Status: Chronic (6) Nicotine dependence Current Visit: No Status: Chronic Qualifiers: Nicotine product type: cigarettes Substance use status: in withdrawal Qualified Code(s): F17.213 - Nicotine dependence, cigarettes, with withdrawal - AMA Did Patient Leave Against Medical Advice: Yes
[2020-02-18] MEDS ORDERED: chlordiazePOXIDE HCL 10 MG CAPSULE PO SCH (17:00)
[2020-02-19] MEDS ORDERED: chlordiazePOXIDE HCL 10 MG CAPSULE PO PRN
[2020-02-19] MEDS ORDERED: chlordiazePOXIDE HCL 10 MG CAPSULE PO ONE (10:00)
== END 2020-02-18 09:34 | disposition left against medical advice (07) | DRG 894 ==
LOC: YASAS 15:10 → Y3N 17:27
PROVIDERS: ADMIT Allergy & Immunology; ATTEND Allergy & Immunology
PROC: HZ2ZZZZ Detoxification Services for Substance Abuse Treatment (ICD-10-PCS; principal; 2020-02-16)
DX: F10.230 Alcohol dependence with withdrawal, uncomplicated (principal); F11.20 Opioid dependence, uncomplicated; F33.1 Major depressive disorder, recurrent, moderate; F17.213 Nicotine dependence, cigarettes, with withdrawal; E78.5 Hyperlipidemia, unspecified; E03.9 Hypothyroidism, unspecified; Z91.012 Allergy to eggs; Z86.79 Personal history of other diseases of the circulatory system
CPT/HCPCS: 36415; 80053; 85027; 86780

== ENCOUNTER 2021-04-12 15:26 | Inpatient (IN) | payer OTHER ==
[2021-04-12] MEDS ORDERED: MAG HYDROX/AL HYDROX/SIMETH 30 ML UNIT-DOSE CUP PO PRN (18:19)
[2021-04-12] MEDS ORDERED: MENTHOL/PHENOL 1 EACH UD MM PRN (18:19)
[2021-04-12] MEDS ORDERED: BISMUTH SUBSALICYLATE 524 MG/30 ML PO PRN (18:19)
[2021-04-12] MEDS ORDERED: MAGNESIUM CITRATE 300 ML BOTTLE PO PRN (18:19)
[2021-04-12] MEDS ORDERED: ACETAMINOPHEN 325 MG TABLET (FP) PO PRN (18:19)
[2021-04-12] MEDS ORDERED: ONDANSETRON *ODT* 4 MG TABLET SL PRN (18:19)
[2021-04-12] MEDS ORDERED: MAGNESIUM HYDROX 2400MG/30ML ORAL SUSPENSION 30 ML CUP PO PRN (18:19)
[2021-04-12] MEDS ORDERED: IBUPROFEN 400 MG TABLET (FP) PO PRN (18:19)
[2021-04-12 18:39] VITALS: BMI 30.9
[2021-04-12] MEDS: ERYTHROMYCIN 0.5% OPHTHALMIC OINTMENT 3.5 GM TUBE OS SCH (19:00)
[2021-04-12] MEDS: METHOCARBAMOL 500 MG TABLET PO PRN (19:38)
[2021-04-12] MEDS: diazePAM 5 MG TABLET PO SCH (19:39)
[2021-04-12] MEDS: NICOTINE 21 MG/24 HOURS TOPICAL PATCH TD SCH (19:42)
[2021-04-12] MEDS: ACETAMINOPHEN 325 MG TABLET (FP) PO PRN (20:10)
[2021-04-13] MEDS: diazePAM 5 MG TABLET PO SCH ×5 (00:09→22:17)
[2021-04-13] MEDS: hydrOXYzine PAMOATE 25 MG CAPSULE (FP) PO SCH ×6 (00:10→22:17)
[2021-04-13] MEDS: THIAMINE HCL 100 MG TABLET (FP) PO SCH ×2 (00:10→22:17)
[2021-04-13] MEDS: MELATONIN 5 MG TABLETS PO SCH ×2 (00:10→22:17)
[2021-04-13] MEDS: ARTIFICIAL TEARS (POLYVINYL ALCOHOL) OPTH DROPS OS PRN ×2 (04:25→22:38)
[2021-04-13] MEDS: ACETAMINOPHEN 325 MG TABLET (FP) PO PRN ×2 (07:11→17:23)
[2021-04-13] MEDS: NICOTINE 21 MG/24 HOURS TOPICAL PATCH TD SCH (10:16)
[2021-04-13] MEDS: METHOCARBAMOL 500 MG TABLET PO PRN (10:17)
[2021-04-13] MEDS: ERYTHROMYCIN 0.5% OPHTHALMIC OINTMENT 3.5 GM TUBE OS SCH (10:17)
[2021-04-13 14:32] LABS: HEMATOCRIT 45.1 % (32.4-45.2); HEMOGLOBIN 15.1 GM/dL (10.7-15.3); MCH 29.4 pg (25.7-33.7); MCHC 33.4 g/dl (32.0-36.0); MEAN PLT VOLUME 8.6 fl (7.5-11.1); PLATELET COUNT 311 10^3/uL (134-434); RBC 5.12 M/mm3 (3.60-5.2); WHITE BLOOD COUNT 10.4 K/mm3 (4.0-10.0)
[2021-04-13] MEDS ORDERED: MASKS NR ONE (18:14)
[2021-04-13 18:46] LABS: BLOOD UREA NITROGEN 10.4 mg/dL (7-18)
[2021-04-13 18:49] LABS: CREATININE 0.9 mg/dL (0.55-1.3)
[2021-04-13 18:51] LABS: BILIRUBIN,TOTAL 0.7 mg/dL (0.2-1); TOT PROT 8.2 g/dl (6.4-8.2)
[2021-04-13] MEDS: NICOTINE 10 MG CARTRIDGE (INHALER) IH PRN (19:03)
[2021-04-14] MEDS: ACETAMINOPHEN 325 MG TABLET (FP) PO PRN ×2 (00:49→09:43)
[2021-04-14] MEDS: METHOCARBAMOL 500 MG TABLET PO PRN ×2 (03:41→17:06)
[2021-04-14] MEDS: diazePAM 5 MG TABLET PO PRN ×2 (03:41→22:20)
[2021-04-14] MEDS: diazePAM 5 MG TABLET PO SCH ×2 (06:10→17:05)
[2021-04-14] MEDS: hydrOXYzine PAMOATE 25 MG CAPSULE (FP) PO SCH ×5 (06:11→22:18)
[2021-04-14] MEDS: VENLAFAXINE HCL 75 MG E.R. CAPSULES PO SCH (10:31)
[2021-04-14] MEDS: ERYTHROMYCIN 0.5% OPHTHALMIC OINTMENT 3.5 GM TUBE OS SCH (10:31)
[2021-04-14] MEDS: NICOTINE 21 MG/24 HOURS TOPICAL PATCH TD SCH (10:32)
[2021-04-14] MEDS: BUPRENORPHINE/NALOXONE 8 MG/2 MG FILM PACKET SL SCH (10:32)
[2021-04-14] MEDS: NICOTINE 10 MG CARTRIDGE (INHALER) IH PRN ×2 (10:32→23:00)
[2021-04-14] MEDS: ARTIFICIAL TEARS (POLYVINYL ALCOHOL) OPTH DROPS OS PRN (18:16)
[2021-04-14] MEDS: MELATONIN 5 MG TABLETS PO SCH (22:18)
[2021-04-14] MEDS: THIAMINE HCL 100 MG TABLET (FP) PO SCH (22:18)
[2021-04-15] MEDS: hydrOXYzine PAMOATE 25 MG CAPSULE (FP) PO SCH ×2 (05:39→09:49)
[2021-04-15] MEDS ORDERED: diazePAM 5 MG TABLET PO ONE (06:00)
[2021-04-15 09:34] VITALS: BP 116/65; PULSE 100; TEMP 97.1
[2021-04-15] MEDS: VENLAFAXINE HCL 75 MG E.R. CAPSULES PO SCH (09:48)
[2021-04-15] MEDS: NICOTINE 21 MG/24 HOURS TOPICAL PATCH TD SCH (09:48)
[2021-04-15] MEDS: BUPRENORPHINE/NALOXONE 8 MG/2 MG FILM PACKET SL SCH (09:48)
[2021-04-15] MEDS: ERYTHROMYCIN 0.5% OPHTHALMIC OINTMENT 3.5 GM TUBE OS SCH (09:48)
== END 2021-04-15 10:57 | disposition home or self-care (01) | DRG 897 ==
LOC: YASAS 15:26 → Y3N 18:38
PROVIDERS: ADMIT Allergy & Immunology; ATTEND Allergy & Immunology
PROC: HZ2ZZZZ Detoxification Services for Substance Abuse Treatment (ICD-10-PCS; principal; 2021-04-12)
DX: F10.230 Alcohol dependence with withdrawal, uncomplicated (principal); F11.20 Opioid dependence, uncomplicated; F19.280 Other psychoactive substance dependence with psychoactive substance-induced anxiety disorder; F19.282 Other psychoactive substance dependence with psychoactive substance-induced sleep disorder; F17.210 Nicotine dependence, cigarettes, uncomplicated; F10.282 Alcohol dependence with alcohol-induced sleep disorder; F10.24 Alcohol dependence with alcohol-induced mood disorder; F32.9 Major depressive disorder, single episode, unspecified; M54.50 Low back pain, unspecified; G89.29 Other chronic pain; Z86.79 Personal history of other diseases of the circulatory system; Z87.19 Personal history of other diseases of the digestive system; Z98.890 Other specified postprocedural states
CPT/HCPCS: 36415; 80053; 85027; 86780; C9803; U0003; U0005

== ENCOUNTER 2021-05-02 10:45 | Inpatient (IN) | payer OTHER ==
[2021-05-02] MEDS ORDERED: diazePAM 5 MG TABLET PO ONE (11:20)
[2021-05-02] MEDS: diazePAM 5 MG TABLET PO SCH ×3 (11:22→22:41)
[2021-05-02] MEDS ORDERED: MAG HYDROX/AL HYDROX/SIMETH 30 ML UNIT-DOSE CUP PO PRN (11:31)
[2021-05-02] MEDS ORDERED: ONDANSETRON *ODT* 4 MG TABLET SL PRN (11:31)
[2021-05-02] MEDS ORDERED: MAGNESIUM HYDROX 2400MG/30ML ORAL SUSPENSION 30 ML CUP PO PRN (11:31)
[2021-05-02] MEDS ORDERED: BISMUTH SUBSALICYLATE 524 MG/30 ML PO PRN (11:31)
[2021-05-02] MEDS ORDERED: ACETAMINOPHEN 325 MG TABLET (FP) PO PRN (11:31)
[2021-05-02] MEDS ORDERED: MAGNESIUM CITRATE 300 ML BOTTLE PO PRN (11:31)
[2021-05-02] MEDS ORDERED: IBUPROFEN 400 MG TABLET (FP) PO PRN (11:31)
[2021-05-02] MEDS ORDERED: MENTHOL/PHENOL 1 EACH UD MM PRN (11:31)
[2021-05-02 11:45] VITALS: BMI 29.2
[2021-05-02] MEDS: diazePAM 5 MG TABLET PO PRN ×2 (15:29→20:29)
[2021-05-02] MEDS: BUPRENORPHINE/NALOXONE 8 MG/2 MG FILM PACKET SL SCH (15:29)
[2021-05-02] MEDS: PRENATAL VITAMINS W/ FOLIC ACID TABLET (FP) PO SCH (15:30)
[2021-05-02] MEDS: ACETAMINOPHEN 325 MG TABLET (FP) PO PRN ×2 (15:31→21:17)
[2021-05-02] MEDS: NICOTINE 10 MG CARTRIDGE (INHALER) IH PRN (15:33)
[2021-05-02] MEDS: hydrOXYzine PAMOATE 25 MG CAPSULE (FP) PO SCH ×3 (15:35→21:16)
[2021-05-02] MEDS: METHOCARBAMOL 500 MG TABLET PO PRN (15:41)
[2021-05-02 16:59] LABS: HEMATOCRIT 42.6 % (32.4-45.2); MCHC 32.9 g/dl (32.0-36.0); MEAN CELL VOLUME 88.3 fl (80-96); MEAN PLT VOLUME 8.7 fl (7.5-11.1); PLATELET COUNT 276 10^3/uL (134-434); RBC 4.82 M/mm3 (3.60-5.2); WHITE BLOOD COUNT 10.3 K/mm3 (4.0-10.0)
[2021-05-02 17:19] LABS: ALBUMIN 3.8 g/dl (3.4-5.0)
[2021-05-02 17:20] LABS: BILIRUBIN,TOTAL 0.4 mg/dL (0.2-1); TOT PROT 7.5 g/dl (6.4-8.2)
[2021-05-02 17:22] LABS: CALCIUM 9.2 mg/dL (8.5-10.1); CREATININE 0.6 mg/dL (0.55-1.3)
[2021-05-02] MEDS: NICOTINE 14 MG/24 HOURS TOPICAL PATCH TD SCH (18:06)
[2021-05-02] MEDS: THIAMINE HCL 100 MG TABLET (FP) PO SCH (21:16)
[2021-05-02] MEDS: ATORVASTATIN CA 40 MG TABLET (FP) PO SCH (21:16)
[2021-05-02] MEDS ORDERED: MELATONIN 5 MG TABLETS PO SCH (22:00)
[2021-05-03] MEDS: diazePAM 5 MG TABLET PO SCH ×4 (05:01→22:25)
[2021-05-03] MEDS: hydrOXYzine PAMOATE 25 MG CAPSULE (FP) PO SCH ×5 (05:01→22:24)
[2021-05-03] MEDS: ACETAMINOPHEN 325 MG TABLET (FP) PO PRN (05:35)
[2021-05-03] MEDS: NICOTINE 10 MG CARTRIDGE (INHALER) IH PRN ×3 (05:59→17:45)
[2021-05-03] MEDS ORDERED: PATIENT'S OWN MEDICATION (NON-FORMULARY) (Clonazepam [Klonopin -] 0.5 MG Tablet) PO SCH (10:00)
[2021-05-03] MEDS: ASPIRIN 81 MG CHEWABLE TABLETS PO SCH (10:07)
[2021-05-03] MEDS: POTASSIUM CHLORIDE TABS 20 MEQ TABLET.ER (FP) PO SCH ×2 (10:07→17:43)
[2021-05-03] MEDS: BUPRENORPHINE/NALOXONE 8 MG/2 MG FILM PACKET SL SCH (10:07)
[2021-05-03] MEDS: PRENATAL VITAMINS W/ FOLIC ACID TABLET (FP) PO SCH (10:07)
[2021-05-03] MEDS: METHOCARBAMOL 500 MG TABLET PO PRN ×2 (10:07→22:24)
[2021-05-03] MEDS: NICOTINE 14 MG/24 HOURS TOPICAL PATCH TD SCH (10:10)
[2021-05-03] MEDS: VENLAFAXINE HCL 75 MG E.R. CAPSULES PO SCH (10:46)
[2021-05-03 14:18] LABS: HEMATOCRIT 42.7 % (32.4-45.2); HEMOGLOBIN 14.1 GM/dL (10.7-15.3); MCH 29.4 pg (25.7-33.7); MCHC 33.1 g/dl (32.0-36.0); MEAN PLT VOLUME 8.8 fl (7.5-11.1); PLATELET COUNT 283 10^3/uL (134-434); RDW 16.4 % (11.6-15.6); WHITE BLOOD COUNT 10.2 K/mm3 (4.0-10.0)
[2021-05-03 14:32] LABS: ALBUMIN 3.5 g/dl (3.4-5.0); CALCIUM 9.7 mg/dL (8.5-10.1)
[2021-05-03 14:35] LABS: BILIRUBIN,TOTAL 0.4 mg/dL (0.2-1); CREATININE 0.7 mg/dL (0.55-1.3)
[2021-05-03 14:36] LABS: TOT PROT 7.3 g/dl (6.4-8.2)
[2021-05-03] MEDS ORDERED: SUVOREXANT 10 MG TABLET PO PRN (22:00)
[2021-05-03] MEDS: THIAMINE HCL 100 MG TABLET (FP) PO SCH (22:24)
[2021-05-03] MEDS: ATORVASTATIN CA 40 MG TABLET (FP) PO SCH (22:25)
[2021-05-04] MEDS: diazePAM 5 MG TABLET PO PRN ×2 (01:30→10:21)
[2021-05-04] MEDS: hydrOXYzine PAMOATE 25 MG CAPSULE (FP) PO SCH ×5 (05:11→22:26)
[2021-05-04] MEDS: diazePAM 5 MG TABLET PO SCH ×3 (05:12→22:24)
[2021-05-04] MEDS: PRENATAL VITAMINS W/ FOLIC ACID TABLET (FP) PO SCH (10:20)
[2021-05-04] MEDS: ASPIRIN 81 MG CHEWABLE TABLETS PO SCH (10:20)
[2021-05-04] MEDS: VENLAFAXINE HCL 75 MG E.R. CAPSULES PO SCH (10:20)
[2021-05-04] MEDS: METHOCARBAMOL 500 MG TABLET PO PRN (10:21)
[2021-05-04] MEDS: BUPRENORPHINE/NALOXONE 8 MG/2 MG FILM PACKET SL SCH (10:23)
[2021-05-04] MEDS: NICOTINE 14 MG/24 HOURS TOPICAL PATCH TD SCH (10:24)
[2021-05-04] MEDS: NICOTINE 10 MG CARTRIDGE (INHALER) IH PRN (14:13)
[2021-05-04] MEDS: THIAMINE HCL 100 MG TABLET (FP) PO SCH (22:24)
[2021-05-04] MEDS: ATORVASTATIN CA 40 MG TABLET (FP) PO SCH (22:24)
[2021-05-05] MEDS: diazePAM 5 MG TABLET PO SCH ×2 (05:49→17:37)
[2021-05-05] MEDS: hydrOXYzine PAMOATE 25 MG CAPSULE (FP) PO SCH ×5 (05:49→22:31)
[2021-05-05] MEDS: METHOCARBAMOL 500 MG TABLET PO PRN ×2 (06:03→22:35)
[2021-05-05] MEDS: ASPIRIN 81 MG CHEWABLE TABLETS PO SCH (10:18)
[2021-05-05] MEDS: VENLAFAXINE HCL 75 MG E.R. CAPSULES PO SCH (10:18)
[2021-05-05] MEDS: diazePAM 5 MG TABLET PO PRN (10:18)
[2021-05-05] MEDS: BUPRENORPHINE/NALOXONE 8 MG/2 MG FILM PACKET SL SCH (10:18)
[2021-05-05] MEDS: PRENATAL VITAMINS W/ FOLIC ACID TABLET (FP) PO SCH (10:18)
[2021-05-05] MEDS: NICOTINE 14 MG/24 HOURS TOPICAL PATCH TD SCH (10:20)
[2021-05-05] MEDS: THIAMINE HCL 100 MG TABLET (FP) PO SCH (22:10)
[2021-05-05] MEDS: ATORVASTATIN CA 40 MG TABLET (FP) PO SCH (22:29)
[2021-05-06] MEDS ORDERED: diazePAM 5 MG TABLET PO ONE (06:00)
[2021-05-06] MEDS: hydrOXYzine PAMOATE 25 MG CAPSULE (FP) PO SCH (06:31)
[2021-05-06 07:19] VITALS: BP 114/56; PULSE 74; TEMP 97.3
== END 2021-05-06 09:10 | disposition home or self-care (01) | DRG 897 ==
LOC: YASAS 10:45 → Y6N 14:40
PROVIDERS: ADMIT Allergy & Immunology; ATTEND Allergy & Immunology
PROC: HZ2ZZZZ Detoxification Services for Substance Abuse Treatment (ICD-10-PCS; principal; 2021-05-02)
DX: F10.230 Alcohol dependence with withdrawal, uncomplicated (principal); F11.20 Opioid dependence, uncomplicated; F17.213 Nicotine dependence, cigarettes, with withdrawal; F10.282 Alcohol dependence with alcohol-induced sleep disorder; F10.24 Alcohol dependence with alcohol-induced mood disorder; F41.9 Anxiety disorder, unspecified; F32.9 Major depressive disorder, single episode, unspecified; E87.6 Hypokalemia; E78.00 Pure hypercholesterolemia, unspecified; E05.90 Thyrotoxicosis, unspecified without thyrotoxic crisis or storm; M54.50 Low back pain, unspecified; G89.29 Other chronic pain; Z91.410 Personal history of adult physical and sexual abuse; Z86.79 Personal history of other diseases of the circulatory system; Z91.012 Allergy to eggs
CPT/HCPCS: 36415; 80053; 84132; 85027; 86780; C9803; U0003; U0005

== ENCOUNTER 2021-05-21 10:01 | Inpatient (IN) | payer OTHER ==
[2021-05-21 11:06] VITALS: BMI 30.4
[2021-05-21] MEDS ORDERED: MAGNESIUM CITRATE 300 ML BOTTLE PO PRN (11:36)
[2021-05-21] MEDS ORDERED: MAGNESIUM HYDROX 2400MG/30ML ORAL SUSPENSION 30 ML CUP PO PRN (11:36)
[2021-05-21] MEDS ORDERED: BISMUTH SUBSALICYLATE 262 MG/15 ML BTL PO PRN (11:36)
[2021-05-21] MEDS ORDERED: MAG HYDROX/AL HYDROX/SIMETH 30 ML UNIT-DOSE CUP PO PRN (11:36)
[2021-05-21] MEDS ORDERED: diazePAM 5 MG TABLET PO PRN (11:36)
[2021-05-21] MEDS ORDERED: ONDANSETRON *ODT* 4 MG TABLET SL PRN (11:36)
[2021-05-21] MEDS ORDERED: IBUPROFEN 400 MG TABLET (FP) PO PRN (11:36)
[2021-05-21] MEDS ORDERED: MENTHOL/PHENOL 1 EACH UD MM PRN (11:36)
[2021-05-21] MEDS ORDERED: ACETAMINOPHEN 325 MG TABLET (FP) PO PRN ×2 (11:36)
[2021-05-21] MEDS: PRENATAL VITAMINS W/ FOLIC ACID TABLET (FP) PO SCH (11:52)
[2021-05-21] MEDS: diazePAM 5 MG TABLET PO SCH ×3 (11:52→22:28)
[2021-05-21 14:51] LABS: HEMATOCRIT 42.1 % (32.4-45.2); HEMOGLOBIN 13.9 GM/dL (10.7-15.3); MEAN CELL VOLUME 87.9 fl (80-96); MEAN PLT VOLUME 8.6 fl (7.5-11.1); PLATELET COUNT 271 10^3/uL (134-434); RDW 15.8 % (11.6-15.6); WHITE BLOOD COUNT 12.4 K/mm3 (4.0-10.0)
[2021-05-21] MEDS: hydrOXYzine PAMOATE 25 MG CAPSULE (FP) PO SCH ×3 (14:57→22:28)
[2021-05-21 15:02] LABS: CALCIUM 9.2 mg/dL (8.5-10.1)
[2021-05-21 15:03] LABS: ALBUMIN 4.1 g/dl (3.4-5.0); BLOOD UREA NITROGEN 7.9 mg/dL (7-18)
[2021-05-21 15:06] LABS: CREATININE 0.6 mg/dL (0.55-1.3)
[2021-05-21 15:07] LABS: BILIRUBIN,TOTAL 0.2 mg/dL (0.2-1); TOT PROT 7.7 g/dl (6.4-8.2)
[2021-05-21] MEDS ORDERED: MELATONIN 5 MG TABLETS PO SCH (22:00)
[2021-05-21] MEDS ORDERED: SUVOREXANT 15 MG TABLET PO PRN (22:00)
[2021-05-21] MEDS: THIAMINE HCL 100 MG TABLET (FP) PO SCH (22:28)
[2021-05-21] MEDS: ATORVASTATIN CA 40 MG TABLET (FP) PO SCH (22:28)
[2021-05-22] MEDS: diazePAM 5 MG TABLET PO SCH ×4 (05:33→22:05)
[2021-05-22] MEDS: hydrOXYzine PAMOATE 25 MG CAPSULE (FP) PO SCH ×5 (05:33→22:04)
[2021-05-22] MEDS: METHOCARBAMOL 500 MG TABLET PO PRN ×2 (05:43→12:26)
[2021-05-22] MEDS: BUPRENORPHINE/NALOXONE 8 MG/2 MG FILM PACKET SL SCH (10:31)
[2021-05-22] MEDS: VENLAFAXINE HCL 75 MG E.R. CAPSULES PO SCH (10:32)
[2021-05-22] MEDS: PRENATAL VITAMINS W/ FOLIC ACID TABLET (FP) PO SCH (10:32)
[2021-05-22] MEDS: ASPIRIN 81 MG CHEWABLE TABLETS PO SCH (10:33)
[2021-05-22] MEDS ORDERED: NICOTINE POLACRILEX 4 MG GUM BUC PRN (10:38)
[2021-05-22] MEDS: NICOTINE 21 MG/24 HOURS TOPICAL PATCH TD SCH (11:26)
[2021-05-22] MEDS: NICOTINE 10 MG CARTRIDGE (INHALER) IH PRN ×2 (14:27→20:26)
[2021-05-22] MEDS: ATORVASTATIN CA 40 MG TABLET (FP) PO SCH (22:04)
[2021-05-22] MEDS: THIAMINE HCL 100 MG TABLET (FP) PO SCH (22:04)
[2021-05-23] MEDS: hydrOXYzine PAMOATE 25 MG CAPSULE (FP) PO SCH ×5 (05:19→22:04)
[2021-05-23] MEDS: diazePAM 5 MG TABLET PO SCH ×3 (05:19→22:04)
[2021-05-23] MEDS: METHOCARBAMOL 500 MG TABLET PO PRN (05:54)
[2021-05-23] MEDS: NICOTINE 10 MG CARTRIDGE (INHALER) IH PRN ×2 (05:54→22:51)
[2021-05-23] MEDS: VENLAFAXINE HCL 75 MG E.R. CAPSULES PO SCH (10:09)
[2021-05-23] MEDS: NICOTINE 21 MG/24 HOURS TOPICAL PATCH TD SCH (10:09)
[2021-05-23] MEDS: BUPRENORPHINE/NALOXONE 8 MG/2 MG FILM PACKET SL SCH (10:09)
[2021-05-23] MEDS: ASPIRIN 81 MG CHEWABLE TABLETS PO SCH (10:09)
[2021-05-23] MEDS: PRENATAL VITAMINS W/ FOLIC ACID TABLET (FP) PO SCH (10:09)
[2021-05-23 14:47] LABS: URINE APPEARANCE CLEAR; URINE BILIRUBIN NEGATIVE (NEGATIVE); URINE COLOR YELLOW; URINE GLUCOSE (UA) NEGATIVE (NEGATIVE); URINE KETONE NEGATIVE (NEGATIVE); URINE LEUK ESTERASE NEGATIVE (NEGATIVE); URINE NITRITE NEGATIVE (NEGATIVE); URINE PROTEIN NEGATIVE (NEGATIVE); URINE UROBILINOGEN 0.2 mg/dL (0.2-1.0)
[2021-05-23] MEDS: ATORVASTATIN CA 40 MG TABLET (FP) PO SCH (22:04)
[2021-05-23] MEDS: THIAMINE HCL 100 MG TABLET (FP) PO SCH (22:04)
[2021-05-24] MEDS: diazePAM 5 MG TABLET PO SCH ×2 (05:17→17:16)
[2021-05-24] MEDS: hydrOXYzine PAMOATE 25 MG CAPSULE (FP) PO SCH ×5 (05:18→22:25)
[2021-05-24] MEDS: METHOCARBAMOL 500 MG TABLET PO PRN (05:32)
[2021-05-24] MEDS: NICOTINE 10 MG CARTRIDGE (INHALER) IH PRN ×2 (05:33→13:40)
[2021-05-24] MEDS: BUPRENORPHINE/NALOXONE 8 MG/2 MG FILM PACKET SL SCH (10:13)
[2021-05-24] MEDS: VENLAFAXINE HCL 75 MG E.R. CAPSULES PO SCH (10:13)
[2021-05-24] MEDS: NICOTINE 21 MG/24 HOURS TOPICAL PATCH TD SCH (10:13)
[2021-05-24] MEDS: ASPIRIN 81 MG CHEWABLE TABLETS PO SCH (10:13)
[2021-05-24] MEDS: PRENATAL VITAMINS W/ FOLIC ACID TABLET (FP) PO SCH (10:14)
[2021-05-24] MEDS ORDERED: COLLOIDAL OATMEAL 1 BAR EACH TP PRN (16:01)
[2021-05-24] MEDS: ATORVASTATIN CA 40 MG TABLET (FP) PO SCH (22:25)
[2021-05-24] MEDS: THIAMINE HCL 100 MG TABLET (FP) PO SCH (22:25)
[2021-05-25] MEDS: NICOTINE 10 MG CARTRIDGE (INHALER) IH PRN (05:07)
[2021-05-25] MEDS: hydrOXYzine PAMOATE 25 MG CAPSULE (FP) PO SCH (05:07)
[2021-05-25] MEDS ORDERED: diazePAM 5 MG TABLET PO ONE (06:00)
[2021-05-25] MEDS: VENLAFAXINE HCL 75 MG E.R. CAPSULES PO SCH (09:15)
[2021-05-25] MEDS: ASPIRIN 81 MG CHEWABLE TABLETS PO SCH (09:15)
[2021-05-25] MEDS: BUPRENORPHINE/NALOXONE 8 MG/2 MG FILM PACKET SL SCH (09:16)
[2021-05-25] MEDS: PRENATAL VITAMINS W/ FOLIC ACID TABLET (FP) PO SCH (09:17)
[2021-05-25 09:28] VITALS: BP 125/78; PULSE 98; TEMP 97.3
== END 2021-05-25 09:28 | disposition home or self-care (01) | DRG 897 ==
LOC: YASAS 10:01 → Y6N 11:00
PROVIDERS: ADMIT Allergy & Immunology; ATTEND Allergy & Immunology
PROC: HZ2ZZZZ Detoxification Services for Substance Abuse Treatment (ICD-10-PCS; principal; 2021-05-21)
DX: F10.230 Alcohol dependence with withdrawal, uncomplicated (principal); F11.20 Opioid dependence, uncomplicated; F17.210 Nicotine dependence, cigarettes, uncomplicated; F10.280 Alcohol dependence with alcohol-induced anxiety disorder; F10.282 Alcohol dependence with alcohol-induced sleep disorder; E78.5 Hyperlipidemia, unspecified; E05.90 Thyrotoxicosis, unspecified without thyrotoxic crisis or storm; M54.50 Low back pain, unspecified; G89.29 Other chronic pain; Z86.79 Personal history of other diseases of the circulatory system; Z87.19 Personal history of other diseases of the digestive system; Z91.012 Allergy to eggs
CPT/HCPCS: 36415; 80053; 81003; 85027; 86780; C9803; U0003; U0005

== ENCOUNTER 2021-06-20 13:53 | Inpatient (IN) | payer OTHER ==
[2021-06-20 14:13] VITALS: BMI 29.2
[2021-06-20] MEDS ORDERED: SODIUM CHLORIDE 1,000 ML IV STA (14:34)
[2021-06-20] MEDS ORDERED: THIAMINE HCL 200 MG/2 ML VIAL IVPB ONE (14:38)
[2021-06-20] MEDS ORDERED: ONDANSETRON 4 MG/2 ML VIAL IVPUSH ONE (15:08)
[2021-06-20] MEDS ORDERED: diazePAM CARPU-JECT 10 MG/2 ML DISP.SYRIN IVPUSH ONE ×3 (15:20→22:30)
[2021-06-20] MEDS ORDERED: THIAMINE HCL 200 MG/2 ML VIAL ONE (15:20)
[2021-06-20] MEDS ORDERED: ONDANSETRON 4 MG/2 ML VIAL ONE (15:20)
[2021-06-20] MEDS ORDERED: diazePAM CARPU-JECT 10 MG/2 ML DISP.SYRIN ONE ×3 (15:28→22:44)
[2021-06-20 15:38] LABS: HEMATOCRIT 46.2 % (32.4-45.2); HEMOGLOBIN 15.3 GM/dL (10.7-15.3); LYMPH % 35.4 % (8-40); MCH 29.4 pg (25.7-33.7); MCHC 33.2 g/dl (32.0-36.0); MEAN CELL VOLUME 88.4 fl (80-96); MEAN PLT VOLUME 8.4 fl (7.5-11.1); MONO % 5.3 % (3.8-10.2); NEUT % 57.3 % (42.8-82.8); PLATELET COUNT 273 10^3/uL (134-434); RBC 5.22 M/mm3 (3.60-5.2); RDW 15.6 % (11.6-15.6); WHITE BLOOD COUNT 9.6 K/mm3 (4.0-10.0)
[2021-06-20 15:56] LABS: CHLORIDE 105 mmol/L (98-107); SODIUM 142 mmol/L (136-145)
[2021-06-20 16:00] LABS: ALBUMIN 4.5 g/dl (3.4-5.0); ANION GAP 5 MMOL/L (8-16); BLOOD UREA NITROGEN 7.9 mg/dL (7-18); CALCIUM 9.8 mg/dL (8.5-10.1); CO2 32 mmol/L (21-32); GLUCOSE,RANDOM 98 mg/dL (74-106); MAGNESIUM 2.4 mg/dL (1.8-2.4)
[2021-06-20 16:03] LABS: CREATININE 0.8 mg/dL (0.55-1.3); SGPT/ALT 14 U/L (13-61)
[2021-06-20 16:04] LABS: SGOT/AST 11 U/L (15-37)
[2021-06-20 16:05] LABS: BILIRUBIN,TOTAL 0.4 mg/dL (0.2-1); TOT PROT 8.7 g/dl (6.4-8.2)
[2021-06-20 16:06] LABS: ALK PHOS 82 U/L (45-117)
[2021-06-20] MEDS ORDERED: ASPIRIN 81 MG CHEWABLE TABLETS PO ONE (16:19)
[2021-06-20] MEDS ORDERED: ASPIRIN 81 MG CHEWABLE TABLETS ONE (16:39)
[2021-06-20] MEDS ORDERED: HEPARIN NA (PORCINE) 5,000 UNITS/ML 1ML VIAL IVPUSH ONE (17:58)
[2021-06-20 18:49] LABS: N-TERMINAL BNP 21.3 pg/ml (5-125)
[2021-06-20] MEDS ORDERED: CLOPIDOGREL BISULFATE 300 MG TABLET PO ONE (20:11)
[2021-06-20] MEDS ORDERED: HALOPERIDOL LACTATE 5 MG/ML IM ONE (20:22)
[2021-06-20] MEDS ORDERED: CLOPIDOGREL BISULFATE 300 MG TABLET ONE (20:41)
[2021-06-20] MEDS ORDERED: ATORVASTATIN CA 40 MG TABLET (FP) ONE (22:25)
[2021-06-20] MEDS: ATORVASTATIN CA 40 MG TABLET (FP) PO SCH (22:47)
[2021-06-20] MEDS ORDERED: diazePAM CARPU-JECT 10 MG/2 ML DISP.SYRIN IVPUSH PRN (23:55)
[2021-06-21] MEDS ORDERED: diazePAM 5 MG TABLET ONE (01:38)
[2021-06-21] MEDS: diazePAM 5 MG TABLET PO SCH ×5 (01:45→23:00)
[2021-06-21] MEDS ORDERED: methaDONE HCL 10 MG TABLET ONE (08:16)
[2021-06-21] MEDS: FOLIC ACID 1 MG TABLET (FP) PO SCH (09:06)
[2021-06-21] MEDS: THIAMINE HCL 100 MG TABLET (FP) PO SCH (09:06)
[2021-06-21] MEDS: ASPIRIN COATED 81 MG TABLET.EC PO SCH (09:06)
[2021-06-21] MEDS: CLOPIDOGREL BISULFATE 75 MG TABLET (FP) PO SCH (09:06)
[2021-06-21] MEDS: NICOTINE 14 MG/24 HOURS TOPICAL PATCH TD SCH (09:06)
[2021-06-21] MEDS: ENOXAPARIN NA (PORCINE) 40 MG/0.4 ML DISP.SYRIN SQ SCH (09:06)
[2021-06-21] MEDS: CYANOCOBALAMIN (VITAMIN B-12) 100 MCG TABLET PO SCH (09:07)
[2021-06-21] MEDS ORDERED: BUPRENORPHINE/NALOXONE 8 MG/2 MG FILM PACKET SL SCH (10:00)
[2021-06-21] MEDS: BUPRENORPHINE/NALOXONE 8 MG/2 MG FILM PACKET SL SCH (10:05)
[2021-06-21] MEDS: ATORVASTATIN CA 40 MG TABLET (FP) PO SCH (21:22)
[2021-06-22] MEDS: diazePAM 5 MG TABLET PO PRN ×2 (02:30→11:44)
[2021-06-22] MEDS: diazePAM 5 MG TABLET PO SCH ×3 (06:16→21:17)
[2021-06-22 07:15] LABS: HEMOGLOBIN 13.3 GM/dL (10.7-15.3); MCH 29.3 pg (25.7-33.7); MCHC 33.2 g/dl (32.0-36.0); MEAN CELL VOLUME 88.2 fl (80-96); MEAN PLT VOLUME 8.8 fl (7.5-11.1); PLATELET COUNT 189 10^3/uL (134-434); RBC 4.53 M/mm3 (3.60-5.2); RDW 15.2 % (11.6-15.6); WHITE BLOOD COUNT 6.2 K/mm3 (4.0-10.0)
[2021-06-22 07:17] LABS: CHLORIDE 106 mmol/L (98-107); SODIUM 142 mmol/L (136-145)
[2021-06-22 07:21] LABS: GLUCOSE,RANDOM 123 mg/dL (74-106)
[2021-06-22 07:22] LABS: CALCIUM 8.9 mg/dL (8.5-10.1)
[2021-06-22 07:23] LABS: ANION GAP 6 MMOL/L (8-16); BLOOD UREA NITROGEN 13.9 mg/dL (7-18); CO2 30 mmol/L (21-32)
[2021-06-22 07:24] LABS: CREATININE 0.7 mg/dL (0.55-1.3); SGPT/ALT 12 U/L (13-61)
[2021-06-22 07:25] LABS: SGOT/AST 11 U/L (15-37)
[2021-06-22 07:26] LABS: BILIRUBIN,TOTAL 0.5 mg/dL (0.2-1)
[2021-06-22 07:27] LABS: ALBUMIN 3.3 g/dl (3.4-5.0); ALK PHOS 66 U/L (45-117); TOT PROT 6.5 g/dl (6.4-8.2)
[2021-06-22] MEDS ORDERED: PT OWN MED DRAWER 7, Y5N ONE (09:02)
[2021-06-22] MEDS: ENOXAPARIN NA (PORCINE) 40 MG/0.4 ML DISP.SYRIN SQ SCH (09:59)
[2021-06-22] MEDS: FOLIC ACID 1 MG TABLET (FP) PO SCH (10:00)
[2021-06-22] MEDS: THIAMINE HCL 100 MG TABLET (FP) PO SCH (10:01)
[2021-06-22] MEDS: ASPIRIN COATED 81 MG TABLET.EC PO SCH (10:01)
[2021-06-22] MEDS: BUPRENORPHINE/NALOXONE 8 MG/2 MG FILM PACKET SL SCH (10:01)
[2021-06-22] MEDS: CLOPIDOGREL BISULFATE 75 MG TABLET (FP) PO SCH (10:02)
[2021-06-22] MEDS: CYANOCOBALAMIN (VITAMIN B-12) 100 MCG TABLET PO SCH (10:02)
[2021-06-22] MEDS: NICOTINE 14 MG/24 HOURS TOPICAL PATCH TD SCH (12:29)
[2021-06-22] MEDS: ATORVASTATIN CA 40 MG TABLET (FP) PO SCH (21:17)
[2021-06-23] MEDS: diazePAM 5 MG TABLET PO SCH ×2 (05:57→19:45)
[2021-06-23 08:17] LABS: BASO % 1.2 % (0-2.0); EOS % 4.4 % (0-4.5); HEMATOCRIT 41.5 % (32.4-45.2); HEMOGLOBIN 13.6 GM/dL (10.7-15.3); LYMPH % 34.7 % (8-40); MCH 29.1 pg (25.7-33.7); MCHC 32.8 g/dl (32.0-36.0); MEAN CELL VOLUME 88.9 fl (80-96); MEAN PLT VOLUME 8.7 fl (7.5-11.1); MONO % 7.5 % (3.8-10.2); NEUT % 52.2 % (42.8-82.8); PLATELET COUNT 192 10^3/uL (134-434); RBC 4.66 M/mm3 (3.60-5.2); RDW 14.6 % (11.6-15.6); WHITE BLOOD COUNT 6.4 K/mm3 (4.0-10.0)
[2021-06-23 08:35] LABS: CHLORIDE 107 mmol/L (98-107); SODIUM 142 mmol/L (136-145)
[2021-06-23 08:38] LABS: CALCIUM 8.9 mg/dL (8.5-10.1)
[2021-06-23 08:39] LABS: ANION GAP 6 MMOL/L (8-16); BLOOD UREA NITROGEN 17.8 mg/dL (7-18); CO2 29 mmol/L (21-32); GLUCOSE,RANDOM 88 mg/dL (74-106)
[2021-06-23 08:42] LABS: CREATININE 0.8 mg/dL (0.55-1.3)
[2021-06-23] MEDS ORDERED: PT OWN MED DRAWER 7, Y5N ONE (10:43)
[2021-06-23] MEDS: CLOPIDOGREL BISULFATE 75 MG TABLET (FP) PO SCH (10:48)
[2021-06-23] MEDS: ENOXAPARIN NA (PORCINE) 40 MG/0.4 ML DISP.SYRIN SQ SCH (10:48)
[2021-06-23] MEDS: CYANOCOBALAMIN (VITAMIN B-12) 100 MCG TABLET PO SCH (10:49)
[2021-06-23] MEDS: THIAMINE HCL 100 MG TABLET (FP) PO SCH (10:49)
[2021-06-23] MEDS: FOLIC ACID 1 MG TABLET (FP) PO SCH (10:49)
[2021-06-23] MEDS: ASPIRIN COATED 81 MG TABLET.EC PO SCH (10:49)
[2021-06-23] MEDS: NICOTINE 14 MG/24 HOURS TOPICAL PATCH TD SCH (10:49)
[2021-06-23] MEDS: BUPRENORPHINE/NALOXONE 8 MG/2 MG FILM PACKET SL SCH (10:51)
[2021-06-23] MEDS: ATORVASTATIN CA 40 MG TABLET (FP) PO SCH (22:43)
[2021-06-24] MEDS ORDERED: diazePAM 5 MG TABLET PO ONE (06:00)
[2021-06-24] MEDS ORDERED: PT OWN MED DRAWER 7, Y5N ONE (09:32)
[2021-06-24] MEDS ORDERED: REGADENOSON 0.4 MG/5 ML PRE-FILLED SYRINGE IVPUSH ONE ×2 (10:07→10:30)
[2021-06-24] MEDS: ASPIRIN COATED 81 MG TABLET.EC PO SCH (11:25)
[2021-06-24] MEDS: FOLIC ACID 1 MG TABLET (FP) PO SCH (11:26)
[2021-06-24] MEDS: ENOXAPARIN NA (PORCINE) 40 MG/0.4 ML DISP.SYRIN SQ SCH (11:26)
[2021-06-24] MEDS: NICOTINE 14 MG/24 HOURS TOPICAL PATCH TD SCH (11:27)
[2021-06-24] MEDS: CLOPIDOGREL BISULFATE 75 MG TABLET (FP) PO SCH (11:27)
[2021-06-24] MEDS: THIAMINE HCL 100 MG TABLET (FP) PO SCH (11:28)
[2021-06-24] MEDS: BUPRENORPHINE/NALOXONE 8 MG/2 MG FILM PACKET SL SCH (11:28)
[2021-06-24] MEDS: CYANOCOBALAMIN (VITAMIN B-12) 100 MCG TABLET PO SCH (11:29)
[2021-06-24] MEDS ORDERED: ACETAMINOPHEN 1000 MG/100 ML VIAL IVPB ONE (13:30)
[2021-06-24] MEDS: ACETAMINOPHEN 325 MG TABLET (FP) PO PRN ×2 (13:37→21:02)
[2021-06-24] MEDS: ATORVASTATIN CA 40 MG TABLET (FP) PO SCH (21:02)
[2021-06-25] MEDS: ACETAMINOPHEN 325 MG TABLET (FP) PO PRN (04:00)
[2021-06-25 07:07] LABS: HEMOGLOBIN 14.1 GM/dL (10.7-15.3); MCH 29.4 pg (25.7-33.7); MCHC 32.8 g/dl (32.0-36.0); MEAN CELL VOLUME 89.7 fl (80-96); PLATELET COUNT 199 10^3/uL (134-434); RDW 15.4 % (11.6-15.6); WHITE BLOOD COUNT 6.3 K/mm3 (4.0-10.0)
[2021-06-25 07:29] LABS: CALCIUM 9.6 mg/dL (8.5-10.1); MAGNESIUM 2.4 mg/dL (1.8-2.4)
[2021-06-25 07:31] LABS: BLOOD UREA NITROGEN 17.3 mg/dL (7-18)
[2021-06-25 07:34] LABS: CREATININE 0.7 mg/dL (0.55-1.3); PHOSPHOROUS 4.8 mg/dL (2.5-4.9)
[2021-06-25] MEDS ORDERED: NICOTINE 14 MG/24 HOURS TOPICAL PATCH TD SCH (10:39)
[2021-06-25] MEDS ORDERED: PT OWN MED DRAWER 7, Y5N ONE (11:04)
[2021-06-25] MEDS: CLOPIDOGREL BISULFATE 75 MG TABLET (FP) PO SCH (11:24)
[2021-06-25] MEDS: ASPIRIN COATED 81 MG TABLET.EC PO SCH (11:24)
[2021-06-25] MEDS: THIAMINE HCL 100 MG TABLET (FP) PO SCH (11:24)
[2021-06-25] MEDS: BUPRENORPHINE/NALOXONE 8 MG/2 MG FILM PACKET SL SCH (11:24)
[2021-06-25] MEDS: CYANOCOBALAMIN (VITAMIN B-12) 100 MCG TABLET PO SCH (11:24)
[2021-06-25] MEDS: NICOTINE 21 MG/24 HOURS TOPICAL PATCH TD SCH (11:25)
[2021-06-25] MEDS: ENOXAPARIN NA (PORCINE) 40 MG/0.4 ML DISP.SYRIN SQ SCH (11:25)
[2021-06-25] MEDS: FOLIC ACID 1 MG TABLET (FP) PO SCH (11:25)
[2021-06-25] MEDS: NICOTINE 14 MG/24 HOURS TOPICAL PATCH TD SCH (11:26)
[2021-06-25] MEDS: ATORVASTATIN CA 40 MG TABLET (FP) PO SCH (21:33)
[2021-06-25] MEDS ORDERED: diphenhydrAMINE HCL 25 MG CAPSULE (FP) PO ONE (21:51)
[2021-06-25] MEDS ORDERED: clonazePAM 0.5 MG TABLET PO ONE (21:59)
[2021-06-26] MEDS: ENOXAPARIN NA (PORCINE) 40 MG/0.4 ML DISP.SYRIN SQ SCH (10:08)
[2021-06-26] MEDS: ASPIRIN COATED 81 MG TABLET.EC PO SCH (10:08)
[2021-06-26] MEDS: CLOPIDOGREL BISULFATE 75 MG TABLET (FP) PO SCH (10:08)
[2021-06-26] MEDS: THIAMINE HCL 100 MG TABLET (FP) PO SCH (10:08)
[2021-06-26] MEDS: BUPRENORPHINE/NALOXONE 8 MG/2 MG FILM PACKET SL SCH (10:09)
[2021-06-26] MEDS: NICOTINE 21 MG/24 HOURS TOPICAL PATCH TD SCH (10:09)
[2021-06-26] MEDS: FOLIC ACID 1 MG TABLET (FP) PO SCH (10:09)
[2021-06-26] MEDS ORDERED: PT OWN MED DRAWER 7, Y5N ONE (10:21)
[2021-06-26] MEDS: CYANOCOBALAMIN (VITAMIN B-12) 100 MCG TABLET PO SCH (10:45)
[2021-06-26] MEDS ORDERED: NICOTINE 10 MG CARTRIDGE (INHALER) IH PRN (11:32)
[2021-06-26] MEDS: NICOTINE POLACRILEX 2 MG GUM BUC PRN (20:08)
[2021-06-26] MEDS ORDERED: clonazePAM 0.5 MG TABLET PO ONE (20:45)
[2021-06-26] MEDS: ATORVASTATIN CA 40 MG TABLET (FP) PO SCH (21:48)
[2021-06-27] MEDS: NICOTINE POLACRILEX 2 MG GUM BUC PRN ×3 (03:45→14:03)
[2021-06-27] MEDS: NICOTINE 21 MG/24 HOURS TOPICAL PATCH TD SCH (10:25)
[2021-06-27] MEDS: BUPRENORPHINE/NALOXONE 8 MG/2 MG FILM PACKET SL SCH (10:25)
[2021-06-27] MEDS: ENOXAPARIN NA (PORCINE) 40 MG/0.4 ML DISP.SYRIN SQ SCH (10:25)
[2021-06-27] MEDS: FOLIC ACID 1 MG TABLET (FP) PO SCH (10:26)
[2021-06-27] MEDS: THIAMINE HCL 100 MG TABLET (FP) PO SCH (10:26)
[2021-06-27] MEDS: CLOPIDOGREL BISULFATE 75 MG TABLET (FP) PO SCH (10:26)
[2021-06-27] MEDS: ASPIRIN COATED 81 MG TABLET.EC PO SCH (10:26)
[2021-06-27] MEDS: CYANOCOBALAMIN (VITAMIN B-12) 100 MCG TABLET PO SCH (10:27)
[2021-06-27] MEDS: ATORVASTATIN CA 40 MG TABLET (FP) PO SCH (21:07)
[2021-06-27] MEDS ORDERED: clonazePAM 0.5 MG TABLET PO ONE (23:27)
[2021-06-28 07:23] LABS: HEMATOCRIT 41.5 % (32.4-45.2); HEMOGLOBIN 13.6 GM/dL (10.7-15.3); MCH 28.7 pg (25.7-33.7); MCHC 32.8 g/dl (32.0-36.0); MEAN CELL VOLUME 87.7 fl (80-96); MEAN PLT VOLUME 8.8 fl (7.5-11.1); PLATELET COUNT 221 10^3/uL (134-434); RBC 4.73 M/mm3 (3.60-5.2); RDW 15.1 % (11.6-15.6); WHITE BLOOD COUNT 7.9 K/mm3 (4.0-10.0)
[2021-06-28 07:28] LABS: CALCIUM 9.8 mg/dL (8.5-10.1)
[2021-06-28 07:29] LABS: BLOOD UREA NITROGEN 21.1 mg/dL (7-18); MAGNESIUM 2.2 mg/dL (1.8-2.4)
[2021-06-28 07:32] LABS: CREATININE 0.8 mg/dL (0.55-1.3)
[2021-06-28] MEDS: FOLIC ACID 1 MG TABLET (FP) PO SCH (09:09)
[2021-06-28] MEDS: THIAMINE HCL 100 MG TABLET (FP) PO SCH (09:09)
[2021-06-28] MEDS: ASPIRIN COATED 81 MG TABLET.EC PO SCH (09:09)
[2021-06-28] MEDS: CLOPIDOGREL BISULFATE 75 MG TABLET (FP) PO SCH (09:09)
[2021-06-28] MEDS: NICOTINE 21 MG/24 HOURS TOPICAL PATCH TD SCH (09:10)
[2021-06-28] MEDS: CYANOCOBALAMIN (VITAMIN B-12) 100 MCG TABLET PO SCH (09:11)
[2021-06-28] MEDS: ENOXAPARIN NA (PORCINE) 40 MG/0.4 ML DISP.SYRIN SQ SCH (10:00)
[2021-06-28] MEDS: BUPRENORPHINE/NALOXONE 8 MG/2 MG FILM PACKET SL SCH (10:00)
[2021-06-28] MEDS: NICOTINE POLACRILEX 2 MG GUM BUC PRN ×2 (10:47→18:22)
[2021-06-28] MEDS ORDERED: clonazePAM 0.5 MG TABLET PO ONE (21:26)
[2021-06-28] MEDS: ATORVASTATIN CA 40 MG TABLET (FP) PO SCH (21:46)
[2021-06-29] MEDS ORDERED: PT OWN MED DRAWER 7, Y5N ONE ×5 (05:33→18:43)
[2021-06-29] MEDS: NICOTINE POLACRILEX 2 MG GUM BUC PRN ×4 (05:34→18:42)
[2021-06-29 07:58] LABS: BLOOD UREA NITROGEN 20.5 mg/dL (7-18); CALCIUM 9.8 mg/dL (8.5-10.1)
[2021-06-29 07:59] LABS: MAGNESIUM 2.2 mg/dL (1.8-2.4)
[2021-06-29 08:01] LABS: PHOSPHOROUS 4.6 mg/dL (2.5-4.9)
[2021-06-29 08:02] LABS: CREATININE 0.8 mg/dL (0.55-1.3)
[2021-06-29] MEDS: FOLIC ACID 1 MG TABLET (FP) PO SCH (10:34)
[2021-06-29] MEDS: ASPIRIN COATED 81 MG TABLET.EC PO SCH (10:34)
[2021-06-29] MEDS: BUPRENORPHINE/NALOXONE 8 MG/2 MG FILM PACKET SL SCH (10:35)
[2021-06-29] MEDS: CYANOCOBALAMIN (VITAMIN B-12) 100 MCG TABLET PO SCH (10:35)
[2021-06-29] MEDS: ENOXAPARIN NA (PORCINE) 40 MG/0.4 ML DISP.SYRIN SQ SCH (10:35)
[2021-06-29] MEDS: NICOTINE 21 MG/24 HOURS TOPICAL PATCH TD SCH (10:35)
[2021-06-29] MEDS: THIAMINE HCL 100 MG TABLET (FP) PO SCH (10:35)
[2021-06-29] MEDS: CLOPIDOGREL BISULFATE 75 MG TABLET (FP) PO SCH (10:35)
[2021-06-29] MEDS: ATORVASTATIN CA 40 MG TABLET (FP) PO SCH (21:20)
[2021-06-29 23:14] VITALS: BP 117/79; PULSE 87; TEMP 97.6
== END 2021-06-29 21:30 | disposition short-term general hospital (02) | DRG 311 ==
LOC: JER 13:53 → JERBED 17:54 → J4W 06-21 02:41
PROVIDERS: ADMIT Internal Medicine; ATTEND Internal Medicine
DX: I24.8 Other forms of acute ischemic heart disease (principal); F10.239 Alcohol dependence with withdrawal, unspecified; F13.239 Sedative, hypnotic or anxiolytic dependence with withdrawal, unspecified; F11.23 Opioid dependence with withdrawal; I25.10 Atherosclerotic heart disease of native coronary artery without angina pectoris; E05.90 Thyrotoxicosis, unspecified without thyrotoxic crisis or storm; F17.210 Nicotine dependence, cigarettes, uncomplicated; F39 Unspecified mood [affective] disorder; E78.5 Hyperlipidemia, unspecified; F41.8 Other specified anxiety disorders
CPT/HCPCS: 36415; 70450-TC; 71046-TC-FY; 76937; 78452-TC; 80048; 80053; 80307; 82550; 83735; 83880; 84100; 84439; 84443; 84484; 85025; 85027; 93005; 93010; 93017; 93306-TC; 99285-25; A9502; C9803; J2785; U0003; U0005

== ENCOUNTER 2021-07-13 17:03 | Emergency (ER) | payer OTHER ==
[2021-07-13 17:47] VITALS: BP 146/81; PULSE 129; TEMP 98.3; BMI 28.3
== END 2021-07-13 17:45 | disposition left against medical advice (07) ==
LOC: JER 17:03
DX: R07.9 Chest pain, unspecified (principal)
CPT/HCPCS: 93005; 93010; 99283-25

== ENCOUNTER 2021-08-18 14:29 | Inpatient (IN) | payer OTHER ==
[2021-08-18 15:49] VITALS: BMI 29.5
[2021-08-18] MEDS ORDERED: hydrOXYzine PAMOATE 25 MG CAPSULE (FP) PO PRN (17:47)
[2021-08-18] MEDS ORDERED: MAGNESIUM CITRATE 300 ML BOTTLE PO PRN (17:47)
[2021-08-18] MEDS ORDERED: ONDANSETRON *ODT* 4 MG TABLET SL PRN (17:47)
[2021-08-18] MEDS ORDERED: MELATONIN 5 MG TABLETS PO PRN (17:47)
[2021-08-18] MEDS ORDERED: MENTHOL/PHENOL 1 EACH UD MM PRN (17:47)
[2021-08-18] MEDS ORDERED: IBUPROFEN 400 MG TABLET (FP) PO PRN (17:47)
[2021-08-18] MEDS ORDERED: MAGNESIUM HYDROX 2400MG/30ML ORAL SUSPENSION 30 ML CUP PO PRN (17:47)
[2021-08-18] MEDS ORDERED: ACETAMINOPHEN 325 MG TABLET (FP) PO PRN ×2 (17:47)
[2021-08-18] MEDS ORDERED: MAG HYDROX/AL HYDROX/SIMETH 30 ML UNIT-DOSE CUP PO PRN (17:47)
[2021-08-18] MEDS ORDERED: BISMUTH SUBSALICYLATE 524 MG/30 ML PO PRN (17:47)
[2021-08-18] MEDS ORDERED: LORazepam 2 MG TABLET PO ONE (17:51)
[2021-08-18] MEDS ORDERED: TRIMETHOBENZAMIDE HCL 200MG/2ML INJ IM PRN (18:23)
[2021-08-18] MEDS ORDERED: chlordiazePOXIDE HCL 25 MG CAPSULE PO PRN (18:24)
[2021-08-18] MEDS: METHOCARBAMOL 500 MG TABLET PO PRN (19:22)
[2021-08-18] MEDS ORDERED: NICOTINE POLACRILEX 2 MG GUM BC PRN (20:07)
[2021-08-18] MEDS ORDERED: NICOTINE 14 MG/24 HOURS TOPICAL PATCH TD SCH (20:15)
[2021-08-18] MEDS ORDERED: THIAMINE HCL 100 MG TABLET (FP) PO SCH (22:00)
[2021-08-18] MEDS: chlordiazePOXIDE HCL 25 MG CAPSULE PO SCH (23:06)
[2021-08-19] MEDS: chlordiazePOXIDE HCL 25 MG CAPSULE PO SCH ×2 (06:16→10:14)
[2021-08-19] MEDS: METHOCARBAMOL 500 MG TABLET PO PRN (06:47)
[2021-08-19] MEDS ORDERED: NICOTINE POLACRILEX 2 MG GUM BUC PRN (09:23)
[2021-08-19] MEDS ORDERED: NICOTINE 10 MG CARTRIDGE (INHALER) IH PRN (09:23)
[2021-08-19] MEDS ORDERED: PRENATAL VITAMINS W/ FOLIC ACID TABLET (FP) PO SCH (10:00)
[2021-08-19] MEDS ORDERED: NICOTINE 21 MG/24 HOURS TOPICAL PATCH TD SCH (10:00)
[2021-08-19] MEDS ORDERED: BUPRENORPHINE/NALOXONE 8 MG/2 MG FILM PACKET SL SCH (10:00)
[2021-08-19 13:19] VITALS: BP 117/66; PULSE 104; TEMP 95.1
[2021-08-20] MEDS ORDERED: chlordiazePOXIDE HCL 25 MG CAPSULE PO SCH (05:00)
[2021-08-21] MEDS ORDERED: chlordiazePOXIDE HCL 10 MG CAPSULE PO PRN
[2021-08-21] MEDS ORDERED: chlordiazePOXIDE HCL 10 MG CAPSULE PO SCH (05:00)
[2021-08-22] MEDS ORDERED: chlordiazePOXIDE HCL 10 MG CAPSULE PO SCH (05:00)
[2021-08-23] MEDS ORDERED: chlordiazePOXIDE HCL 10 MG CAPSULE PO ONE (05:00)
== END 2021-08-19 13:07 | disposition left against medical advice (07) | DRG 894 ==
LOC: YASAS 14:29 → Y6N 18:13
PROVIDERS: ADMIT Allergy & Immunology; ATTEND Allergy & Immunology
PROC: HZ2ZZZZ Detoxification Services for Substance Abuse Treatment (ICD-10-PCS; principal; 2021-08-18)
DX: F10.230 Alcohol dependence with withdrawal, uncomplicated (principal); F10.220 Alcohol dependence with intoxication, uncomplicated; F17.210 Nicotine dependence, cigarettes, uncomplicated; E78.5 Hyperlipidemia, unspecified; E05.90 Thyrotoxicosis, unspecified without thyrotoxic crisis or storm; Z86.79 Personal history of other diseases of the circulatory system
CPT/HCPCS: 81025; C9803; U0003; U0005

== ENCOUNTER 2021-08-21 11:42 | Inpatient (IN) | payer OTHER ==
[~2021-08-21 11:42] MED LIST: chlordiazePOXIDE HCL 25 MG CAPSULE PO SCH
[2021-08-21] MEDS ORDERED: IBUPROFEN 400 MG TABLET (FP) PO PRN (12:07)
[2021-08-21] MEDS ORDERED: MENTHOL/PHENOL 1 EACH UD MM PRN (12:07)
[2021-08-21] MEDS ORDERED: BISMUTH SUBSALICYLATE 262 MG/15 ML BTL PO PRN (12:07)
[2021-08-21] MEDS ORDERED: ACETAMINOPHEN 325 MG TABLET (FP) PO PRN ×2 (12:07)
[2021-08-21] MEDS ORDERED: ONDANSETRON *ODT* 4 MG TABLET SL PRN (12:07)
[2021-08-21] MEDS ORDERED: METHOCARBAMOL 500 MG TABLET PO PRN (12:07)
[2021-08-21] MEDS ORDERED: MAGNESIUM HYDROX 2400MG/30ML ORAL SUSPENSION 30 ML CUP PO PRN (12:07)
[2021-08-21] MEDS ORDERED: MAGNESIUM CITRATE 300 ML BOTTLE PO PRN (12:07)
[2021-08-21] MEDS ORDERED: MAG HYDROX/AL HYDROX/SIMETH 30 ML UNIT-DOSE CUP PO PRN (12:07)
[2021-08-21] MEDS ORDERED: NICOTINE 10 MG CARTRIDGE (INHALER) IH PRN (12:07)
[2021-08-21] MEDS ORDERED: chlordiazePOXIDE HCL 25 MG CAPSULE PO PRN (12:07)
[2021-08-21] MEDS ORDERED: PRENATAL VITAMINS W/ FOLIC ACID TABLET (FP) PO SCH (12:15)
[2021-08-21 12:39] VITALS: BMI 29.9
[2021-08-21 13:04] VITALS: BP 118/70; PULSE 116; TEMP 96.8
[2021-08-21] MEDS ORDERED: NICOTINE 14 MG/24 HOURS TOPICAL PATCH TD SCH (13:45)
[2021-08-21] MEDS ORDERED: hydrOXYzine PAMOATE 25 MG CAPSULE (FP) PO SCH (14:00)
[2021-08-21 16:56] LABS: BLOOD UREA NITROGEN 12.1 mg/dL (7-18); CALCIUM 9.3 mg/dL (8.5-10.1)
[2021-08-21 16:59] LABS: CREATININE 0.8 mg/dL (0.55-1.3)
[2021-08-21 17:01] LABS: BILIRUBIN,TOTAL 0.3 mg/dL (0.2-1); TOT PROT 7.7 g/dl (6.4-8.2)
[2021-08-21 17:04] LABS: HEMATOCRIT 43.3 % (32.4-45.2); HEMOGLOBIN 13.9 GM/dL (10.7-15.3); MCH 28.4 pg (25.7-33.7); MCHC 32.1 g/dl (32.0-36.0); MEAN CELL VOLUME 88.6 fl (80-96); MEAN PLT VOLUME 9.4 fl (7.5-11.1); PLATELET COUNT 310 10^3/uL (134-434); RBC 4.89 M/mm3 (3.60-5.2); RDW 15.2 % (11.6-15.6); WHITE BLOOD COUNT 12.1 K/mm3 (4.0-10.0)
[2021-08-21] MEDS ORDERED: MELATONIN 5 MG TABLETS PO SCH (22:00)
[2021-08-21] MEDS ORDERED: THIAMINE HCL 100 MG TABLET (FP) PO SCH (22:00)
[2021-08-22] MEDS ORDERED: NICOTINE 14 MG/24 HOURS TOPICAL PATCH TD SCH (10:00)
[2021-08-23] MEDS ORDERED: chlordiazePOXIDE HCL 25 MG CAPSULE PO SCH (05:00)
[2021-08-24] MEDS ORDERED: chlordiazePOXIDE HCL 10 MG CAPSULE PO PRN
[2021-08-24] MEDS ORDERED: chlordiazePOXIDE HCL 10 MG CAPSULE PO SCH (05:00)
[2021-08-25] MEDS ORDERED: chlordiazePOXIDE HCL 10 MG CAPSULE PO SCH (05:00)
[2021-08-26] MEDS ORDERED: chlordiazePOXIDE HCL 10 MG CAPSULE PO ONE (05:00)
== END 2021-08-21 13:33 | disposition left against medical advice (07) | DRG 894 ==
LOC: YASAS 11:42 → Y3N 12:25
PROVIDERS: ADMIT Allergy & Immunology; ATTEND Allergy & Immunology
PROC: HZ2ZZZZ Detoxification Services for Substance Abuse Treatment (ICD-10-PCS; principal; 2021-08-21)
DX: F10.230 Alcohol dependence with withdrawal, uncomplicated (principal); F11.20 Opioid dependence, uncomplicated; F17.210 Nicotine dependence, cigarettes, uncomplicated; Z51.81 Encounter for therapeutic drug level monitoring; Z79.899 Other long term (current) drug therapy
CPT/HCPCS: 36415; 80053; 85027; 86780

== ENCOUNTER 2021-08-26 16:23 | Inpatient (IN) | payer OTHER ==
[2021-08-26] MEDS ORDERED: METOPROLOL TARTRATE 50 MG TABLET (FP) PO ONE (17:38)
[2021-08-26] MEDS ORDERED: LORazepam 2 MG/ML SDV VIAL IM ONE (17:38)
[2021-08-26] MEDS ORDERED: BISMUTH SUBSALICYLATE 524 MG/30 ML PO PRN (17:47)
[2021-08-26] MEDS ORDERED: ACETAMINOPHEN 325 MG TABLET (FP) PO PRN ×2 (17:47)
[2021-08-26] MEDS ORDERED: LOPERAMIDE HCL 2 MG CAPSULE PO PRN (17:47)
[2021-08-26] MEDS ORDERED: MAGNESIUM CITRATE 300 ML BOTTLE PO PRN (17:47)
[2021-08-26] MEDS ORDERED: ONDANSETRON *ODT* 4 MG TABLET SL PRN (17:47)
[2021-08-26] MEDS ORDERED: MAGNESIUM HYDROX 2400MG/30ML ORAL SUSPENSION 30 ML CUP PO PRN (17:47)
[2021-08-26] MEDS ORDERED: MAG HYDROX/AL HYDROX/SIMETH 30 ML UNIT-DOSE CUP PO PRN (17:47)
[2021-08-26] MEDS ORDERED: IBUPROFEN 400 MG TABLET (FP) PO PRN (17:47)
[2021-08-26] MEDS ORDERED: chlordiazePOXIDE HCL 25 MG CAPSULE PO ONE (18:17)
[2021-08-26 19:59] VITALS: BMI 30.4
[2021-08-26] MEDS: NICOTINE 10 MG CARTRIDGE (INHALER) IH PRN (22:55)
[2021-08-26] MEDS: MELATONIN 5 MG TABLETS PO PRN (22:56)
[2021-08-26] MEDS: chlordiazePOXIDE HCL 25 MG CAPSULE PO SCH (22:56)
[2021-08-26] MEDS: THIAMINE HCL 100 MG TABLET (FP) PO SCH (22:56)
[2021-08-27] MEDS: chlordiazePOXIDE HCL 25 MG CAPSULE PO PRN ×3 (04:15→20:42)
[2021-08-27] MEDS: METHOCARBAMOL 500 MG TABLET PO PRN (04:37)
[2021-08-27] MEDS: chlordiazePOXIDE HCL 25 MG CAPSULE PO SCH ×4 (06:36→22:25)
[2021-08-27] MEDS: NICOTINE 10 MG CARTRIDGE (INHALER) IH PRN ×3 (07:07→17:40)
[2021-08-27] MEDS: hydrOXYzine PAMOATE 25 MG CAPSULE (FP) PO PRN ×3 (09:10→23:26)
[2021-08-27] MEDS ORDERED: NICOTINE 7 MG/24 HOURS TOPICAL PATCH TD SCH (10:00)
[2021-08-27] MEDS: PRENATAL VITAMINS W/ FOLIC ACID TABLET (FP) PO SCH (10:01)
[2021-08-27] MEDS: NICOTINE 21 MG/24 HOURS TOPICAL PATCH TD SCH (11:30)
[2021-08-27] MEDS: BUPRENORPHINE/NALOXONE 8 MG/2 MG FILM PACKET SL SCH (11:58)
[2021-08-27] MEDS: THIAMINE HCL 100 MG TABLET (FP) PO SCH (22:25)
[2021-08-28] MEDS: chlordiazePOXIDE HCL 25 MG CAPSULE PO PRN ×2 (02:07→08:47)
[2021-08-28] MEDS: METHOCARBAMOL 500 MG TABLET PO PRN (02:08)
[2021-08-28] MEDS: chlordiazePOXIDE HCL 25 MG CAPSULE PO SCH ×4 (05:41→22:53)
[2021-08-28] MEDS: hydrOXYzine PAMOATE 25 MG CAPSULE (FP) PO PRN (05:44)
[2021-08-28 06:06] LABS: SARS-CoV-2 NAA Not Detected (Not Detected)
[2021-08-28] MEDS: NICOTINE 10 MG CARTRIDGE (INHALER) IH PRN ×2 (06:23→22:57)
[2021-08-28] MEDS: VENLAFAXINE HCL 75 MG E.R. CAPSULES PO SCH (10:14)
[2021-08-28] MEDS: NICOTINE 21 MG/24 HOURS TOPICAL PATCH TD SCH (10:15)
[2021-08-28] MEDS: BUPRENORPHINE/NALOXONE 8 MG/2 MG FILM PACKET SL SCH (10:15)
[2021-08-28] MEDS: PRENATAL VITAMINS W/ FOLIC ACID TABLET (FP) PO SCH (10:16)
[2021-08-28] MEDS: MENTHOL/PHENOL 1 EACH UD MM PRN (17:29)
[2021-08-28] MEDS: MELATONIN 5 MG TABLETS PO PRN (22:53)
[2021-08-28] MEDS: THIAMINE HCL 100 MG TABLET (FP) PO SCH (22:53)
[2021-08-29] MEDS ORDERED: chlordiazePOXIDE HCL 10 MG CAPSULE PO PRN
[2021-08-29] MEDS: MENTHOL/PHENOL 1 EACH UD MM PRN (04:15)
[2021-08-29] MEDS: chlordiazePOXIDE HCL 10 MG CAPSULE PO SCH ×4 (05:39→22:57)
[2021-08-29] MEDS: hydrOXYzine PAMOATE 25 MG CAPSULE (FP) PO PRN ×2 (05:42→16:03)
[2021-08-29] MEDS: NICOTINE 10 MG CARTRIDGE (INHALER) IH PRN ×2 (06:00→09:11)
[2021-08-29] MEDS: VENLAFAXINE HCL 75 MG E.R. CAPSULES PO SCH (10:11)
[2021-08-29] MEDS: PRENATAL VITAMINS W/ FOLIC ACID TABLET (FP) PO SCH (10:11)
[2021-08-29] MEDS: NICOTINE 21 MG/24 HOURS TOPICAL PATCH TD SCH (10:13)
[2021-08-29] MEDS: BUPRENORPHINE/NALOXONE 8 MG/2 MG FILM PACKET SL SCH (10:14)
[2021-08-29] MEDS: THIAMINE HCL 100 MG TABLET (FP) PO SCH (22:57)
[2021-08-30] MEDS: chlordiazePOXIDE HCL 10 MG CAPSULE PO SCH ×2 (04:57→17:35)
[2021-08-30] MEDS: NICOTINE 10 MG CARTRIDGE (INHALER) IH PRN ×3 (05:05→22:09)
[2021-08-30] MEDS: hydrOXYzine PAMOATE 25 MG CAPSULE (FP) PO PRN ×3 (05:36→22:04)
[2021-08-30] MEDS: BUPRENORPHINE/NALOXONE 8 MG/2 MG FILM PACKET SL SCH (10:17)
[2021-08-30] MEDS: PRENATAL VITAMINS W/ FOLIC ACID TABLET (FP) PO SCH (10:20)
[2021-08-30] MEDS: NICOTINE 21 MG/24 HOURS TOPICAL PATCH TD SCH (11:03)
[2021-08-30] MEDS: VENLAFAXINE HCL 75 MG E.R. CAPSULES PO SCH (11:04)
[2021-08-30] MEDS: THIAMINE HCL 100 MG TABLET (FP) PO SCH (22:03)
[2021-08-30] MEDS: MENTHOL/PHENOL 1 EACH UD MM PRN (22:08)
[2021-08-31] MEDS ORDERED: chlordiazePOXIDE HCL 10 MG CAPSULE PO ONE (05:00)
[2021-08-31] MEDS: MENTHOL/PHENOL 1 EACH UD MM PRN (05:54)
[2021-08-31 09:11] VITALS: BP 123/77; PULSE 96; TEMP 98.3
== END 2021-08-31 09:55 | disposition home or self-care (01) | DRG 897 ==
LOC: YASAS 16:23 → Y3N 22:34
PROVIDERS: ADMIT Allergy & Immunology; ATTEND Allergy & Immunology
PROC: HZ2ZZZZ Detoxification Services for Substance Abuse Treatment (ICD-10-PCS; principal; 2021-08-26)
DX: F10.230 Alcohol dependence with withdrawal, uncomplicated (principal); F11.20 Opioid dependence, uncomplicated; F17.210 Nicotine dependence, cigarettes, uncomplicated; F19.24 Other psychoactive substance dependence with psychoactive substance-induced mood disorder; E78.00 Pure hypercholesterolemia, unspecified; E05.90 Thyrotoxicosis, unspecified without thyrotoxic crisis or storm; G47.00 Insomnia, unspecified; Z86.79 Personal history of other diseases of the circulatory system; Z91.14 Patient's other noncompliance with medication regimen; Z56.0 Unemployment, unspecified
CPT/HCPCS: C9803; U0003; U0005

== ENCOUNTER 2021-10-06 17:36 | Inpatient (IN) | payer OTHER ==
[2021-10-06 20:46] VITALS: BMI 29.5
[2021-10-06] MEDS ORDERED: MENTHOL/PHENOL 1 EACH UD MM PRN (20:52)
[2021-10-06] MEDS ORDERED: BISMUTH SUBSALICYLATE 524 MG/30 ML PO PRN (20:52)
[2021-10-06] MEDS ORDERED: LOPERAMIDE HCL 2 MG CAPSULE PO PRN (20:52)
[2021-10-06] MEDS ORDERED: chlordiazePOXIDE HCL 25 MG CAPSULE PO PRN (20:52)
[2021-10-06] MEDS ORDERED: ACETAMINOPHEN 325 MG TABLET (FP) PO PRN (20:52)
[2021-10-06] MEDS ORDERED: MAG HYDROX/AL HYDROX/SIMETH 30 ML UNIT-DOSE CUP PO PRN (20:52)
[2021-10-06] MEDS ORDERED: IBUPROFEN 400 MG TABLET (FP) PO PRN (20:52)
[2021-10-06] MEDS ORDERED: ONDANSETRON *ODT* 4 MG TABLET SL PRN (20:52)
[2021-10-06] MEDS ORDERED: MAGNESIUM HYDROX 2400MG/30ML ORAL SUSPENSION 30 ML CUP PO PRN (20:52)
[2021-10-06] MEDS ORDERED: MAGNESIUM CITRATE 300 ML BOTTLE PO PRN (20:52)
[2021-10-06] MEDS: METHOCARBAMOL 500 MG TABLET PO PRN (22:37)
[2021-10-06] MEDS: THIAMINE HCL 100 MG TABLET (FP) PO SCH (22:37)
[2021-10-06] MEDS: chlordiazePOXIDE HCL 25 MG CAPSULE PO SCH (22:38)
[2021-10-06] MEDS: MELATONIN 5 MG TABLETS PO SCH (22:41)
[2021-10-07] MEDS: chlordiazePOXIDE HCL 25 MG CAPSULE PO SCH ×4 (06:09→22:12)
[2021-10-07] MEDS: ACETAMINOPHEN 325 MG TABLET (FP) PO PRN (06:11)
[2021-10-07] MEDS: NICOTINE POLACRILEX 2 MG GUM BUC PRN (07:27)
[2021-10-07] MEDS: hydrOXYzine PAMOATE 25 MG CAPSULE (FP) PO PRN ×3 (09:31→22:11)
[2021-10-07] MEDS: PRENATAL VITAMINS W/ FOLIC ACID TABLET (FP) PO SCH (10:03)
[2021-10-07] MEDS: VENLAFAXINE HCL 75 MG E.R. CAPSULES PO SCH (10:04)
[2021-10-07] MEDS: METHOCARBAMOL 500 MG TABLET PO PRN ×2 (10:04→17:46)
[2021-10-07] MEDS: BUPRENORPHINE/NALOXONE 8 MG/2 MG FILM PACKET SL SCH (10:05)
[2021-10-07] MEDS: NICOTINE 21 MG/24 HOURS TOPICAL PATCH TD SCH (10:06)
[2021-10-07 10:28] LABS: HEMOGLOBIN 13.8 GM/dL (10.7-15.3); MCH 29.1 pg (25.7-33.7); MCHC 33.7 g/dl (32.0-36.0); MEAN CELL VOLUME 86.2 fl (80-96); MEAN PLT VOLUME 9.1 fl (7.5-11.1); PLATELET COUNT 218 10^3/uL (134-434); RBC 4.76 M/mm3 (3.60-5.2); WHITE BLOOD COUNT 9.4 K/mm3 (4.0-10.0)
[2021-10-07 11:27] LABS: ALBUMIN 3.8 g/dl (3.4-5.0); BILIRUBIN,TOTAL 0.6 mg/dL (0.2-1); BLOOD UREA NITROGEN 11.7 mg/dL (7-18); CALCIUM 9.2 mg/dL (8.5-10.1); CREATININE 0.8 mg/dL (0.55-1.3)
[2021-10-07] MEDS: NICOTINE 10 MG CARTRIDGE (INHALER) IH PRN (11:36)
[2021-10-07] MEDS ORDERED: SUVOREXANT 15 MG TABLET PO PRN (22:00)
[2021-10-07] MEDS: MELATONIN 5 MG TABLETS PO SCH (22:11)
[2021-10-07] MEDS: THIAMINE HCL 100 MG TABLET (FP) PO SCH (22:11)
[2021-10-08] MEDS: ACETAMINOPHEN 325 MG TABLET (FP) PO PRN (05:09)
[2021-10-08] MEDS: chlordiazePOXIDE HCL 25 MG CAPSULE PO SCH ×4 (05:10→22:05)
[2021-10-08] MEDS: hydrOXYzine PAMOATE 25 MG CAPSULE (FP) PO PRN ×4 (05:20→22:04)
[2021-10-08] MEDS: METHOCARBAMOL 500 MG TABLET PO PRN ×3 (05:20→22:07)
[2021-10-08 06:09] LABS: SARS-CoV-2 NAA Not Detected (Not Detected)
[2021-10-08] MEDS: NICOTINE 10 MG CARTRIDGE (INHALER) IH PRN (06:25)
[2021-10-08] MEDS: VENLAFAXINE HCL 75 MG E.R. CAPSULES PO SCH (10:09)
[2021-10-08] MEDS: BUPRENORPHINE/NALOXONE 8 MG/2 MG FILM PACKET SL SCH (10:09)
[2021-10-08] MEDS: PRENATAL VITAMINS W/ FOLIC ACID TABLET (FP) PO SCH (10:10)
[2021-10-08] MEDS: NICOTINE 21 MG/24 HOURS TOPICAL PATCH TD SCH (10:10)
[2021-10-08] MEDS: ASPIRIN 81 MG CHEWABLE TABLETS PO SCH (14:29)
[2021-10-08] MEDS: MELATONIN 5 MG TABLETS PO SCH (22:04)
[2021-10-08] MEDS: THIAMINE HCL 100 MG TABLET (FP) PO SCH (22:04)
[2021-10-09] MEDS ORDERED: chlordiazePOXIDE HCL 10 MG CAPSULE PO PRN
[2021-10-09] MEDS: chlordiazePOXIDE HCL 10 MG CAPSULE PO SCH ×4 (06:00→22:45)
[2021-10-09] MEDS: hydrOXYzine PAMOATE 25 MG CAPSULE (FP) PO PRN ×3 (06:02→22:45)
[2021-10-09] MEDS: METHOCARBAMOL 500 MG TABLET PO PRN ×2 (06:04→17:48)
[2021-10-09] MEDS: NICOTINE 10 MG CARTRIDGE (INHALER) IH PRN ×2 (06:11→17:49)
[2021-10-09] MEDS: ASPIRIN 81 MG CHEWABLE TABLETS PO SCH (10:05)
[2021-10-09] MEDS: PRENATAL VITAMINS W/ FOLIC ACID TABLET (FP) PO SCH (10:05)
[2021-10-09] MEDS: VENLAFAXINE HCL 75 MG E.R. CAPSULES PO SCH (10:05)
[2021-10-09] MEDS: NICOTINE 21 MG/24 HOURS TOPICAL PATCH TD SCH (10:06)
[2021-10-09] MEDS: BUPRENORPHINE/NALOXONE 8 MG/2 MG FILM PACKET SL SCH (10:06)
[2021-10-09] MEDS: NICOTINE POLACRILEX 2 MG GUM BUC PRN (10:19)
[2021-10-09] MEDS: THIAMINE HCL 100 MG TABLET (FP) PO SCH (22:45)
[2021-10-09] MEDS: MELATONIN 5 MG TABLETS PO SCH (22:47)
[2021-10-10] MEDS: chlordiazePOXIDE HCL 10 MG CAPSULE PO SCH ×2 (05:49→18:28)
[2021-10-10] MEDS: NICOTINE 10 MG CARTRIDGE (INHALER) IH PRN ×2 (06:17→09:29)
[2021-10-10] MEDS: NICOTINE POLACRILEX 2 MG GUM BUC PRN (08:56)
[2021-10-10] MEDS: hydrOXYzine PAMOATE 25 MG CAPSULE (FP) PO PRN ×2 (09:25→22:33)
[2021-10-10] MEDS: PRENATAL VITAMINS W/ FOLIC ACID TABLET (FP) PO SCH (09:25)
[2021-10-10] MEDS: BUPRENORPHINE/NALOXONE 8 MG/2 MG FILM PACKET SL SCH (09:26)
[2021-10-10] MEDS: NICOTINE 21 MG/24 HOURS TOPICAL PATCH TD SCH (09:26)
[2021-10-10] MEDS: ASPIRIN 81 MG CHEWABLE TABLETS PO SCH (09:26)
[2021-10-10] MEDS: VENLAFAXINE HCL 75 MG E.R. CAPSULES PO SCH (09:26)
[2021-10-10] MEDS: METHOCARBAMOL 500 MG TABLET PO PRN (18:28)
[2021-10-10] MEDS: MELATONIN 5 MG TABLETS PO SCH (22:32)
[2021-10-10] MEDS: THIAMINE HCL 100 MG TABLET (FP) PO SCH (22:33)
[2021-10-11] MEDS ORDERED: chlordiazePOXIDE HCL 10 MG CAPSULE PO ONE (05:00)
[2021-10-11] MEDS: ACETAMINOPHEN 325 MG TABLET (FP) PO PRN (05:45)
[2021-10-11] MEDS: NICOTINE 10 MG CARTRIDGE (INHALER) IH PRN (05:45)
[2021-10-11 10:18] VITALS: BP 118/72; PULSE 102; TEMP 97.9
[2021-10-11] MEDS ORDERED: NALOXONE (NARCAN) HCL 4 MG/0.1 ML SPRAY NS ONE (10:44)
== END 2021-10-11 09:07 | disposition home or self-care (01) | DRG 897 ==
LOC: YASAS 17:36 → Y6N 20:59
PROVIDERS: ADMIT Allergy & Immunology; ATTEND Allergy & Immunology
PROC: HZ2ZZZZ Detoxification Services for Substance Abuse Treatment (ICD-10-PCS; principal; 2021-10-06)
DX: F10.230 Alcohol dependence with withdrawal, uncomplicated (principal); F11.20 Opioid dependence, uncomplicated; F33.1 Major depressive disorder, recurrent, moderate; F17.210 Nicotine dependence, cigarettes, uncomplicated; F41.9 Anxiety disorder, unspecified; E78.5 Hyperlipidemia, unspecified; E05.90 Thyrotoxicosis, unspecified without thyrotoxic crisis or storm; G47.00 Insomnia, unspecified; M54.50 Low back pain, unspecified; G89.29 Other chronic pain; Z56.0 Unemployment, unspecified
CPT/HCPCS: 36415; 80053; 85027; 86780; 87811; 93005; 93010; C9803-CS; U0003; U0005

== ENCOUNTER 2021-10-29 18:06 | Inpatient (IN) | payer OTHER ==
[2021-10-29 20:21] VITALS: BMI 30.1
[2021-10-29] MEDS ORDERED: MAGNESIUM HYDROX 2400MG/30ML ORAL SUSPENSION 30 ML CUP PO PRN (21:08)
[2021-10-29] MEDS ORDERED: MELATONIN 5 MG TABLETS PO PRN (21:08)
[2021-10-29] MEDS ORDERED: MAG HYDROX/AL HYDROX/SIMETH 30 ML UNIT-DOSE CUP PO PRN (21:08)
[2021-10-29] MEDS ORDERED: LOPERAMIDE HCL 2 MG CAPSULE PO PRN (21:08)
[2021-10-29] MEDS ORDERED: MAGNESIUM CITRATE 300 ML BOTTLE PO PRN (21:08)
[2021-10-29] MEDS ORDERED: NICOTINE 10 MG CARTRIDGE (INHALER) IH PRN (21:08)
[2021-10-29] MEDS ORDERED: DICYCLOMINE HCL 10 MG CAPSULE PO PRN (21:08)
[2021-10-29] MEDS ORDERED: METHOCARBAMOL 500 MG TABLET PO PRN (21:08)
[2021-10-29] MEDS ORDERED: hydrOXYzine PAMOATE 25 MG CAPSULE (FP) PO PRN (21:08)
[2021-10-29] MEDS ORDERED: BISMUTH SUBSALICYLATE 524 MG/30 ML PO PRN (21:08)
[2021-10-29] MEDS ORDERED: BENZOCAINE/MENTHOL (CHLORASEPTIC ) LOZENGE MM PRN (21:08)
[2021-10-29] MEDS ORDERED: IBUPROFEN 400 MG TABLET (FP) PO PRN (21:08)
[2021-10-29] MEDS ORDERED: ONDANSETRON *ODT* 4 MG TABLET SL PRN (21:08)
[2021-10-29] MEDS ORDERED: ACETAMINOPHEN 325 MG TABLET (FP) PO PRN ×2 (21:08)
[2021-10-29] MEDS ORDERED: NICOTINE POLACRILEX 2 MG GUM BUC PRN (21:11)
[2021-10-29] MEDS ORDERED: LORazepam 1 MG TABLET PO PRN (21:12)
[2021-10-29] MEDS ORDERED: ATORVASTATIN CA 40 MG TABLET (FP) PO SCH (22:00)
[2021-10-29] MEDS ORDERED: THIAMINE HCL 100 MG TABLET (FP) PO SCH (22:00)
[2021-10-29] MEDS: LORazepam 1 MG TABLET PO SCH (23:26)
[2021-10-30 07:07] VITALS: TEMP 97.7
[2021-10-30 09:34] VITALS: BP 122/77; PULSE 105
[2021-10-30] MEDS ORDERED: VENLAFAXINE HCL 75 MG E.R. CAPSULES PO SCH (10:00)
[2021-10-30] MEDS ORDERED: ASPIRIN 81 MG CHEWABLE TABLETS PO SCH (10:00)
[2021-10-30] MEDS ORDERED: NICOTINE 14 MG/24 HOURS TOPICAL PATCH TD SCH (10:00)
[2021-10-30] MEDS ORDERED: BUPRENORPHINE/NALOXONE 8 MG/2 MG FILM PACKET SL SCH (10:00)
[2021-10-30] MEDS ORDERED: PRENATAL VITAMINS W/ FOLIC ACID TABLET (FP) PO SCH (10:00)
[2021-10-30] MEDS: LORazepam 1 MG TABLET PO SCH (10:12)
[2021-11-02] MEDS ORDERED: LORazepam 1 MG TABLET PO ONE (05:00)
== END 2021-10-30 12:25 | disposition home or self-care (01) | DRG 897 ==
LOC: YASAS 18:06 → Y6N 22:54
PROVIDERS: ADMIT Allergy & Immunology; ATTEND Allergy & Immunology
PROC: HZ2ZZZZ Detoxification Services for Substance Abuse Treatment (ICD-10-PCS; principal; 2021-10-29)
DX: F10.230 Alcohol dependence with withdrawal, uncomplicated (principal); F11.20 Opioid dependence, uncomplicated; F17.210 Nicotine dependence, cigarettes, uncomplicated; F10.280 Alcohol dependence with alcohol-induced anxiety disorder; F10.282 Alcohol dependence with alcohol-induced sleep disorder; F10.24 Alcohol dependence with alcohol-induced mood disorder; F32.A Depression, unspecified; F41.8 Other specified anxiety disorders; F19.24 Other psychoactive substance dependence with psychoactive substance-induced mood disorder; E78.5 Hyperlipidemia, unspecified; E03.9 Hypothyroidism, unspecified; M54.50 Low back pain, unspecified; G89.29 Other chronic pain; R77.8 Other specified abnormalities of plasma proteins; R79.89 Other specified abnormal findings of blood chemistry; Z91.012 Allergy to eggs; Z51.81 Encounter for therapeutic drug level monitoring; Z79.899 Other long term (current) drug therapy
CPT/HCPCS: 36415; 71045-TC-FY; 80048; 80053; 80307; 82010; 82962; 84439; 84443; 84484; 85025; 93005; 93010; 96372; 96374; 99285-25; C9803-CS; G0378; U0003; U0005

== ENCOUNTER 2021-11-12 21:41 | Inpatient (IN) | payer OTHER ==
[2021-11-12] MEDS ORDERED: NICOTINE 10 MG CARTRIDGE (INHALER) IH PRN (23:07)
[2021-11-12] MEDS ORDERED: ONDANSETRON *ODT* 4 MG TABLET SL PRN (23:07)
[2021-11-12] MEDS ORDERED: BISMUTH SUBSALICYLATE 524 MG/30 ML PO PRN (23:07)
[2021-11-12] MEDS ORDERED: IBUPROFEN 400 MG TABLET (FP) PO PRN (23:07)
[2021-11-12] MEDS ORDERED: LOPERAMIDE HCL 2 MG CAPSULE PO PRN (23:07)
[2021-11-12] MEDS ORDERED: DICYCLOMINE HCL 10 MG CAPSULE PO PRN (23:07)
[2021-11-12] MEDS ORDERED: MAGNESIUM HYDROX 2400MG/30ML ORAL SUSPENSION 30 ML CUP PO PRN (23:07)
[2021-11-12] MEDS ORDERED: METHOCARBAMOL 500 MG TABLET PO PRN (23:07)
[2021-11-12] MEDS ORDERED: MAG HYDROX/AL HYDROX/SIMETH 30 ML UNIT-DOSE CUP PO PRN (23:07)
[2021-11-12] MEDS ORDERED: MAGNESIUM CITRATE 300 ML BOTTLE PO PRN (23:07)
[2021-11-12] MEDS ORDERED: BENZOCAINE/MENTHOL (CHLORASEPTIC ) LOZENGE MM PRN (23:07)
[2021-11-12] MEDS ORDERED: ACETAMINOPHEN 325 MG TABLET (FP) PO PRN ×2 (23:07)
[2021-11-12 23:15] VITALS: BMI 28.0
[2021-11-13] MEDS: LORazepam 1 MG TABLET PO PRN ×2 (04:09→17:39)
[2021-11-13] MEDS: hydrOXYzine PAMOATE 25 MG CAPSULE (FP) PO SCH ×5 (05:37→22:28)
[2021-11-13] MEDS: BUPRENORPHINE/NALOXONE 8 MG/2 MG FILM PACKET SL SCH (10:14)
[2021-11-13] MEDS: NICOTINE 21 MG/24 HOURS TOPICAL PATCH TD SCH (10:14)
[2021-11-13] MEDS: ASPIRIN 81 MG CHEWABLE TABLETS PO SCH (10:14)
[2021-11-13] MEDS: PRENATAL VITAMINS W/ FOLIC ACID TABLET (FP) PO SCH (10:14)
[2021-11-13 13:56] LABS: HEMATOCRIT 42.8 % (32.4-45.2); HEMOGLOBIN 13.9 GM/dL (10.7-15.3); MCH 28.1 pg (25.7-33.7); MCHC 32.4 g/dl (32.0-36.0); MEAN CELL VOLUME 86.9 fl (80-96); MEAN PLT VOLUME 9.1 fl (7.5-11.1); PLATELET COUNT 263 10^3/uL (134-434); RBC 4.93 M/mm3 (3.60-5.2); RDW 15.5 % (11.6-15.6); WHITE BLOOD COUNT 7.3 K/mm3 (4.0-10.0)
[2021-11-13 14:35] LABS: ALBUMIN 3.7 g/dl (3.4-5.0)
[2021-11-13 14:36] LABS: CALCIUM 9.3 mg/dL (8.5-10.1)
[2021-11-13 14:39] LABS: BILIRUBIN,TOTAL 0.4 mg/dL (0.2-1); TOT PROT 7.2 g/dl (6.4-8.2)
[2021-11-13 14:44] LABS: BLOOD UREA NITROGEN 14.8 mg/dL (7-18); CREATININE 0.6 mg/dL (0.55-1.3)
[2021-11-13] MEDS: MELATONIN 5 MG TABLETS PO SCH (22:28)
[2021-11-13] MEDS: THIAMINE HCL 100 MG TABLET (FP) PO SCH (22:28)
[2021-11-13] MEDS: ATORVASTATIN CA 40 MG TABLET (FP) PO SCH (22:28)
[2021-11-13] MEDS: LORazepam 2 MG TABLET PO SCH (22:29)
[2021-11-14] MEDS: hydrOXYzine PAMOATE 25 MG CAPSULE (FP) PO SCH ×5 (06:10→22:49)
[2021-11-14] MEDS: LORazepam 2 MG TABLET PO SCH ×4 (06:10→22:49)
[2021-11-14] MEDS ORDERED: VENLAFAXINE HCL 75 MG E.R. CAPSULES PO SCH (10:00)
[2021-11-14] MEDS: ASPIRIN 81 MG CHEWABLE TABLETS PO SCH (10:13)
[2021-11-14] MEDS: PRENATAL VITAMINS W/ FOLIC ACID TABLET (FP) PO SCH (10:13)
[2021-11-14] MEDS: BUPRENORPHINE/NALOXONE 8 MG/2 MG FILM PACKET SL SCH (10:15)
[2021-11-14] MEDS: NICOTINE 21 MG/24 HOURS TOPICAL PATCH TD SCH (10:15)
[2021-11-14] MEDS ORDERED: BENZOCAINE/MENTHOL 1 EACH LOZENGE MM PRN (19:28)
[2021-11-14] MEDS: THIAMINE HCL 100 MG TABLET (FP) PO SCH (22:49)
[2021-11-14] MEDS: ATORVASTATIN CA 40 MG TABLET (FP) PO SCH (22:49)
[2021-11-14] MEDS: MELATONIN 5 MG TABLETS PO SCH (22:53)
[2021-11-15 00:08] LABS: SARS-CoV-2 NAA Not Detected (Not Detected)
[2021-11-15] MEDS ORDERED: LORazepam 1 MG TABLET PO SCH (05:00)
[2021-11-15] MEDS: hydrOXYzine PAMOATE 25 MG CAPSULE (FP) PO SCH (05:19)
[2021-11-15 09:35] VITALS: BP 128/69; PULSE 97; TEMP 96.9
[2021-11-15] MEDS ORDERED: VENLAFAXINE HCL 150 MG E.R. CAPSULE PO SCH (10:00)
[2021-11-16] MEDS ORDERED: LORazepam 0.5 MG TABLET PO PRN
[2021-11-16] MEDS ORDERED: LORazepam 0.5 MG TABLET PO SCH (05:00)
[2021-11-17] MEDS ORDERED: LORazepam 0.5 MG TABLET PO ONE (05:00)
== END 2021-11-15 11:32 | disposition left against medical advice (07) | DRG 894 ==
LOC: YASAS 21:41 → Y6N 23:30
PROVIDERS: ADMIT Allergy & Immunology; ATTEND Allergy & Immunology
PROC: HZ2ZZZZ Detoxification Services for Substance Abuse Treatment (ICD-10-PCS; principal; 2021-11-12)
DX: F10.230 Alcohol dependence with withdrawal, uncomplicated (principal); F17.210 Nicotine dependence, cigarettes, uncomplicated; F19.24 Other psychoactive substance dependence with psychoactive substance-induced mood disorder; F41.9 Anxiety disorder, unspecified; F32.A Depression, unspecified; E05.90 Thyrotoxicosis, unspecified without thyrotoxic crisis or storm; E78.00 Pure hypercholesterolemia, unspecified; M54.50 Low back pain, unspecified; G89.29 Other chronic pain; Z86.79 Personal history of other diseases of the circulatory system; Z91.012 Allergy to eggs; Z91.14 Patient's other noncompliance with medication regimen
CPT/HCPCS: 36415; 80053; 85027; 86780; C9803-CS; U0003; U0005

== ENCOUNTER 2021-11-24 18:21 | Inpatient (IN) | payer OTHER ==
[2021-11-24 18:56] VITALS: BMI 29.2
[2021-11-24] MEDS ORDERED: BENZOCAINE/MENTHOL (CHLORASEPTIC ) LOZENGE MM PRN (19:34)
[2021-11-24] MEDS ORDERED: DICYCLOMINE HCL 10 MG CAPSULE PO PRN (19:34)
[2021-11-24] MEDS ORDERED: MAGNESIUM HYDROX 2400MG/30ML ORAL SUSPENSION 30 ML CUP PO PRN (19:34)
[2021-11-24] MEDS ORDERED: ACETAMINOPHEN 325 MG TABLET (FP) PO PRN (19:34)
[2021-11-24] MEDS ORDERED: MAG HYDROX/AL HYDROX/SIMETH 30 ML UNIT-DOSE CUP PO PRN (19:34)
[2021-11-24] MEDS ORDERED: BISMUTH SUBSALICYLATE 524 MG/30 ML PO PRN (19:34)
[2021-11-24] MEDS ORDERED: IBUPROFEN 400 MG TABLET (FP) PO PRN (19:34)
[2021-11-24] MEDS ORDERED: NICOTINE 10 MG CARTRIDGE (INHALER) IH PRN (19:34)
[2021-11-24] MEDS ORDERED: ONDANSETRON *ODT* 4 MG TABLET SL PRN (19:34)
[2021-11-24] MEDS ORDERED: LOPERAMIDE HCL 2 MG CAPSULE PO PRN (19:34)
[2021-11-24] MEDS ORDERED: MAGNESIUM CITRATE 300 ML BOTTLE PO PRN (19:34)
[2021-11-24] MEDS: ACETAMINOPHEN 325 MG TABLET (FP) PO PRN (20:36)
[2021-11-24] MEDS ORDERED: THIAMINE HCL 100 MG TABLET (FP) PO SCH (22:00)
[2021-11-24] MEDS ORDERED: MELATONIN 5 MG TABLETS PO SCH (22:00)
[2021-11-24] MEDS: chlordiazePOXIDE HCL 25 MG CAPSULE PO SCH (23:12)
[2021-11-25] MEDS: METHOCARBAMOL 500 MG TABLET PO PRN ×2 (00:24→06:52)
[2021-11-25] MEDS: chlordiazePOXIDE HCL 25 MG CAPSULE PO PRN ×2 (00:24→06:52)
[2021-11-25] MEDS: chlordiazePOXIDE HCL 25 MG CAPSULE PO SCH ×2 (07:27→10:25)
[2021-11-25 09:49] LABS: HEMATOCRIT 40.9 % (32.4-45.2); HEMOGLOBIN 13.1 GM/dL (10.7-15.3); MCH 27.9 pg (25.7-33.7); MCHC 32.1 g/dl (32.0-36.0); MEAN CELL VOLUME 86.9 fl (80-96); MEAN PLT VOLUME 8.7 fl (7.5-11.1); PLATELET COUNT 314 10^3/uL (134-434); RBC 4.71 M/mm3 (3.60-5.2); RDW 15.4 % (11.6-15.6); WHITE BLOOD COUNT 8.3 K/mm3 (4.0-10.0)
[2021-11-25] MEDS ORDERED: NICOTINE 21 MG/24 HOURS TOPICAL PATCH TD SCH (10:00)
[2021-11-25] MEDS ORDERED: PRENATAL VITAMINS W/ FOLIC ACID TABLET (FP) PO SCH (10:00)
[2021-11-25 10:15] LABS: CALCIUM 9.5 mg/dL (8.5-10.1)
[2021-11-25 10:16] LABS: BLOOD UREA NITROGEN 14.1 mg/dL (7-18)
[2021-11-25 10:20] LABS: BILIRUBIN,TOTAL 0.6 mg/dL (0.2-1); CREATININE 0.7 mg/dL (0.55-1.3); TOT PROT 7.6 g/dl (6.4-8.2)
[2021-11-25] MEDS ORDERED: ASPIRIN 81 MG CHEWABLE TABLETS PO SCH (11:45)
[2021-11-25] MEDS ORDERED: BUPRENORPHINE/NALOXONE 8 MG/2 MG FILM PACKET SL ONE (12:09)
[2021-11-25] MEDS: ACETAMINOPHEN 325 MG TABLET (FP) PO PRN (12:22)
[2021-11-25 13:07] VITALS: BP 135/76; PULSE 104; TEMP 96.9
[2021-11-25] MEDS ORDERED: ATORVASTATIN CA 40 MG TABLET (FP) PO SCH (22:00)
[2021-11-26] MEDS ORDERED: chlordiazePOXIDE HCL 25 MG CAPSULE PO SCH (05:00)
[2021-11-26] MEDS ORDERED: BUPRENORPHINE/NALOXONE 8 MG/2 MG FILM PACKET SL SCH (10:00)
[2021-11-26 14:09] LABS: SARS-CoV-2 NAA Not Detected (Not Detected)
[2021-11-27] MEDS ORDERED: chlordiazePOXIDE HCL 10 MG CAPSULE PO PRN
[2021-11-27] MEDS ORDERED: chlordiazePOXIDE HCL 10 MG CAPSULE PO SCH (05:00)
[2021-11-28] MEDS ORDERED: chlordiazePOXIDE HCL 10 MG CAPSULE PO SCH (05:00)
[2021-11-29] MEDS ORDERED: chlordiazePOXIDE HCL 10 MG CAPSULE PO ONE (05:00)
== END 2021-11-25 12:53 | disposition left against medical advice (07) | DRG 894 ==
LOC: YASAS 18:21 → Y3N 19:45
PROVIDERS: ADMIT Allergy & Immunology; ATTEND Surgery
PROC: HZ2ZZZZ Detoxification Services for Substance Abuse Treatment (ICD-10-PCS; principal; 2021-11-24)
DX: F10.230 Alcohol dependence with withdrawal, uncomplicated (principal); F11.20 Opioid dependence, uncomplicated; F17.210 Nicotine dependence, cigarettes, uncomplicated; F41.9 Anxiety disorder, unspecified; F32.A Depression, unspecified; E05.90 Thyrotoxicosis, unspecified without thyrotoxic crisis or storm; G47.00 Insomnia, unspecified; M54.89 Other dorsalgia; G89.29 Other chronic pain; Z91.14 Patient's other noncompliance with medication regimen
CPT/HCPCS: 36415; 80053; 82962; 85027; 86780; C9803-CS; U0003; U0005

== ENCOUNTER 2021-11-25 02:34 | Emergency (ER) | payer OTHER ==
[2021-11-25 03:04] VITALS: BMI 30.1
[2021-11-25] MEDS ORDERED: diazePAM 5 MG TABLET PO ONE (04:09)
[2021-11-25] MEDS ORDERED: diazePAM 5 MG TABLET ONE (04:21)
[2021-11-25 08:14] VITALS: BP 144/88; PULSE 83; TEMP 98.1
== END 2021-11-25 06:37 | disposition short-term general hospital (02) ==
LOC: JER 02:34
DX: F10.239 Alcohol dependence with withdrawal, unspecified (principal)

== ENCOUNTER 2021-11-27 10:29 | Inpatient (IN) | payer OTHER ==
[2021-11-27 11:20] VITALS: BMI 29.2
[2021-11-27] MEDS ORDERED: PRENATAL VITAMINS W/ FOLIC ACID TABLET (FP) PO SCH (12:00)
[2021-11-27] MEDS ORDERED: diazePAM 5 MG TABLET PO ONE (12:00)
[2021-11-27] MEDS ORDERED: DICYCLOMINE HCL 10 MG CAPSULE PO PRN (12:00)
[2021-11-27] MEDS ORDERED: LOPERAMIDE HCL 2 MG CAPSULE PO PRN (12:00)
[2021-11-27] MEDS ORDERED: BISMUTH SUBSALICYLATE 262 MG/15 ML BTL PO PRN (12:00)
[2021-11-27] MEDS ORDERED: IBUPROFEN 400 MG TABLET (FP) PO PRN (12:00)
[2021-11-27] MEDS ORDERED: MAGNESIUM CITRATE 300 ML BOTTLE PO PRN (12:00)
[2021-11-27] MEDS ORDERED: ACETAMINOPHEN 325 MG TABLET (FP) PO PRN (12:00)
[2021-11-27] MEDS ORDERED: BENZOCAINE/MENTHOL (CHLORASEPTIC ) LOZENGE MM PRN (12:00)
[2021-11-27] MEDS ORDERED: METHOCARBAMOL 500 MG TABLET PO PRN (12:00)
[2021-11-27] MEDS ORDERED: NICOTINE 10 MG CARTRIDGE (INHALER) IH PRN (12:00)
[2021-11-27] MEDS ORDERED: MAGNESIUM HYDROX 2400MG/30ML ORAL SUSPENSION 30 ML CUP PO PRN (12:00)
[2021-11-27] MEDS ORDERED: ONDANSETRON *ODT* 4 MG TABLET SL PRN (12:00)
[2021-11-27] MEDS ORDERED: MAG HYDROX/AL HYDROX/SIMETH 30 ML UNIT-DOSE CUP PO PRN (12:00)
[2021-11-27] MEDS ORDERED: diazePAM 5 MG TABLET ONE (12:09)
[2021-11-27] MEDS: diazePAM 5 MG TABLET PO SCH ×3 (12:19→22:23)
[2021-11-27] MEDS: NICOTINE 21 MG/24 HOURS TOPICAL PATCH TD SCH ×2 (12:43→13:11)
[2021-11-27] MEDS: hydrOXYzine PAMOATE 25 MG CAPSULE (FP) PO SCH ×3 (13:09→22:22)
[2021-11-27 15:43] LABS: HEMATOCRIT 43.9 % (32.4-45.2); HEMOGLOBIN 14.5 GM/dL (10.7-15.3); MCH 28.9 pg (25.7-33.7); MEAN CELL VOLUME 87.6 fl (80-96); MEAN PLT VOLUME 8.1 fl (7.5-11.1); PLATELET COUNT 323 10^3/uL (134-434); RBC 5.01 M/mm3 (3.60-5.2); WHITE BLOOD COUNT 9.9 K/mm3 (4.0-10.0)
[2021-11-27 15:47] LABS: CALCIUM 9.2 mg/dL (8.5-10.1)
[2021-11-27 15:48] LABS: ALBUMIN 4.2 g/dl (3.4-5.0); BLOOD UREA NITROGEN 10.5 mg/dL (7-18)
[2021-11-27 15:51] LABS: CREATININE 0.6 mg/dL (0.55-1.3)
[2021-11-27 15:52] LABS: BILIRUBIN,TOTAL 0.4 mg/dL (0.2-1); TOT PROT 7.8 g/dl (6.4-8.2)
[2021-11-27] MEDS: ACETAMINOPHEN 325 MG TABLET (FP) PO PRN ×2 (16:51→22:51)
[2021-11-27] MEDS ORDERED: LACTULOSE 20 GM/30 ML UDC (FOR ORAL USE ONLY) PO ONE (18:39)
[2021-11-27] MEDS: LACTULOSE 20 GM/30 ML UDC (FOR ORAL USE ONLY) PO SCH ×2 (18:54→22:24)
[2021-11-27] MEDS: diazePAM 5 MG TABLET PO PRN (19:27)
[2021-11-27] MEDS ORDERED: THIAMINE HCL 100 MG TABLET (FP) PO SCH (22:00)
[2021-11-27] MEDS ORDERED: MELATONIN 5 MG TABLETS PO SCH (22:00)
[2021-11-28] MEDS: diazePAM 5 MG TABLET PO PRN (03:51)
[2021-11-28] MEDS: hydrOXYzine PAMOATE 25 MG CAPSULE (FP) PO SCH (05:02)
[2021-11-28] MEDS: diazePAM 5 MG TABLET PO SCH (05:02)
[2021-11-28 09:22] VITALS: BP 153/97; PULSE 106; TEMP 98.1
[2021-11-28] MEDS ORDERED: VENLAFAXINE HCL 75 MG E.R. CAPSULES PO SCH (10:00)
[2021-11-28] MEDS ORDERED: SUVOREXANT 10 MG TABLET PO PRN (22:00)
[2021-11-29] MEDS ORDERED: diazePAM 5 MG TABLET PO SCH (06:00)
[2021-11-30 00:06] LABS: SARS-CoV-2 NAA Not Detected (Not Detected)
[2021-11-30] MEDS ORDERED: diazePAM 5 MG TABLET PO SCH (06:00)
[2021-12-01] MEDS ORDERED: diazePAM 5 MG TABLET PO ONE (06:00)
== END 2021-11-28 09:42 | disposition left against medical advice (07) | DRG 894 ==
LOC: YASAS 10:29 → Y6N 11:47
PROVIDERS: ADMIT Allergy & Immunology; ATTEND Surgery
PROC: HZ2ZZZZ Detoxification Services for Substance Abuse Treatment (ICD-10-PCS; principal; 2021-11-27)
DX: F10.230 Alcohol dependence with withdrawal, uncomplicated (principal); F11.20 Opioid dependence, uncomplicated; F33.1 Major depressive disorder, recurrent, moderate; F10.280 Alcohol dependence with alcohol-induced anxiety disorder; F10.282 Alcohol dependence with alcohol-induced sleep disorder; F10.24 Alcohol dependence with alcohol-induced mood disorder; F17.213 Nicotine dependence, cigarettes, with withdrawal; E05.90 Thyrotoxicosis, unspecified without thyrotoxic crisis or storm; E78.00 Pure hypercholesterolemia, unspecified; M54.50 Low back pain, unspecified; G89.29 Other chronic pain; Z86.79 Personal history of other diseases of the circulatory system
CPT/HCPCS: 36415; 80053; 82140; 85027; 86780; 87811; 99283-25; C9803-CS; Q0162; U0003; U0005

== ENCOUNTER 2021-12-03 08:24 | Inpatient (IN) | payer OTHER ==
[2021-12-03] MEDS ORDERED: MAGNESIUM CITRATE 300 ML BOTTLE PO PRN (09:03)
[2021-12-03] MEDS ORDERED: ACETAMINOPHEN 325 MG TABLET (FP) PO PRN (09:03)
[2021-12-03] MEDS ORDERED: MAGNESIUM HYDROX 2400MG/30ML ORAL SUSPENSION 30 ML CUP PO PRN (09:03)
[2021-12-03] MEDS ORDERED: BENZOCAINE/MENTHOL (CHLORASEPTIC ) LOZENGE MM PRN (09:03)
[2021-12-03] MEDS ORDERED: ONDANSETRON *ODT* 4 MG TABLET SL PRN (09:03)
[2021-12-03] MEDS ORDERED: IBUPROFEN 400 MG TABLET (FP) PO PRN (09:03)
[2021-12-03] MEDS ORDERED: LOPERAMIDE HCL 2 MG CAPSULE PO PRN (09:03)
[2021-12-03] MEDS ORDERED: MAG HYDROX/AL HYDROX/SIMETH 30 ML UNIT-DOSE CUP PO PRN (09:03)
[2021-12-03] MEDS ORDERED: DICYCLOMINE HCL 10 MG CAPSULE PO PRN (09:03)
[2021-12-03] MEDS ORDERED: BISMUTH SUBSALICYLATE 262 MG/15 ML BTL PO PRN (09:03)
[2021-12-03 09:58] VITALS: BMI 28.3
[2021-12-03] MEDS ORDERED: SUVOREXANT 10 MG TABLET PO PRN (09:58)
[2021-12-03] MEDS ORDERED: NICOTINE 21 MG/24 HOURS TOPICAL PATCH TD SCH (10:00)
[2021-12-03] MEDS ORDERED: NICOTINE 14 MG/24 HOURS TOPICAL PATCH TD SCH (10:00)
[2021-12-03] MEDS: hydrOXYzine PAMOATE 25 MG CAPSULE (FP) PO SCH ×4 (10:44→23:19)
[2021-12-03] MEDS: PRENATAL VITAMINS W/ FOLIC ACID TABLET (FP) PO SCH (10:44)
[2021-12-03] MEDS: METHOCARBAMOL 500 MG TABLET PO PRN ×2 (10:44→23:20)
[2021-12-03] MEDS: NICOTINE 21 MG/24 HOURS TOPICAL PATCH TD SCH ×2 (10:44→10:47)
[2021-12-03] MEDS: diazePAM 5 MG TABLET PO PRN ×3 (11:54→21:28)
[2021-12-03 15:31] LABS: HEMATOCRIT 42.4 % (32.4-45.2); MCH 28.6 pg (25.7-33.7); MEAN CELL VOLUME 86.6 fl (80-96); MEAN PLT VOLUME 8.3 fl (7.5-11.1); PLATELET COUNT 291 10^3/uL (134-434); RBC 4.89 M/mm3 (3.60-5.2); RDW 16.1 % (11.6-15.6); WHITE BLOOD COUNT 15.8 K/mm3 (4.0-10.0)
[2021-12-03 15:34] LABS: CALCIUM 9.4 mg/dL (8.5-10.1)
[2021-12-03 15:35] LABS: BLOOD UREA NITROGEN 12.5 mg/dL (7-18)
[2021-12-03 15:38] LABS: CREATININE 0.8 mg/dL (0.55-1.3)
[2021-12-03 15:39] LABS: BILIRUBIN,TOTAL 0.9 mg/dL (0.2-1); TOT PROT 7.7 g/dl (6.4-8.2)
[2021-12-03] MEDS: HYDROCORTISONE 1% TOPICAL CREAM 30 GM TUBE TP SCH ×2 (15:47→23:25)
[2021-12-03] MEDS: NALTREXONE HCL 50 MG TABLET PO SCH (15:56)
[2021-12-03] MEDS: ATORVASTATIN CA 40 MG TABLET (FP) PO SCH (23:19)
[2021-12-03] MEDS: THIAMINE HCL 100 MG TABLET (FP) PO SCH (23:19)
[2021-12-03] MEDS: MELATONIN 5 MG TABLETS PO SCH (23:20)
[2021-12-04] MEDS: ACETAMINOPHEN 325 MG TABLET (FP) PO PRN ×3 (01:35→19:59)
[2021-12-04] MEDS: diazePAM 5 MG TABLET PO PRN ×5 (01:35→22:06)
[2021-12-04] MEDS: NICOTINE 10 MG CARTRIDGE (INHALER) IH PRN (03:35)
[2021-12-04] MEDS: hydrOXYzine PAMOATE 25 MG CAPSULE (FP) PO SCH ×5 (05:02→22:06)
[2021-12-04] MEDS: VENLAFAXINE HCL 75 MG E.R. CAPSULES PO SCH (08:30)
[2021-12-04] MEDS: NALTREXONE HCL 50 MG TABLET PO SCH (10:25)
[2021-12-04] MEDS: PRENATAL VITAMINS W/ FOLIC ACID TABLET (FP) PO SCH (10:26)
[2021-12-04] MEDS: ASPIRIN 81 MG CHEWABLE TABLETS PO SCH (10:26)
[2021-12-04] MEDS: HYDROCORTISONE 1% TOPICAL CREAM 30 GM TUBE TP SCH ×2 (10:26→22:05)
[2021-12-04] MEDS: NICOTINE 21 MG/24 HOURS TOPICAL PATCH TD SCH (10:27)
[2021-12-04] MEDS: METOPROLOL TARTRATE 25 MG TABLET (FP) PO SCH ×2 (11:31→22:06)
[2021-12-04] MEDS: BUPRENORPHINE/NALOXONE 8 MG/2 MG FILM PACKET SL SCH (11:32)
[2021-12-04] MEDS ORDERED: clonazePAM 0.5 MG ODT TABLETS SL SCH (22:00)
[2021-12-04] MEDS: ATORVASTATIN CA 40 MG TABLET (FP) PO SCH (22:05)
[2021-12-04] MEDS: MELATONIN 5 MG TABLETS PO SCH (22:06)
[2021-12-04] MEDS: THIAMINE HCL 100 MG TABLET (FP) PO SCH (22:06)
[2021-12-05] MEDS: diazePAM 5 MG TABLET PO PRN (02:13)
[2021-12-05] MEDS: hydrOXYzine PAMOATE 25 MG CAPSULE (FP) PO SCH ×5 (05:03→21:24)
[2021-12-05] MEDS: NICOTINE 10 MG CARTRIDGE (INHALER) IH PRN ×2 (06:18→14:44)
[2021-12-05] MEDS: VENLAFAXINE HCL 75 MG E.R. CAPSULES PO SCH (07:04)
[2021-12-05] MEDS: PRENATAL VITAMINS W/ FOLIC ACID TABLET (FP) PO SCH (09:28)
[2021-12-05] MEDS: ASPIRIN 81 MG CHEWABLE TABLETS PO SCH (09:28)
[2021-12-05] MEDS: HYDROCORTISONE 1% TOPICAL CREAM 30 GM TUBE TP SCH ×2 (09:28→21:22)
[2021-12-05] MEDS: BUPRENORPHINE/NALOXONE 8 MG/2 MG FILM PACKET SL SCH (09:29)
[2021-12-05] MEDS: METOPROLOL TARTRATE 25 MG TABLET (FP) PO SCH ×2 (09:29→21:23)
[2021-12-05] MEDS: NALTREXONE HCL 50 MG TABLET PO SCH (09:29)
[2021-12-05] MEDS: NICOTINE 21 MG/24 HOURS TOPICAL PATCH TD SCH (09:34)
[2021-12-05] MEDS: ATORVASTATIN CA 40 MG TABLET (FP) PO SCH (21:23)
[2021-12-05] MEDS: THIAMINE HCL 100 MG TABLET (FP) PO SCH (21:23)
[2021-12-05] MEDS: MELATONIN 5 MG TABLETS PO SCH (21:24)
[2021-12-05] MEDS ORDERED: SUVOREXANT 15 MG TABLET PO PRN (22:00)
[2021-12-06] MEDS: hydrOXYzine PAMOATE 25 MG CAPSULE (FP) PO SCH ×2 (06:14→09:10)
[2021-12-06 07:16] VITALS: BP 149/78; PULSE 101; TEMP 97.5
[2021-12-06] MEDS: BUPRENORPHINE/NALOXONE 8 MG/2 MG FILM PACKET SL SCH (09:08)
[2021-12-06] MEDS: ASPIRIN 81 MG CHEWABLE TABLETS PO SCH (09:08)
[2021-12-06] MEDS: PRENATAL VITAMINS W/ FOLIC ACID TABLET (FP) PO SCH (09:08)
[2021-12-06] MEDS: METOPROLOL TARTRATE 25 MG TABLET (FP) PO SCH (09:08)
[2021-12-06] MEDS: VENLAFAXINE HCL 75 MG E.R. CAPSULES PO SCH (09:08)
[2021-12-06] MEDS: NICOTINE 21 MG/24 HOURS TOPICAL PATCH TD SCH (09:10)
[2021-12-06] MEDS: HYDROCORTISONE 1% TOPICAL CREAM 30 GM TUBE TP SCH (09:32)
== END 2021-12-06 09:40 | disposition left against medical advice (07) | DRG 894 ==
LOC: YASAS 08:24 → Y6N 09:32 → Y5N 12-05 11:35
PROVIDERS: ADMIT Allergy & Immunology; ATTEND Surgery
PROC: HZ42ZZZ Group Counseling for Substance Abuse Treatment, Cognitive-Behavioral (ICD-10-PCS; principal; 2021-12-03)
DX: F10.20 Alcohol dependence, uncomplicated (principal); F11.20 Opioid dependence, uncomplicated; F17.210 Nicotine dependence, cigarettes, uncomplicated; F41.9 Anxiety disorder, unspecified; F32.9 Major depressive disorder, single episode, unspecified; I10 Essential (primary) hypertension; E78.5 Hyperlipidemia, unspecified; E05.90 Thyrotoxicosis, unspecified without thyrotoxic crisis or storm; G47.00 Insomnia, unspecified; M54.50 Low back pain, unspecified; G89.29 Other chronic pain; Z86.79 Personal history of other diseases of the circulatory system
CPT/HCPCS: 36415; 80053; 82962; 85027; 86780; C9803-CS; Q0162; U0003; U0005

== ENCOUNTER 2022-05-18 11:33 | Inpatient (IN) | payer OTHER ==
[2022-05-18 11:50] VITALS: BMI 29.2
[2022-05-18] MEDS ORDERED: ACETAMINOPHEN 325 MG TABLET (FP) PO PRN ×2 (13:02)
[2022-05-18] MEDS ORDERED: ONDANSETRON *ODT* 4 MG TABLET SL PRN (13:02)
[2022-05-18] MEDS ORDERED: IBUPROFEN 400 MG TABLET (FP) PO PRN (13:02)
[2022-05-18] MEDS ORDERED: LOPERAMIDE HCL 2 MG CAPSULE PO PRN (13:02)
[2022-05-18] MEDS ORDERED: MAGNESIUM HYDROX 2400MG/30ML ORAL SUSPENSION 30 ML CUP PO PRN (13:02)
[2022-05-18] MEDS ORDERED: MAGNESIUM CITRATE 300 ML BOTTLE PO PRN (13:02)
[2022-05-18] MEDS ORDERED: MAG HYDROX/AL HYDROX/SIMETH 30 ML UNIT-DOSE CUP PO PRN (13:02)
[2022-05-18] MEDS ORDERED: NALOXONE HCL (KLOXXADO) 8 MG SPRAY NS PRN (13:02)
[2022-05-18] MEDS ORDERED: DICYCLOMINE HCL 10 MG CAPSULE PO PRN (13:02)
[2022-05-18] MEDS ORDERED: chlordiazePOXIDE HCL 25 MG CAPSULE PO PRN (13:02)
[2022-05-18] MEDS ORDERED: BISMUTH SUBSALICYLATE 524 MG/30 ML PO PRN (13:02)
[2022-05-18] MEDS: NICOTINE 21 MG/24 HOURS TOPICAL PATCH TD SCH (13:49)
[2022-05-18] MEDS: hydrOXYzine PAMOATE 25 MG CAPSULE (FP) PO PRN (14:46)
[2022-05-18] MEDS: chlordiazePOXIDE HCL 25 MG CAPSULE PO SCH ×2 (19:52→22:36)
[2022-05-18] MEDS ORDERED: MELATONIN 5 MG TABLETS PO SCH (22:00)
[2022-05-18] MEDS: THIAMINE HCL 100 MG TABLET (FP) PO SCH (22:36)
[2022-05-18] MEDS: ATORVASTATIN CA 40 MG TABLET (FP) PO SCH (22:36)
[2022-05-18] MEDS: METOPROLOL TARTRATE 25 MG TABLET (FP) PO SCH (22:36)
[2022-05-19] MEDS: hydrOXYzine PAMOATE 25 MG CAPSULE (FP) PO PRN ×4 (05:19→22:16)
[2022-05-19] MEDS: chlordiazePOXIDE HCL 25 MG CAPSULE PO SCH ×4 (05:19→22:18)
[2022-05-19] MEDS: METHOCARBAMOL 500 MG TABLET PO PRN ×2 (09:10→17:20)
[2022-05-19] MEDS: ASPIRIN COATED 81 MG TABLET.EC PO SCH (10:14)
[2022-05-19] MEDS: PRENATAL VITAMINS W/ FOLIC ACID TABLET (FP) PO SCH (10:14)
[2022-05-19] MEDS: NICOTINE 21 MG/24 HOURS TOPICAL PATCH TD SCH (10:14)
[2022-05-19] MEDS: METOPROLOL TARTRATE 25 MG TABLET (FP) PO SCH ×2 (10:15→22:17)
[2022-05-19] MEDS: VENLAFAXINE HCL 75 MG E.R. CAPSULES PO SCH (10:57)
[2022-05-19] MEDS ORDERED: BUPRENORPHINE/NALOXONE 4 MG/1 MG FILM PACKET SL ONE (11:15)
[2022-05-19] MEDS: HYDROCORTISONE 0.5% TOPICAL CREAM 30 GM TUBE TP SCH ×2 (11:48→22:18)
[2022-05-19 13:03] LABS: HEMATOCRIT 42.4 % (32.4-45.2); HEMOGLOBIN 13.7 GM/dL (10.7-15.3); MCH 27.1 pg (25.7-33.7); MCHC 32.3 g/dl (32.0-36.0); MEAN CELL VOLUME 83.9 fl (80-96); MEAN PLT VOLUME 8.7 fl (7.5-11.1); PLATELET COUNT 308 10^3/uL (134-434); RBC 5.05 M/mm3 (3.60-5.2); RDW 15.9 % (11.6-15.6); WHITE BLOOD COUNT 13.2 K/mm3 (4.0-10.0)
[2022-05-19 14:01] LABS: CALCIUM 8.9 mg/dL (8.5-10.1)
[2022-05-19 14:02] LABS: ALBUMIN 3.7 g/dl (3.4-5.0); BLOOD UREA NITROGEN 6.3 mg/dL (7-18)
[2022-05-19 14:05] LABS: CREATININE 0.7 mg/dL (0.55-1.3)
[2022-05-19 14:06] LABS: TOT PROT 7.2 g/dl (6.4-8.2)
[2022-05-19] MEDS: IBUPROFEN 600 MG TABLET (FP) PO PRN (14:44)
[2022-05-19] MEDS: NICOTINE 10 MG CARTRIDGE (INHALER) IH PRN (17:18)
[2022-05-19 21:51] LABS: URINE APPEARANCE CLEAR; URINE BILIRUBIN NEGATIVE (NEGATIVE); URINE COLOR YELLOW; URINE GLUCOSE (UA) NEGATIVE (NEGATIVE); URINE KETONE NEGATIVE (NEGATIVE); URINE LEUK ESTERASE NEGATIVE (NEGATIVE); URINE NITRITE NEGATIVE (NEGATIVE); URINE PROTEIN NEGATIVE (NEGATIVE); URINE UROBILINOGEN 0.2 mg/dL (0.2-1.0)
[2022-05-19] MEDS ORDERED: SUVOREXANT 10 MG TABLET PO PRN (22:00)
[2022-05-19] MEDS: ATORVASTATIN CA 40 MG TABLET (FP) PO SCH (22:17)
[2022-05-19] MEDS: THIAMINE HCL 100 MG TABLET (FP) PO SCH (22:17)
[2022-05-20] MEDS: chlordiazePOXIDE HCL 25 MG CAPSULE PO SCH ×4 (05:31→22:59)
[2022-05-20] MEDS: BENZOCAINE/MENTHOL (CHLORASEPTIC ) LOZENGE MM PRN ×2 (06:14→11:14)
[2022-05-20] MEDS: PRENATAL VITAMINS W/ FOLIC ACID TABLET (FP) PO SCH (10:08)
[2022-05-20] MEDS: HYDROCORTISONE 0.5% TOPICAL CREAM 30 GM TUBE TP SCH ×2 (10:08→22:58)
[2022-05-20] MEDS: VENLAFAXINE HCL 75 MG E.R. CAPSULES PO SCH (10:08)
[2022-05-20] MEDS: ASPIRIN COATED 81 MG TABLET.EC PO SCH (10:08)
[2022-05-20] MEDS: METOPROLOL TARTRATE 25 MG TABLET (FP) PO SCH ×2 (10:09→22:58)
[2022-05-20] MEDS: BUPRENORPHINE/NALOXONE 8 MG/2 MG FILM PACKET SL SCH (10:10)
[2022-05-20] MEDS: NICOTINE 21 MG/24 HOURS TOPICAL PATCH TD SCH (10:10)
[2022-05-20] MEDS: guaiFENesin 200 MG/10 ML 10 ML UNIT-DOSE CUPS PO PRN (13:53)
[2022-05-20] MEDS: METHOCARBAMOL 500 MG TABLET PO PRN ×2 (14:42→22:57)
[2022-05-20] MEDS: hydrOXYzine PAMOATE 25 MG CAPSULE (FP) PO PRN (17:31)
[2022-05-20] MEDS: ATORVASTATIN CA 40 MG TABLET (FP) PO SCH (22:57)
[2022-05-20] MEDS: THIAMINE HCL 100 MG TABLET (FP) PO SCH (22:57)
[2022-05-21] MEDS ORDERED: chlordiazePOXIDE HCL 10 MG CAPSULE PO PRN
[2022-05-21] MEDS: chlordiazePOXIDE HCL 10 MG CAPSULE PO SCH ×4 (04:49→22:05)
[2022-05-21] MEDS: guaiFENesin 200 MG/10 ML 10 ML UNIT-DOSE CUPS PO PRN ×2 (04:49→14:19)
[2022-05-21] MEDS: IBUPROFEN 600 MG TABLET (FP) PO PRN ×3 (05:06→21:17)
[2022-05-21] MEDS: NICOTINE 10 MG CARTRIDGE (INHALER) IH PRN (06:00)
[2022-05-21] MEDS: METOPROLOL TARTRATE 25 MG TABLET (FP) PO SCH ×2 (10:12→22:05)
[2022-05-21] MEDS: PRENATAL VITAMINS W/ FOLIC ACID TABLET (FP) PO SCH (10:14)
[2022-05-21] MEDS: BUPRENORPHINE/NALOXONE 8 MG/2 MG FILM PACKET SL SCH (10:14)
[2022-05-21] MEDS: HYDROCORTISONE 0.5% TOPICAL CREAM 30 GM TUBE TP SCH ×2 (10:14→22:06)
[2022-05-21] MEDS: VENLAFAXINE HCL 75 MG E.R. CAPSULES PO SCH (10:14)
[2022-05-21] MEDS: ASPIRIN COATED 81 MG TABLET.EC PO SCH (10:14)
[2022-05-21] MEDS: NICOTINE 21 MG/24 HOURS TOPICAL PATCH TD SCH (10:15)
[2022-05-21] MEDS: BENZOCAINE/MENTHOL (CHLORASEPTIC ) LOZENGE MM PRN (14:19)
[2022-05-21] MEDS: METHOCARBAMOL 500 MG TABLET PO PRN (17:14)
[2022-05-21] MEDS: hydrOXYzine PAMOATE 25 MG CAPSULE (FP) PO PRN ×3 (17:14→22:10)
[2022-05-21] MEDS ORDERED: BENZOCAINE 20 % GEL TUBE MM PRN (19:29)
[2022-05-21] MEDS: THIAMINE HCL 100 MG TABLET (FP) PO SCH (22:04)
[2022-05-21] MEDS: ATORVASTATIN CA 40 MG TABLET (FP) PO SCH (22:05)
[2022-05-22] MEDS: guaiFENesin 200 MG/10 ML 10 ML UNIT-DOSE CUPS PO PRN (04:05)
[2022-05-22] MEDS: BENZOCAINE/MENTHOL (CHLORASEPTIC ) LOZENGE MM PRN (04:06)
[2022-05-22] MEDS ORDERED: chlordiazePOXIDE HCL 10 MG CAPSULE PO SCH (05:00)
[2022-05-22] MEDS: hydrOXYzine PAMOATE 25 MG CAPSULE (FP) PO PRN (05:08)
[2022-05-22] MEDS: IBUPROFEN 600 MG TABLET (FP) PO PRN (05:44)
[2022-05-22 06:01] VITALS: BP 121/70; PULSE 95; RESP 19; TEMP 97.5
[2022-05-23] MEDS ORDERED: chlordiazePOXIDE HCL 10 MG CAPSULE PO ONE (05:00)
== END 2022-05-22 08:50 | disposition home or self-care (01) | DRG 897 ==
LOC: YASAS 11:33 → Y6N 13:13
PROVIDERS: ADMIT Allergy & Immunology; ATTEND Surgery
PROC: HZ2ZZZZ Detoxification Services for Substance Abuse Treatment (ICD-10-PCS; principal; 2022-05-18)
DX: F10.230 Alcohol dependence with withdrawal, uncomplicated (principal); F11.20 Opioid dependence, uncomplicated; F17.210 Nicotine dependence, cigarettes, uncomplicated; F10.282 Alcohol dependence with alcohol-induced sleep disorder; F10.24 Alcohol dependence with alcohol-induced mood disorder; F32.9 Major depressive disorder, single episode, unspecified; F41.9 Anxiety disorder, unspecified; E05.90 Thyrotoxicosis, unspecified without thyrotoxic crisis or storm; E78.1 Pure hyperglyceridemia; M54.50 Low back pain, unspecified; G89.29 Other chronic pain
CPT/HCPCS: 36415; 80053; 81003; 85027; 86780; 87811; C9803-CS; U0003; U0005

== ENCOUNTER 2022-09-24 12:06 | Inpatient (IN) | payer OTHER ==
[2022-09-24] MEDS ORDERED: NALOXONE HCL 0.4 MG/ML VIAL ONE ×4 (12:12→12:45)
[2022-09-24 12:25] VITALS: BMI 29.2
[2022-09-24] MEDS ORDERED: NALOXONE HCL 0.4 MG/ML VIAL IVPUSH ONE (13:09)
[2022-09-24 13:29] LABS: BASO % 0.8 % (0-2.0); EOS % 0.7 % (0-4.5); HEMATOCRIT 45.4 % (32.4-45.2); HEMOGLOBIN 14.5 GM/dL (10.7-15.3); LYMPH % 21.7 % (8-40); MCH 26.7 pg (25.7-33.7); MCHC 31.9 g/dl (32.0-36.0); MEAN CELL VOLUME 83.6 fl (80-96); MEAN PLT VOLUME 7.9 fl (7.5-11.1); MONO % 6.9 % (3.8-10.2); NEUT % 69.9 % (42.8-82.8); PLATELET COUNT 269 10^3/uL (134-434); RBC 5.43 M/mm3 (3.60-5.2); WHITE BLOOD COUNT 11.5 K/mm3 (4.0-10.0)
[2022-09-24 13:42] LABS: CALCIUM 8.9 mg/dL (8.5-10.1)
[2022-09-24 13:43] LABS: ALBUMIN 3.6 g/dl (3.4-5.0); BLOOD UREA NITROGEN 12.3 mg/dL (7-18)
[2022-09-24 13:46] LABS: CREATININE 0.7 mg/dL (0.55-1.3)
[2022-09-24 13:48] LABS: BILIRUBIN,TOTAL 0.6 mg/dL (0.2-1); TOT PROT 7.3 g/dl (6.4-8.2)
[2022-09-24 13:50] LABS: PH,URINE 5.5 (5.0-8.0); URINE APPEARANCE CLEAR; URINE BILIRUBIN NEGATIVE (NEGATIVE); URINE COLOR YELLOW; URINE GLUCOSE (UA) NEGATIVE (NEGATIVE); URINE KETONE NEGATIVE (NEGATIVE); URINE LEUK ESTERASE NEGATIVE (NEGATIVE); URINE NITRITE NEGATIVE (NEGATIVE); URINE PROTEIN NEGATIVE (NEGATIVE); URINE UROBILINOGEN 0.2 mg/dL (0.2-1.0)
[2022-09-24 13:58] LABS: COCAINE, UR NEGATIVE (NEGATIVE); METHADONE, UR NEGATIVE (NEGATIVE); OPIATES, URI NEGATIVE (NEGATIVE); URINE AMPHETAMINES NEGATIVE (NEGATIVE); URINE BARBITURATES NEGATIVE (NEGATIVE)
[2022-09-24 13:59] LABS: PHENCYCLIDINE,URINE NEGATIVE (NEGATIVE)
[2022-09-24 14:01] LABS: URINE BENZODIAZEPINES POSITIVE (NEGATIVE)
[2022-09-24] MEDS ORDERED: MIDAZOLAM HCL 2 MG/2 ML SINGLE DOSE VIAL IVPUSH ONE (14:22)
[2022-09-24] MEDS ORDERED: MIDAZOLAM HCL 2 MG/2 ML SINGLE DOSE VIAL ONE (14:24)
[2022-09-24] MEDS ORDERED: LACTATED RINGERS SOLUTION 1,000 ML/1,000 ML INFUS.BAG IV SCH (14:30)
[2022-09-24] MEDS ORDERED: SODIUM CHLORIDE 1,000 ML IV SCH (16:30)
[2022-09-24] MEDS ORDERED: TRIMETHOBENZAMIDE HCL 200MG/2ML INJ IM PRN (16:34)
[2022-09-24] MEDS: LORazepam 2 MG/ML SDV VIAL IVPUSH PRN (18:20)
[2022-09-24] MEDS ORDERED: DEXMEDETOMIDINE PREMIX 400 MCG/100 ML BAG IVPB SCH (19:15)
[2022-09-24] MEDS: MUPIROCIN 2% TOPICAL OINTMENT FOR DECOLONIZATION NS SCH (21:41)
[2022-09-24] MEDS: CHLORHEXIDINE GLUCONATE 4% CLEANSER FOR DECOLONIZATION TP SCH (21:41)
[2022-09-25] MEDS: LORazepam 2 MG/ML SDV VIAL IVPUSH PRN (02:12)
[2022-09-25] MEDS ORDERED: LORazepam 2 MG/ML SDV VIAL IVPUSH PRN ×2 (06:32)
[2022-09-25 08:23] LABS: HEMATOCRIT 39.1 % (32.4-45.2); HEMOGLOBIN 12.9 GM/dL (10.7-15.3); LYMPH % 23.5 % (8-40); MCHC 33.1 g/dl (32.0-36.0); MEAN CELL VOLUME 84.7 fl (80-96); MONO % 5.4 % (3.8-10.2); NEUT % 67.7 % (42.8-82.8); PLATELET COUNT 226 10^3/uL (134-434); RBC 4.61 M/mm3 (3.60-5.2); RDW 15.1 % (11.6-15.6); WHITE BLOOD COUNT 7.3 K/mm3 (4.0-10.0)
[2022-09-25 08:24] LABS: EOS % 2.4 % (0-4.5)
[2022-09-25 08:32] LABS: INR 1.09 (0.83-1.09); PROTHROMBIN TIME (PATIENT) 12.6 SEC (9.7-13.0)
[2022-09-25 08:35] LABS: ACTIVATED PTT 31.2 SECONDS (25.2-36.5)
[2022-09-25 08:56] LABS: TRIGLYCERIDES 147 mg/dL (0-150)
[2022-09-25 08:57] LABS: CALCIUM 8.3 mg/dL (8.5-10.1)
[2022-09-25 08:58] LABS: BLOOD UREA NITROGEN 8.5 mg/dL (7-18); LDL CHOLESTEROL (ONLY SJRH) 145 mg/dL (5-100); MAGNESIUM 2.1 mg/dL (1.8-2.4)
[2022-09-25 08:59] LABS: HDL CHOLESTEROL 72 mg/dL (40-60)
[2022-09-25 09:00] LABS: CHOLESTEROL 243 mg/dL (50-200)
[2022-09-25 09:01] LABS: CREATININE 0.6 mg/dL (0.55-1.3); PHOSPHOROUS 2.6 mg/dL (2.5-4.9)
[2022-09-25] MEDS ORDERED: THIAMINE HCL 200 MG/2 ML VIAL IVPB SCH (10:00)
[2022-09-25] MEDS: THIAMINE HCL 100 MG TABLET (FP) PO SCH (10:45)
[2022-09-25] MEDS: FOLIC ACID 1 MG TABLET (FP) PO SCH (10:45)
[2022-09-25] MEDS: ASPIRIN 81 MG CHEWABLE TABLETS PO SCH (10:45)
[2022-09-25] MEDS: MUPIROCIN 2% TOPICAL OINTMENT FOR DECOLONIZATION NS SCH ×2 (10:45→21:51)
[2022-09-25] MEDS: ENOXAPARIN NA (PORCINE) 40 MG/0.4 ML DISP.SYRIN SQ SCH (10:45)
[2022-09-25] MEDS ORDERED: SODIUM CHLORIDE 1,000 ML IV SCH (11:18)
[2022-09-25] MEDS: VENLAFAXINE HCL 75 MG E.R. CAPSULES PO SCH (11:24)
[2022-09-25] MEDS: NICOTINE 21 MG/24 HOURS TOPICAL PATCH TD SCH (12:59)
[2022-09-25] MEDS ORDERED: chlordiazePOXIDE HCL 25 MG CAPSULE PO ONE (13:11)
[2022-09-25] MEDS ORDERED: SODIUM CHLORIDE 1,000 ML IV STA (13:26)
[2022-09-25] MEDS: chlordiazePOXIDE HCL 25 MG CAPSULE PO PRN ×2 (13:49→19:47)
[2022-09-25] MEDS: chlordiazePOXIDE HCL 25 MG CAPSULE PO SCH ×2 (17:02→23:34)
[2022-09-25] MEDS ORDERED: LORazepam 2 MG/ML SDV VIAL IM PRN (18:14)
[2022-09-25] MEDS: CHLORHEXIDINE GLUCONATE 4% CLEANSER FOR DECOLONIZATION TP SCH (21:51)
[2022-09-25] MEDS ORDERED: ATORVASTATIN CA 40 MG TABLET (FP) PO SCH (22:00)
[2022-09-26] MEDS: chlordiazePOXIDE HCL 25 MG CAPSULE PO SCH ×2 (05:39→10:25)
[2022-09-26 06:57] LABS: HEMATOCRIT 39.2 % (32.4-45.2); HEMOGLOBIN 13.1 GM/dL (10.7-15.3); MCH 28.1 pg (25.7-33.7); MCHC 33.4 g/dl (32.0-36.0); MEAN CELL VOLUME 84.2 fl (80-96); MEAN PLT VOLUME 8.6 fl (7.5-11.1); PLATELET COUNT 243 10^3/uL (134-434); RBC 4.66 M/mm3 (3.60-5.2); WHITE BLOOD COUNT 7.9 K/mm3 (4.0-10.0)
[2022-09-26 07:25] LABS: ALBUMIN 3.3 g/dl (3.4-5.0); BLOOD UREA NITROGEN 10.1 mg/dL (7-18); MAGNESIUM 2.1 mg/dL (1.8-2.4)
[2022-09-26 07:28] LABS: CREATININE 0.6 mg/dL (0.55-1.3); PHOSPHOROUS 3.4 mg/dL (2.5-4.9)
[2022-09-26 07:29] LABS: TOT PROT 6.6 g/dl (6.4-8.2)
[2022-09-26 07:30] LABS: BILIRUBIN,TOTAL 1.1 mg/dL (0.2-1)
[2022-09-26 08:17] VITALS: RESP 18
[2022-09-26] MEDS: NICOTINE 21 MG/24 HOURS TOPICAL PATCH TD SCH (09:08)
[2022-09-26] MEDS: VENLAFAXINE HCL 75 MG E.R. CAPSULES PO SCH (09:12)
[2022-09-26] MEDS: FOLIC ACID 1 MG TABLET (FP) PO SCH (09:13)
[2022-09-26] MEDS: ASPIRIN 81 MG CHEWABLE TABLETS PO SCH (09:13)
[2022-09-26] MEDS: THIAMINE HCL 100 MG TABLET (FP) PO SCH (09:14)
[2022-09-26] MEDS: ENOXAPARIN NA (PORCINE) 40 MG/0.4 ML DISP.SYRIN SQ SCH (09:14)
[2022-09-26] MEDS ORDERED: BUPRENORPHINE/NALOXONE 4 MG/1 MG FILM PACKET SL SCH (10:00)
[2022-09-26] MEDS ORDERED: BUPRENORPHINE/NALOXONE 8 MG/2 MG FILM PACKET SL SCH (10:00)
[2022-09-26] MEDS: MUPIROCIN 2% TOPICAL OINTMENT FOR DECOLONIZATION NS SCH (10:26)
[2022-09-26 12:59] VITALS: BP 140/82; PULSE 92; TEMP 98
[2022-09-26] MEDS ORDERED: clonazePAM 0.5 MG TABLET PO SCH (22:00)
[2022-09-27] MEDS ORDERED: chlordiazePOXIDE HCL 25 MG CAPSULE PO SCH (05:00)
[2022-09-28] MEDS ORDERED: chlordiazePOXIDE HCL 10 MG CAPSULE PO PRN
[2022-09-30] MEDS ORDERED: chlordiazePOXIDE HCL 10 MG CAPSULE PO ONE (05:00)
== END 2022-09-26 15:55 | disposition other institution (70) | DRG 897 ==
LOC: JER 12:06 → JERBED 15:59 → JICU 17:18
PROVIDERS: ADMIT Internal Medicine Pulmonary Disease; ATTEND Internal Medicine
DX: F10.220 Alcohol dependence with intoxication, uncomplicated (principal); I24.8 Other forms of acute ischemic heart disease; E78.5 Hyperlipidemia, unspecified; E03.9 Hypothyroidism, unspecified; M54.50 Low back pain, unspecified; F32.A Depression, unspecified; I95.89 Other hypotension; F41.9 Anxiety disorder, unspecified; D72.829 Elevated white blood cell count, unspecified; Y90.8 Blood alcohol level of 240 mg/100 ml or more; E05.90 Thyrotoxicosis, unspecified without thyrotoxic crisis or storm; F17.210 Nicotine dependence, cigarettes, uncomplicated; R53.83 Other fatigue
CPT/HCPCS: 36415; 70450-TC; 71045-TC-FY; 80053; 80061; 80307; 81003; 82962; 83036; 83735; 84100; 84484; 85025; 85027; 85610; 85730; 86850; 86900; 86901; 87086; 93005; 93010; 99285-25; C9803-CS; U0003; U0005

== ENCOUNTER 2022-09-27 09:09 | Inpatient (IN) | payer OTHER ==
[2022-09-27] MEDS ORDERED: BENZOCAINE/MENTHOL (CHLORASEPTIC ) LOZENGE MM PRN (10:29)
[2022-09-27] MEDS ORDERED: guaiFENesin 600 MG TABLET.ER (FP) PO PRN (10:29)
[2022-09-27] MEDS ORDERED: LOPERAMIDE HCL 2 MG CAPSULE PO PRN (10:29)
[2022-09-27] MEDS ORDERED: MAG HYDROX/AL HYDROX/SIMETH 30 ML UNIT-DOSE CUP PO PRN (10:29)
[2022-09-27] MEDS ORDERED: DICYCLOMINE HCL 10 MG CAPSULE PO PRN (10:29)
[2022-09-27] MEDS ORDERED: BENZONATATE 200 MG CAPSULE PO PRN (10:29)
[2022-09-27] MEDS ORDERED: ONDANSETRON *ODT* 4 MG TABLET SL PRN (10:29)
[2022-09-27] MEDS ORDERED: NALOXONE HCL (KLOXXADO) 8 MG SPRAY NS PRN (10:29)
[2022-09-27] MEDS ORDERED: MAGNESIUM HYDROX 2400MG/30ML ORAL SUSPENSION 30 ML CUP PO PRN (10:29)
[2022-09-27] MEDS ORDERED: NALOXONE HCL 0.4 MG/ML VIAL IM PRN (10:29)
[2022-09-27] MEDS ORDERED: POLYETHYLENE GLYCOL (HEALTHYLAX) 3350 17 GM PACKET PO PRN (10:29)
[2022-09-27 10:56] VITALS: BMI 28.4
[2022-09-27] MEDS ORDERED: chlordiazePOXIDE HCL 10 MG CAPSULE PO PRN (11:00)
[2022-09-27] MEDS: ASPIRIN 81 MG CHEWABLE TABLETS PO SCH (11:46)
[2022-09-27] MEDS: chlordiazePOXIDE HCL 25 MG CAPSULE PO SCH ×3 (11:47→22:30)
[2022-09-27] MEDS: BUPRENORPHINE/NALOXONE 8 MG/2 MG FILM PACKET SL SCH (11:47)
[2022-09-27] MEDS: NICOTINE 21 MG/24 HOURS TOPICAL PATCH TD SCH (11:49)
[2022-09-27] MEDS ORDERED: MELATONIN 5 MG TABLETS PO SCH (22:00)
[2022-09-27] MEDS: THIAMINE HCL 100 MG TABLET (FP) PO SCH (22:30)
[2022-09-27] MEDS: ATORVASTATIN CA 40 MG TABLET (FP) PO SCH (22:30)
[2022-09-28] MEDS ORDERED: chlordiazePOXIDE HCL 10 MG CAPSULE PO SCH (05:00)
[2022-09-28] MEDS: chlordiazePOXIDE HCL 10 MG CAPSULE PO SCH ×4 (05:38→22:24)
[2022-09-28] MEDS: NICOTINE 10 MG CARTRIDGE (INHALER) IH PRN (06:02)
[2022-09-28] MEDS: ASPIRIN 81 MG CHEWABLE TABLETS PO SCH (10:24)
[2022-09-28] MEDS: NICOTINE 21 MG/24 HOURS TOPICAL PATCH TD SCH (10:25)
[2022-09-28] MEDS: PRENATAL VITAMINS W/ FOLIC ACID TABLET (FP) PO SCH (10:26)
[2022-09-28] MEDS: BUPRENORPHINE/NALOXONE 8 MG/2 MG FILM PACKET SL SCH (10:26)
[2022-09-28 10:55] LABS: HEMATOCRIT 39.6 % (32.4-45.2); MCH 27.6 pg (25.7-33.7); MCHC 32.9 g/dl (32.0-36.0); MEAN CELL VOLUME 83.9 fl (80-96); MEAN PLT VOLUME 8.7 fl (7.5-11.1); PLATELET COUNT 297 10^3/uL (134-434); RBC 4.72 M/mm3 (3.60-5.2); RDW 15.2 % (11.6-15.6); WHITE BLOOD COUNT 14.4 K/mm3 (4.0-10.0)
[2022-09-28 11:16] LABS: CALCIUM 9.4 mg/dL (8.5-10.1)
[2022-09-28 11:17] LABS: ALBUMIN 3.4 g/dl (3.4-5.0); BLOOD UREA NITROGEN 9.6 mg/dL (7-18)
[2022-09-28 11:20] LABS: CREATININE 0.7 mg/dL (0.55-1.3)
[2022-09-28 11:21] LABS: BILIRUBIN,TOTAL 0.8 mg/dL (0.2-1)
[2022-09-28] MEDS: VENLAFAXINE HCL 75 MG E.R. CAPSULES PO SCH (12:02)
[2022-09-28] MEDS: LACTULOSE 20 GM/30 ML UDC (FOR ORAL USE ONLY) PO SCH ×2 (16:26→22:24)
[2022-09-28] MEDS: ACETAMINOPHEN 325 MG TABLET (FP) PO PRN (16:58)
[2022-09-28] MEDS ORDERED: SUVOREXANT 5 MG TABLET PO PRN (22:00)
[2022-09-28] MEDS: THIAMINE HCL 100 MG TABLET (FP) PO SCH (22:23)
[2022-09-28] MEDS: ATORVASTATIN CA 40 MG TABLET (FP) PO SCH (22:23)
[2022-09-29] MEDS ORDERED: chlordiazePOXIDE HCL 10 MG CAPSULE PO SCH (05:00)
[2022-09-29] MEDS: ACETAMINOPHEN 325 MG TABLET (FP) PO PRN (05:39)
[2022-09-29] MEDS: LACTULOSE 20 GM/30 ML UDC (FOR ORAL USE ONLY) PO SCH ×2 (05:39→14:52)
[2022-09-29] MEDS: NICOTINE 10 MG CARTRIDGE (INHALER) IH PRN (05:47)
[2022-09-29] MEDS ORDERED: NICOTINE POLACRILEX 2 MG GUM BUC PRN (06:42)
[2022-09-29 09:55] VITALS: BP 113/60; PULSE 90; RESP 18; TEMP 97.1
[2022-09-29] MEDS: PRENATAL VITAMINS W/ FOLIC ACID TABLET (FP) PO SCH (10:14)
[2022-09-29] MEDS: NICOTINE 21 MG/24 HOURS TOPICAL PATCH TD SCH (10:14)
[2022-09-29] MEDS: VENLAFAXINE HCL 75 MG E.R. CAPSULES PO SCH (10:15)
[2022-09-29] MEDS: ASPIRIN 81 MG CHEWABLE TABLETS PO SCH (10:15)
[2022-09-29] MEDS: BUPRENORPHINE/NALOXONE 8 MG/2 MG FILM PACKET SL SCH (10:15)
[2022-09-30] MEDS ORDERED: chlordiazePOXIDE HCL 10 MG CAPSULE PO ONE (05:00)
== END 2022-09-29 11:35 | disposition home or self-care (01) | DRG 897 ==
LOC: YASAS 09:09 → Y3N 10:46
PROVIDERS: ADMIT Allergy & Immunology; ATTEND Surgery
PROC: HZ2ZZZZ Detoxification Services for Substance Abuse Treatment (ICD-10-PCS; principal; 2022-09-27)
DX: F10.230 Alcohol dependence with withdrawal, uncomplicated (principal); F11.20 Opioid dependence, uncomplicated; F17.210 Nicotine dependence, cigarettes, uncomplicated; E05.90 Thyrotoxicosis, unspecified without thyrotoxic crisis or storm; E78.1 Pure hyperglyceridemia; E78.00 Pure hypercholesterolemia, unspecified; M54.50 Low back pain, unspecified; G89.29 Other chronic pain; R94.31 Abnormal electrocardiogram [ECG] [EKG]; I45.81 Long QT syndrome
CPT/HCPCS: 36415; 80053; 82140; 85027; 86780; 93005; 93010; C9803-CS; U0003; U0005

== ENCOUNTER 2022-11-23 15:30 | Inpatient (IN) | payer OTHER ==
[2022-11-23 16:00] VITALS: BMI 29.2
[2022-11-23] MEDS ORDERED: IBUPROFEN 600 MG TABLET (FP) PO PRN (16:37)
[2022-11-23] MEDS ORDERED: METHOCARBAMOL 500 MG TABLET PO PRN (16:37)
[2022-11-23] MEDS ORDERED: hydrOXYzine PAMOATE 25 MG CAPSULE (FP) PO PRN (16:37)
[2022-11-23] MEDS ORDERED: BISMUTH SUBSALICYLATE 524 MG/30 ML PO PRN (16:37)
[2022-11-23] MEDS ORDERED: POLYETHYLENE GLYCOL (HEALTHYLAX) 3350 17 GM PACKET PO PRN (16:37)
[2022-11-23] MEDS ORDERED: diazePAM 5 MG TABLET PO PRN (16:37)
[2022-11-23] MEDS ORDERED: IBUPROFEN 400 MG TABLET (FP) PO PRN (16:37)
[2022-11-23] MEDS ORDERED: DICYCLOMINE HCL 10 MG CAPSULE PO PRN (16:37)
[2022-11-23] MEDS ORDERED: NALOXONE HCL 0.4 MG/ML VIAL IM PRN (16:37)
[2022-11-23] MEDS ORDERED: BENZOCAINE/MENTHOL (CHLORASEPTIC ) LOZENGE MM PRN (16:37)
[2022-11-23] MEDS ORDERED: ONDANSETRON *ODT* 4 MG TABLET SL PRN (16:37)
[2022-11-23] MEDS ORDERED: NALOXONE HCL (KLOXXADO) 8 MG SPRAY NS PRN (16:37)
[2022-11-23] MEDS ORDERED: LOPERAMIDE HCL 2 MG CAPSULE PO PRN (16:37)
[2022-11-23] MEDS ORDERED: ACETAMINOPHEN 325 MG TABLET (FP) PO PRN (16:37)
[2022-11-23] MEDS ORDERED: MAGNESIUM HYDROX 2400MG/30ML ORAL SUSPENSION 30 ML CUP PO PRN (16:37)
[2022-11-23] MEDS ORDERED: MAG HYDROX/AL HYDROX/SIMETH 30 ML UNIT-DOSE CUP PO PRN (16:37)
[2022-11-23] MEDS ORDERED: NICOTINE POLACRILEX 2 MG GUM BUC PRN (16:37)
[2022-11-23] MEDS ORDERED: guaiFENesin 600 MG TABLET.ER (FP) PO PRN (16:37)
[2022-11-23] MEDS ORDERED: BENZONATATE 200 MG CAPSULE PO PRN (16:37)
[2022-11-23] MEDS: diazePAM 5 MG TABLET PO SCH ×2 (17:50→23:10)
[2022-11-23] MEDS ORDERED: MELATONIN 5 MG TABLETS PO SCH (22:00)
[2022-11-23] MEDS: ATORVASTATIN CA 40 MG TABLET (FP) PO SCH (23:10)
[2022-11-23] MEDS: THIAMINE HCL 100 MG TABLET (FP) PO SCH (23:11)
[2022-11-24] MEDS: diazePAM 5 MG TABLET PO SCH ×4 (05:18→21:11)
[2022-11-24] MEDS ORDERED: NICOTINE 7 MG/24 HOURS TOPICAL PATCH TD SCH (10:00)
[2022-11-24] MEDS ORDERED: PRENATAL VITAMINS W/ FOLIC ACID TABLET (FP) PO SCH (10:00)
[2022-11-24] MEDS ORDERED: ASPIRIN 81 MG CHEWABLE TABLETS PO SCH (10:00)
[2022-11-24] MEDS ORDERED: BUPRENORPHINE/NALOXONE 8 MG/2 MG FILM PACKET SL SCH (10:00)
[2022-11-24] MEDS ORDERED: NICOTINE 21 MG/24 HOURS TOPICAL PATCH TD SCH (10:30)
[2022-11-24] MEDS ORDERED: ASPIRIN 81 MG CHEWABLE TABLETS PO ONE (12:36)
[2022-11-24 13:40] VITALS: BP 154/87; PULSE 113; RESP 18; TEMP 96.9
[2022-11-24] MEDS ORDERED: SUVOREXANT 5 MG TABLET PO PRN (22:00)
[2022-11-24] MEDS: ATORVASTATIN CA 40 MG TABLET (FP) PO SCH (22:11)
[2022-11-24] MEDS: THIAMINE HCL 100 MG TABLET (FP) PO SCH (22:11)
[2022-11-25] MEDS ORDERED: diazePAM 5 MG TABLET PO SCH (06:00)
[2022-11-26] MEDS ORDERED: diazePAM 5 MG TABLET PO SCH (06:00)
[2022-11-27] MEDS ORDERED: diazePAM 5 MG TABLET PO ONE (06:00)
== END 2022-11-25 06:55 | disposition short-term general hospital (02) | DRG 897 ==
LOC: YASAS 15:30 → Y6N 16:42
PROVIDERS: ADMIT Allergy & Immunology; ATTEND Surgery
PROC: HZ2ZZZZ Detoxification Services for Substance Abuse Treatment (ICD-10-PCS; principal; 2022-11-23)
DX: F10.230 Alcohol dependence with withdrawal, uncomplicated (principal); F11.20 Opioid dependence, uncomplicated; F17.210 Nicotine dependence, cigarettes, uncomplicated; F32.9 Major depressive disorder, single episode, unspecified; E78.1 Pure hyperglyceridemia; E05.90 Thyrotoxicosis, unspecified without thyrotoxic crisis or storm; R07.9 Chest pain, unspecified; I49.9 Cardiac arrhythmia, unspecified; R26.89 Other abnormalities of gait and mobility
CPT/HCPCS: 87811; 93005; 93010; C9803-CS; Q0162; U0003; U0005

== ENCOUNTER 2022-11-24 13:37 | Observation (INO) | payer OTHER ==
[2022-11-24 13:54] VITALS: BMI 30.1
[2022-11-24] MEDS ORDERED: chlordiazePOXIDE HCL 25 MG CAPSULE PO ONE (14:14)
[2022-11-24] MEDS ORDERED: LORazepam 2 MG/ML SDV VIAL IVPUSH ONE (14:14)
[2022-11-24] MEDS ORDERED: chlordiazePOXIDE HCL 25 MG CAPSULE ONE (14:19)
[2022-11-24] MEDS ORDERED: LACTATED RINGERS SOLUTION 1000 ML INFUS.BAG IV ONE (14:33)
[2022-11-24 14:58] LABS: BASO % 1.1 % (0-2.0); EOS % 2.3 % (0-4.5); HEMATOCRIT 39.9 % (32.4-45.2); HEMOGLOBIN 13.5 GM/dL (10.7-15.3); LYMPH % 26.1 % (8-40); MCH 28.3 pg (25.7-33.7); MCHC 33.9 g/dl (32.0-36.0); MEAN CELL VOLUME 83.5 fl (80-96); MEAN PLT VOLUME 8.7 fl (7.5-11.1); MONO % 6.6 % (3.8-10.2); NEUT % 63.9 % (42.8-82.8); PLATELET COUNT 227 10^3/uL (134-434); RBC 4.78 M/mm3 (3.60-5.2); RDW 15.7 % (11.6-15.6); WHITE BLOOD COUNT 9.3 K/mm3 (4.0-10.0)
[2022-11-24 15:06] LABS: INR 1.17 (0.83-1.09); PROTHROMBIN TIME (PATIENT) 13.5 SEC (9.7-13.0)
[2022-11-24 15:08] LABS: ACTIVATED PTT 31.8 SECONDS (25.2-36.5)
[2022-11-24 15:34] LABS: ALBUMIN 3.8 g/dl (3.4-5.0); BLOOD UREA NITROGEN 10.6 mg/dL (7-18); CALCIUM 8.9 mg/dL (8.5-10.1)
[2022-11-24 15:37] LABS: CREATININE 0.9 mg/dL (0.55-1.3)
[2022-11-24 15:39] LABS: BILIRUBIN,TOTAL 1.3 mg/dL (0.2-1); TOT PROT 7.2 g/dl (6.4-8.2)
[2022-11-24] MEDS ORDERED: diazePAM 5 MG TABLET PO PRN (17:04)
[2022-11-24] MEDS ORDERED: diazePAM CARPU-JECT 10 MG/2 ML DISP.SYRIN IVPUSH PRN (17:05)
[2022-11-24] MEDS ORDERED: TRIMETHOBENZAMIDE HCL 200MG/2ML INJ IM PRN (17:06)
[2022-11-24] MEDS ORDERED: THIAMINE HCL 200 MG/2 ML VIAL IVPB ONE (17:15)
[2022-11-24] MEDS ORDERED: THIAMINE HCL 200 MG/2 ML VIAL ONE (17:58)
[2022-11-24] MEDS ORDERED: metoPROLOL SUCCINATE 25 MG TAB.SR.24H (FP) PO ONE (17:58)
[2022-11-24] MEDS: metoPROLOL SUCCINATE 25 MG TAB.SR.24H (FP) PO SCH (18:04)
[2022-11-24] MEDS ORDERED: diazePAM CARPU-JECT 10 MG/2 ML DISP.SYRIN ONE (18:42)
[2022-11-24] MEDS: diazePAM 5 MG TABLET PO PRN (20:53)
[2022-11-24] MEDS ORDERED: ATORVASTATIN CA 40 MG TABLET (FP) PO SCH (22:00)
[2022-11-24] MEDS: diazePAM 5 MG TABLET PO SCH (23:06)
[2022-11-25] MEDS: diazePAM 5 MG TABLET PO SCH ×2 (06:26→14:43)
[2022-11-25 08:42] LABS: EOS % 8.6 % (0-4.5); HEMATOCRIT 37.7 % (32.4-45.2); HEMOGLOBIN 12.8 GM/dL (10.7-15.3); LYMPH % 34.1 % (8-40); MCH 28.6 pg (25.7-33.7); MCHC 33.8 g/dl (32.0-36.0); MEAN CELL VOLUME 84.5 fl (80-96); MEAN PLT VOLUME 8.8 fl (7.5-11.1); MONO % 6.2 % (3.8-10.2); NEUT % 50.1 % (42.8-82.8); PLATELET COUNT 194 10^3/uL (134-434); RBC 4.47 M/mm3 (3.60-5.2); RDW 15.8 % (11.6-15.6); WHITE BLOOD COUNT 6.6 K/mm3 (4.0-10.0)
[2022-11-25 09:01] LABS: MAGNESIUM 2.1 mg/dL (1.8-2.4)
[2022-11-25 09:04] LABS: PHOSPHOROUS 3.2 mg/dL (2.5-4.9)
[2022-11-25] MEDS: FOLIC ACID 1 MG TABLET (FP) PO SCH (09:34)
[2022-11-25] MEDS: THIAMINE HCL 100 MG TABLET (FP) PO SCH (09:34)
[2022-11-25] MEDS: metoPROLOL SUCCINATE 25 MG TAB.SR.24H (FP) PO SCH (09:34)
[2022-11-25] MEDS: NICOTINE 21 MG/24 HOURS TOPICAL PATCH TD SCH (09:35)
[2022-11-25] MEDS: ENOXAPARIN NA (PORCINE) 40 MG/0.4 ML DISP.SYRIN SQ SCH (09:35)
[2022-11-25] MEDS: diazePAM 5 MG TABLET PO PRN (10:09)
[2022-11-25] MEDS: VENLAFAXINE HCL 75 MG E.R. CAPSULES PO SCH (11:26)
[2022-11-25 12:02] LABS: POTASSIUM 3.9 mmol/L (3.5-5.1)
[2022-11-25 12:05] LABS: ALBUMIN 3.4 g/dl (3.4-5.0); BLOOD UREA NITROGEN 7.4 mg/dL (7-18); CALCIUM 8.7 mg/dL (8.5-10.1)
[2022-11-25 12:08] LABS: CREATININE 0.8 mg/dL (0.55-1.3)
[2022-11-25 12:10] LABS: BILIRUBIN,TOTAL 1.1 mg/dL (0.2-1); TOT PROT 6.5 g/dl (6.4-8.2)
[2022-11-25] MEDS: BUPRENORPHINE/NALOXONE 8 MG/2 MG FILM PACKET SL SCH (12:15)
[2022-11-25] MEDS ORDERED: LORazepam 1 MG TABLET PO PRN (14:55)
[2022-11-25] MEDS: FAMOTIDINE 20 MG/50 ML IVPB 20 MG/50 ML MG IVPB SCH (16:22)
[2022-11-25] MEDS: LORazepam 1 MG TABLET PO SCH (16:22)
[2022-11-25] MEDS: PANTOPRAZOLE SODIUM 40 MG VIAL IVPUSH SCH (16:22)
[2022-11-25] MEDS ORDERED: diazePAM 5 MG TABLET PO SCH (22:00)
[2022-11-26] MEDS: LORazepam 1 MG TABLET PO SCH ×3 (00:51→11:15)
[2022-11-26] MEDS ORDERED: diazePAM 5 MG TABLET PO SCH (06:00)
[2022-11-26 06:29] LABS: EOS % 8.9 % (0-4.5); HEMATOCRIT 35.6 % (32.4-45.2); LYMPH % 43.8 % (8-40); MCH 28.6 pg (25.7-33.7); MCHC 33.7 g/dl (32.0-36.0); MEAN CELL VOLUME 84.8 fl (80-96); MEAN PLT VOLUME 8.8 fl (7.5-11.1); MONO % 5.5 % (3.8-10.2); NEUT % 40.8 % (42.8-82.8); PLATELET COUNT 179 10^3/uL (134-434); RDW 15.5 % (11.6-15.6); WHITE BLOOD COUNT 5.8 K/mm3 (4.0-10.0)
[2022-11-26 06:40] LABS: POTASSIUM 4.2 mmol/L (3.5-5.1)
[2022-11-26 06:45] LABS: CALCIUM 8.7 mg/dL (8.5-10.1)
[2022-11-26 06:46] LABS: ALBUMIN 3.1 g/dl (3.4-5.0); BLOOD UREA NITROGEN 8.6 mg/dL (7-18); MAGNESIUM 1.9 mg/dL (1.8-2.4)
[2022-11-26 06:48] LABS: CREATININE 0.7 mg/dL (0.55-1.3)
[2022-11-26 06:49] LABS: PHOSPHOROUS 3.1 mg/dL (2.5-4.9)
[2022-11-26 06:50] LABS: BILIRUBIN,TOTAL 0.8 mg/dL (0.2-1); TOT PROT 6.1 g/dl (6.4-8.2)
[2022-11-26] MEDS: BUPRENORPHINE/NALOXONE 8 MG/2 MG FILM PACKET SL SCH (09:51)
[2022-11-26] MEDS: NICOTINE 21 MG/24 HOURS TOPICAL PATCH TD SCH (09:51)
[2022-11-26] MEDS: THIAMINE HCL 100 MG TABLET (FP) PO SCH (09:52)
[2022-11-26] MEDS: metoPROLOL SUCCINATE 25 MG TAB.SR.24H (FP) PO SCH (09:52)
[2022-11-26] MEDS: FOLIC ACID 1 MG TABLET (FP) PO SCH (09:52)
[2022-11-26] MEDS: ENOXAPARIN NA (PORCINE) 40 MG/0.4 ML DISP.SYRIN SQ SCH (09:52)
[2022-11-26] MEDS: VENLAFAXINE HCL 75 MG E.R. CAPSULES PO SCH (09:53)
[2022-11-26] MEDS: FAMOTIDINE 20 MG/50 ML IVPB 20 MG/50 ML MG IVPB SCH (09:54)
[2022-11-26] MEDS: PANTOPRAZOLE SODIUM 40 MG VIAL IVPUSH SCH (09:54)
[2022-11-26 15:11] VITALS: BP 115/74; PULSE 74; RESP 18; TEMP 98.6
[2022-11-27] MEDS ORDERED: LORazepam 1 MG TABLET PO SCH (05:00)
[2022-11-27] MEDS ORDERED: diazePAM 5 MG TABLET PO ONE (06:00)
[2022-11-27] MEDS ORDERED: diazePAM 5 MG TABLET PO SCH (06:00)
[2022-11-27] MEDS ORDERED: PANTOPRAZOLE 40 MG TABLET PO SCH (10:00)
[2022-11-28] MEDS ORDERED: LORazepam 0.5 MG TABLET PO PRN
[2022-11-28] MEDS ORDERED: LORazepam 0.5 MG TABLET PO SCH (05:00)
[2022-11-28] MEDS ORDERED: diazePAM 5 MG TABLET PO ONE (06:00)
[2022-11-29] MEDS ORDERED: LORazepam 0.5 MG TABLET PO ONE (05:00)
== END 2022-11-26 15:52 | disposition other institution (70) ==
LOC: JER 13:37 → JERBED 16:34 → J4S 20:03
PROVIDERS: ADMIT Internal Medicine; ATTEND Internal Medicine
PROC: 3E033NZ Introduction of Analgesics, Hypnotics, Sedatives into Peripheral Vein, Percutaneous Approach (ICD-10-PCS; principal; 2022-11-24)
PROC: 3E023GC Introduction of Other Therapeutic Substance into Muscle, Percutaneous Approach (ICD-10-PCS; 2022-11-24)
PROC: 3E0337Z Introduction of Electrolytic and Water Balance Substance into Peripheral Vein, Percutaneous Approach (ICD-10-PCS; 2022-11-24)
PROC: 3E033GC Introduction of Other Therapeutic Substance into Peripheral Vein, Percutaneous Approach (ICD-10-PCS; 2022-11-24)
DX: K29.20 Alcoholic gastritis without bleeding (principal); R94.5 Abnormal results of liver function studies; F10.99 Alcohol use, unspecified with unspecified alcohol-induced disorder; F41.8 Other specified anxiety disorders; R07.9 Chest pain, unspecified; R10.9 Unspecified abdominal pain; F11.90 Opioid use, unspecified, uncomplicated; I67.1 Cerebral aneurysm, nonruptured
CPT/HCPCS: 0241U-QW; 36415; 71045-TC-FY; 76705-TC; 80053; 80307; 82550; 82553; 83690; 83735; 84100; 84443; 84484; 85025; 85610; 85730; 86705; 87340; 87517; 87522; 93005; 93010; 93306-TC; 96372; 96374; 96375; 97116-GP; 97161-GP; 99285-25; G0378

== ENCOUNTER 2023-01-19 18:32 | Inpatient (IN) | payer OTHER ==
[2023-01-19 14:38] VITALS: BMI 29.7
[2023-01-19] MEDS ORDERED: chlordiazePOXIDE HCL 25 MG CAPSULE PO ONE (19:05)
[2023-01-19] MEDS ORDERED: chlordiazePOXIDE HCL 25 MG CAPSULE ONE ×2 (19:09→21:47)
[2023-01-19] MEDS ORDERED: NICOTINE 21 MG/24 HOURS TOPICAL PATCH TD SCH (19:45)
[2023-01-19] MEDS ORDERED: hydrOXYzine PAMOATE 25 MG CAPSULE (FP) PO ONE ×2 (19:58→20:19)
[2023-01-19] MEDS ORDERED: METOPROLOL TARTRATE 25 MG TABLET (FP) PO ONE (19:58)
[2023-01-19] MEDS ORDERED: MAGNESIUM HYDROX 2400MG/30ML ORAL SUSPENSION 30 ML CUP PO PRN (20:10)
[2023-01-19] MEDS ORDERED: hydrOXYzine PAMOATE 25 MG CAPSULE (FP) PO PRN (20:10)
[2023-01-19] MEDS ORDERED: MAG HYDROX/AL HYDROX/SIMETH 30 ML UNIT-DOSE CUP PO PRN (20:10)
[2023-01-19] MEDS ORDERED: IBUPROFEN 600 MG TABLET (FP) PO PRN (20:10)
[2023-01-19] MEDS ORDERED: ONDANSETRON *ODT* 4 MG TABLET SL PRN (20:10)
[2023-01-19] MEDS ORDERED: BENZONATATE 200 MG CAPSULE PO PRN (20:10)
[2023-01-19] MEDS ORDERED: IBUPROFEN 400 MG TABLET (FP) PO PRN (20:10)
[2023-01-19] MEDS ORDERED: BENZOCAINE/MENTHOL (CHLORASEPTIC ) LOZENGE MM PRN (20:10)
[2023-01-19] MEDS ORDERED: ACETAMINOPHEN 325 MG TABLET (FP) PO PRN (20:10)
[2023-01-19] MEDS ORDERED: NICOTINE POLACRILEX 2 MG GUM BUC PRN (20:10)
[2023-01-19] MEDS ORDERED: P-EPHED 60MG/TRIPROLIDI 2.5MG TABLET PO PRN (20:10)
[2023-01-19] MEDS ORDERED: LOPERAMIDE HCL 2 MG CAPSULE PO PRN (20:10)
[2023-01-19] MEDS ORDERED: DICYCLOMINE HCL 10 MG CAPSULE PO PRN (20:10)
[2023-01-19] MEDS ORDERED: POLYETHYLENE GLYCOL (HEALTHYLAX) 3350 17 GM PACKET PO PRN (20:10)
[2023-01-19] MEDS ORDERED: BISMUTH SUBSALICYLATE 524 MG/30 ML PO PRN (20:10)
[2023-01-19] MEDS ORDERED: guaiFENesin 600 MG TABLET.ER (FP) PO PRN (20:10)
[2023-01-19] MEDS ORDERED: chlordiazePOXIDE HCL 25 MG CAPSULE PO PRN (20:12)
[2023-01-19] MEDS ORDERED: METOPROLOL TARTRATE 25 MG TABLET (FP) ONE (20:19)
[2023-01-19] MEDS: NICOTINE 21 MG/24 HOURS TOPICAL PATCH TD SCH (21:01)
[2023-01-19] MEDS: THIAMINE HCL 100 MG TABLET (FP) PO SCH (22:05)
[2023-01-19] MEDS: chlordiazePOXIDE HCL 25 MG CAPSULE PO SCH (22:06)
[2023-01-19] MEDS: ATORVASTATIN CA 40 MG TABLET (FP) PO SCH (22:33)
[2023-01-20] MEDS: chlordiazePOXIDE HCL 25 MG CAPSULE PO SCH ×4 (05:50→22:58)
[2023-01-20] MEDS ORDERED: ASPIRIN 81 MG CHEWABLE TABLETS ONE (08:40)
[2023-01-20] MEDS ORDERED: NITROGLYCERIN SUBLINGUAL 1/150 0.4 MG TAB ONE (08:55)
[2023-01-20 08:57] VITALS: TEMP 96.6
[2023-01-20 09:03] VITALS: BP 123/68; PULSE 105; RESP 16
[2023-01-20] MEDS ORDERED: ASPIRIN 81 MG CHEWABLE TABLETS PO ONE (09:04)
[2023-01-20] MEDS ORDERED: NITROGLYCERIN SUBLINGUAL 1/150 0.4 MG TAB SL PRN (09:05)
[2023-01-20] MEDS: NICOTINE 21 MG/24 HOURS TOPICAL PATCH TD SCH (09:54)
[2023-01-20] MEDS ORDERED: FOLIC ACID 1 MG TABLET (FP) PO SCH (10:00)
[2023-01-20] MEDS ORDERED: PRENATAL VITAMINS W/ FOLIC ACID TABLET (FP) PO SCH (10:00)
[2023-01-20] MEDS ORDERED: ASPIRIN 81 MG CHEWABLE TABLETS PO SCH (10:00)
[2023-01-20] MEDS: THIAMINE HCL 100 MG TABLET (FP) PO SCH (22:57)
[2023-01-20] MEDS: ATORVASTATIN CA 40 MG TABLET (FP) PO SCH (22:57)
[2023-01-21] MEDS ORDERED: chlordiazePOXIDE HCL 25 MG CAPSULE PO SCH (05:00)
[2023-01-22] MEDS ORDERED: chlordiazePOXIDE HCL 10 MG CAPSULE PO PRN
[2023-01-22] MEDS ORDERED: chlordiazePOXIDE HCL 10 MG CAPSULE PO SCH (05:00)
[2023-01-23] MEDS ORDERED: chlordiazePOXIDE HCL 10 MG CAPSULE PO SCH (05:00)
[2023-01-24] MEDS ORDERED: chlordiazePOXIDE HCL 10 MG CAPSULE PO ONE (05:00)
== END 2023-01-20 23:14 | disposition short-term general hospital (02) | DRG 897 ==
LOC: YASAS 18:32 → Y3N 21:01
PROVIDERS: ADMIT Allergy & Immunology; ATTEND Surgery
PROC: HZ2ZZZZ Detoxification Services for Substance Abuse Treatment (ICD-10-PCS; principal; 2023-01-19)
DX: F10.230 Alcohol dependence with withdrawal, uncomplicated (principal); F11.20 Opioid dependence, uncomplicated; F17.210 Nicotine dependence, cigarettes, uncomplicated; R07.9 Chest pain, unspecified; R11.0 Nausea; Z86.73 Personal history of transient ischemic attack (TIA), and cerebral infarction without residual deficits; Z86.79 Personal history of other diseases of the circulatory system
CPT/HCPCS: 87635; 87811; 93005; 93010

== ENCOUNTER 2023-01-20 09:53 | Observation (INO) | payer OTHER ==
[2023-01-20] MEDS ORDERED: chlordiazePOXIDE HCL 25 MG CAPSULE PO ONE ×2 (10:24→13:04)
[2023-01-20 10:25] VITALS: BMI 29.7
[2023-01-20] MEDS ORDERED: chlordiazePOXIDE HCL 25 MG CAPSULE ONE ×4 (10:27→22:59)
[2023-01-20 11:58] LABS: BASO % 1.3 % (0-2.0); EOS % 3.8 % (0-4.5); HEMATOCRIT 44.6 % (32.4-45.2); HEMOGLOBIN 14.1 GM/dL (10.7-15.3); LYMPH % 24.5 % (8-40); MCH 27.2 pg (25.7-33.7); MCHC 31.6 g/dl (32.0-36.0); MEAN CELL VOLUME 86.1 fl (80-96); MEAN PLT VOLUME 8.6 fl (7.5-11.1); MONO % 4.9 % (3.8-10.2); NEUT % 65.5 % (42.8-82.8); PLATELET COUNT 274 10^3/uL (134-434); RBC 5.18 M/mm3 (3.60-5.2); RDW 15.3 % (11.6-15.6); WHITE BLOOD COUNT 12.8 K/mm3 (4.0-10.0)
[2023-01-20 12:29] LABS: POTASSIUM 4.7 mmol/L (3.5-5.1)
[2023-01-20 12:31] LABS: CALCIUM 9.8 mg/dL (8.5-10.1)
[2023-01-20 12:32] LABS: ALBUMIN 3.6 g/dl (3.4-5.0); BLOOD UREA NITROGEN 7.9 mg/dL (7-18)
[2023-01-20 12:35] LABS: CREATININE 0.8 mg/dL (0.55-1.3)
[2023-01-20 12:37] LABS: BILIRUBIN,TOTAL 0.8 mg/dL (0.2-1); TOT PROT 7.2 g/dl (6.4-8.2)
[2023-01-20] MEDS ORDERED: NICOTINE 21 MG/24 HOURS TOPICAL PATCH ONE (13:45)
[2023-01-20] MEDS ORDERED: hydrOXYzine PAMOATE 25 MG CAPSULE (FP) PO PRN (13:53)
[2023-01-20] MEDS ORDERED: NICOTINE 21 MG/24 HOURS TOPICAL PATCH TD SCH (14:00)
[2023-01-20] MEDS ORDERED: chlordiazePOXIDE HCL 25 MG CAPSULE PO PRN (14:03)
[2023-01-20] MEDS ORDERED: VENLAFAXINE HCL 75 MG E.R. CAPSULES PO SCH (14:30)
[2023-01-20 15:21] LABS: MAGNESIUM 2.5 mg/dL (1.8-2.4)
[2023-01-20] MEDS ORDERED: THIAMINE HCL 100 MG TABLET (FP) ONE (15:22)
[2023-01-20] MEDS ORDERED: VENLAFAXINE HCL 75 MG TABLET ONE (15:22)
[2023-01-20] MEDS ORDERED: FOLIC ACID 1 MG TABLET (FP) ONE (15:23)
[2023-01-20 15:24] LABS: PHOSPHOROUS 3.8 mg/dL (2.5-4.9)
[2023-01-20] MEDS: THIAMINE HCL 100 MG TABLET (FP) PO SCH (15:29)
[2023-01-20] MEDS: FOLIC ACID 1 MG TABLET (FP) PO SCH (15:29)
[2023-01-20] MEDS: chlordiazePOXIDE HCL 25 MG CAPSULE PO SCH ×2 (16:10→23:26)
[2023-01-20] MEDS ORDERED: chlordiazePOXIDE HCL 25 MG CAPSULE PO SCH (17:00)
[2023-01-20] MEDS: metoPROLOL SUCCINATE 25 MG TAB.SR.24H (FP) PO SCH (17:14)
[2023-01-20] MEDS ORDERED: LORazepam 2 MG/ML SDV VIAL IVPUSH ONE (17:29)
[2023-01-20] MEDS ORDERED: BUPRENORPHINE/NALOXONE 8 MG/2 MG FILM PACKET SL SCH ×2 (22:00)
[2023-01-20] MEDS ORDERED: ATORVASTATIN CA 40 MG TABLET (FP) PO SCH (22:00)
[2023-01-20] MEDS ORDERED: ATORVASTATIN CA 40 MG TABLET (FP) ONE (22:59)
[2023-01-21 05:43] VITALS: PULSE 81
[2023-01-21] MEDS: chlordiazePOXIDE HCL 25 MG CAPSULE PO SCH (06:13)
[2023-01-21 07:11] LABS: BASO % 1.3 % (0-2.0); EOS % 5.6 % (0-4.5); HEMATOCRIT 39.3 % (32.4-45.2); HEMOGLOBIN 12.7 GM/dL (10.7-15.3); LYMPH % 29.7 % (8-40); MCH 27.6 pg (25.7-33.7); MCHC 32.4 g/dl (32.0-36.0); MEAN CELL VOLUME 85.4 fl (80-96); MEAN PLT VOLUME 9.1 fl (7.5-11.1); MONO % 5.3 % (3.8-10.2); NEUT % 58.1 % (42.8-82.8); PLATELET COUNT 228 10^3/uL (134-434); RBC 4.61 M/mm3 (3.60-5.2); RDW 15.2 % (11.6-15.6); WHITE BLOOD COUNT 8.5 K/mm3 (4.0-10.0)
[2023-01-21 07:26] LABS: POTASSIUM 4.1 mmol/L (3.5-5.1)
[2023-01-21 07:39] LABS: BILIRUBIN,TOTAL 0.7 mg/dL (0.2-1); TOT PROT 6.3 g/dl (6.4-8.2)
[2023-01-21 07:43] LABS: CREATININE 0.7 mg/dL (0.55-1.3)
[2023-01-21 07:44] LABS: ALBUMIN 3.3 g/dl (3.4-5.0); BLOOD UREA NITROGEN 9.1 mg/dL (7-18)
[2023-01-21 07:46] LABS: CALCIUM 9.2 mg/dL (8.5-10.1); MAGNESIUM 2.2 mg/dL (1.8-2.4)
[2023-01-21] MEDS: FOLIC ACID 1 MG TABLET (FP) PO SCH (09:09)
[2023-01-21] MEDS: metoPROLOL SUCCINATE 25 MG TAB.SR.24H (FP) PO SCH ×2 (09:09→09:18)
[2023-01-21] MEDS: THIAMINE HCL 100 MG TABLET (FP) PO SCH (09:09)
[2023-01-21] MEDS ORDERED: NICOTINE 21 MG/24 HOURS TOPICAL PATCH TD SCH (10:00)
[2023-01-21] MEDS ORDERED: ASPIRIN COATED 81 MG TABLET.EC PO SCH (10:00)
[2023-01-21] MEDS ORDERED: chlordiazePOXIDE HCL 25 MG CAPSULE PO SCH (11:00)
[2023-01-21 11:04] VITALS: BP 121/74; RESP 18; TEMP 97.8
[2023-01-21] MEDS ORDERED: NICOTINE 21 MG/24 HOURS TOPICAL PATCH TD ONE (13:26)
[2023-01-22] MEDS ORDERED: chlordiazePOXIDE HCL 10 MG CAPSULE PO PRN
[2023-01-22] MEDS ORDERED: chlordiazePOXIDE HCL 10 MG CAPSULE PO SCH (05:00)
[2023-01-23] MEDS ORDERED: chlordiazePOXIDE HCL 10 MG CAPSULE PO SCH (05:00)
[2023-01-24] MEDS ORDERED: chlordiazePOXIDE HCL 10 MG CAPSULE PO ONE (05:00)
== END 2023-01-21 09:41 | disposition other institution (70) ==
LOC: JER 09:53 → JERBED 13:49 → J4W 01-21 00:26
PROVIDERS: ADMIT Internal Medicine; ATTEND Internal Medicine
DX: R07.9 Chest pain, unspecified (principal); F10.99 Alcohol use, unspecified with unspecified alcohol-induced disorder; E05.90 Thyrotoxicosis, unspecified without thyrotoxic crisis or storm; F32.A Depression, unspecified; E78.5 Hyperlipidemia, unspecified; G89.29 Other chronic pain; M54.50 Low back pain, unspecified
CPT/HCPCS: 36415; 71045-TC-FY; 80053; 83735; 84100; 84439; 84443; 84484; 85025; 93005; 93010; 99285-25; G0378

== ENCOUNTER 2023-01-21 10:03 | Inpatient (IN) | payer OTHER ==
[2023-01-21 10:39] VITALS: BMI 29.7
[2023-01-21] MEDS ORDERED: NICOTINE 10 MG CARTRIDGE (INHALER) IH PRN (10:55)
[2023-01-21] MEDS ORDERED: BENZOCAINE/MENTHOL (CHLORASEPTIC ) LOZENGE MM PRN (10:55)
[2023-01-21] MEDS ORDERED: IBUPROFEN 400 MG TABLET (FP) PO PRN (10:55)
[2023-01-21] MEDS ORDERED: ACETAMINOPHEN 325 MG TABLET (FP) PO PRN (10:55)
[2023-01-21] MEDS ORDERED: NALOXONE HCL 0.4 MG/ML VIAL IM PRN (10:55)
[2023-01-21] MEDS ORDERED: BISMUTH SUBSALICYLATE 524 MG/30 ML PO PRN (10:55)
[2023-01-21] MEDS ORDERED: LOPERAMIDE HCL 2 MG CAPSULE PO PRN (10:55)
[2023-01-21] MEDS ORDERED: NALOXONE HCL (KLOXXADO) 8 MG SPRAY NS PRN (10:55)
[2023-01-21] MEDS ORDERED: POLYETHYLENE GLYCOL (HEALTHYLAX) 3350 17 GM PACKET PO PRN (10:55)
[2023-01-21] MEDS ORDERED: MAG HYDROX/AL HYDROX/SIMETH 30 ML UNIT-DOSE CUP PO PRN (10:55)
[2023-01-21] MEDS ORDERED: guaiFENesin 600 MG TABLET.ER (FP) PO PRN (10:55)
[2023-01-21] MEDS ORDERED: BENZONATATE 200 MG CAPSULE PO PRN (10:55)
[2023-01-21] MEDS ORDERED: IBUPROFEN 600 MG TABLET (FP) PO PRN (10:55)
[2023-01-21] MEDS ORDERED: MAGNESIUM HYDROX 2400MG/30ML ORAL SUSPENSION 30 ML CUP PO PRN (10:55)
[2023-01-21] MEDS ORDERED: LORazepam 1 MG TABLET PO PRN (10:55)
[2023-01-21] MEDS ORDERED: ONDANSETRON *ODT* 4 MG TABLET SL PRN (10:55)
[2023-01-21] MEDS ORDERED: DICYCLOMINE HCL 10 MG CAPSULE PO PRN (10:55)
[2023-01-21] MEDS ORDERED: LORazepam 2 MG TABLET PO ONE (11:15)
[2023-01-21] MEDS ORDERED: LORazepam 2 MG TABLET ONE (11:24)
[2023-01-21] MEDS: PRENATAL VITAMINS W/ FOLIC ACID TABLET (FP) PO SCH (11:25)
[2023-01-21] MEDS: NICOTINE 21 MG/24 HOURS TOPICAL PATCH TD SCH (11:25)
[2023-01-21] MEDS ORDERED: PRENATAL VITAMINS W/ FOLIC ACID TABLET (FP) PO ONE (11:28)
[2023-01-21] MEDS ORDERED: NICOTINE 21 MG/24 HOURS TOPICAL PATCH ONE (11:28)
[2023-01-21] MEDS: BUPRENORPHINE/NALOXONE 8 MG/2 MG FILM PACKET SL SCH (12:13)
[2023-01-21] MEDS: LORazepam 2 MG TABLET PO SCH ×2 (17:55→22:36)
[2023-01-21] MEDS: THIAMINE HCL 100 MG TABLET (FP) PO SCH (22:36)
[2023-01-21] MEDS: MELATONIN 5 MG TABLETS PO SCH (22:36)
[2023-01-21] MEDS: ATORVASTATIN CA 40 MG TABLET (FP) PO SCH (22:37)
[2023-01-22] MEDS: LORazepam 2 MG TABLET PO SCH ×4 (05:48→22:55)
[2023-01-22] MEDS: hydrOXYzine PAMOATE 25 MG CAPSULE (FP) PO PRN (06:13)
[2023-01-22] MEDS: METHOCARBAMOL 500 MG TABLET PO PRN (06:13)
[2023-01-22] MEDS: PRENATAL VITAMINS W/ FOLIC ACID TABLET (FP) PO SCH (10:39)
[2023-01-22] MEDS: BUPRENORPHINE/NALOXONE 8 MG/2 MG FILM PACKET SL SCH (10:39)
[2023-01-22] MEDS: metoPROLOL SUCCINATE 25 MG TAB.SR.24H (FP) PO SCH (10:39)
[2023-01-22] MEDS: ASPIRIN COATED 81 MG TABLET.EC PO SCH (10:39)
[2023-01-22] MEDS: NICOTINE 21 MG/24 HOURS TOPICAL PATCH TD SCH (10:39)
[2023-01-22] MEDS: MELATONIN 5 MG TABLETS PO SCH (22:55)
[2023-01-22] MEDS: THIAMINE HCL 100 MG TABLET (FP) PO SCH (22:55)
[2023-01-22] MEDS: ATORVASTATIN CA 40 MG TABLET (FP) PO SCH (22:55)
[2023-01-23] MEDS: LORazepam 1 MG TABLET PO SCH ×4 (05:45→22:32)
[2023-01-23] MEDS: ASPIRIN COATED 81 MG TABLET.EC PO SCH (10:33)
[2023-01-23] MEDS: metoPROLOL SUCCINATE 25 MG TAB.SR.24H (FP) PO SCH (10:33)
[2023-01-23] MEDS: BUPRENORPHINE/NALOXONE 8 MG/2 MG FILM PACKET SL SCH (10:33)
[2023-01-23] MEDS: PRENATAL VITAMINS W/ FOLIC ACID TABLET (FP) PO SCH (10:34)
[2023-01-23] MEDS: NICOTINE 21 MG/24 HOURS TOPICAL PATCH TD SCH (10:34)
[2023-01-23] MEDS: hydrOXYzine PAMOATE 25 MG CAPSULE (FP) PO PRN (17:40)
[2023-01-23] MEDS: MELATONIN 5 MG TABLETS PO SCH (22:32)
[2023-01-23] MEDS: METHOCARBAMOL 500 MG TABLET PO PRN (22:33)
[2023-01-23] MEDS: ATORVASTATIN CA 40 MG TABLET (FP) PO SCH (22:33)
[2023-01-23] MEDS: THIAMINE HCL 100 MG TABLET (FP) PO SCH (22:34)
[2023-01-24] MEDS ORDERED: LORazepam 0.5 MG TABLET PO PRN
[2023-01-24] MEDS: LORazepam 0.5 MG TABLET PO SCH ×4 (05:09→22:20)
[2023-01-24] MEDS: METHOCARBAMOL 500 MG TABLET PO PRN ×2 (07:51→22:21)
[2023-01-24] MEDS: ASPIRIN COATED 81 MG TABLET.EC PO SCH (10:26)
[2023-01-24] MEDS: NICOTINE 21 MG/24 HOURS TOPICAL PATCH TD SCH (10:26)
[2023-01-24] MEDS: BUPRENORPHINE/NALOXONE 8 MG/2 MG FILM PACKET SL SCH (10:26)
[2023-01-24] MEDS: PRENATAL VITAMINS W/ FOLIC ACID TABLET (FP) PO SCH (10:26)
[2023-01-24] MEDS: metoPROLOL SUCCINATE 25 MG TAB.SR.24H (FP) PO SCH (10:28)
[2023-01-24] MEDS: VENLAFAXINE HCL 75 MG E.R. CAPSULES PO SCH (11:10)
[2023-01-24] MEDS ORDERED: NICOTINE POLACRILEX 2 MG GUM BC PRN (17:53)
[2023-01-24] MEDS: ATORVASTATIN CA 40 MG TABLET (FP) PO SCH (22:20)
[2023-01-24] MEDS: THIAMINE HCL 100 MG TABLET (FP) PO SCH (22:20)
[2023-01-24] MEDS: MELATONIN 5 MG TABLETS PO SCH (22:20)
[2023-01-25] MEDS ORDERED: LORazepam 0.5 MG TABLET PO ONE (05:00)
[2023-01-25] MEDS: ASPIRIN COATED 81 MG TABLET.EC PO SCH (09:21)
[2023-01-25] MEDS: PRENATAL VITAMINS W/ FOLIC ACID TABLET (FP) PO SCH (09:21)
[2023-01-25] MEDS: NICOTINE 21 MG/24 HOURS TOPICAL PATCH TD SCH (09:21)
[2023-01-25] MEDS: VENLAFAXINE HCL 75 MG E.R. CAPSULES PO SCH (09:21)
[2023-01-25] MEDS: BUPRENORPHINE/NALOXONE 8 MG/2 MG FILM PACKET SL SCH (09:22)
[2023-01-25] MEDS: metoPROLOL SUCCINATE 25 MG TAB.SR.24H (FP) PO SCH (09:22)
[2023-01-25 09:26] VITALS: BP 129/65; PULSE 99; RESP 18; TEMP 97.1
== END 2023-01-25 09:23 | disposition home or self-care (01) | DRG 897 ==
LOC: YASAS 10:03 → Y3N 11:25
PROVIDERS: ADMIT Allergy & Immunology; ATTEND Surgery
PROC: HZ2ZZZZ Detoxification Services for Substance Abuse Treatment (ICD-10-PCS; principal; 2023-01-21)
DX: F10.230 Alcohol dependence with withdrawal, uncomplicated (principal); F11.20 Opioid dependence, uncomplicated; F17.210 Nicotine dependence, cigarettes, uncomplicated; F32.9 Major depressive disorder, single episode, unspecified; F41.9 Anxiety disorder, unspecified; E78.5 Hyperlipidemia, unspecified; Z86.73 Personal history of transient ischemic attack (TIA), and cerebral infarction without residual deficits; Z91.148 Patient's other noncompliance with medication regimen for other reason
CPT/HCPCS: 87635; 93005; 93010